=== PATIENT | female | born 1930 | race Two or more races ===

== ENCOUNTER 2016-02-15 14:19 | Emergency (ER) | payer MEDICARE, OTHER ==
--- NOTE | 2016-02-15 14:55 | ER Document Report ---
ED Medical Screen (RME) - General Chief Complaint: Vaginal Bleeding Stated Complaint: VAGINAL BLEEDING Time seen by provider: 14:52 Mode of Arrival: Wheelchair Information source: Patient Notes: 85 yo female c/o vaginal bleeding since , chronic low back pain tx with fx disc injection by dr. rosario on tuesday. Hx kidney stone -chronic. No fever or chills. She is worried that she has urterine cancer. Does not take anticoagulants. TRAVEL OUTSIDE OF THE [place] IN LAST 30 DAYS: No - Related Data Allergies/Adverse Reactions: ciprofloxacin [From Cipro] Allergy (Verified 02/10/16 09:11) Diarrhea, vomiting codeine [Codeine] Allergy (Verified 02/10/16 09:20) diarrhea, vomiting, convulsions diphtheria toxoid,fluid Allergy (Verified 02/10/16 09:22) Rash iodine [Iodine] Allergy (Verified 02/10/16 09:11) diarrhea, vomiting lansoprazole [From Prevacid] Allergy (Verified 02/03/16 14:39) rash latex [Latex] Allergy (Verified 02/03/16 14:39) ITCHY RASH levofloxacin [From Levaquin] Allergy (Verified 02/10/16 09:20) Rash, Diarrhea meloxicam Allergy (Verified 02/10/16 09:22) "symptoms of heart attack" morphine Allergy (Verified 02/10/16 09:22) Chest pain Penicillins Allergy (Verified 02/10/16 09:11) "6 days in coma" Sulfa (Sulfonamide Antibiotics) Allergy (Verified 02/10/16 09:20) Rash Tetanus Vaccines and Toxoid [Tetanus] Allergy (Verified 02/10/16 09:11) convulsions cefdinir [Cefdinir] Adverse Reaction (Intermediate, Verified 02/03/16 14:39) rash MYCINS Allergy (Uncoded 02/03/16 14:39) Past Medical History - Past Medical History Cardiac Medical History: Reports: Hx Congestive Heart Failure, Hx Coronary Artery Disease, Hx DVT, Hx Heart Attack, Hx Hypercholesterolemia, Hx Hypertension Denies: Hx Pulmonary Embolism Pulmonary Medical History: Reports: Hx Asthma, Hx COPD, Hx Pneumonia - x 4 times Denies: Hx Bronchitis, Hx Tuberculosis Neurological Medical History: Reports: Hx Seizures - as baby. Denies: Hx Cerebrovascular Accident Endocrine Medical History: Reports: Hx Diabetes Mellitus Type 1, Hx Diabetes Mellitus Type 2, Hx Hypothyroidism Renal/ Medical History: Reports: Hx Kidney Stones GI Medical History: Reports: Hx Hiatal Hernia. Denies: Hx Hepatitis, Hx Ulcer Musculoskeltal Medical History: Reports Hx Arthritis, Reports Hx Fibromyalgia Psychiatric Medical History: Denies: Hx Depression Infectious Medical History: Denies: Hx Hepatitis Past Surgical History: Reports: Hx Appendectomy, Hx Cholecystectomy, Hx Gynecologic Surgery - Right nephrectomy, Hx Herniorrhaphy, Hx Orthopedic Surgery - L knee, Hx Tonsillectomy, Hx Tubal Ligation, Hx Urinary Tract Surgery - Bladder stone removal. Denies: Hx Cardiac Catheterization, Hx Mastectomy, Hx Open Heart Surgery, Hx Pacemaker - Immunizations Immunizations up to date: Yes Hx Diphtheria, Pertussis, Tetanus Vaccination: Yes - Allergic, "30 years ago" Physical Exam - Vital signs Vitals: Temp Pulse Resp BP Pulse Ox 97.8 F 63 20 151/77 H 100 02/15/16 14:24 02/15/16 14:24 02/15/16 14:24 02/15/16 14:24 02/15/16 14:24 Course - Vital Signs Vital signs: Temp Pulse Resp BP Pulse Ox 97.8 F 63 20 151/77 H 100 02/15/16 14:24 02/15/16 14:24 02/15/16 14:24 02/15/16 14:24 02/15/16 14:24
[2016-02-15] MEDS ORDERED: HYDROCODONE/ACETAMINOPHEN 5-325 MG TABLET PO ONE (15:00)
[2016-02-15 16:09] LABS: ABSOLUTE BASOPHILS # (AUTO) 0.1 10^3/uL (0.0-0.2); ABSOLUTE EOSINOPHILS # (AUTO) 0.2 10^3/uL (0.0-0.6); ABSOLUTE LYMPHOCYTES (AUTO) 1.8 10^3/uL (0.5-4.7); ABSOLUTE MONOCYTES (AUTO) 0.4 10^3/uL (0.1-1.4); ABSOLUTE NEUT (AUTO) 5.5 10^3/uL (1.7-8.2); BASOPHILS % (AUTO) 0.8 % (0-2); EOSINOPHILS % (AUTO) 2.5 % (0-6); HEMATOCRIT 46.1 % (36.0-47.0); HEMOGLOBIN 15.7 g/dL (12.0-15.5); LYMPHOCYTES % (AUTO) 22.9 % (13-45); MEAN CORPUSCULAR HEMOGLOBIN 29.9 pg (27.0-33.4); MEAN CORPUSCULAR VOLUME 88 fl (80-97); MONOCYTES % (AUTO) 4.7 % (3-13); RED BLOOD COUNT 5.26 10^6/uL (3.72-5.28); RED CELL DISTRIBUTION WIDTH 13.7 % (11.5-14.0); SEGMENTED NEUTROPHILS % (AUTO) 69.1 % (42-78); WHITE BLOOD COUNT 7.9 10^3/uL (4.0-10.5)
[2016-02-15 16:17] LABS: PROTHROMBIN TIME 12.7 SEC (11.4-15.4)
[2016-02-15 16:18] LABS: PARTIAL THROMBOPLASTIN TIME 25.4 SEC (23.5-35.8)
[2016-02-15 16:29] LABS: ALANINE AMINOTRANSFERASE 37 U/L (9-52); ALBUMIN 4.2 g/dL (3.5-5.0); ALKALINE PHOSPHATASE 124 U/L (38-126); ANION GAP 11 (5-19); ASPARTATE AMINO TRANSFERASE 20 U/L (14-36); BILIRUBIN,TOTAL 1.1 mg/dL (0.2-1.3); BLOOD UREA NITROGEN 11 mg/dL (7-20); CALCIUM 10.1 mg/dL (8.4-10.2); CARBON DIOXIDE 26 mmol/L (22-30); CHLORIDE 100 mmol/L (98-107); CREATININE RESULT 0.55 mg/dL (0.52-1.25); GLUCOSE 88 mg/dL (75-110); POTASSIUM 4.3 mmol/L (3.6-5.0); SODIUM 137.2 mmol/L (137-145); TOTAL PROTEIN 6.6 g/dL (6.3-8.2)
[2016-02-15 19:51] LABS: APPEARANCE,URINE SLIGHTLY-CLOUDY; BILIRUBIN,URINE NEGATIVE (NEGATIVE); GLUCOSE, URINE NEGATIVE (NEGATIVE); KETONES,URINE NEGATIVE (NEGATIVE); LEUKOCYTE ESTERASE,URINE SMALL (NEGATIVE); NITRITE,URINE NEGATIVE (NEGATIVE); PROTEIN,URINE NEGATIVE (NEGATIVE); URINE SPECIFIC GRAVITY 1.013; UROBILINOGEN,URINE NEGATIVE mg/dL (<2.0)
--- NOTE | 2016-02-15 21:50 | ER Document Report ---
ED General - General Chief Complaint: Vaginal Bleeding Stated Complaint: VAGINAL BLEEDING Mode of Arrival: Wheelchair Notes: Patient is an 85-year-old female that comes emergency department with chief complaint of possible vaginal bleeding. Patient states she is which multiple times and noticed blood on the tissue, she states that this has been going on for about 3 days, patient denies dizziness, shortness of breath, chest pain, abdominal pain, fever or chills. She does not take any blood thinners. She has chronic lower back pain, states that on Tuesday she had an injection by pain management, she states she wonders if this is related. Patient states she has a known left-sided kidney stone and occasionally has blood in her urine related to this, she states this seems different. Patient currently asymptomatic. TRAVEL OUTSIDE OF THE [place] IN LAST 30 DAYS: No - Related Data Allergies/Adverse Reactions: ciprofloxacin [From Cipro] Allergy (Verified 02/10/16 09:11) Diarrhea, vomiting codeine [Codeine] Allergy (Verified 02/10/16 09:20) diarrhea, vomiting, convulsions diphtheria toxoid,fluid Allergy (Verified 02/10/16 09:22) Rash iodine [Iodine] Allergy (Verified 02/10/16 09:11) diarrhea, vomiting lansoprazole [From Prevacid] Allergy (Verified 02/03/16 14:39) rash latex [Latex] Allergy (Verified 02/03/16 14:39) ITCHY RASH levofloxacin [From Levaquin] Allergy (Verified 02/10/16 09:20) Rash, Diarrhea meloxicam Allergy (Verified 02/10/16 09:22) "symptoms of heart attack" morphine Allergy (Verified 02/10/16 09:22) Chest pain Penicillins Allergy (Verified 02/10/16 09:11) "6 days in coma" Sulfa (Sulfonamide Antibiotics) Allergy (Verified 02/10/16 09:20) Rash Tetanus Vaccines and Toxoid [Tetanus] Allergy (Verified 02/10/16 09:11) convulsions cefdinir [Cefdinir] Adverse Reaction (Intermediate, Verified 02/03/16 14:39) rash MYCINS Allergy (Uncoded 02/03/16 14:39) Past Medical History - General Information source: Patient - Social History Smoking Status: Never Smoker Frequency of alcohol use: None Lives with: Family Family History: Reviewed & Not Pertinent, Hypertension - Past Medical History Cardiac Medical History: Reports: Hx Congestive Heart Failure, Hx Coronary Artery Disease, Hx DVT, Hx Heart Attack, Hx Hypercholesterolemia, Hx Hypertension Denies: Hx Pulmonary Embolism Pulmonary Medical History: Reports: Hx Asthma, Hx COPD, Hx Pneumonia - x 4 times Denies: Hx Bronchitis, Hx Tuberculosis Neurological Medical History: Reports: Hx Seizures - as baby. Denies: Hx Cerebrovascular Accident Endocrine Medical History: Reports: Hx Diabetes Mellitus Type 1, Hx Diabetes Mellitus Type 2, Hx Hypothyroidism Renal/ Medical History: Reports: Hx Kidney Stones GI Medical History: Reports: Hx Hiatal Hernia. Denies: Hx Hepatitis, Hx Ulcer Musculoskeltal Medical History: Reports Hx Arthritis, Reports Hx Fibromyalgia Psychiatric Medical History: Denies: Hx Depression Infectious Medical History: Denies: Hx Hepatitis Past Surgical History: Reports: Hx Appendectomy, Hx Cholecystectomy, Hx Gynecologic Surgery - Right nephrectomy, Hx Herniorrhaphy, Hx Orthopedic Surgery - L knee, Hx Tonsillectomy, Hx Tubal Ligation, Hx Urinary Tract Surgery - Bladder stone removal. Denies: Hx Cardiac Catheterization, Hx Mastectomy, Hx Open Heart Surgery, Hx Pacemaker - Immunizations Immunizations up to date: Yes Hx Diphtheria, Pertussis, Tetanus Vaccination: Yes - Allergic, "30 years ago" Hx Pneumococcal Vaccination: 11/15/15 Review of Systems - Review of Systems Constitutional: No symptoms reported EENT: No symptoms reported Cardiovascular: No symptoms reported Respiratory: No symptoms reported Gastrointestinal: See HPI Genitourinary: See HPI Female Genitourinary: See HPI Musculoskeletal: No symptoms reported Skin: No symptoms reported Hematologic/Lymphatic: No symptoms reported Neurological/Psychological: No symptoms reported Physical Exam - Vital signs Vitals: Temp Pulse Resp BP Pulse Ox 97.8 F 63 20 151/77 H 100 02/15/16 14:24 02/15/16 14:24 02/15/16 14:24 02/15/16 14:24 02/15/16 14:24 Interpretation: Normal - General General appearance: Appears well In distress: None - HEENT Head: Normocephalic, Atraumatic Eyes: Normal Pupils: PERRL - Respiratory Respiratory status: No respiratory distress Chest status: Nontender Breath sounds: Normal Chest palpation: Normal - Cardiovascular Rhythm: Regular Heart sounds: Normal auscultation Murmur: No - Abdominal Inspection: Normal Distension: No distension Bowel sounds: Normal Tenderness: Nontender. No: Tender, Guarding Organomegaly: No organomegaly - Back Back: Other - Small Band-Aid pulled back to reveal unremarkable wound/scab in the lumbar area of the back, no tenderness, erythema, ecchymosis, or other abnormality noted. Normal exam of the back otherwise. - Extremities General upper extremity: Normal inspection, Nontender, Normal color, Normal ROM , Normal temperature General lower extremity: Normal inspection, Nontender, Normal color, Normal ROM , Normal temperature, Normal weight bearing. No: Prasad's sign - Neurological Neuro grossly intact: Yes Cognition: Normal Orientation: AAOx4 Murphy Coma Scale Eye Opening: Spontaneous [place] Coma Scale Verbal: Oriented Murphy Coma Scale Motor: Obeys Commands Murphy Coma Scale Total: 15 Speech: Normal Motor strength normal: LUE, RUE, LLE, RLE Sensory: Normal - Psychological Associated symptoms: Normal affect, Normal mood - Skin Skin Temperature: Warm Skin Moisture: Dry Skin Color: Normal Course - Re-evaluation Re-evalutation: Straight catheter does show some hematuria, patient does have some vaginal bleeding on examination of this, mildly heterogenous uterus on ultrasound but no other abnormalities noted. Ultrasound report showing vaginal bleeding, I did attempt to perform a pelvic exam with patient, she was not able to tolerate positioning for this and eventually this was declined. CBC, chemistry, vital signs are unremarkable. Patient given referral to [facility], patient asked medical her daughter about the details of this, I did call her and discuss this (Tali). Discussed return precautions including heavy bleeding, dizziness, fever, or any other concerns, patient and daughter state understanding and agreement. - Vital Signs Vital signs: Temp Pulse Resp BP Pulse Ox 97 F L 66 16 146/88 H 99 02/15/16 22:00 02/15/16 22:00 02/15/16 22:00 02/15/16 22:00 02/15/16 22:00 - Laboratory Result Diagrams: 02/15/16 15:40 02/15/16 15:40 Laboratory results interpreted by me: 02/15/16 02/15/16 15:40 19:20 Hgb 15.7 H Urine Blood MODERATE H Ur Leukocyte Esterase SMALL H Urine Ascorbic Acid 40 H Discharge - Discharge Clinical Impression: Vaginal bleeding Condition: Stable Disposition: HOME, SELF-CARE Additional Instructions: There appears to be both vaginal and urinary tract bleeding. Your workup is normal otherwise. Please follow-up with [facility] referral for additional management and evaluation for vaginal bleeding. Return to emergency department for any concerning symptoms including very heavy bleeding, fever, severe abdominal/pelvic pain, dizziness, etc. Referrals: [facility] [Provider Group] - Follow up in 3-5 days
[2016-02-16 00:20] VITALS: BP 146/88
== END 2016-02-15 22:15 | disposition home or self-care (01) ==
LOC: ER 14:19
DX: N93.8 Other specified abnormal uterine and vaginal bleeding (principal); G89.29 Other chronic pain; M54.5 Low back pain; I50.9 Heart failure, unspecified; I25.10 Atherosclerotic heart disease of native coronary artery without angina pectoris; E78.00 Pure hypercholesterolemia, unspecified; I10 Essential (primary) hypertension; J45.909 Unspecified asthma, uncomplicated; J44.9 Chronic obstructive pulmonary disease, unspecified; E11.9 Type 2 diabetes mellitus without complications; E03.9 Hypothyroidism, unspecified; Z91.040 Latex allergy status; Z88.0 Allergy status to penicillin; Z88.6 Allergy status to analgesic agent; Z88.3 Allergy status to other anti-infective agents; Z88.2 Allergy status to sulfonamides; Z88.7 Allergy status to serum and vaccine; Z86.718 Personal history of other venous thrombosis and embolism; Z90.49 Acquired absence of other specified parts of digestive tract; Z98.51 Tubal ligation status; I25.2 Old myocardial infarction
CPT/HCPCS: 99284; 36415; 87086; 85025; 85610; 85730; 87088; 80053; 81001; 87186; 76856; A9270

== ENCOUNTER → 2016-05-21 | Outpatient (CLI) | payer MEDICARE, OTHER ==
[2016-05-21 12:09] LABS: ALANINE AMINOTRANSFERASE 29 U/L (9-52); ALKALINE PHOSPHATASE 93 U/L (38-126); ASPARTATE AMINO TRANSFERASE 19 U/L (14-36); BILIRUBIN,DIRECT 0.3 mg/dL (0.0-0.4); BILIRUBIN,TOTAL 1.2 mg/dL (0.2-1.3); CHOLESTEROL 222.42 mg/dL (0-200); Direct HDL 66 mg/dL (>40); TOTAL PROTEIN 6.4 g/dL (6.3-8.2); TRIGLYCERIDES 149 mg/dL (<150)
[2016-05-21 12:20] LABS: DIRECT LDL 115 mg/dL (<100)
== END ==
LOC: OD 10:45
PROVIDERS: ATTEND Specialist
DX: R07.2 Precordial pain (principal); I25.118 Atherosclerotic heart disease of native coronary artery with other forms of angina pectoris; R06.02 Shortness of breath; E78.4 Other hyperlipidemia; E03.9 Hypothyroidism, unspecified; E11.9 Type 2 diabetes mellitus without complications; E66.9 Obesity, unspecified; I10 Essential (primary) hypertension; I25.2 Old myocardial infarction; I73.9 Peripheral vascular disease, unspecified; J44.9 Chronic obstructive pulmonary disease, unspecified; M62.81 Muscle weakness (generalized); R09.89 Other specified symptoms and signs involving the circulatory and respiratory systems; R00.1 Bradycardia, unspecified; Z79.899 Other long term (current) drug therapy
CPT/HCPCS: 36415; 80061; 80076; 83036

== ENCOUNTER → 2016-06-04 | Outpatient (CLI) | payer MEDICARE, OTHER | LOC: RAD 13:41 | PROVIDERS: ATTEND Urology | DX: N20.0 Calculus of kidney (principal) | CPT/HCPCS: 76770 ==

== ENCOUNTER → 2016-11-19 | Outpatient (CLI) | payer MEDICARE, OTHER ==
[2016-11-19 12:56] LABS: ALANINE AMINOTRANSFERASE 29 U/L (9-52); ALBUMIN 4.1 g/dL (3.5-5.0); ALKALINE PHOSPHATASE 76 U/L (38-126); ASPARTATE AMINO TRANSFERASE 17 U/L (14-36); BILIRUBIN,DIRECT 0.4 mg/dL (0.0-0.4); BILIRUBIN,TOTAL 1.4 mg/dL (0.2-1.3); Direct HDL 57 mg/dL (>40); TOTAL PROTEIN 6.4 g/dL (6.3-8.2); TRIGLYCERIDES 210 mg/dL (<150)
[2016-11-19 13:07] LABS: DIRECT LDL 120 mg/dL (<100)
== END ==
LOC: OD 11:44
PROVIDERS: ATTEND Specialist
DX: I25.118 Atherosclerotic heart disease of native coronary artery with other forms of angina pectoris (principal); R07.2 Precordial pain; R06.02 Shortness of breath; E78.4 Other hyperlipidemia; E03.9 Hypothyroidism, unspecified; E11.9 Type 2 diabetes mellitus without complications; I10 Essential (primary) hypertension; E66.9 Obesity, unspecified; I25.2 Old myocardial infarction; I73.9 Peripheral vascular disease, unspecified; J44.9 Chronic obstructive pulmonary disease, unspecified; M62.81 Muscle weakness (generalized); R09.89 Other specified symptoms and signs involving the circulatory and respiratory systems; R00.1 Bradycardia, unspecified; Z79.899 Other long term (current) drug therapy
CPT/HCPCS: 36415; 80061; 80076; 83036

== ENCOUNTER → 2017-02-28 | Outpatient (CLI) | payer MEDICARE, OTHER ==
--- NOTE | 2017-02-28 15:52 | RADIOLOGY REPORT (SQ) ---
EXAM DESCRIPTION: BARIUM SWALLOW PHARYNX ONLY COMPLETED DATE/TIME: 02/28/2017 9:22 am REASON FOR STUDY: DYSPHAGIA (R13.10) R13.10 DYSPHAGIA, UNSPECIFIED COMPARISON: Barium swallow 08/23/2013 and upper GI 08/10/2010 TECHNIQUE: Under fluoroscopic guidance, patient ingested thin barium. Fluoroscopic spot images and r outine radiographic images acquired and stored on PACS. 12 MM BARIUM TABLET GIVEN: No. Not given, patient refused LIMITATIONS: Patient is a unable to lay supine or prone on the table. Patient was unable to tolerat e barium tablet or effervescent crystals. FLUOROSCOPY TIME: 1 minutes 34 seconds of fluoro was used. 4 images saved to PACS. FINDINGS: NEUROMUSCULAR COORDINATION OF SWALLOW: Normal. No aspiration. Approximately 2-3 cm Zenker 's diverticulum which is slightly enlarged from previous study. Narrowing of the proximal esophageal stricture from cricopharyngeal hypertrophy. ESOPHAGEAL MOTILITY: Tertiary contractions seen in the distal esophagus. ESOPHAGEAL MUCOSA: Normal mucosa without masses or ulceration. GASTRO-ESOPHAGEAL JUNCTION: No hiatal hernia or reflux seen. Limited study to due to small amount of contrast swallow. Patient refused tablet. NON-GI TRACT STRUCTURES: No significant finding. OTHER: No other significant finding. IMPRESSION: SLIGHT ENLARGEMENT OF THE PATIENT'S KNOWN ZENKER'S DIVERTICULUM, NOW MEASURES APPROXIMAT NATALIE 2 TO 3 CM. 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 MILD ESOPHAGEAL DYSMOTILITY. COMMENT: Quality ID [id number]: Final reports for procedures using fluoroscopy that document radiation exp osure indices, or exposure time and number of fluorographic images (if radiation exposure indices are not available) TECHNICAL DOCUMENTATION: JOB ID: [id number] [employer]- All Rights Reserved
== END ==
LOC: RAD 08:48
PROVIDERS: ATTEND Internal Medicine Geriatric Medicine
DX: R13.10 Dysphagia, unspecified (principal)
CPT/HCPCS: 74210

== ENCOUNTER → 2017-03-22 | Outpatient (CLI) | payer MEDICARE ==
--- NOTE | 2017-03-22 19:38 | XCELERA REPORT ---
[address] [address] Transthoracic Echocardiogram Report Name: STEPH WAYNE Age: 86 yrs Gender: Female : 1930 Patient Status: Outpatient Patient Location: Study Date: 03/22/2017 01:12 PM Height: 63 in Weight: 220 lb BSA: 2.0 m2 Procedure: A complete two-dimensional transthoracic echocardiogram was performed (2D, M-mode, spectral and color flow Doppler). The study was technically difficult with many images being suboptimal in quality. Reason For Study: SOB Ordering Physician: BOSSMAN GARCIA Performed By: Randa Claire Interpretation Summary The left ventricular ejection fraction is normal. There is borderline concentric left ventricular hypertrophy. Doppler measurements suggest pseudonormalized left ventricular relaxation, which is associated with grade II/IV or mild to moderate diastolic dysfunction The left ventricle is grossly normal size. Wall motion cannot be accurately commented on, but no definite regional wall motion abnormalities noted. Right ventricular function cannot be assessed due to poor image quality. The left atrial size is normal. The right atrium is normal. There is no mitral regurgitation noted. There is no mitral valve stenosis. No aortic regurgitation is present. There is no aortic valve stenosis The tricuspid valve is not well visualized secondary to technical limitations The aortic root is not well visualized but is probably normal size. The inferior vena cava was not well visualized There is no pericardial effusion. MMode/2D Measurements & Calculations RVDd: 2.8 cm LVIDd: 5.0 cm FS: 28.1 % Ao root diam: 2.4 cm IVSd: 1.0 cm LVIDs: 3.6 cm EDV(Teich): 117.9 ml LVPWd: 1.0 cm ESV(Teich): 54.2 ml Ao root area: 4.4 cm2 EF(Teich): 54.1 % Doppler Measurements & Calculations MV E max london: MV dec slope: Ao V2 max: LV V1 max P.3 cm/sec 192.0 cm/sec 8.0 mmHg MV A max london: 211.7 cm/sec2 Ao max PG: LV V1 max: 114.0 cm/sec MV dec time: 14.7 mmHg 141.5 cm/sec MV E/A: 0.53 0.29 sec PA V2 max: 105.4 cm/sec PA max P.4 mmHg Left Ventricle The left ventricle is grossly normal size. There is borderline concentric left ventricular hypertrophy. The left ventricular ejection fraction is normal. Doppler measurements suggest pseudonormalized left ventricular relaxation, which is associated with grade II/IV or mild to moderate diastolic dysfunction. Wall motion cannot be accurately commented on, but no definite regional wall motion abnormalities noted. Right Ventricle The right ventricle is not well visualized secondary to technical limitations. Right ventricular function cannot be assessed due to poor image quality. Atria The right atrium is normal. The left atrial size is normal. Interarterial septum not well visualized and not well dopplered. Cannot comment on ASD/PFO presence. Mitral Valve The mitral valve is grossly normal. There is no mitral valve stenosis. There is no mitral regurgitation noted. Aortic Valve The aortic valve is not well visualized secondary to technical limitations. There is no aortic valve stenosis. No aortic regurgitation is present. Tricuspid Valve The tricuspid valve is not well visualized secondary to technical limitations. There is no tricuspid stenosis. No tricuspid regurgitation. Pulmonic Valve The pulmonic valve is not well visualized. Great Vessels The aortic root is not well visualized but is probably normal size. The inferior vena cava was not well visualized. Effusions There is no pericardial effusion. : BOSSMAN GARCIA > Herrera Joseph
== END ==
LOC: SP 13:00
PROVIDERS: ATTEND Specialist
DX: R06.02 Shortness of breath (principal)
CPT/HCPCS: 93306

== ENCOUNTER → 2017-04-19 | Outpatient (CLI) | payer MEDICARE ==
[2017-04-19 13:46] LABS: FREE T3 3.04 pg/mL (2.77-5.27); FREE T4 (FREE THYROXINE) 1.34 ng/dL (0.78-2.19)
[2017-04-19 14:00] LABS: THYROID STIMULATING HORMONE 4.23 uIU/mL (0.47-4.68)
== END ==
LOC: OD 12:14
PROVIDERS: ATTEND Internal Medicine Geriatric Medicine
DX: E03.9 Hypothyroidism, unspecified (principal)
CPT/HCPCS: 36415; 84439; 84443; 84481

== ENCOUNTER → 2017-04-19 | Outpatient (CLI) | payer MEDICARE, OTHER ==
--- NOTE | 2017-04-19 10:43 | RADIOLOGY REPORT (SQ) ---
EXAM DESCRIPTION: COOKIE SWALLOW COMPLETED DATE/TIME: 04/19/2017 8:25 am REASON FOR STUDY: ZENKER'S DIVERTICULUM/DYSPHAGIA R13.10 DYSPHAGIA, UNSPECIFIED K22.5 DIVERTICULUM OF ESOPHAGUS, ACQUIRED FOOD IN PHARYNX CAUSING OTHER INJURY, SEQUELA T17.228 COMPARISON: BARIUM SWALLOW 02/28/2017 TECHNIQUE: Videofluoroscopic swallowing examination was performed in conjunction with speech patholo gy. Videofluoroscopic imaging was obtained and reviewed and these are the findings: RADIATION DOSE: Total fluoroscopy time: 1 minutes 19 seconds 2 fluoroscopy images saved to PACS. LIMITATIONS: None FINDINGS: The patient was brought into the fluoro room and placed upright on a modified barium swall ow chair. The patient was then given multiple consistencies mixed with barium to swallow under live fluoroscopic video guidance. According to the Speech Pathologist there was no laryngeal penetration or tracheal aspiration. Normal oral and pharyngeal transit time observed. No significant post swall ow residual seen. The Zenker's diverticulum is again identified and appears unchanged since prior st udy. Please see speech pathology report for further details and recommendations. IMPRESSION: 1. NO EVIDENCE OF LARYNGEAL PENETRATION OR TRACHEAL ASPIRATION. 2. ZENKER'S DIVERTICULUM UNCHANGED SINCE PRIOR STUDY. 3. PLEASE SEE SPEECH PATHOLOGIST REPORT FOR OTHER FINDINGS AND RECOMMENDATIONS. COMMENT: Quality ID 145: Final reports for procedures using fluoroscopy that document radiation exp osure indices, or exposure time and number of fluorographic images (if radiation exposure indices are not available) TECHNICAL DOCUMENTATION: JOB ID: [id number] [employer]- All Rights Reserved Reading location - IP/workstation name: [facility]
--- NOTE | 2017-04-19 11:11 | ST Modified Barium Swallow ---
Recommendation - Recommendations Recommendations: Normal oral and pharyngeal phase swallowing. Significant Zenker 's diverticulum seen in cervical area. Recommend mechanical soft foods and no nuts, seeds, crumbly textures for patient's comfort level. Recommend medications be given in applesauce or pudding, or in liquid form if able. To follow up with physician for further management of Zenker's diverticulum. Medical Diagnoses - Medical Diagnoses Medical Diagnosis Description & ICD-10 Code(s): K22.5 Zenker's diverticulum, R13.10 dysphagi Other Medical Diagnoses/Co-Morbidities: Per patient report (complete list not given): GERD, COPD, Fibromyalgia, Dysphagia ST Modified Barium Swallow - General Date: 04/19/17 Referring Physician: Dr. Cristel Rene Reason for Referral: worsening difficulty swallowing - History History obtained from: Patient -: Medical - Ms. Cruz attended her assessment independently this day, acted as her own informant. Patient states that she feels she gets choked when eating, also reports difficulty with taking pills. She reports that on 2 separate occasions, pills "exploded" in her throat leading to great discomfort. She also reports that she frequently has to soften foods with liquid to ensure they don' t "get stuck". She does have a history of Zenker's diverticulum, seen on barium swallow study. Medications: Per EMR: Lisinopril, Tramadol, COQ-10, aspirin, nexium, benzonatate , Levocetirizine, hydrochlorothiazide, Vitamin D3, Vitamin B12. Patient reports taking omeprazole for reflux. Allergies: Codeine, Penicillin, Levaquin, Sulfa, tetanus shot, diphteria tox, lansoprazole - Functional Status Prior Functional Status: INDEPENDENT: feeding - modified independent Current Functional Limitations: feeding - modified independent - Subjective Patient/caregiver goal(s): r/o struct. abnormality Cognitive-Linguistic Function: Functional Speech Intelligibility: WNL Current Nutritional Means: PO Current PO diet: Regular - patient is independently altering some foods for comfort in swallowing Current symptoms: c/o Globus sensation, other - hx of Zenker's diverticulum Pain: Patient reports, 0/5 - Objective Assessment: Upright, Left Lateral - Food Trials Used Food trials used: Thin liquids, Pureed The patient: Was Able to Self Feed - Oral-Motor Skills Dentition: Full - Assessment Oral prep: Normal Labial closure: Adequate Leakage: None Mastication: no chewing observed Lingual Movement: Normal Oral stage: Normal for this Procedure - Pharyngeal Stage Initiation of Pharyngeal Stage Reflex: Delayed Reflex Delay Time (Seconds): 5 - patient intentionally slows swallow Decreased laryngeal elevation: No Reduced Velopharyngeal Closure: no Reduced pressure generation: No reduced tongue-based retraction: No Pre-swallow pooling in valleculae: Mild Pre-Swallow pooling in pyriforms: None Reduced Thyro-Hyoid approximation: No Reduced epiglottic excursion: No Reduced pharyngeal peristalsis/contraction: No Post-swallow residulas vallecular: None Post-Swallow residuals in pyriforms: None - Esophageal Stage Cervical Osteophytes noted: Yes - C4-5 Esophageal Stage: Significant Zenker's diverticulum seen at approximately C5-6. Significant amount of residuals seen in diverticulum after the swallow with liquids and solids. Subsequent dry swallow minimally reduced residue in diverticulum. Patient aware of globus sensation in the presence of diverticulum residue. - Fall Risk Assessment Medications/Conditions that increase fall risks include: Antidepressants, sedatives, anti-arrhythmic, diuretic, benzodiazipenes, neuroleptics. BP regulation problems, cardiac problems, balance or gait deficits, neurological problems. Is patient considered at risk for falls: yes Fall Risk Actions Taken: No action needed - Behavioral Observations During evaluation process patient: was cooperative, able to answer questions - Treatment / Educational Needs: Treatment/Education Needs: Treatment consisted of patient education on the role of the Speech Pathologist. Patient's plan of care and golas were communicated as well as scheduling and attendance policies. Recommendations for initial home program were shared. Patient demonstrated understanding and verbalized agreement. - Impression/Summary Laryngeal Penetration: No Tracheal Aspiration: no Patient presents with: Esophageal stage dysph. - due to Zenker's diverticulum Risk of Aspiration: Mild - Recommendations Solid diet recommendations: Mechanical Soft Liquid Diet Modification: Thin Pt/Family education and followup with MD: Yes Dysphagia therapy with [employer]ER: no Reflux Precautions: Taught to Patient Recommended techniques: Fully Upright During Meal, Small Bites and Sips Information, Precautions and Recommendations: Patient (Written), Patient (Verbal ) - Time Total Time: 30 - Plan of Care Patient to follow-up with referring physician: Yes Strategies to optimize patient understanding include:: ongoing assessment of educational needs, implementation of educational strategies, and re-education. - - -: Thank you for the opportunity to work with this patient and his/her family. Should you have any questions about this patient's plan or progress, I can be reached at [phone]. Charge G Code? - - -: Yes [facility] Impairment Category - Rationale Based On Rationale Based On: Func. Asses. Tool Results - Swallowing Current G8996: CI 1-19% Impaired Goal G8997: CI 1-19% Impaired Discharge G8998: CI 1-19% Impaired
== END ==
LOC: RAD 07:48
PROVIDERS: ATTEND Student in an Organized Health Care Education/Training Program
DX: K22.5 Diverticulum of esophagus, acquired (principal); R13.10 Dysphagia, unspecified
CPT/HCPCS: 74230; 92611; G8996; G8997; G8998; 36415; 84439; 84443; 84481

== ENCOUNTER 2017-05-05 03:36 | Emergency (ER) | payer MEDICARE, OTHER ==
--- NOTE | 2017-05-05 03:53 | ER Document Report ---
ED General - General Chief Complaint: Chest Pressure Stated Complaint: CHEST PRESSURE Time Seen by Provider: 05/05/17 03:52 Notes: Patient is an 86-year-old female presents with complaint of pressure in the chest that radiates into her throat. Says started suddenly while she was lying in bed tonight. She says she thinks is related to a diverticulum in her esophagus. She has a long history of diverticular esophagus to cause difficulty swallowing at times because a large amount of pressure into her throat and chest. She is followed by at [facility] and has an appointment with her doctor on Tuesday to discuss possible surgical options. She says that she is possibly in a soft liquid diet but she does mention to me about recently eating some fish and actually recently had to go to the hospital at [facility] on Tuesday of last week because she had a fishbone stuck. 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 She says since this episode tonight she has been bringing up some white phlegm from her esophagus. She said this typically happens whenever she has not exacerbation or inflammation. She is able to handle secretions without difficulty. She denies any true vomiting except for the "white phlegm " No difficulty breathing. No fevers. No other complaints at this time. No bringing up of blood. TRAVEL OUTSIDE OF THE [place] IN LAST 30 DAYS: No - Related Data Allergies/Adverse Reactions: ciprofloxacin [From Cipro] Allergy (Verified 02/10/16 09:11) Diarrhea, vomiting codeine [Codeine] Allergy (Verified 02/10/16 09:20) diarrhea, vomiting, convulsions diphtheria toxoid,fluid Allergy (Verified 02/10/16 09:22) Rash iodine [Iodine] Allergy (Verified 02/10/16 09:11) diarrhea, vomiting lansoprazole [From Prevacid] Allergy (Verified 02/03/16 14:39) rash latex [Latex] Allergy (Verified 02/03/16 14:39) ITCHY RASH levofloxacin [From Levaquin] Allergy (Verified 02/10/16 09:20) Rash, Diarrhea meloxicam Allergy (Verified 02/10/16 09:22) "symptoms of heart attack" morphine Allergy (Verified 02/10/16 09:22) Chest pain Penicillins Allergy (Verified 02/10/16 09:11) "6 days in coma" Sulfa (Sulfonamide Antibiotics) Allergy (Verified 02/10/16 09:20) Rash Tetanus Vaccines and Toxoid [Tetanus] Allergy (Verified 02/10/16 09:11) convulsions cefdinir [Cefdinir] Adverse Reaction (Intermediate, Verified 02/03/16 14:39) rash MYCINS Allergy (Uncoded 02/03/16 14:39) Past Medical History - Social History Smoking Status: Unknown if Ever Smoked Frequency of alcohol use: None Drug Abuse: None Family History: Reviewed & Not Pertinent, Hypertension Patient has suicidal ideation: No Patient has homicidal ideation: No - Past Medical History Cardiac Medical History: Reports: Hx Congestive Heart Failure, Hx Coronary Artery Disease, Hx DVT, Hx Heart Attack, Hx Hypercholesterolemia, Hx Hypertension Denies: Hx Pulmonary Embolism Pulmonary Medical History: Reports: Hx Asthma, Hx COPD, Hx Pneumonia - x 4 times Denies: Hx Bronchitis, Hx Tuberculosis Neurological Medical History: Reports: Hx Seizures - as baby. Denies: Hx Cerebrovascular Accident Endocrine Medical History: Reports: Hx Diabetes Mellitus Type 1, Hx Diabetes Mellitus Type 2, Hx Hypothyroidism Renal/ Medical History: Reports: Hx Kidney Stones. Denies: Hx Peritoneal Dialysis GI Medical History: Reports: Hx Hiatal Hernia. Denies: Hx Hepatitis, Hx Ulcer Musculoskeltal Medical History: Reports Hx Arthritis, Reports Hx Fibromyalgia Psychiatric Medical History: Denies: Hx Depression Infectious Medical History: Denies: Hx Hepatitis Past Surgical History: Reports: Hx Appendectomy, Hx Cholecystectomy, Hx Gynecologic Surgery - Right nephrectomy, Hx Herniorrhaphy, Hx Orthopedic Surgery - L knee, Hx Tonsillectomy, Hx Tubal Ligation, Hx Urinary Tract Surgery - Bladder stone removal. Denies: Hx Cardiac Catheterization, Hx Mastectomy, Hx Open Heart Surgery, Hx Pacemaker - Immunizations Immunizations up to date: Yes Hx Diphtheria, Pertussis, Tetanus Vaccination: Yes - Allergic, "30 years ago" Hx Pneumococcal Vaccination: 11/15/15 Review of Systems - Review of Systems Notes: My Normal Review Basic REVIEW OF SYSTEMS: CONSTITUTIONAL : Denies fever, chills, or sweats. Denies recent illness. EENT: Denies eye, ear, throat, or mouth pain or symptoms. Denies nasal or sinus congestion. CARDIOVASCULAR: Chest pressure. RESPIRATORY: Denies cough, cold, or chest congestion. Denies shortness of breath, difficulty breathing, or wheezing. GASTROINTESTINAL: Swallowing. MUSCULOSKELETAL: Denies neck or back pain or joint pain or swelling. SKIN: Denies rash or skin lesions. NEUROLOGICAL: Denies altered mental status or loss of consciousness. Denies headache. Denies weakness or paralysis or loss of use of either side. Denies problems with gait or speech. Denies sensory or motor loss. ALL OTHER SYSTEMS REVIEWED AND NEGATIVE. Physical Exam - Vital signs Vitals: Resp 16 05/05/17 03:41 - Notes Notes: General Appearance: Well nourished, alert, cooperative, no acute distress, mild obvious discomfort. Vitals: reviewed, See vital signs table. Head: no swelling or tenderness to the head Eyes: PERRL, EOMI, Conjuctiva clear Mouth: No decreasd moisture Throat: No tonsillar inflammation, No airway obstruction, No lymphadenopathy Neck: Supple, no neck tenderness, Lungs: No wheezing, No rales, No rhonci, No accessory muscle use, good air exchange bilaterally. Heart: Normal rate, Regular rythm, No murmur, no rub Abdomen: Normal BS, soft, No rigidity, No abdominal tenderness, No guarding, no rebound, no abdominal masses, no organomegaly Extremities: strength 5/5 in all extremities, good pulses in all extremities, no swelling or tenderness in the extremities, no edema. Skin: warm, dry, appropriate color, no rash Neuro: speech clear, oriented x 3, normal affect, responds appropriately to questions. Course - Re-evaluation Re-evalutation: 05/05/17 05:32 I suspect the patient's chest pressure she had is related to her esophageal issues. She has had similar symptoms in the past. The pressure did start in the upper chest radiating to esophagus and she felt as if she was having worsening difficulty swallowing this occurred. She is now starting to feel improved. She says she does want to go home. She does have a follow-up appointment with Dr. Rene Tuesday [facility]. I did call and speak with Dr. Holm who is covering for Dr. Rene. I want to see if there is anything that we can do further to help her in the meantime until she sees Dr. Rene on Tuesday. He did recommend adding Carafate to her regimen. He also recommends to do just a liquid diet until she follows up on Tuesday. I informed patient of plan and she is agreeable to it. I encouraged her return to ER immediately if she has recurrent worsening chest pressure, any difficulty breathing, fevers, or she feels unwell. Patient agrees with plan and will be discharged home. Dictation of this chart was performed using voice recognition software; therefore, there may be some unintended grammatical errors. - Vital Signs Vital signs: Temp Pulse Resp BP Pulse Ox 97.9 F 20 156/65 H 97 05/05/17 03:52 05/05/17 03:43 05/05/17 03:43 05/05/17 03:43 - Laboratory Result Diagrams: 05/05/17 04:15 05/05/17 04:15 Laboratory results interpreted by me: 05/05/17 04:15 Carbon Dioxide 32 H - EKG Interpretation by Me Additional EKG results interpreted by me: 05/05/17 03:53 EKG is reviewed and interpreted by me. EKG shows sinus rhythm with rate [address] segment elevation or depression. No ischemic T-wave inversions. OK interval, QTc intervals are within normal range. QRS duration is slightly prolonged. Patient does have a left bundle branch block. Old EKG for comparison is from December 03, 2015 and this also shows a left bundle branch block. 05/05/17 03:54 Discharge - Discharge Clinical Impression: Chest pressure Dysphagia Qualifiers: Dysphagia type: unspecified Qualified Code(s): R13.10 - Dysphagia, unspecified Condition: Good Disposition: HOME, SELF-CARE Instructions: Sucralfate ([facility]) Additional Instructions: Please take the carafate as prescribed. please follow up with Dr. Rene on Tuesday as scheduled. Please return to the ER immediately if you have recurrent chest pain, difficulty breathing, fevers, or if you feel that you are worsening. Prescriptions: Sucralfate [Carafate Susp 1 Gm/10 Ml Udcup] 0.5 gm PO ACHS #100 [facility] Referrals: DEBORAH BOWLING MD [Primary Care Provider] - Follow up in 3-5 days
[2017-05-05 04:27] LABS: ABSOLUTE BASOPHILS # (AUTO) 0.1 10^3/uL (0.0-0.2); ABSOLUTE EOSINOPHILS # (AUTO) 0.2 10^3/uL (0.0-0.6); ABSOLUTE LYMPHOCYTES (AUTO) 2.5 10^3/uL (0.5-4.7); ABSOLUTE MONOCYTES (AUTO) 0.4 10^3/uL (0.1-1.4); BASOPHILS % (AUTO) 0.8 % (0-2); EOSINOPHILS % (AUTO) 3.2 % (0-6); HEMATOCRIT 46.9 % (36.0-47.0); HEMOGLOBIN 15.5 g/dL (12.0-15.5); LYMPHOCYTES % (AUTO) 34.5 % (13-45); MEAN CORPUSCULAR HEMOGLOBIN 29.8 pg (27.0-33.4); MEAN CORPUSCULAR VOLUME 90 fl (80-97); PLATELET COUNT 227 10^3/uL (150-450); RED BLOOD COUNT 5.19 10^6/uL (3.72-5.28); SEGMENTED NEUTROPHILS % (AUTO) 55.5 % (42-78); TOTAL CELLS COUNTED % (AUTO) 100 %; WHITE BLOOD COUNT 7.3 10^3/uL (4.0-10.5)
--- NOTE | 2017-05-05 04:30 | RADIOLOGY REPORT (SQ) ---
EXAM DESCRIPTION: CHEST SINGLE VIEW CLINICAL HISTORY: chest pressure COMPARISON: 12/03/2015 FINDINGS: Single frontal view of the chest. Atherosclerotic calcification of the thoracic aorta. Cardiomegaly. No consolidation, pneumothorax, or pleural effusion. Leads overlie the chest. Dextroconvex scoliosis of the thoracic spine is stable. Upper abdominal soft tissues are unremarkable. IMPRESSION: 1. Cardiomegaly. No acute pneumonic process. No significant interval change.
[2017-05-05 04:38] LABS: ALANINE AMINOTRANSFERASE 34 U/L (9-52); ALBUMIN 3.9 g/dL (3.5-5.0); ALKALINE PHOSPHATASE 83 U/L (38-126); ANION GAP 7 (5-19); ASPARTATE AMINO TRANSFERASE 18 U/L (14-36); BILIRUBIN,DIRECT 0.3 mg/dL (0.0-0.4); BILIRUBIN,TOTAL 0.8 mg/dL (0.2-1.3); BLOOD UREA NITROGEN 18 mg/dL (7-20); CALCIUM 10.2 mg/dL (8.4-10.2); CARBON DIOXIDE 32 mmol/L (22-30); CHLORIDE 103 mmol/L (98-107); GLUCOSE 104 mg/dL (75-110); POTASSIUM 4.1 mmol/L (3.6-5.0); SODIUM 141.8 mmol/L (137-145); TOTAL PROTEIN 6.6 g/dL (6.3-8.2)
[2017-05-05 05:56] VITALS: BP 135/71
--- NOTE | 2017-05-05 09:13 | EKG REPORT ---
SEVERITY:- ABNORMAL ECG - SINUS RHYTHM NON SPECIFIC IVCD LEFT AXIS DEVIATION : Confirmed by: Herrera Joseph 05-May-2017 09:12:51
== END 2017-05-05 05:55 | disposition home or self-care (01) ==
LOC: ER 03:36
DX: R07.9 Chest pain, unspecified (principal); R13.10 Dysphagia, unspecified; I50.9 Heart failure, unspecified; I25.10 Atherosclerotic heart disease of native coronary artery without angina pectoris; E78.00 Pure hypercholesterolemia, unspecified; I11.0 Hypertensive heart disease with heart failure; J44.9 Chronic obstructive pulmonary disease, unspecified; E11.9 Type 2 diabetes mellitus without complications; Z88.3 Allergy status to other anti-infective agents; Z91.040 Latex allergy status; Z88.6 Allergy status to analgesic agent; Z88.0 Allergy status to penicillin; Z88.2 Allergy status to sulfonamides; Z88.7 Allergy status to serum and vaccine; Z86.718 Personal history of other venous thrombosis and embolism; Z87.442 Personal history of urinary calculi; Z90.49 Acquired absence of other specified parts of digestive tract; Z90.5 Acquired absence of kidney; Z98.51 Tubal ligation status
CPT/HCPCS: 36415; 71045; 80053; 84484; 85025; 93005; 93010; 99285

== ENCOUNTER → 2017-05-10 | Outpatient (CLI) | payer MEDICARE, OTHER ==
[2017-05-10 15:38] LABS: ANION GAP 6 (5-19); BLOOD UREA NITROGEN 12 mg/dL (7-20); CALCIUM 9.9 mg/dL (8.4-10.2); CARBON DIOXIDE 34 mmol/L (22-30); CHLORIDE 101 mmol/L (98-107); GLUCOSE 88 mg/dL (75-110); SODIUM 140.7 mmol/L (137-145)
== END ==
LOC: OD 13:31
PROVIDERS: ATTEND Internal Medicine
DX: R07.2 Precordial pain (principal); I25.10 Atherosclerotic heart disease of native coronary artery without angina pectoris; R06.02 Shortness of breath; E78.4 Other hyperlipidemia; E03.9 Hypothyroidism, unspecified; E11.9 Type 2 diabetes mellitus without complications; E66.9 Obesity, unspecified; I10 Essential (primary) hypertension; I72.9 Aneurysm of unspecified site; J33.9 Nasal polyp, unspecified; M62.81 Muscle weakness (generalized); R09.89 Other specified symptoms and signs involving the circulatory and respiratory systems; R06.09 Other forms of dyspnea; R60.0 Localized edema; Z79.899 Other long term (current) drug therapy
CPT/HCPCS: 36415; 80048

== ENCOUNTER 2017-05-11 00:52 | Inpatient (IN) | payer MEDICARE, OTHER ==
--- NOTE | 2017-05-11 01:13 | ER Document Report ---
ED General - General Chief Complaint: Urinary Problem Stated Complaint: FEVER Time Seen by Provider: 05/11/17 00:59 Notes: Patient is an 86-year-old female that comes emergency department for chief complaint of fever of 102 at home tonight, she states she has felt poorly for 2 days but tonight had shaking chills. She states she has pain just above her bladder and she also has an ongoing cough with white sputum production. She denies any particular shortness of breath, EMS reports that her pulse oxygenation was 93% on room air, patient has COPD, she does not smoke. Patient also states that she recently had a uterine biopsy for vaginal bleeding by Dr. Thayer and she is scheduled for a Zenker's diverticulum removal in a few days. Past medical history of type 2 diabetes, hypertension, CAD/SD. TRAVEL OUTSIDE OF THE [place] IN LAST 30 DAYS: No - Related Data Allergies/Adverse Reactions: ciprofloxacin [From Cipro] Allergy (Verified 02/10/16 09:11) Diarrhea, vomiting codeine [Codeine] Allergy (Verified 02/10/16 09:20) diarrhea, vomiting, convulsions diphtheria toxoid,fluid Allergy (Verified 02/10/16 09:22) Rash iodine [Iodine] Allergy (Verified 02/10/16 09:11) diarrhea, vomiting lansoprazole [From Prevacid] Allergy (Verified 02/03/16 14:39) rash latex [Latex] Allergy (Verified 02/03/16 14:39) ITCHY RASH levofloxacin [From Levaquin] Allergy (Verified 02/10/16 09:20) Rash, Diarrhea meloxicam Allergy (Verified 02/10/16 09:22) "symptoms of heart attack" morphine Allergy (Verified 02/10/16 09:22) Chest pain Penicillins Allergy (Verified 02/10/16 09:11) "6 days in coma" Sulfa (Sulfonamide Antibiotics) Allergy (Verified 02/10/16 09:20) Rash Tetanus Vaccines and Toxoid [Tetanus] Allergy (Verified 02/10/16 09:11) convulsions cefdinir [Cefdinir] Adverse Reaction (Intermediate, Verified 02/03/16 14:39) rash MYCINS Allergy (Uncoded 02/03/16 14:39) Past Medical History - General Information source: Patient - Social History Smoking Status: Never Smoker Frequency of alcohol use: None Drug Abuse: None Lives with: Family Family History: Reviewed & Not Pertinent, Hypertension - Past Medical History Cardiac Medical History: Reports: Hx Congestive Heart Failure, Hx Coronary Artery Disease, Hx DVT, Hx Heart Attack, Hx Hypercholesterolemia, Hx Hypertension Denies: Hx Pulmonary Embolism Pulmonary Medical History: Reports: Hx Asthma, Hx COPD, Hx Pneumonia - x 4 times Denies: Hx Bronchitis, Hx Tuberculosis Neurological Medical History: Reports: Hx Seizures - as baby. Denies: Hx Cerebrovascular Accident Endocrine Medical History: Reports: Hx Diabetes Mellitus Type 2, Hx Hypothyroidism Renal/ Medical History: Reports: Hx Kidney Stones. Denies: Hx Peritoneal Dialysis GI Medical History: Reports: Hx Hiatal Hernia. Denies: Hx Hepatitis, Hx Ulcer Musculoskeltal Medical History: Reports Hx Arthritis, Reports Hx Fibromyalgia Psychiatric Medical History: Denies: Hx Depression Infectious Medical History: Denies: Hx Hepatitis Past Surgical History: Reports: Hx Appendectomy, Hx Cholecystectomy, Hx Gynecologic Surgery - Right nephrectomy, Hx Herniorrhaphy, Hx Orthopedic Surgery - L knee, Hx Tonsillectomy, Hx Tubal Ligation, Hx Urinary Tract Surgery - Bladder stone removal. Denies: Hx Cardiac Catheterization, Hx Mastectomy, Hx Open Heart Surgery, Hx Pacemaker - Immunizations Immunizations up to date: Yes Hx Diphtheria, Pertussis, Tetanus Vaccination: Yes - Allergic, "30 years ago" Hx Pneumococcal Vaccination: 11/15/15 Review of Systems - Review of Systems Constitutional: See HPI EENT: No symptoms reported Cardiovascular: No symptoms reported Respiratory: See HPI Gastrointestinal: No symptoms reported Genitourinary: See HPI Female Genitourinary: No symptoms reported Musculoskeletal: No symptoms reported Skin: No symptoms reported Hematologic/Lymphatic: No symptoms reported Neurological/Psychological: No symptoms reported Physical Exam - Vital signs Vitals: Resp Pulse Ox 19 97 05/11/17 01:05 05/11/17 01:05 - General General appearance: Appears well In distress: None - HEENT Head: Normocephalic, Atraumatic Eyes: Normal Extraocular movements intact: Yes Eyelashes: Normal Pupils: PERRL Mouth/Lips: Normal Mucous membranes: Normal Pharynx: Normal Neck: Normal - Respiratory Respiratory status: No respiratory distress. No: Respiratory distress Breath sounds: Normal. No: Decreased air movement, Wheezing - Cardiovascular Rhythm: Regular, Tachycardia Heart sounds: Normal auscultation, S1 appreciated, S2 appreciated - Abdominal Inspection: Other - Cholecystectomy scar Tenderness: Tender - Very mild generalized tenderness, slightly more generally in the lower abdomen, nonspecific, no guarding, no rigidity, no rebound tenderness. Patient has a rounded abdomen, she states this is chronic - Genitourinary External exam: Normal Speculum exam: Cervix closed. 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 - Back Back: Normal, Nontender - Extremities General upper extremity: Normal inspection, Nontender, Normal strength, Normal temperature General lower extremity: Normal inspection, Nontender, Normal strength, Normal temperature - Neurological Neuro grossly intact: Yes Cognition: Normal Orientation: AAOx4 Murphy Coma Scale Eye Opening: Spontaneous [place] Coma Scale Verbal: Oriented [place] Coma Scale Motor: Obeys Commands [place] Coma Scale Total: 15 Speech: Normal Motor strength normal: LUE, RUE, LLE, RLE Sensory: Normal - Psychological Associated symptoms: Normal affect, Normal mood - Skin Skin Temperature: Warm Skin Moisture: Dry Skin Color: Normal Course - Re-evaluation Re-evalutation: Patient initially tachycardic, borderline temperature without fever, sepsis workup was initiated. Lactic acid is not elevated however she has leukocytosis at 16,000 with left shift. Patient has some generalized abdominal pain in the lower abdomen, no guarding, she is alert and well-appearing, no specific flank pain, clear lungs, no hypoxia without respiratory distress. Urine shows a few white blood cells, some bacteria, nonspecific. No overt infection. Chest x-ray does not show pneumonia. Patient had recent biopsy but on pelvic exam I do not see abnormalities, discussed with patient CAT scan to rule out abscess or other acute pathology, patient agreed but then refused contrast in radiology and was scanned without contrast as result. Patient was discussed with Dr. Bailey. Patient covered with doxycycline and will be covered with Rocephin as well for potential lung versus pelvic versus urinary sources. CAT scan showing stranding suggestive of pyelonephritis, she is complaining of some flank pain although I do not see specific CVA tenderness with palpation. No obstructing stone. Urine culture pending. Because of patient's age, fever, initial tachycardia, leukocytosis discussed with patient and Dr. Bailey, discussed admission with patient, she is very agreeable with this and states she does not want to go home. Discussed with Dr. Bowling, patient will be admitted to telemetry full admission. - Vital Signs Vital signs: Temp Pulse Resp BP Pulse Ox 98.9 F 29 H 143/81 H 97 05/11/17 01:09 05/11/17 02:02 05/11/17 02:02 05/11/17 02:02 - Laboratory Result Diagrams: 05/11/17 01:35 05/11/17 01:35 Laboratory results interpreted by me: 05/11/17 05/11/17 05/11/17 01:35 01:35 02:00 WBC 16.2 H Seg Neuts % (Manual) 91 H Lymphocytes % (Manual) 4 L Abs Neuts (Manual) 14.7 H Carbon Dioxide 31 H Glucose 142 H Total Bilirubin 1.5 H Urine Ketones 20 H Urine Blood SMALL H Ur Leukocyte Esterase TRACE H Discharge - Discharge Clinical Impression: Cough Fever Qualifiers: Fever type: unspecified Qualified Code(s): R50.9 - Fever, unspecified Abdominal pain Qualifiers: Abdominal location: generalized Qualified Code(s): R10.84 - Generalized abdominal pain Leukocytosis Qualifiers: Leukocytosis type: unspecified Qualified Code(s): D72.829 - Elevated white blood cell count, unspecified Condition: Stable Admitting Provider: Kerri Unit Admitted: Telemetry Referrals: DEBORAH BOWLING MD [Primary Care Provider] - Follow up as needed
[2017-05-11] MEDS ORDERED: FENTANYL CITRATE INJ/PF 100 MCG/2 ML AMPUL IV ONE (01:31)
[2017-05-11] MEDS ORDERED: FENTANYL CITRATE INJ/PF 100 MCG/2 ML AMPUL ONE (01:34)
[2017-05-11 01:51] LABS: HEMATOCRIT 45.6 % (36.0-47.0); HEMOGLOBIN 15.3 g/dL (12.0-15.5); MEAN CORPUSCULAR HEMOGLOBIN 29.9 pg (27.0-33.4); MEAN CORPUSCULAR HGB CONC 33.6 g/dL (32.0-36.0); MEAN CORPUSCULAR VOLUME 89 fl (80-97); PLATELET COUNT 218 10^3/uL (150-450); RED BLOOD COUNT 5.11 10^6/uL (3.72-5.28); RED CELL DISTRIBUTION WIDTH 13.5 % (11.5-14.0); VENOUS BLOOD BASE EXCESS 5.2 mmol/L; VENOUS BLOOD HCO3 31.1 mmol/L (20-32); VENOUS BLOOD PCO2 49.7 mmHg (35-63); VENOUS BLOOD PH 7.41 (7.30-7.42); WHITE BLOOD COUNT 16.2 10^3/uL (4.0-10.5)
[2017-05-11 02:03] LABS: INTERNATIONAL RATION (INR) 0.86; PROTHROMBIN TIME 12.4 SEC (11.4-15.4)
[2017-05-11 02:05] LABS: ALANINE AMINOTRANSFERASE 27 U/L (9-52); ALBUMIN 4.1 g/dL (3.5-5.0); ALKALINE PHOSPHATASE 72 U/L (38-126); ANION GAP 8 (5-19); ASPARTATE AMINO TRANSFERASE 21 U/L (14-36); BILIRUBIN,DIRECT 0.3 mg/dL (0.0-0.4); BILIRUBIN,TOTAL 1.5 mg/dL (0.2-1.3); BLOOD UREA NITROGEN 13 mg/dL (7-20); CALCIUM 9.7 mg/dL (8.4-10.2); CARBON DIOXIDE 31 mmol/L (22-30); CHLORIDE 103 mmol/L (98-107); GLUCOSE 142 mg/dL (75-110); POTASSIUM 3.6 mmol/L (3.6-5.0); SODIUM 142.3 mmol/L (137-145); TOTAL PROTEIN 6.7 g/dL (6.3-8.2)
[2017-05-11 02:07] LABS: ABSOLUTE LYMPHOCYTES# (MANUAL) 0.6 10^3/uL (0.5-4.7); ABSOLUTE MONOCYTES # (MANUAL) 0.8 10^3/uL (0.1-1.4); ABSOLUTE NEUTROPHILS# (MANUAL) 14.7 10^3/uL (1.7-8.2); BASOPHILS % (MANUAL) 0 % (0-2); EOSINOPHILS % (MANUAL) 0 % (0-6); LYMPHOCYTES % (MANUAL) 4 % (13-45); MONOCYTES % (MANUAL) 5 % (3-13); SEGMENTED NEUTROPHILS % (MAN) 91 % (42-78); TOTAL CELLS COUNTED 100
[2017-05-11 02:09] LABS: PLATELET COMMENT ADEQUATE; TOXIC GRANULATION SLIGHT
[2017-05-11 02:18] LABS: APPEARANCE,URINE SLIGHTLY-CLOUDY; BILIRUBIN,URINE NEGATIVE (NEGATIVE); COLOR,URINE YELLOW; GLUCOSE, URINE NEGATIVE (NEGATIVE); KETONES,URINE 20 mg/dL (NEGATIVE); LEUKOCYTE ESTERASE,URINE TRACE (NEGATIVE); NITRITE,URINE NEGATIVE (NEGATIVE); PROTEIN,URINE NEGATIVE (NEGATIVE); URINE SPECIFIC GRAVITY 1.015; UROBILINOGEN,URINE NEGATIVE mg/dL (<2.0)
--- NOTE | 2017-05-11 02:33 | RADIOLOGY REPORT (SQ) ---
EXAM DESCRIPTION: CHEST SINGLE VIEW CLINICAL HISTORY: 86 years Female, cough, fever COMPARISON: 3.22.18 NUMBER OF VIEWS/TECHNIQUE: 1/AP LIMITATIONS: None. FINDINGS: Adequate lung volume, clear parenchyma, mildly enlarged cardiac silhouette, atherosclerosis, and mild osteoarthritis. Moderate dextroconvexity. IMPRESSION: No acute cardiopulmonary findings.
[2017-05-11] MEDS ORDERED: DOXYCYCLINE HYCLATE INJ 100 MG VIAL IV ONE (02:55)
[2017-05-11] MEDS ORDERED: ACETAMINOPHEN 325 MG TABLET PO ONE (03:01)
[2017-05-11] MEDS ORDERED: ACETAMINOPHEN 325 MG TABLET ONE (03:05)
[2017-05-11] MEDS ORDERED: ACETAMINOPHEN SOLN 325 MG/10.15 ML UDCUP ONE (03:12)
--- NOTE | 2017-05-11 04:34 | RADIOLOGY REPORT (SQ) ---
EXAM DESCRIPTION: CT LTD RENAL STONE PROTOCOL ON CLINICAL HISTORY: 86 years Female, fever, lower abd pain, recent endometrial biopsy COMPARISON: None. TECHNIQUE: No contrast. Coronal and sagittal reformat. This exam was performed according to our departmental dose-optimization program, which includes automated exposure control, adjustment of the mA and/or kV according to patient size and/or use of iterative reconstruction technique. FINDINGS: Mild bilateral perinephric fat stranding, left more than right. No significant free fluid. Left renal/calyceal stones measure up to 0.5 cm. Atherosclerosis. Surgical absence of the gallbladder and appendix consistent with history. Suture material associated with proximal sigmoid. Mild L2 anterior vertebral compression deformity with vertebroplasty. Moderate vacuum disc desiccation of the lower thoracic and lower lumbar spine. Moderate osteitis pubis condensans. Unenhanced inferior chest, abdominopelvic structures, and musculoskeleton appear otherwise grossly unremarkable. Impression: Mild bilateral perinephric fat stranding left more than right may indicate chronic medical renal disease and/or pyelonephritis.
[2017-05-11] MEDS ORDERED: CEFTRIAXONE INJ 1000 MG VIAL IV ONE (05:22)
[2017-05-11 06:09] LABS: RBCS (WET MOUNT) RARE RBCS SEEN; T.VAGINALIS (WET MOUNT) NO TRICHOMONAS SEEN; WBCS (WET MOUNT) 1+ WBCS SEEN; YEAST (WET MOUNT) NO YEAST SEEN
--- NOTE | 2017-05-11 08:01 | EKG REPORT ---
SEVERITY:- ABNORMAL ECG - SINUS TACHYCARDIA LAFB IVCD OLD ANTEROSEPTAL ND : Confirmed by: Naveen Paula MD 11-May-2017 08:00:47
[2017-05-11] MEDS ORDERED: TRAMADOL HCL 50 MG TABLET PO PRN (09:03)
[2017-05-11] MEDS ORDERED: (PENDING PHARMACY ID) (Ketoconazole [Nizoral] 1 APPLIC) TP PRN (09:03)
[2017-05-11] MEDS ORDERED: FUROSEMIDE 20 MG TABLET PO PRN (09:03)
[2017-05-11] MEDS ORDERED: CHOLECALCIFEROL (D3) 1,000 UNIT TABLET PO ONE (09:15)
[2017-05-11] MEDS ORDERED: ASPIRIN 81 MG TABLET, CHEWABLE PO ONE (10:00)
[2017-05-11] MEDS ORDERED: LISINOPRIL 5 MG TABLET PO ONE (10:00)
[2017-05-11] MEDS ORDERED: CYANOCOBALAMIN (VITAMIN B-12) 1,000 MCG TABLET PO ONE (10:00)
[2017-05-11] MEDS ORDERED: LEVOTHYROXINE SODIUM 0.1 MG TABLET PO ONE ×2 (10:30→18:00)
[2017-05-11] MEDS ORDERED: HYDROCHLOROTHIAZIDE 25 MG TABLET PO ONE (10:30)
[2017-05-11] MEDS: FAMOTIDINE 20 MG TABLET PO SCH ×2 (13:46→21:21)
[2017-05-11] MEDS: DOXYCYCLINE HYCLATE 100 MG in DEXTROSE 5%-WATER 250 ML IV SCH ×2 (13:46→21:23)
[2017-05-11] MEDS: ACETAMINOPHEN SOLN 325 MG/10.15 ML UDCUP PO PRN (14:22)
[2017-05-11] MEDS: SUCRALFATE SUSP 1 GM/10 ML UDCUP PO SCH ×3 (14:27→21:21)
[2017-05-11] MEDS: CEFTRIAXONE SODIUM 1,000 MG in NORMAL SALINE 100 ML IV SCH (14:31)
[2017-05-11] MEDS: NORMAL SALINE 1000 ML 1,000 ML IV PRN (14:35)
--- NOTE | 2017-05-11 19:12 | PDOC H&P ---
History of Present Illness Admission Date/PCP: 05/11/17 06:12 [facility] Patient complains of: Fever and shaking chills History of Present Illness: STEPH WAYNE is a 86 year old female known to my practice who was brought to the ED by EMS personnel due to listed complaints. She reported not feeling well for about 3 days prior to her presentation. She noted feeling very cold like she was in a deep freezer. She developed elevated temperature on the day of her presentation and advised by her decorating consultant preforming machine operator, Dr Thayer, to come to the Ed. Patient had uterine sound biopsy couple of days ago for abnormal vaginal bleeding. She denied associated nausea, vomiting, constipation, or diarrhea. she reported associated lower quadrants abdominal discomfort. She note some discoloration to urine but denied rickey dysuria. There is chronic back pain that limit differentiation of flank pain. Patient reported productive cough with whitish sputum production. She denied any chest pain, shortness of breathe, headache or dizziness. Her initial evaluation in the ED was significant for possible pyelonephritis with associated leukocytosis. 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 She was advised hospitalization for further evaluation and management of probable sepsis with focus on Pyelonephritis. Past Medical History Cardiac Medical History: Reports: Congestive Heart Failure, Coronary Artery Disease, DVT, Myocardial Infarction, Hyperlipidema, Hypertension Denies: Pulmonary Embolism Pulmonary Medical History: Reports: Asthma, Chronic Obstructive Pulmonary Disease (COPD), Pneumonia - x 4 times Denies: Bronchitis, Tuberculosis Neurological Medical History: Reports: Seizures - as baby Endocrine Medical History: Reports: Diabetes Mellitus Type 1, Diabetes Mellitus Type 2, Hypothyroidism GI Medical History: Reports: Hiatal Hernia Denies: Hepatitis Musculoskeltal Medical History: Reports: Arthritis, Fibromyalgia Psychiatric Medical History: Denies: Depression Hematology: Denies: Anemia Past Surgical History Past Surgical History: Reports: Appendectomy, Cholecystectomy, Herniorrhaphy, Orthopedic Surgery - L knee, Tonsillectomy, Tubal Ligation Denies: Amputation, Cardiac Catheterization, Mastectomy, Pacemaker Social History Lives with: Family Smoking Status: Never Smoker Frequency of Alcohol Use: None Hx Recreational Drug Use: No Drugs: None Hx Prescription Drug Abuse: No - Advance Directive Resuscitation Status: Do Not Resuscitate Family History Family History: Reviewed & Not Pertinent, Hypertension Parental Family History Reviewed: Yes Children Family History Reviewed: Yes Sibling(s) Family History Reviewed.: Yes Medication/Allergy Home Medications: Aspirin [Aspirin 81 mg Chewable Tablet] 81 mg PO QAM 05/11/17 Cholecalciferol (Vitamin D3) [Vitamin D3 2000 unit Tablet] 2,000 unit PO QAM Cyanocobalamin (Vitamin B-12) [Vitamin B-12 1000 Mcg Tablet] 1,000 mcg PO QAM Furosemide [Lasix 20 mg Tablet] 20 mg PO QAMP PRN 05/11/17 Hydrochlorothiazide [Hydrodiuril 25 mg Tablet] 25 mg PO QAM 05/11/17 Ketoconazole [Nizoral] 1 applic TP DAILYP PRN 05/11/17 Levocetirizine Dihydrochloride [Xyzal] 5 mg PO QHS 05/11/17 Levothyroxine Sodium [Synthroid 0.1 mg Tablet] 0.1 mg PO Q6AM 05/11/17 Lisinopril [Prinivil 2.5 mg Tablet] 2.5 mg PO QAM 05/11/17 Omeprazole Suspension 8mg/Ml 5 ml PO QHS 05/11/17 Potassium Chloride [Kaon-Cl 20 Meq/15 Ml Udcup] 10 meq PO QAM 05/11/17 Sucralfate [Carafate Susp 1 Gm/10 Ml Udcup] 5 ml PO ACHS 05/11/17 Tramadol HCl [Ultram 50 mg Tablet] 50 mg PO Q8HP PRN 05/11/17 Ubidecarenone [Co Q-10] 200 mg PO QHS 05/11/17 Allergies/Adverse Reactions: ciprofloxacin [From Cipro] Allergy (Verified 05/11/17 07:30) Diarrhea, vomiting codeine [Codeine] Allergy (Verified 05/11/17 07:30) diarrhea, vomiting, convulsions diphtheria toxoid,fluid Allergy (Verified 05/11/17 07:30) Rash iodine [Iodine] Allergy (Verified 05/11/17 07:30) diarrhea, vomiting lansoprazole [From Prevacid] Allergy (Verified 05/11/17 07:30) rash latex [Latex] Allergy (Verified 05/11/17 07:30) ITCHY RASH levofloxacin [From Levaquin] Allergy (Verified 05/11/17 07:30) Rash, Diarrhea meloxicam Allergy (Verified 05/11/17 07:30) "symptoms of heart attack" morphine Allergy (Verified 05/11/17 07:30) Chest pain Penicillins Allergy (Verified 05/11/17 07:30) "6 days in coma" Sulfa (Sulfonamide Antibiotics) Allergy (Verified 05/11/17 07:30) Rash Tetanus Vaccines and Toxoid [Tetanus] Allergy (Verified 05/11/17 07:30) convulsions cefdinir [Cefdinir] Adverse Reaction (Intermediate, Verified 05/11/17 07:30) rash MYCINS Allergy (Uncoded 05/11/17 07:30) Review of Systems Constitutional: PRESENT: chills, fever(s) Eyes: ABSENT: visual disturbances Ears: ABSENT: hearing changes Nose, Mouth, and Throat: ABSENT: as per HPI, headache(s), mouth pain, sore throat, vertigo, other Cardiovascular: ABSENT: chest pain, dyspnea on exertion, edema, orthropnea, palpitations Respiratory: PRESENT: cough, sputum. ABSENT: as per HPI, dyspnea, hemoptysis, other Gastrointestinal: PRESENT: abdominal pain - lower quadrants. ABSENT: as per HPI , bloating, coffee ground emesis, constipation, diarrhea, dysphagia, heartburn, hematemesis, hematochezia, melena, nausea, vomiting, other Genitourinary: PRESENT: other - urinary frequency for several days. Musculoskeletal: PRESENT: back pain - chronic duration. ABSENT: joint swelling Integumentary: ABSENT: rash, wounds Neurological: ABSENT: abnormal gait, abnormal speech, confusion, dizziness, focal weakness, syncope Psychiatric: ABSENT: anxiety, depression, homidical ideation, suicidal ideation Endocrine: ABSENT: cold intolerance, heat intolerance, polydipsia, polyuria Hematologic/Lymphatic: PRESENT: other - recent vaginal bleeding s/p uterine biopsy.. ABSENT: easy bleeding, easy bruising, lymphadenopathy Allergic/Immunologic: ABSENT: seasonal rhinorrhea Physical Exam Vital Signs: Temp Pulse Resp BP Pulse Ox 98.5 F 61 16 136/65 H 92 05/11/17 16:04 05/11/17 16:04 05/11/17 16:04 05/11/17 16:04 05/11/17 16:04 Intake & Output 05/10/17 05/11/17 05/12/17 06:59 06:59 06:59 Intake Total 300 Balance 300 Weight 88.4 kg General appearance: PRESENT: no acute distress, cooperative, obese Head exam: PRESENT: atraumatic, normocephalic Eye exam: PRESENT: conjunctiva pink, EOMI, PERRLA. ABSENT: scleral icterus Mouth exam: PRESENT: moist Throat exam: ABSENT: post pharyngeal erythema, tonsillar erythema, tonsillar exudate, tonsillogmegaly, other Neck exam: PRESENT: full ROM. ABSENT: carotid bruit, JVD, lymphadenopathy, thyromegaly Respiratory exam: PRESENT: clear to auscultation erlinda, decreased breath sounds - at lung bases Cardiovascular exam: PRESENT: RRR. ABSENT: diastolic murmur, rubs, systolic murmur Pulses: PRESENT: +1 pedal pulses bilateral Vascular exam: PRESENT: normal capillary refill. ABSENT: pallor GI/Abdominal exam: PRESENT: normal bowel sounds, soft. ABSENT: distended, guarding, mass, organolmegaly, rebound, tenderness Rectal exam: PRESENT: deferred Extremities exam: ABSENT: pedal edema Musculoskeletal exam: PRESENT: deformity - related to multiple joints involvement with arthritis Neurological exam: PRESENT: alert, awake, oriented to person, oriented to place , oriented to time, oriented to situation, CN II-XII grossly intact. ABSENT: motor sensory deficit Psychiatric exam: PRESENT: appropriate affect, normal mood. ABSENT: homicidal ideation, suicidal ideation Skin exam: PRESENT: dry, intact, warm. ABSENT: cyanosis, rash Results Impressions: Chest X-Ray 05/11/17 01:11 IMPRESSION: No acute cardiopulmonary findings. Assessment & Plan - Diagnosis (1) Probable sepsis Is this a current diagnosis for this admission?: Yes Plan: See admitting attending physician orders. (2) Diabetes mellitus type 2 in obese Is this a current diagnosis for this admission?: Yes Plan: See admitting attending physician orders. (3) HTN (hypertension) Qualifiers: Hypertension type: essential hypertension Qualified Code(s): I10 - Essential (primary) hypertension (4) CAD (coronary artery disease) Qualifiers: Coronary Disease-Associated Artery/Lesion type: [place] artery [place] vs. transplanted heart: [place] heart Associated angina: without angina Qualified Code(s): I25.10 - Atherosclerotic heart disease of [place] coronary artery without angina pectoris (5) HLD (hyperlipidemia) Qualifiers: Hyperlipidemia type: Pure hypercholesterolemia (7) Hypothyroidism Qualifiers: Hypothyroidism type: acquired Qualified Code(s): E03.9 - Hypothyroidism, unspecified (8) Obesity (BMI 30-39.9) Qualifiers: Obesity type: due to excess calories Obesity classification: adult class 1 (BMI 30 - 34.9) Serious obesity comorbidity presence: with serious comorbidity Body mass index: BMI 34.0-34.9 Qualified Code(s): E66.09 - Other obesity due to excess calories; Z68.34 - Body mass index (BMI) 34.0-34.9, adult; Z68.34 - Body mass index (BMI) 34.0-34.9, adult Is this a current diagnosis for this admission?: Yes Plan: See admitting attending physician orders. (9) Fibromyalgia Is this a current diagnosis for this admission?: Yes Plan: See admitting attending physician orders. (10) Old myocardial infarction Is this a current diagnosis for this admission?: Yes Plan: See admitting attending physician orders. - Time Time Spent: 50 to 70 Minutes Medications reviewed and adjusted accordingly: Yes Anticipated discharge: Home Within: Other - Inpatient Certification Based on my medical assessment, after consideration of the patient's comorbidities, presenting symptoms, or acuity I expect that the services needed warrant INPATIENT care.: Yes I certify that my determination is in accordance with my understanding of Medicare's requirements for reasonable and necessary INPATIENT services [42 CFR 412.3e].: Yes Medical Necessity: Need Close Monitoring Due to Risk of Patient Decompensation, Need For IV Fluids, Need For Continuous Telemetry Monitoring, Need for Nebulizer Therapy and Monitoring of Response, Need for IV Antibiotics, Risk of Complication if Not Cared For in Hospital Post Hospital Care: D/C Television Reporter Documentation - Plan Summary Plan Summary: See admitting attending physician orders. I had extensive discusion with patient regarding resuscitation preference, at this present time she prefer DNR status.
[2017-05-11] MEDS ORDERED: DEXTROSE 40% GEL 15 GM TUBE PO PRN ×2 (19:18)
[2017-05-11] MEDS ORDERED: DEXTROSE 50%-WATER 25 GM/50 ML DISP.SYRIN IV PRN ×2 (19:18)
[2017-05-11] MEDS ORDERED: GLUCAGON,HUMAN RECOMB 1 MG INJ IM PRN (19:18)
[2017-05-11] MEDS ORDERED: INSULIN LISPRO 100 UNIT/ML 3 ML VIAL SUBCUT PRN (19:18)
[2017-05-11] MEDS: CETIRIZINE 5 MG TABLET PO SCH (21:22)
[2017-05-11] MEDS ORDERED: (PENDING PHARMACY ID) (Ubidecarenone [Co Q-10] 200 MG) PO SCH (22:00)
[2017-05-12] MEDS: ACETAMINOPHEN SOLN 325 MG/10.15 ML UDCUP PO PRN ×2 (02:41→23:54)
[2017-05-12] MEDS: LEVOTHYROXINE SODIUM 0.1 MG TABLET PO SCH (05:34)
[2017-05-12 06:14] LABS: ABSOLUTE EOSINOPHILS # (AUTO) 0.4 10^3/uL (0.0-0.6); ABSOLUTE LYMPHOCYTES (AUTO) 1.9 10^3/uL (0.5-4.7); ABSOLUTE MONOCYTES (AUTO) 0.4 10^3/uL (0.1-1.4); ABSOLUTE NEUT (AUTO) 4.8 10^3/uL (1.7-8.2); BASOPHILS % (AUTO) 0.4 % (0-2); EOSINOPHILS % (AUTO) 4.8 % (0-6); HEMATOCRIT 41.2 % (36.0-47.0); HEMOGLOBIN 13.8 g/dL (12.0-15.5); LYMPHOCYTES % (AUTO) 25.3 % (13-45); MEAN CORPUSCULAR HEMOGLOBIN 30.1 pg (27.0-33.4); MEAN CORPUSCULAR HGB CONC 33.6 g/dL (32.0-36.0); MEAN CORPUSCULAR VOLUME 90 fl (80-97); PLATELET COUNT 198 10^3/uL (150-450); RED BLOOD COUNT 4.59 10^6/uL (3.72-5.28); RED CELL DISTRIBUTION WIDTH 13.7 % (11.5-14.0); SEGMENTED NEUTROPHILS % (AUTO) 64.5 % (42-78); TOTAL CELLS COUNTED % (AUTO) 100 %; WHITE BLOOD COUNT 7.4 10^3/uL (4.0-10.5)
[2017-05-12 06:36] LABS: ALANINE AMINOTRANSFERASE 27 U/L (9-52); ALBUMIN 3.4 g/dL (3.5-5.0); ALKALINE PHOSPHATASE 55 U/L (38-126); ANION GAP 6 (5-19); ASPARTATE AMINO TRANSFERASE 15 U/L (14-36); BLOOD UREA NITROGEN 9 mg/dL (7-20); CALCIUM 9.3 mg/dL (8.4-10.2); CARBON DIOXIDE 32 mmol/L (22-30); CHLORIDE 103 mmol/L (98-107); GLUCOSE 101 mg/dL (75-110); POTASSIUM 3.4 mmol/L (3.6-5.0); SODIUM 141.3 mmol/L (137-145); TOTAL PROTEIN 5.6 g/dL (6.3-8.2)
[2017-05-12] MEDS ORDERED: (PENDING PHARMACY ID) (Lisinopril [Prinivil 2.5 Mg Tablet] 2.5 MG) PO SCH (08:00)
[2017-05-12] MEDS ORDERED: (PENDING PHARMACY ID) (Cholecalciferol (Vitamin D3) [Vitamin D3 2000 Unit Tablet] 2,000 UN PO SCH (08:00)
[2017-05-12] MEDS: ASPIRIN 81 MG TABLET, CHEWABLE PO SCH (08:01)
[2017-05-12] MEDS: LISINOPRIL 5 MG TABLET PO SCH (08:02)
[2017-05-12] MEDS: HYDROCHLOROTHIAZIDE 25 MG TABLET PO SCH (08:03)
[2017-05-12] MEDS: CYANOCOBALAMIN (VITAMIN B-12) 1,000 MCG TABLET PO SCH (08:03)
[2017-05-12] MEDS: CHOLECALCIFEROL (D3) 1,000 UNIT TABLET PO SCH (08:04)
[2017-05-12] MEDS: POTASSIUM CHLORIDE 20 MEQ/15 ML UDCUP PO SCH (08:05)
[2017-05-12] MEDS: SUCRALFATE SUSP 1 GM/10 ML UDCUP PO SCH ×4 (08:05→21:23)
[2017-05-12] MEDS ORDERED: POTASSIUM CHLORIDE 20 MEQ/15 ML UDCUP PO ONE (09:00)
[2017-05-12] MEDS ORDERED: CEFTRIAXONE 1 GM/D5W RTU 1 GM/50 ML RTUPB IV SCH (10:00)
[2017-05-12] MEDS: FAMOTIDINE 20 MG TABLET PO SCH ×2 (10:06→21:24)
[2017-05-12] MEDS: CEFTRIAXONE SODIUM 1,000 MG in NORMAL SALINE 100 ML IV SCH (11:32)
[2017-05-12] MEDS: DOXYCYCLINE HYCLATE 100 MG in DEXTROSE 5%-WATER 250 ML IV SCH ×2 (13:16→21:24)
--- NOTE | 2017-05-12 18:45 | PDOC PROGRESS REPORT ---
Subjective Progress Note for:: 05/12/17 Subjective:: No fever or chills. Patient reported ongoing vaginal spotting with mucous discharge. No fever or chills. No abdominal pain, nausea or vomiting. No chest pain or difficulty with breathing. Reason For Visit: PROBABLE SEPSIS,PYELONEPHRITIS Physical Exam Vital Signs: Temp Pulse Resp BP Pulse Ox 98.0 F 56 L 18 120/60 95 05/12/17 15:24 05/12/17 15:24 05/12/17 15:24 05/12/17 15:24 05/12/17 15:24 Intake & Output 05/11/17 05/12/17 05/13/17 06:59 06:59 06:59 Intake Total 1900 468 Balance 1900 468 Weight 88.4 kg General appearance: PRESENT: no acute distress, cooperative, obese Head exam: PRESENT: atraumatic, normocephalic Eye exam: PRESENT: conjunctiva pink, EOMI, PERRLA. ABSENT: scleral icterus Mouth exam: PRESENT: moist Respiratory exam: PRESENT: clear to auscultation erlinda Cardiovascular exam: PRESENT: RRR. ABSENT: diastolic murmur, rubs, systolic murmur Vascular exam: PRESENT: normal capillary refill. ABSENT: pallor GI/Abdominal exam: PRESENT: normal bowel sounds, soft. ABSENT: distended, guarding, mass, organolmegaly, rebound, tenderness Extremities exam: ABSENT: pedal edema Musculoskeletal exam: PRESENT: deformity - related to several joints involvement with arthritis Neurological exam: PRESENT: alert, awake, oriented to person, oriented to place , oriented to time, oriented to situation, CN II-XII grossly intact. ABSENT: motor sensory deficit Psychiatric exam: PRESENT: appropriate affect, normal mood. ABSENT: homicidal ideation, suicidal ideation Skin exam: PRESENT: dry, intact, warm. ABSENT: cyanosis, rash Results Laboratory Results: 05/12/17 05:56 05/12/17 05:56 05/12/17 05/12/17 05/12/17 05:56 05:56 05:56 WBC 7.4 RBC 4.59 Hgb 13.8 Hct 41.2 MCV 90 MCH 30.1 MCHC 33.6 RDW 13.7 Plt Count 198 Seg Neutrophils % 64.5 Lymphocytes % 25.3 Monocytes % 5.0 Eosinophils % 4.8 Basophils % 0.4 Absolute Neutrophils 4.8 Absolute Lymphocytes 1.9 Absolute Monocytes 0.4 Absolute Eosinophils 0.4 Absolute Basophils 0.0 Sodium 141.3 Potassium 3.4 L Chloride 103 Carbon Dioxide 32 H Anion Gap 6 BUN 9 Creatinine 0.55 Est GFR ( Amer) > 60 Est GFR (Non-Af Amer) > 60 Glucose 101 Calcium 9.3 Magnesium 1.9 Total Bilirubin 1.0 AST 15 ALT 27 Alkaline Phosphatase 55 Total Protein 5.6 L Albumin 3.4 L Impressions: Chest X-Ray 05/11/17 01:11 IMPRESSION: No acute cardiopulmonary findings. Assessment & Plan - Diagnosis (1) Probable sepsis Is this a current diagnosis for this admission?: Yes (2) Diabetes mellitus type 2 in obese Is this a current diagnosis for this admission?: Yes (3) HTN (hypertension) Qualifiers: Hypertension type: essential hypertension Qualified Code(s): I10 - Essential (primary) hypertension (4) CAD (coronary artery disease) Qualifiers: Coronary Disease-Associated Artery/Lesion type: [place] artery [place] vs. transplanted heart: [place] heart Associated angina: without angina Qualified Code(s): I25.10 - Atherosclerotic heart disease of [place] coronary artery without angina pectoris (5) HLD (hyperlipidemia) Qualifiers: Hyperlipidemia type: Pure hypercholesterolemia (7) Hypothyroidism Qualifiers: Hypothyroidism type: acquired Qualified Code(s): E03.9 - Hypothyroidism, unspecified (8) Obesity (BMI 30-39.9) Qualifiers: Obesity type: due to excess calories Obesity classification: adult class 1 (BMI 30 - 34.9) Serious obesity comorbidity presence: with serious comorbidity Body mass index: BMI 34.0-34.9 Qualified Code(s): E66.09 - Other obesity due to excess calories; Z68.34 - Body mass index (BMI) 34.0-34.9, adult; Z68.34 - Body mass index (BMI) 34.0-34.9, adult Is this a current diagnosis for this admission?: Yes (9) Fibromyalgia Is this a current diagnosis for this admission?: Yes (10) Old myocardial infarction Is this a current diagnosis for this admission?: Yes (11) Hypokalemia due to loss of potassium Is this a current diagnosis for this admission?: Yes Plan: See attending physician orders. - Time Time Spent with patient: 25-34 minutes Medications reviewed and adjusted accordingly: Yes Anticipated discharge: Home Within: Other - Inpatient Certification Based on my medical assessment, after consideration of the patient's comorbidities, presenting symptoms, or acuity I expect that the services needed warrant INPATIENT care.: Yes I certify that my determination is in accordance with my understanding of Medicare's requirements for reasonable and necessary INPATIENT services [42 CFR 412.3e].: Yes Medical Necessity: Need Close Monitoring Due to Risk of Patient Decompensation, Need For IV Fluids, Need For Continuous Telemetry Monitoring, Need for IV Antibiotics, Risk of Complication if Not Cared For in Hospital Post Hospital Care: D/C Credit Administration Manager Documentation - Plan Summary Plan Summary: See attending physician orders. Follow up on urine and blood cultures finding. Repeat CBC with diff. and BMP in AM.
[2017-05-12] MEDS: CETIRIZINE 5 MG TABLET PO SCH (21:25)
[2017-05-13] MEDS: LEVOTHYROXINE SODIUM 0.1 MG TABLET PO SCH (05:23)
[2017-05-13 05:40] LABS: ABSOLUTE EOSINOPHILS # (AUTO) 0.3 10^3/uL (0.0-0.6); ABSOLUTE MONOCYTES (AUTO) 0.4 10^3/uL (0.1-1.4); ABSOLUTE NEUT (AUTO) 3.4 10^3/uL (1.7-8.2); BASOPHILS % (AUTO) 0.5 % (0-2); EOSINOPHILS % (AUTO) 4.8 % (0-6); HEMATOCRIT 40.6 % (36.0-47.0); HEMOGLOBIN 13.9 g/dL (12.0-15.5); LYMPHOCYTES % (AUTO) 32.8 % (13-45); MEAN CORPUSCULAR HEMOGLOBIN 30.5 pg (27.0-33.4); MEAN CORPUSCULAR HGB CONC 34.1 g/dL (32.0-36.0); MEAN CORPUSCULAR VOLUME 90 fl (80-97); MONOCYTES % (AUTO) 6.1 % (3-13); PLATELET COUNT 191 10^3/uL (150-450); RED BLOOD COUNT 4.54 10^6/uL (3.72-5.28); RED CELL DISTRIBUTION WIDTH 13.8 % (11.5-14.0); SEGMENTED NEUTROPHILS % (AUTO) 55.8 % (42-78); TOTAL CELLS COUNTED % (AUTO) 100 %
[2017-05-13 05:59] LABS: ANION GAP 5 (5-19); BLOOD UREA NITROGEN 6 mg/dL (7-20); CALCIUM 9.6 mg/dL (8.4-10.2); CARBON DIOXIDE 31 mmol/L (22-30); CHLORIDE 103 mmol/L (98-107); GLUCOSE 100 mg/dL (75-110); POTASSIUM 3.7 mmol/L (3.6-5.0); SODIUM 139.3 mmol/L (137-145)
[2017-05-13] MEDS: CYANOCOBALAMIN (VITAMIN B-12) 1,000 MCG TABLET PO SCH (08:24)
[2017-05-13] MEDS: ASPIRIN 81 MG TABLET, CHEWABLE PO SCH (08:25)
[2017-05-13] MEDS: LISINOPRIL 5 MG TABLET PO SCH (08:25)
[2017-05-13] MEDS: POTASSIUM CHLORIDE 20 MEQ/15 ML UDCUP PO SCH (08:25)
[2017-05-13] MEDS: HYDROCHLOROTHIAZIDE 25 MG TABLET PO SCH (08:25)
[2017-05-13] MEDS: CHOLECALCIFEROL (D3) 1,000 UNIT TABLET PO SCH (08:25)
[2017-05-13] MEDS: SUCRALFATE SUSP 1 GM/10 ML UDCUP PO SCH ×4 (08:26→22:01)
[2017-05-13] MEDS: FAMOTIDINE 20 MG TABLET PO SCH ×2 (10:16→22:00)
[2017-05-13] MEDS: CEFTRIAXONE SODIUM 1,000 MG in NORMAL SALINE 100 ML IV SCH (10:17)
[2017-05-13] MEDS: DOXYCYCLINE HYCLATE 100 MG in DEXTROSE 5%-WATER 250 ML IV SCH ×2 (12:24→22:12)
--- NOTE | 2017-05-13 16:40 | PDOC PROGRESS REPORT ---
Subjective Progress Note for:: 05/13/17 Subjective:: No fever or chills. No abdominal pain, nausea or vomiting. No vaginal bleeding or spotting so far today. No chest pain or difficulty with breathing. Requested for advance in diet consistency Reason For Visit: PROBABLE SEPSIS,PYELONEPHRITIS Physical Exam Vital Signs: Temp Pulse Resp BP Pulse Ox 98.4 F 59 L 19 147/67 H 95 05/13/17 16:02 05/13/17 16:02 05/13/17 16:02 05/13/17 16:02 05/13/17 16:02 Intake & Output 05/12/17 05/13/17 05/14/17 06:59 06:59 06:59 Intake Total 1900 2211 0 Balance 1900 2211 0 Weight 88.4 kg Physical Exam: General appearance: PRESENT: no acute distress, cooperative, obese Head exam: PRESENT: atraumatic, normocephalic Eye exam: PRESENT: conjunctiva pink, EOMI, PERRLA. ABSENT: scleral icterus Mouth exam: PRESENT: moist Respiratory exam: PRESENT: clear to auscultation erlinda Cardiovascular exam: PRESENT: RRR. ABSENT: diastolic murmur, rubs, systolic murmur GI/Abdominal exam: PRESENT: normal bowel sounds, soft. ABSENT: distended, guarding, mass, organomegaly, rebound, tenderness Extremities exam: ABSENT: pedal edema Musculoskeletal exam: PRESENT: deformity - related to several joints involvement with arthritis Neurological exam: PRESENT: alert, awake, oriented to person, oriented to place , oriented to time, oriented to situation, CN II-XII grossly intact. ABSENT: motor sensory deficit Psychiatric exam: PRESENT: appropriate affect, normal mood. ABSENT: homicidal ideation, suicidal ideation Skin exam: PRESENT: dry, intact, warm. ABSENT: cyanosis, rash Results Laboratory Results: 05/13/17 05:14 05/13/17 05:14 05/13/17 05/13/17 05:14 05:14 WBC 6.0 RBC 4.54 Hgb 13.9 Hct 40.6 MCV 90 MCH 30.5 MCHC 34.1 RDW 13.8 Plt Count 191 Seg Neutrophils % 55.8 Lymphocytes % 32.8 Monocytes % 6.1 Eosinophils % 4.8 Basophils % 0.5 Absolute Neutrophils 3.4 Absolute Lymphocytes 2.0 Absolute Monocytes 0.4 Absolute Eosinophils 0.3 Absolute Basophils 0.0 Sodium 139.3 Potassium 3.7 Chloride 103 Carbon Dioxide 31 H Anion Gap 5 BUN 6 L Creatinine 0.49 L Est GFR ( Amer) > 60 Est GFR (Non-Af Amer) > 60 Glucose 100 Calcium 9.6 Impressions: Chest X-Ray 05/11/17 01:11 IMPRESSION: No acute cardiopulmonary findings. Assessment & Plan - Diagnosis (1) Probable sepsis Is this a current diagnosis for this admission?: Yes (2) Diabetes mellitus type 2 in obese Is this a current diagnosis for this admission?: Yes (3) HTN (hypertension) Qualifiers: Hypertension type: essential hypertension Qualified Code(s): I10 - Essential (primary) hypertension (4) CAD (coronary artery disease) Qualifiers: Coronary Disease-Associated Artery/Lesion type: [place] artery [place] vs. transplanted heart: [place] heart Associated angina: without angina Qualified Code(s): I25.10 - Atherosclerotic heart disease of [place] coronary artery without angina pectoris (5) HLD (hyperlipidemia) Qualifiers: Hyperlipidemia type: Pure hypercholesterolemia (7) Hypothyroidism Qualifiers: Hypothyroidism type: acquired Qualified Code(s): E03.9 - Hypothyroidism, unspecified (8) Obesity (BMI 30-39.9) Qualifiers: Obesity type: due to excess calories Obesity classification: adult class 1 (BMI 30 - 34.9) Serious obesity comorbidity presence: with serious comorbidity Body mass index: BMI 34.0-34.9 Qualified Code(s): E66.09 - Other obesity due to excess calories; Z68.34 - Body mass index (BMI) 34.0-34.9, adult; Z68.34 - Body mass index (BMI) 34.0-34.9, adult Is this a current diagnosis for this admission?: Yes (9) Fibromyalgia Is this a current diagnosis for this admission?: Yes (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 coli UTI (urinary tract infection) Is this a current diagnosis for this admission?: Yes Plan: Continue IV Rocephin coverage due to her allergy to several oral alternatives. Follow up on her blood culture findings. - Time Time Spent with patient: 25-34 minutes Medications reviewed and adjusted accordingly: Yes Anticipated discharge: Home Within: Other - Inpatient Certification Based on my medical assessment, after consideration of the patient's comorbidities, presenting symptoms, or acuity I expect that the services needed warrant INPATIENT care.: Yes I certify that my determination is in accordance with my understanding of Medicare's requirements for reasonable and necessary INPATIENT services [42 CFR 412.3e].: Yes Medical Necessity: Need Close Monitoring Due to Risk of Patient Decompensation, Need For IV Fluids, Need For Continuous Telemetry Monitoring, Need for IV Antibiotics, Risk of Complication if Not Cared For in Hospital Post Hospital Care: D/C Bender Machine Operator Documentation - Plan Summary Plan Summary: Continue on all current medication management. Advance diet to mechanical soft consistency.
[2017-05-13] MEDS: CETIRIZINE 5 MG TABLET PO SCH (22:00)
[2017-05-14] MEDS: LEVOTHYROXINE SODIUM 0.1 MG TABLET PO SCH (05:52)
[2017-05-14] MEDS: SUCRALFATE SUSP 1 GM/10 ML UDCUP PO SCH ×4 (08:37→21:30)
[2017-05-14] MEDS: CHOLECALCIFEROL (D3) 1,000 UNIT TABLET PO SCH (08:38)
[2017-05-14] MEDS: CYANOCOBALAMIN (VITAMIN B-12) 1,000 MCG TABLET PO SCH (08:38)
[2017-05-14] MEDS: LISINOPRIL 5 MG TABLET PO SCH (08:38)
[2017-05-14] MEDS: HYDROCHLOROTHIAZIDE 25 MG TABLET PO SCH (08:39)
[2017-05-14] MEDS: ASPIRIN 81 MG TABLET, CHEWABLE PO SCH (08:39)
[2017-05-14] MEDS: CEFTRIAXONE SODIUM 1,000 MG in NORMAL SALINE 100 ML IV SCH (10:02)
[2017-05-14] MEDS: NORMAL SALINE 1000 ML 1,000 ML IV PRN (10:03)
[2017-05-14] MEDS: FAMOTIDINE 20 MG TABLET PO SCH ×2 (10:18→21:30)
[2017-05-14] MEDS: DOXYCYCLINE HYCLATE 100 MG in DEXTROSE 5%-WATER 250 ML IV SCH ×2 (11:23→21:31)
[2017-05-14] MEDS: POTASSIUM CHLORIDE 20 MEQ/15 ML UDCUP PO SCH (12:26)
[2017-05-14] MEDS ORDERED: LISINOPRIL 10 MG TABLET PO ONE (15:30)
--- NOTE | 2017-05-14 18:02 | PDOC PROGRESS REPORT ---
Subjective Progress Note for:: 05/14/17 Subjective:: She was seen by the bedside, she has E. coli UTI, presently on IV antibiotic, the blood pressure is severely elevated, will increase the lisinopril Reason For Visit: PROBABLE SEPSIS,PYELONEPHRITIS Physical Exam Vital Signs: Temp Pulse Resp BP Pulse Ox 98.0 F 64 18 138/59 H 95 05/14/17 15:17 05/14/17 15:17 05/14/17 15:17 05/14/17 15:17 05/14/17 15:17 Intake & Output 05/13/17 05/14/17 05/15/17 06:59 06:59 06:59 Intake Total 2211 1542 0 Balance 2211 1542 0 Weight 99 kg General appearance: PRESENT: no acute distress Eye exam: PRESENT: PERRLA Respiratory exam: PRESENT: clear to auscultation erlinda Cardiovascular exam: PRESENT: +S1, +S2 GI/Abdominal exam: PRESENT: soft Neurological exam: PRESENT: alert Results Laboratory Results: 05/13/17 05:14 05/13/17 05:14 Impressions: Chest X-Ray 05/11/17 01:11 IMPRESSION: No acute cardiopulmonary findings. Assessment & Plan - Diagnosis (1) E. coli UTI (urinary tract infection) Is this a current diagnosis for this admission?: Yes Plan: Continue IV antibiotic (2) Hypertensive urgency Is this a current diagnosis for this admission?: Yes Plan: Increase the dose of lisinopril to 10 mg every 12 hours (3) Diabetes mellitus type 2 in obese Is this a current diagnosis for this admission?: Yes
[2017-05-14] MEDS: LISINOPRIL 10 MG TABLET PO SCH (21:30)
[2017-05-14] MEDS: CETIRIZINE 5 MG TABLET PO SCH (21:30)
[2017-05-15] MEDS: LEVOTHYROXINE SODIUM 0.1 MG TABLET PO SCH (06:11)
[2017-05-15] MEDS: CEFTRIAXONE SODIUM 1,000 MG in NORMAL SALINE 100 ML IV SCH (10:11)
[2017-05-15] MEDS: SUCRALFATE SUSP 1 GM/10 ML UDCUP PO SCH ×4 (10:11→21:38)
[2017-05-15] MEDS: CYANOCOBALAMIN (VITAMIN B-12) 1,000 MCG TABLET PO SCH (10:11)
[2017-05-15] MEDS: LISINOPRIL 10 MG TABLET PO SCH ×2 (10:12→21:33)
[2017-05-15] MEDS: ASPIRIN 81 MG TABLET, CHEWABLE PO SCH (10:12)
[2017-05-15] MEDS: CHOLECALCIFEROL (D3) 1,000 UNIT TABLET PO SCH (10:12)
[2017-05-15] MEDS: POTASSIUM CHLORIDE 20 MEQ/15 ML UDCUP PO SCH (10:12)
[2017-05-15] MEDS: HYDROCHLOROTHIAZIDE 25 MG TABLET PO SCH (10:12)
[2017-05-15] MEDS: FAMOTIDINE 20 MG TABLET PO SCH ×2 (10:13→21:33)
[2017-05-15] MEDS: DOXYCYCLINE HYCLATE 100 MG in DEXTROSE 5%-WATER 250 ML IV SCH ×2 (11:26→21:33)
--- NOTE | 2017-05-15 15:23 | PDOC PROGRESS REPORT ---
Subjective Progress Note for:: 05/15/17 Subjective:: She was seen by the bedside, blood pressure is improved Reason For Visit: PROBABLE SEPSIS,PYELONEPHRITIS Physical Exam Vital Signs: Temp Pulse Resp BP Pulse Ox 98.5 F 67 18 149/60 H 95 05/15/17 11:49 05/15/17 14:00 05/15/17 11:49 05/15/17 11:49 05/15/17 11:49 Intake & Output 05/14/17 05/15/17 05/16/17 06:59 06:59 06:59 Intake Total 1542 1135 150 Balance 1542 1135 150 Weight 99 kg 100.2 kg General appearance: PRESENT: no acute distress Head exam: PRESENT: atraumatic, normocephalic Mouth exam: PRESENT: moist, tongue midline Neck exam: PRESENT: full ROM Respiratory exam: PRESENT: clear to auscultation erlinda Cardiovascular exam: PRESENT: RRR, +S1, +S2 Vascular exam: PRESENT: normal capillary refill GI/Abdominal exam: PRESENT: normal bowel sounds, soft Rectal exam: PRESENT: deferred Neurological exam: PRESENT: alert Psychiatric exam: PRESENT: appropriate affect, normal mood Skin exam: PRESENT: dry, intact, warm. ABSENT: cyanosis, rash Results Laboratory Results: 05/13/17 05:14 05/13/17 05:14 Impressions: Chest X-Ray 05/11/17 01:11 IMPRESSION: No acute cardiopulmonary findings. Assessment & Plan - Diagnosis (1) E. coli UTI (urinary tract infection) Is this a current diagnosis for this admission?: Yes (2) Hypertensive urgency Is this a current diagnosis for this admission?: Yes (3) Diabetes mellitus type 2 in obese Is this a current diagnosis for this admission?: Yes - Plan Summary Plan Summary: Continue treatment
[2017-05-15 20:47] LABS: APPEARANCE,URINE CLEAR; BILIRUBIN,URINE NEGATIVE (NEGATIVE); COLOR,URINE COLORLESS; GLUCOSE, URINE NEGATIVE (NEGATIVE); KETONES,URINE NEGATIVE (NEGATIVE); LEUKOCYTE ESTERASE,URINE NEGATIVE (NEGATIVE); NITRITE,URINE NEGATIVE (NEGATIVE); PROTEIN,URINE NEGATIVE (NEGATIVE); URINE SPECIFIC GRAVITY 1.009; UROBILINOGEN,URINE NEGATIVE mg/dL (<2.0)
[2017-05-15] MEDS: CETIRIZINE 5 MG TABLET PO SCH (21:33)
[2017-05-16] MEDS: LEVOTHYROXINE SODIUM 0.1 MG TABLET PO SCH (05:55)
[2017-05-16] MEDS: POTASSIUM CHLORIDE 20 MEQ/15 ML UDCUP PO SCH (09:32)
[2017-05-16] MEDS: SUCRALFATE SUSP 1 GM/10 ML UDCUP PO SCH ×4 (09:33→22:25)
[2017-05-16] MEDS: HYDROCHLOROTHIAZIDE 25 MG TABLET PO SCH (09:34)
[2017-05-16] MEDS: FAMOTIDINE 20 MG TABLET PO SCH ×2 (09:34→22:23)
[2017-05-16] MEDS: CYANOCOBALAMIN (VITAMIN B-12) 1,000 MCG TABLET PO SCH (09:34)
[2017-05-16] MEDS: ASPIRIN 81 MG TABLET, CHEWABLE PO SCH (09:34)
[2017-05-16] MEDS: LISINOPRIL 10 MG TABLET PO SCH ×2 (09:34→22:23)
[2017-05-16] MEDS: CHOLECALCIFEROL (D3) 1,000 UNIT TABLET PO SCH (09:35)
[2017-05-16] MEDS: CEFTRIAXONE SODIUM 1,000 MG in NORMAL SALINE 100 ML IV SCH (13:08)
[2017-05-16] MEDS: DOXYCYCLINE HYCLATE 100 MG in DEXTROSE 5%-WATER 250 ML IV SCH (13:08)
--- NOTE | 2017-05-16 18:54 | PDOC PROGRESS REPORT ---
Subjective Progress Note for:: 05/16/17 Subjective:: No fever or chills. No nausea, vomiting, or abdominal pain. No chest pain or difficulty with breathing. Remain on IV antibiotic therapy. Reason For Visit: PROBABLE SEPSIS,PYELONEPHRITIS Physical Exam Vital Signs: Temp Pulse Resp BP Pulse Ox 98.4 F 65 18 145/50 H 96 05/16/17 14:57 05/16/17 14:57 05/16/17 14:57 05/16/17 14:57 05/16/17 14:57 Intake & Output 05/15/17 05/16/17 05/17/17 06:59 06:59 06:59 Intake Total 1135 1974 1275 Balance 1135 1974 1275 Weight 100.2 kg 99.8 kg 98.1 kg Physical Exam: General appearance: PRESENT: no acute distress, cooperative, obese Head exam: PRESENT: atraumatic, normocephalic Eye exam: PRESENT: conjunctiva pink, EOMI, PERRLA. ABSENT: scleral icterus Mouth exam: PRESENT: moist Respiratory exam: PRESENT: clear to auscultation erlinda Cardiovascular exam: PRESENT: RRR. ABSENT: diastolic murmur, rubs, systolic murmur GI/Abdominal exam: PRESENT: normal bowel sounds, soft. ABSENT: distended, guarding, mass, organomegaly, rebound, tenderness Extremities exam: ABSENT: pedal edema Musculoskeletal exam: PRESENT: deformity - related to several joints involvement with arthritis Neurological exam: PRESENT: alert, awake, oriented to person, oriented to place , oriented to time, oriented to situation, CN II-XII grossly intact. ABSENT: motor sensory deficit Psychiatric exam: PRESENT: appropriate affect, normal mood. ABSENT: homicidal ideation, suicidal ideation Skin exam: PRESENT: dry, intact, warm. ABSENT: cyanosis, rash Results Laboratory Results: 05/13/17 05:14 05/13/17 05:14 05/15/17 20:15 Urine Color COLORLESS Urine Appearance CLEAR Urine pH 7.0 Ur Specific [place] 1.009 Urine Protein NEGATIVE Urine Glucose (UA) NEGATIVE Urine Ketones NEGATIVE Urine Blood NEGATIVE Urine Nitrite NEGATIVE Ur Leukocyte Esterase NEGATIVE Urine WBC (Auto) 1 Urine RBC (Auto) 0 Impressions: Chest X-Ray 05/11/17 01:11 IMPRESSION: No acute cardiopulmonary findings. Assessment & Plan - Diagnosis (1) Probable sepsis Is this a current diagnosis for this admission?: Yes Plan: Thought about upon admission and ruled out with no growth blood culture x 5 days status. (2) Diabetes mellitus type 2 in obese Is this a current diagnosis for this admission?: Yes (3) HTN (hypertension) Qualifiers: Hypertension type: essential hypertension Qualified Code(s): I10 - Essential (primary) hypertension (4) CAD (coronary artery disease) Qualifiers: Coronary Disease-Associated Artery/Lesion type: [place] artery [place] vs. transplanted heart: [place] heart Associated angina: without angina Qualified Code(s): I25.10 - Atherosclerotic heart disease of [place] coronary artery without angina pectoris (5) HLD (hyperlipidemia) Qualifiers: Hyperlipidemia type: Pure hypercholesterolemia (7) Hypothyroidism Qualifiers: Hypothyroidism type: acquired Qualified Code(s): E03.9 - Hypothyroidism, unspecified (8) Obesity (BMI 30-39.9) Qualifiers: Obesity type: due to excess calories Obesity classification: adult class 1 (BMI 30 - 34.9) Serious obesity comorbidity presence: with serious comorbidity Body mass index: BMI 34.0-34.9 Qualified Code(s): E66.09 - Other obesity due to excess calories; Z68.34 - Body mass index (BMI) 34.0-34.9, adult; Z68.34 - Body mass index (BMI) 34.0-34.9, adult Is this a current diagnosis for this admission?: Yes (9) Fibromyalgia Is this a current diagnosis for this admission?: Yes (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 coli UTI (urinary tract infection) Is this a current diagnosis for this admission?: Yes - Time Time Spent with patient: 25-34 minutes Medications reviewed and adjusted accordingly: Yes Anticipated discharge: Home Within: within 24 hours - Inpatient Certification Based on my medical assessment, after consideration of the patient's comorbidities, presenting symptoms, or acuity I expect that the services needed warrant INPATIENT care.: Yes I certify that my determination is in accordance with my understanding of Medicare's requirements for reasonable and necessary INPATIENT services [42 CFR 412.3e].: Yes Medical Necessity: Need Close Monitoring Due to Risk of Patient Decompensation, Need For Continuous Telemetry Monitoring, Need for IV Antibiotics, Risk of Complication if Not Cared For in Hospital Post Hospital Care: D/C Marine Services Technician Documentation - Plan Summary Plan Summary: See attending physician orders.
[2017-05-16] MEDS: CETIRIZINE 5 MG TABLET PO SCH (22:24)
[2017-05-17] MEDS: LEVOTHYROXINE SODIUM 0.1 MG TABLET PO SCH (05:27)
--- NOTE | 2017-05-17 08:16 | PDOC DISCHARGE SUMMARY ---
General - Admit/Disc Date/PCP Admission Date/Primary Care Provider: 05/11/17 06:12 DEBORAH TAWNYA Discharge Date: 05/17/17 - Discharge Diagnosis (1) E. 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 Is this a current diagnosis for this admission?: Yes (11) Hypokalemia due to loss of potassium Is this a current diagnosis for this admission?: Yes - Additional Information Resuscitation Status: Do Not Resuscitate Discharge Diet: Diabetic Discharge Activity: Activity As Tolerated Home Medications: Aspirin [Aspirin 81 mg Chewable Tablet] 81 mg PO QAM 05/11/17 Cholecalciferol (Vitamin D3) [Vitamin D3 2000 unit Tablet] 2,000 unit PO QAM Cyanocobalamin (Vitamin B-12) [Vitamin B-12 1000 mcg Tablet] 1,000 mcg PO QAM Furosemide [Lasix 20 mg Tablet] 20 mg PO QAMP PRN 05/11/17 Hydrochlorothiazide [Hydrodiuril 25 mg Tablet] 25 mg PO QAM 05/11/17 Ketoconazole [Nizoral] 1 applic TP DAILYP PRN 05/11/17 Levocetirizine Dihydrochloride [Xyzal] 5 mg PO QHS 05/11/17 Levothyroxine Sodium [Synthroid 0.1 mg Tablet] 0.1 mg PO Q6AM 05/11/17 Lisinopril [Prinivil 2.5 mg Tablet] 2.5 mg PO QAM 05/11/17 Omeprazole Suspension 8mg/Ml 5 ml PO QHS 05/11/17 Potassium Chloride [Kaon-Cl 20 Meq/15 ml Udcup] 10 meq PO QAM 05/11/17 Sucralfate [Carafate Susp 1 gm/10 ml Udcup] 5 ml PO ACHS 05/11/17 Tramadol HCl [Ultram 50 mg Tablet] 50 mg PO Q8HP PRN 05/11/17 Ubidecarenone [Co Q-10] 200 mg PO QHS 05/11/17 History of Present Illness History of Present Illness: STEPH WAYNE is a 86 year old female known to my practice who was brought to the ED by EMS personnel due to listed complaints. She reported not feeling well for about 3 days prior to her presentation. She noted feeling very cold like she was in a deep freezer. She developed elevated temperature on the day of her presentation and advised by her insurance healthcare consultant hose turner, Dr Thayer, to come to the Ed. Patient had uterine sound biopsy couple of days ago for abnormal vaginal bleeding. She denied associated nausea, vomiting, constipation, or diarrhea. she reported associated lower quadrants abdominal discomfort. She note some discoloration to urine but denied rickey dysuria. There is chronic back pain that limit differentiation of flank pain. Patient reported productive cough with whitish sputum production. She denied any chest pain, shortness of breathe, headache or dizziness. Her initial evaluation in the ED was significant for possible pyelonephritis with associated leukocytosis. Andres morbidities include Diabetes Mellitus type 2, Hypothyroidism, Hypertension, CAD with old MD, CHF, Hyperlipidemia, Asthma COPD, Zenker's diveticulum. She was advised hospitalization for further evaluation and management of probable sepsis with focus on Pyelonephritis. Hospital Course Hospital Course: Patient was admitted with concern for probable sepsis. Her urine culture eventually grew E.coli. She was adequately covered with IV Levofloxacin while awaiting blood culture findings. Her blood culture was no growth x 5 days. Her associated leukocytosis eventually resolved. Her hypokalemia, probably due to urinary loss from furosemide therapy was replaced along with magnesium. Patient remain aferible, no nausea, vomiting, diarrhea or abdominal pain. She is agreeable to discharge home today and she will follow up in the office as instructed upon discharge. Of note, she will follow up with Dr. Thayer, hose turner as instructed regarding her dysfunctional vaginal bleeding evaluation. There was no significant vaginal bleeding during this office visit. Physical Exam Vital Signs: Temp Pulse Resp BP Pulse Ox 98.3 F 63 16 120/54 L 95 05/17/17 07:16 05/17/17 07:16 05/17/17 07:16 05/17/17 07:16 05/17/17 07:16 Intake & Output 05/16/17 05/17/17 05/18/17 06:59 06:59 06:59 Intake Total 1973 1886 Balance 1973 1886 Weight 99.8 kg 100.7 kg Physical Exam: General appearance: PRESENT: no acute distress, cooperative, obese Head exam: PRESENT: atraumatic, normocephalic Eye exam: PRESENT: conjunctiva pink, EOMI, PERRLA. ABSENT: scleral icterus Mouth exam: PRESENT: moist Respiratory exam: PRESENT: clear to auscultation erlinda Cardiovascular exam: PRESENT: RRR. ABSENT: diastolic murmur, rubs, systolic murmur GI/Abdominal exam: PRESENT: normal bowel sounds, soft. ABSENT: distended, guarding, mass, organomegaly, rebound, tenderness Extremities exam: ABSENT: pedal edema Musculoskeletal exam: PRESENT: deformity - related to several joints involvement with arthritis Neurological exam: PRESENT: alert, awake, oriented to person, oriented to place , oriented to time, oriented to situation, CN II-XII grossly intact. ABSENT: motor sensory deficit Psychiatric exam: PRESENT: appropriate affect, normal mood. ABSENT: homicidal ideation, suicidal ideation Skin exam: PRESENT: dry, intact, warm. ABSENT: cyanosis, rash Results Laboratory Results: 05/13/17 05:14 05/13/17 05:14 Impressions: Chest X-Ray 05/11/17 01:11 IMPRESSION: No acute cardiopulmonary findings. Qualifiers - * PATEINT BEING DISCHARGED WITH ANY OF THE FOLLOWING DIAGNOSIS?: No Plan Discharge Plan: D/C home today and follow up in the office as instructed upon discharge.
[2017-05-17 08:23] VITALS: BP 152/64
[2017-05-17] MEDS: CHOLECALCIFEROL (D3) 1,000 UNIT TABLET PO SCH (08:42)
[2017-05-17] MEDS: ASPIRIN 81 MG TABLET, CHEWABLE PO SCH (08:42)
[2017-05-17] MEDS: SUCRALFATE SUSP 1 GM/10 ML UDCUP PO SCH (08:42)
[2017-05-17] MEDS: POTASSIUM CHLORIDE 20 MEQ/15 ML UDCUP PO SCH (08:42)
[2017-05-17] MEDS: FAMOTIDINE 20 MG TABLET PO SCH (08:43)
[2017-05-17] MEDS: CYANOCOBALAMIN (VITAMIN B-12) 1,000 MCG TABLET PO SCH (08:43)
[2017-05-17] MEDS: LISINOPRIL 10 MG TABLET PO SCH (08:43)
[2017-05-17] MEDS: HYDROCHLOROTHIAZIDE 25 MG TABLET PO SCH (08:46)
== END 2017-05-17 10:28 | disposition home or self-care (01) | DRG 690 ==
LOC: ER 00:52 → UNDOADMIN 06:12 → EH 06:12 → 3W 11:28
PROVIDERS: ADMIT Internal Medicine Geriatric Medicine; ATTEND Internal Medicine Geriatric Medicine
DX: N39.0 Urinary tract infection, site not specified (principal); B96.20 Unspecified Escherichia coli [E. coli] as the cause of diseases classified elsewhere; E03.9 Hypothyroidism, unspecified; E87.6 Hypokalemia; M79.7 Fibromyalgia; E66.9 Obesity, unspecified; E11.9 Type 2 diabetes mellitus without complications; I25.10 Atherosclerotic heart disease of native coronary artery without angina pectoris; E78.5 Hyperlipidemia, unspecified; I16.0 Hypertensive urgency; Z66 Do not resuscitate; I11.0 Hypertensive heart disease with heart failure; I50.9 Heart failure, unspecified; N95.0 Postmenopausal bleeding; I25.2 Old myocardial infarction; Z79.82 Long term (current) use of aspirin; Z79.899 Other long term (current) drug therapy; Z68.39 Body mass index [BMI] 39.0-39.9, adult; Z90.49 Acquired absence of other specified parts of digestive tract; Z98.51 Tubal ligation status; Z91.040 Latex allergy status; Z88.0 Allergy status to penicillin; Z88.2 Allergy status to sulfonamides; Z88.6 Allergy status to analgesic agent; Z88.1 Allergy status to other antibiotic agents; Z88.7 Allergy status to serum and vaccine
CPT/HCPCS: 36415; 71045; 76380; 80048; 80053; 81001; 82803; 82962; 83605; 83735; 85025; 85610; 87040; 87086; 87088; 87186; 87210; 93005; 93010; 96365; 96367; 96375; 99285; J0696; J3010; J3490; J7030; J7060

== ENCOUNTER 2017-05-27 00:08 | Emergency (ER) | payer MEDICARE, OTHER ==
[2017-05-27] MEDS ORDERED: FLUCONAZOLE 100 MG TABLET PO ONE (01:47)
--- NOTE | 2017-05-27 01:55 | ER Document Report ---
ED General - General Mode of Arrival: Medic Information source: Patient TRAVEL OUTSIDE OF THE [place] IN LAST 30 DAYS: No <SHIRLEY GARAY - Last Filed: 05/27/17 06:48> <ISABEL PHIPPS - Last Filed: 05/27/17 06:53> - General Chief Complaint: Breathing Difficulty Stated Complaint: DIFFICULTY BREATHING Time Seen by Provider: 05/27/17 01:31 Notes: Patient is a 86-year-old female with a history of COPD presents the emergency department with multiple complaints including chronic shortness of breath and trouble swallowing which is consistent with her diagnosis of Zenker's as well as some vaginal and urinary symptoms. Patient states that she is going to have surgery on June 06 to rectify her chronic shortness of breath and difficulty swallowing. Patients biggest complaints today include vaginal bleeding and itchiness, urgency, burning and frequency and left flank pain. Patient describes her flank pain as "an earthquake". Patient was seen in the emergency department on May 17 and diagnosed with pyelonephritis and feels that her vaginal and urinary symptoms are due to her having pyelonephritis again. Patient also complains of chills although she denies any fevers. (SHIRLEY GARAY) - Related Data Allergies/Adverse Reactions: ciprofloxacin [From Cipro] Allergy (Verified 05/11/17 07:30) Diarrhea, vomiting codeine [Codeine] Allergy (Verified 05/11/17 07:30) diarrhea, vomiting, convulsions diphtheria toxoid,fluid Allergy (Verified 05/11/17 07:30) Rash iodine [Iodine] Allergy (Verified 05/11/17 07:30) diarrhea, vomiting lansoprazole [From Prevacid] Allergy (Verified 05/11/17 07:30) rash latex [Latex] Allergy (Verified 05/11/17 07:30) ITCHY RASH levofloxacin [From Levaquin] Allergy (Verified 05/11/17 07:30) Rash, Diarrhea meloxicam Allergy (Verified 05/11/17 07:30) "symptoms of heart attack" morphine Allergy (Verified 05/11/17 07:30) Chest pain Penicillins Allergy (Verified 05/11/17 07:30) "6 days in coma" Sulfa (Sulfonamide Antibiotics) Allergy (Verified 05/11/17 07:30) Rash Tetanus Vaccines and Toxoid [Tetanus] Allergy (Verified 05/11/17 07:30) convulsions cefdinir [Cefdinir] Adverse Reaction (Intermediate, Verified 05/11/17 07:30) rash MYCINS Allergy (Uncoded 05/11/17 07:30) Past Medical History - General Information source: Patient - Social History Smoking Status: Never Smoker Frequency of alcohol use: None Family History: Reviewed & Not Pertinent, Hypertension Patient has suicidal ideation: No Patient has homicidal ideation: No - Past Medical History Cardiac Medical History: Reports: Hx Congestive Heart Failure, Hx Coronary Artery Disease, Hx DVT, Hx Heart Attack, Hx Hypercholesterolemia, Hx Hypertension Pulmonary Medical History: Reports: Hx Asthma, Hx COPD, Hx Pneumonia - x 4 times Neurological Medical History: Reports: Hx Seizures - as baby Endocrine Medical History: Reports: Hx Diabetes Mellitus Type 1, Hx Diabetes Mellitus Type 2, Hx Hypothyroidism Renal/ Medical History: Reports: Hx Kidney Stones GI Medical History: Reports: Hx Hiatal Hernia Musculoskeltal Medical History: Reports Hx Arthritis, Reports Hx Fibromyalgia Past Surgical History: Reports: Hx Appendectomy, Hx Cholecystectomy, Hx Gynecologic Surgery - Right nephrectomy, Hx Herniorrhaphy, Hx Orthopedic Surgery - L knee, Hx Tonsillectomy, Hx Tubal Ligation, Hx Urinary Tract Surgery - Bladder stone removal - Immunizations Immunizations up to date: Yes Hx Diphtheria, Pertussis, Tetanus Vaccination: Yes - Allergic, "30 years ago" Hx Pneumococcal Vaccination: 11/15/15 <SHIRLEY GARAY - Last Filed: 05/27/17 06:48> Review of Systems - Review of Systems Constitutional: See HPI, Chills EENT: See HPI Cardiovascular: No symptoms reported Respiratory: See HPI, Short of breath Gastrointestinal: No symptoms reported Genitourinary: No symptoms reported, See HPI, Burning, Dysuria, Frequency, Flank pain, Urgency Female Genitourinary: See HPI, Other Musculoskeletal: No symptoms reported Skin: No symptoms reported Hematologic/Lymphatic: No symptoms reported Neurological/Psychological: No symptoms reported -: Yes All other systems reviewed and negative <SHIRLEY GARAY - Last Filed: 05/27/17 06:48> Physical Exam <SHIRLEY GARAY - Last Filed: 05/27/17 06:48> <ISABEL PHIPPS - Last Filed: 05/27/17 06:53> - Vital signs Vitals: Temp Pulse Resp BP Pulse Ox 97.8 F 75 16 128/55 H 96 05/27/17 00:14 05/27/17 00:14 05/27/17 00:14 05/27/17 00:14 05/27/17 00:14 - Notes Notes: GENERAL: Alert, interacts well. No acute distress. HEAD: Normocephalic, atraumatic. EYES: Pupils equal, round, and reactive to light. Extraocular movements intact. ENT: Oral mucosa moist, tongue midline. NECK: Full range of motion. Supple. Trachea midline. LUNGS: Clear to auscultation bilaterally, no wheezes, rales, or rhonchi. No respiratory distress. HEART: Regular rate and rhythm. No murmurs, gallops, or rubs. ABDOMEN: Soft, non-tender. Non-distended. Bowel sounds present in all 4 quadrants. EXTREMITIES: Moves all 4 extremities spontaneously. No edema, radial and dorsalis pedis pulses 2/4 bilaterally. No cyanosis. NEUROLOGICAL: Alert and oriented x3. Normal speech. PSYCH: Normal affect, normal mood. SKIN: Warm, dry, normal turgor. PELVIC: Erythema to the labia. Clumpy white discharge. BACK: No CVA tenderness to percussion. (SHIRLEY GARAY) Course - Laboratory Result Diagrams: 05/27/17 01:50 05/27/17 01:50 <SHIRLEY GARAY - Last Filed: 05/27/17 06:48> - Laboratory Result Diagrams: 05/27/17 01:50 05/27/17 01:50 <ISABEL PHIPPS - Last Filed: 05/27/17 06:53> - Re-evaluation Re-evalutation: 05/27/17 04:45 CBC unremarkable, CMP unremarkable, cardiac enzymes negative, urinalysis unremarkable, no evidence of infection. No liver failure or renal failure. Physical examination is consistent with vulvovaginal candidiasis, treat with Diflucan and discharged to home. No indication for antibiotics or admission. ( ISABEL PHIPPS) - Vital Signs Vital signs: Temp Pulse Resp BP Pulse Ox 98.1 F 75 19 134/66 H 95 05/27/17 05:55 05/27/17 00:14 05/27/17 05:26 05/27/17 05:26 05/27/17 05:26 - Laboratory Laboratory results interpreted by me: 05/27/17 01:50 Carbon Dioxide 34 H Creatine Kinase 23 L - EKG Interpretation by Me Additional EKG results interpreted by me: 05/27/17 04:45 EKG shows sinus bradycardia at a rate of 58, left bundle branch block, no sgarbossa's criteria per my interpretation. (ISABEL PHIPPS) Discharge <SHIRLEY GARAY - Last Filed: 05/27/17 06:48> <ISABEL PHIPPS - Last Filed: 05/27/17 06:53> - Discharge Clinical Impression: Vulvovaginal candidiasis, Zenker diverticula Condition: Stable Disposition: HOME, SELF-CARE Additional Instructions: Today your urinalysis was completely negative. There was no evidence of infection or blood. There is no sign of damage to your kidneys on your blood work and her white blood cell count was normal. We did find evidence of a yeast infection in your vagina. This is likely what is causing a lot of your pain and or burning. We treated you with Diflucan by mouth. This should decrease her pain within the next 48 hours. You may use [id number] wipes such as Vagisil wipes to help decrease her pain as well. Referrals: DEBORAH BOWLING MD [Primary Care Provider] - Follow up as needed VANDANA CORTES MD [ACTIVE STAFF] - Follow up in 3-5 days Scribe Attestation: 05/27/17 06:53 I personally performed the services described in the documentation, reviewed and edited the documentation which was dictated to the scribe in my presence, and it accurately records my words and actions. (ISABEL PHIPPS) Scribe Documentation - Scribe Written by Scriblottie:: Sarah Adam, 05/27/2017 02:09 acting as scribe for :: Lina <SHIRLEY GARAY - Last Filed: 05/27/17 06:48>
[2017-05-27 02:14] LABS: ABSOLUTE BASOPHILS # (AUTO) 0.1 10^3/uL (0.0-0.2); ABSOLUTE EOSINOPHILS # (AUTO) 0.3 10^3/uL (0.0-0.6); ABSOLUTE LYMPHOCYTES (AUTO) 2.5 10^3/uL (0.5-4.7); ABSOLUTE MONOCYTES (AUTO) 0.5 10^3/uL (0.1-1.4); ABSOLUTE NEUT (AUTO) 4.3 10^3/uL (1.7-8.2); BASOPHILS % (AUTO) 0.8 % (0-2); EOSINOPHILS % (AUTO) 3.3 % (0-6); HEMATOCRIT 44.8 % (36.0-47.0); HEMOGLOBIN 14.8 g/dL (12.0-15.5); LYMPHOCYTES % (AUTO) 32.3 % (13-45); MEAN CORPUSCULAR HEMOGLOBIN 29.7 pg (27.0-33.4); MEAN CORPUSCULAR VOLUME 90 fl (80-97); MONOCYTES % (AUTO) 6.3 % (3-13); PLATELET COUNT 238 10^3/uL (150-450); RED BLOOD COUNT 4.98 10^6/uL (3.72-5.28); RED CELL DISTRIBUTION WIDTH 13.8 % (11.5-14.0); SEGMENTED NEUTROPHILS % (AUTO) 57.3 % (42-78); TOTAL CELLS COUNTED % (AUTO) 100 %; WHITE BLOOD COUNT 7.6 10^3/uL (4.0-10.5)
[2017-05-27 02:27] LABS: ALANINE AMINOTRANSFERASE 28 U/L (9-52); ALKALINE PHOSPHATASE 81 U/L (38-126); ANION GAP 9 (5-19); ASPARTATE AMINO TRANSFERASE 20 U/L (14-36); BILIRUBIN,DIRECT 0.3 mg/dL (0.0-0.4); BILIRUBIN,TOTAL 0.7 mg/dL (0.2-1.3); BLOOD UREA NITROGEN 19 mg/dL (7-20); CARBON DIOXIDE 34 mmol/L (22-30); CHLORIDE 101 mmol/L (98-107); CREATINE KINASE 23 U/L (30-135); GLUCOSE 103 mg/dL (75-110); POTASSIUM 3.9 mmol/L (3.6-5.0); SODIUM 143.5 mmol/L (137-145); TOTAL PROTEIN 6.5 g/dL (6.3-8.2)
[2017-05-27 02:54] LABS: CREATINE KINASE MB 0.37 ng/mL (<4.55); TROPONIN I < 0.012 ng/mL
[2017-05-27 04:11] LABS: APPEARANCE,URINE SLIGHTLY-CLOUDY; BILIRUBIN,URINE NEGATIVE (NEGATIVE); COLOR,URINE YELLOW; GLUCOSE, URINE NEGATIVE (NEGATIVE); KETONES,URINE NEGATIVE (NEGATIVE); LEUKOCYTE ESTERASE,URINE NEGATIVE (NEGATIVE); NITRITE,URINE NEGATIVE (NEGATIVE); PROTEIN,URINE NEGATIVE (NEGATIVE); URINE SPECIFIC GRAVITY 1.017; UROBILINOGEN,URINE NEGATIVE mg/dL (<2.0)
--- NOTE | 2017-05-27 05:29 | RADIOLOGY REPORT (SQ) ---
EXAM DESCRIPTION: CHEST 2 VIEWS CLINICAL HISTORY: 86 years Female, SOB, zenkers, trouble swallowing COMPARISON: 3.28.18 NUMBER OF VIEWS/TECHNIQUE: 2, PA and Lateral LIMITATIONS: None. FINDINGS: Normal lung volume. Clear parenchyma. Mild chronic interstitial lung disease pattern. Normal cardiac silhouette. Atherosclerosis. Vertebroplasty with mild anterior vertebral height loss at a lower thoracic level. Stable. IMPRESSION: No acute cardiopulmonary findings.
[2017-05-27 06:05] VITALS: BP 134/66
--- NOTE | 2017-05-27 07:56 | EKG REPORT ---
SEVERITY:- ABNORMAL ECG - SINUS RHYTHM LEFT ANTERIOR FASCICULAR BLOCK POOR R WAVE PROGRESSION,CONSIDER OLD ANTERIOR MT : Confirmed by: Naveen Paula MD 27-May-2017 07:55:16
== END 2017-05-27 05:45 | disposition home or self-care (01) ==
LOC: ER 00:08
DX: B37.3 Candidiasis of vulva and vagina (principal); K22.5 Diverticulum of esophagus, acquired; R06.02 Shortness of breath; R13.10 Dysphagia, unspecified; R39.198 Other difficulties with micturition; N93.9 Abnormal uterine and vaginal bleeding, unspecified; R39.15 Urgency of urination; R35.0 Frequency of micturition; R10.9 Unspecified abdominal pain; R68.83 Chills (without fever); R30.0 Dysuria; J44.9 Chronic obstructive pulmonary disease, unspecified; I25.2 Old myocardial infarction; I10 Essential (primary) hypertension; E11.9 Type 2 diabetes mellitus without complications; I25.10 Atherosclerotic heart disease of native coronary artery without angina pectoris
CPT/HCPCS: 93005; 99285; 36415; 87040; 87086; 82553; 82550; 85025; 87088; 80053; 81001; 84484; 87186; 71046; 93010; A9270

== ENCOUNTER 2017-07-14 19:33 | Emergency (ER) | payer MEDICARE, OTHER ==
[2017-07-14] MEDS ORDERED: FENTANYL CITRATE INJ/PF 100 MCG/2 ML AMPUL IM ONE (20:38)
[2017-07-14] MEDS ORDERED: ONDANSETRON 4 MG TAB.RAPDIS PO ONE (20:38)
[2017-07-14] MEDS ORDERED: RINGERS SOLUTION,LACTATED 1,000 ML IV PRN (20:41)
--- NOTE | 2017-07-14 20:41 | ER Document Report ---
ED Medical Screen (RME) - General Chief Complaint: Neck Injury Stated Complaint: NECK PAIN Time Seen by Provider: 07/14/17 20:36 Notes: 86 years old female presents today with right-sided neck pain over the soft tissue region. Particularly over the tonsil pharyngeal region. 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 Today she presents with pain and swelling, unable to eat for 24 hours. Could not turn her neck due to pain. Denies any fever chills or other constitutional symptoms. She called the [facility] surgical center, they advised her to come to the nearest ED to be evaluated and contact them afterwards. Denies any fever chills or other constitutional symptoms I have greeted and performed a rapid initial assessment of this patient. A comprehensive ED assessment and evaluation of the patient, analysis of test results and completion of the medical decision making process will be conducted by additional ED providers. PHYSICAL EXAMINATION: GENERAL: Well-appearing, well-nourished and in no acute distress. HEAD: Atraumatic, normocephalic. EYES: Pupils equal round extraocular movements intact, conjunctiva are normal. ENT: Nares patent, sharp tenderness over the right tonsillar pharyngeal region noted. Examining the pharynx did not show any exudates erythema. NECK: Normal range of motion LUNGS: No respiratory distress Musculoskeletal: Normal range of motion NEUROLOGICAL: Normal speech, normal gait. PSYCH: Normal mood, normal affect. SKIN: Warm, Dry, normal turgor, no rashes or lesions noted. TRAVEL OUTSIDE OF THE [place] IN LAST 30 DAYS: No - Related Data Allergies/Adverse Reactions: ciprofloxacin [From Cipro] Allergy (Verified 05/11/17 07:30) Diarrhea, vomiting codeine [Codeine] Allergy (Verified 05/11/17 07:30) diarrhea, vomiting, convulsions diphtheria toxoid,fluid Allergy (Verified 05/11/17 07:30) Rash iodine [Iodine] Allergy (Verified 05/11/17 07:30) diarrhea, vomiting lansoprazole [From Prevacid] Allergy (Verified 05/11/17 07:30) rash latex [Latex] Allergy (Verified 05/11/17 07:30) ITCHY RASH levofloxacin [From Levaquin] Allergy (Verified 05/11/17 07:30) Rash, Diarrhea meloxicam Allergy (Verified 05/11/17 07:30) "symptoms of heart attack" morphine Allergy (Verified 05/11/17 07:30) Chest pain Penicillins Allergy (Verified 05/11/17 07:30) "6 days in coma" Sulfa (Sulfonamide Antibiotics) Allergy (Verified 05/11/17 07:30) Rash Tetanus Vaccines and Toxoid [Tetanus] Allergy (Verified 05/11/17 07:30) convulsions cefdinir [Cefdinir] Adverse Reaction (Intermediate, Verified 05/11/17 07:30) rash MYCINS Allergy (Uncoded 05/11/17 07:30) Past Medical History - Past Medical History Cardiac Medical History: Reports: Hx Congestive Heart Failure, Hx Coronary Artery Disease, Hx DVT, Hx Heart Attack, Hx Hypercholesterolemia, Hx Hypertension Denies: Hx Pulmonary Embolism Pulmonary Medical History: Reports: Hx Asthma, Hx COPD, Hx Pneumonia - x 4 times Denies: Hx Bronchitis, Hx Tuberculosis Neurological Medical History: Reports: Hx Seizures - as baby. Denies: Hx Cerebrovascular Accident Endocrine Medical History: Reports: Hx Diabetes Mellitus Type 1, Hx Diabetes Mellitus Type 2, Hx Hypothyroidism Renal/ Medical History: Reports: Hx Kidney Stones. Denies: Hx Peritoneal Dialysis GI Medical History: Reports: Hx Hiatal Hernia. Denies: Hx Hepatitis, Hx Ulcer Musculoskeltal Medical History: Reports Hx Arthritis, Reports Hx Fibromyalgia Psychiatric Medical History: Denies: Hx Depression Infectious Medical History: Denies: Hx Hepatitis Past Surgical History: Reports: Hx Appendectomy, Hx Cholecystectomy, Hx Gynecologic Surgery - Right nephrectomy, Hx Herniorrhaphy, Hx Orthopedic Surgery - L knee, Hx Tonsillectomy, Hx Tubal Ligation, Hx Urinary Tract Surgery - Bladder stone removal. Denies: Hx Cardiac Catheterization, Hx Mastectomy, Hx Open Heart Surgery, Hx Pacemaker - Immunizations Immunizations up to date: Yes Hx Diphtheria, Pertussis, Tetanus Vaccination: Yes - Allergic, "30 years ago" History of Influenza Vaccine for 11/2016 - 04/2017 Season: Yes Influenza Administration Date for 11/2016 - 04/2017 Season: 11/14/16 Physical Exam - Vital signs Vitals: Temp Pulse Resp BP Pulse Ox 98.0 F 70 16 162/71 H 96 07/14/17 19:51 07/14/17 19:51 07/14/17 19:51 07/14/17 19:51 07/14/17 19:51 Course - Vital Signs Vital signs: Temp Pulse Resp BP Pulse Ox 98.0 F 70 16 162/71 H 96 07/14/17 19:51 07/14/17 19:51 07/14/17 19:51 07/14/17 19:51 07/14/17 19:51 Doctor's Discharge - Discharge Referrals: DEBORAH BOWLING MD [Primary Care Provider] - Follow up as needed
--- NOTE | 2017-07-14 22:43 | RADIOLOGY REPORT (SQ) ---
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 TECHNIQUE: Contiguous axial images obtained through the neck and chest without IV contrast. Reformatted images obtained. This exam was performed according to our department optimization program which includes automated exposure control, adjustment of the mA and/or kv according to patient size and/or use of iterative reconstruction technique. FINDINGS: Imaging was obtained to the midportion of the chest. There is vascular calcification in the aorta and the coronary vessels. No significant hilar or mediastinal adenopathy is noted. No significant axillary adenopathy. Groundglass densities bilaterally which are nonspecific. Small Zenker's diverticulum is noted. Parotid glands and submandibular glands appear symmetric. Epiglottis and vocal cords are unremarkable. Tortuous carotid arteries without evidence of calcified plaque in the bulbs. The visualized segments of the paranasal sinuses, the middle ears and mastoid air cells appear clear. There is no evidence of parapharyngeal or retropharyngeal fluid collection. Degenerative changes are present in the spine and shoulders. IMPRESSION: Zenker's diverticulum noted Patchy groundglass densities in the lungs bilaterally which are nonspecific. Findings may be related to senescent lung. Early infection or edema is not excluded Small amount of vascular calcification in aorta and the great vessels and in the coronary arteries The inferior aspects of the chest were not included.
[2017-07-14] MEDS ORDERED: DIAZEPAM 5 MG TABLET PO ONE (23:13)
[2017-07-14] MEDS ORDERED: FENTANYL CITRATE INJ/PF 100 MCG/2 ML AMPUL IV ONE (23:15)
--- NOTE | 2017-07-14 23:22 | ER Document Report ---
ED General - General Chief Complaint: Neck Injury Stated Complaint: NECK PAIN Time Seen by Provider: 07/14/17 20:36 Mode of Arrival: Ambulatory Information source: Patient Notes: 86-year-old female with type 1 diabetes, hypertension, COPD, CHF and recent Zenker's diverticulum repair presents with complaint of neck pain. Patient states neck pain started 1 day prior to arrival. Her surgery for a Zenker's diverticulum was 1 week prior to arrival at [facility] with Dr. Cristel Rene. She states that she has had no complications until yesterday when she began to experience right, left and posterior neck pain. She describes it as throbbing, constant. She is unable to turn her head to the left or right without pain. Patient states that she recently started to sleep in her bed after 8 months of sitting straight up. Patient did contact the on-call physician who recommended her to come to the emergency department. TRAVEL OUTSIDE OF THE [place] IN LAST 30 DAYS: No - HPI Onset: Yesterday Onset/Duration: Gradual, Persistent, Worse Quality of pain: Achy, Throbbing Severity: Moderate Pain Level: 3 Associated symptoms: Sore throat. denies: Chest pain, Fever, Nausea, Vomiting, Shortness of breath Exacerbated by: Movement Relieved by: Remaining still Similar symptoms previously: No Recently seen / treated by doctor: Yes - Related Data Allergies/Adverse Reactions: ciprofloxacin [From Cipro] Allergy (Verified 05/11/17 07:30) Diarrhea, vomiting codeine [Codeine] Allergy (Verified 05/11/17 07:30) diarrhea, vomiting, convulsions diphtheria toxoid,fluid Allergy (Verified 05/11/17 07:30) Rash iodine [Iodine] Allergy (Verified 05/11/17 07:30) diarrhea, vomiting lansoprazole [From Prevacid] Allergy (Verified 05/11/17 07:30) rash latex [Latex] Allergy (Verified 05/11/17 07:30) ITCHY RASH levofloxacin [From Levaquin] Allergy (Verified 05/11/17 07:30) Rash, Diarrhea meloxicam Allergy (Verified 05/11/17 07:30) "symptoms of heart attack" morphine Allergy (Verified 05/11/17 07:30) Chest pain Penicillins Allergy (Verified 05/11/17 07:30) "6 days in coma" Sulfa (Sulfonamide Antibiotics) Allergy (Verified 05/11/17 07:30) Rash Tetanus Vaccines and Toxoid [Tetanus] Allergy (Verified 05/11/17 07:30) convulsions cefdinir [Cefdinir] Adverse Reaction (Intermediate, Verified 05/11/17 07:30) rash MYCINS Allergy (Uncoded 05/11/17 07:30) Past Medical History - General Information source: Patient, [facility] Records, Outside Facility Records - Social History Smoking Status: Never Smoker Frequency of alcohol use: None Drug Abuse: None Lives with: Spouse/Significant other Family History: Reviewed & Not Pertinent, Hypertension Patient has suicidal ideation: No Patient has homicidal ideation: No - Past Medical History Cardiac Medical History: Reports: Hx Congestive Heart Failure, Hx Coronary Artery Disease, Hx DVT, Hx Heart Attack, Hx Hypercholesterolemia, Hx Hypertension Denies: Hx Pulmonary Embolism Pulmonary Medical History: Reports: Hx Asthma, Hx COPD, Hx Pneumonia - x 4 times Denies: Hx Bronchitis, Hx Tuberculosis Neurological Medical History: Reports: Hx Seizures - as baby. Denies: Hx Cerebrovascular Accident Endocrine Medical History: Reports: Hx Diabetes Mellitus Type 1, Hx Diabetes Mellitus Type 2, Hx Hypothyroidism Renal/ Medical History: Reports: Hx Kidney Stones. Denies: Hx Peritoneal Dialysis GI Medical History: Reports: Hx Hiatal Hernia. Denies: Hx Hepatitis, Hx Ulcer Musculoskeltal Medical History: Reports Hx Arthritis, Reports Hx Fibromyalgia Psychiatric Medical History: Denies: Hx Depression Infectious Medical History: Denies: Hx Hepatitis Past Surgical History: Reports: Hx Appendectomy, Hx Cholecystectomy, Hx Gynecologic Surgery - Right nephrectomy, Hx Herniorrhaphy, Hx Orthopedic Surgery - L knee, Hx Tonsillectomy, Hx Tubal Ligation, Hx Urinary Tract Surgery - Bladder stone removal. Denies: Hx Cardiac Catheterization, Hx Mastectomy, Hx Open Heart Surgery, Hx Pacemaker - Immunizations Immunizations up to date: Yes Hx Diphtheria, Pertussis, Tetanus Vaccination: Yes - Allergic, "30 years ago" Hx Pneumococcal Vaccination: 11/15/15 Review of Systems - Review of Systems Notes: REVIEW OF SYSTEMS: CONSTITUTIONAL : Denies fever, chills, or sweats. Denies recent illness. Denies weight loss, recent hospitalizations. EENT: Denies visula changes, eye pain. Denies nasal or sinus congestion or discharge. Denies sore throat, oral lesions, difficulty swallowing. CARDIOVASCULAR: Denies chest pain. Denies palpitations or racing or irregular heart beat. Denies lower extremity edema. RESPIRATORY: Denies cough, cold, or chest congestion. Denies shortness of breath, difficulty breathing, or wheezing. GASTROINTESTINAL: Denies abdominal pain or distention. Denies nausea, vomiting , or diarrhea. Denies blood in vomitus, stools, or per rectum. Denies black, tarry stools. Denies constipation. GENITOURINARY: Denies difficulty urinating, painful urination, burning, frequency, blood in urine, or vaginal discharge. MUSCULOSKELETAL: Denies back pain Denies joint pain or swelling. SKIN: Denies rash, lesions or sores. HEMATOLOGIC : Denies easy bruising or bleeding. LYMPHATIC: Denies swollen, enlarged glands. NEUROLOGICAL: Denies confusion or altered mental status. Denies passing out or loss of consciousness. Denies dizziness or lightheadedness. Denies headache. Denies weakness or paralysis or loss of use of either side. Denies problems with gait or speech. Denies sensory loss, numbness, or tingling. Denies seizures. PSYCHIATRIC: Denies anxiety or stress. Denies depression, suicidal ideation, or homicidal ideation. Physical Exam - Vital signs Vitals: Temp Pulse Resp BP Pulse Ox 98.0 F 70 16 162/71 H 96 07/14/17 19:51 07/14/17 19:51 07/14/17 19:51 07/14/17 19:51 07/14/17 19:51 - Notes Notes: PHYSICAL EXAMINATION: GENERAL: Well-appearing, well-nourished and in no acute distress. HEAD: Atraumatic, normocephalic. EYES: Pupils equal round and reactive to light, extraocular movements intact, conjunctiva are normal. ENT: Nares patent, oropharynx clear without exudates. Moist mucous membranes. Airway patent, no erythema NECK: Limited range of motion secondary to pain, supple without lymphadenopathy. No stridor LUNGS: Breath sounds clear to auscultation bilaterally and equal. No wheezes rales or rhonchi. HEART: Regular rate and rhythm without murmurs ABDOMEN: Soft, nontender, nondistended abdomen. No guarding, no rebound. No masses appreciated. Female : deferred Musculoskeletal: Normal range of motion, no pitting or edema. No cyanosis. NEUROLOGICAL: Cranial nerves grossly intact. Normal speech, normal gait. Normal sensory, motor exams PSYCH: Normal mood, normal affect. SKIN: Warm, Dry, normal turgor, no rashes or lesions noted. Course - Re-evaluation Re-evalutation: Soft Tissue Neck CT 07/14/17 20:37 IMPRESSION: Zenker's diverticulum noted Patchy groundglass densities in the lungs bilaterally which are nonspecific. Findings may be related to senescent lung. Early infection or edema is not excluded Small amount of vascular calcification in aorta and the great vessels and in the coronary arteries The inferior aspects of the chest were not included. 07/14/17 23:22 86-year-old female with type 1 diabetes, hypertension, COPD, CHF and recent Zenker's diverticulum repair presents with complaint of neck pain. Patient states neck pain started 1 day prior to arrival. Her surgery for a Zenker's diverticulum was 1 week prior to arrival at [facility] with Dr. Cristel Rene. She states that she has had no complications until yesterday when she began to experience right, left and posterior neck pain. She describes it as throbbing, constant. She is unable to turn her head to the left or right without pain. Patient states that she recently started to sleep in her bed after 8 months of sitting straight up. Patient did contact the on-call physician who recommended her to come to the emergency department. Patient was seen by myself upon arrival. Vital signs were reviewed. Patient is afebrile, hypertensive and not hypoxic. Patient does not appear toxic or dehydrated. They are in no acute distress. Previous medical records and nursing notes reviewed. Exam findings include limited range of motion of the neck secondary to pain. Patient has a patent airway and is able to swallow easily. CT soft tissue neck was obtained and showed no evidence of retropharyngeal abscess, upper airway compromise or infection. Patient received fentanyl prior to my exam. I will give her an additional dose of fentanyl and try Valium. I do believe this pain is musculoskeletal since the patient recently returned to sleeping in her bed after 8 months. I will contact Dr. Rene. 07/14/17 23:22 07/15/17 01:48 I did speak to Dr. Price covering ENT at [facility] to make him aware of today' s findings. He is okay with discharge home and has no further recommendations. - Vital Signs Vital signs: Temp Pulse Resp BP Pulse Ox 98.0 F 80 18 167/79 H 95 07/14/17 19:51 07/15/17 03:47 07/15/17 03:47 07/15/17 03:47 07/15/17 03:47 - Laboratory Result Diagrams: 07/14/17 23:45 07/14/17 23:45 Laboratory results interpreted by me: 07/14/17 07/14/17 23:45 23:45 WBC 10.7 H RBC 5.41 H Hgb 16.5 H Hct 48.3 H RDW 14.4 H Glucose 119 H Discharge - Discharge Clinical Impression: Neck pain Condition: Good Disposition: HOME, SELF-CARE Instructions: Neck Injury (Cervical Strain) ([facility]) Additional Instructions: Please follow-up with Dr. Rene as already scheduled. Follow up with your physician tomorrow for further care or return to the ED IMMEDIATELY if symptoms worsen or new concerns occur. If you cannot afford to follow up with your primary care physician a list of low cost clinics have been provided at the end of your discharge papers as well. Prescriptions: Cyclobenzaprine HCl [Flexeril 10 mg Tablet] 10 mg PO TIDP PRN #15 tab PRN Reason: Tramadol HCl [Ultram 50 mg Tablet] 50 mg PO Q8H PRN #10 tablet PRN Reason: Referrals: DEBORAH BOWLING MD [Primary Care Provider] - Follow up as needed
[2017-07-14 23:58] LABS: ABSOLUTE BASOPHILS # (AUTO) 0.1 10^3/uL (0.0-0.2); ABSOLUTE EOSINOPHILS # (AUTO) 0.1 10^3/uL (0.0-0.6); ABSOLUTE LYMPHOCYTES (AUTO) 2.1 10^3/uL (0.5-4.7); ABSOLUTE MONOCYTES (AUTO) 0.6 10^3/uL (0.1-1.4); ABSOLUTE NEUT (AUTO) 7.8 10^3/uL (1.7-8.2); BASOPHILS % (AUTO) 0.8 % (0-2); EOSINOPHILS % (AUTO) 1.1 % (0-6); HEMATOCRIT 48.3 % (36.0-47.0); HEMOGLOBIN 16.5 g/dL (12.0-15.5); LYMPHOCYTES % (AUTO) 19.4 % (13-45); MEAN CORPUSCULAR HEMOGLOBIN 30.5 pg (27.0-33.4); MEAN CORPUSCULAR HGB CONC 34.1 g/dL (32.0-36.0); MEAN CORPUSCULAR VOLUME 89 fl (80-97); MONOCYTES % (AUTO) 5.9 % (3-13); PLATELET COUNT 234 10^3/uL (150-450); RED BLOOD COUNT 5.41 10^6/uL (3.72-5.28); RED CELL DISTRIBUTION WIDTH 14.4 % (11.5-14.0); SEGMENTED NEUTROPHILS % (AUTO) 72.8 % (42-78); TOTAL CELLS COUNTED % (AUTO) 100 %; WHITE BLOOD COUNT 10.7 10^3/uL (4.0-10.5)
[2017-07-15 00:11] LABS: ALANINE AMINOTRANSFERASE 31 U/L (9-52); ALBUMIN 4.5 g/dL (3.5-5.0); ALKALINE PHOSPHATASE 85 U/L (38-126); ANION GAP 11 (5-19); ASPARTATE AMINO TRANSFERASE 32 U/L (14-36); BILIRUBIN,DIRECT 0.2 mg/dL (0.0-0.4); BILIRUBIN,TOTAL 1.2 mg/dL (0.2-1.3); BLOOD UREA NITROGEN 11 mg/dL (7-20); CALCIUM 10.2 mg/dL (8.4-10.2); CARBON DIOXIDE 30 mmol/L (22-30); CHLORIDE 99 mmol/L (98-107); GLUCOSE 119 mg/dL (75-110); POTASSIUM 4.1 mmol/L (3.6-5.0); SODIUM 139.5 mmol/L (137-145); TOTAL PROTEIN 7.7 g/dL (6.3-8.2)
[2017-07-15] MEDS ORDERED: FENTANYL CITRATE INJ/PF 100 MCG/2 ML AMPUL IV ONE (02:00)
[2017-07-15 03:51] VITALS: BP 167/79
== END 2017-07-15 03:47 | disposition home or self-care (01) ==
LOC: ER 19:33
DX: M54.2 Cervicalgia (principal); J02.9 Acute pharyngitis, unspecified; E10.9 Type 1 diabetes mellitus without complications; I10 Essential (primary) hypertension; I25.10 Atherosclerotic heart disease of native coronary artery without angina pectoris; I70.0 Atherosclerosis of aorta; J44.9 Chronic obstructive pulmonary disease, unspecified; Z98.890 Other specified postprocedural states; Z88.1 Allergy status to other antibiotic agents; Z88.5 Allergy status to narcotic agent; Z88.8 Allergy status to other drugs, medicaments and biological substances; Z88.0 Allergy status to penicillin; Z88.2 Allergy status to sulfonamides; Z88.7 Allergy status to serum and vaccine
CPT/HCPCS: 96376; 99284; 96372; 96361; 96374; 36415; 85025; 80053; 70490; A9270 ×2; J3010 ×2; J7120; S0119

== ENCOUNTER 2017-07-27 22:20 | Emergency (ER) | payer MEDICARE, OTHER ==
[2017-07-28 01:35] LABS: ABSOLUTE BASOPHILS # (AUTO) 0.1 10^3/uL (0.0-0.2); ABSOLUTE EOSINOPHILS # (AUTO) 0.2 10^3/uL (0.0-0.6); ABSOLUTE LYMPHOCYTES (AUTO) 2.6 10^3/uL (0.5-4.7); ABSOLUTE MONOCYTES (AUTO) 0.5 10^3/uL (0.1-1.4); BASOPHILS % (AUTO) 0.9 % (0-2); EOSINOPHILS % (AUTO) 2.8 % (0-6); HEMOGLOBIN 14.9 g/dL (12.0-15.5); LYMPHOCYTES % (AUTO) 34.8 % (13-45); MEAN CORPUSCULAR HEMOGLOBIN 30.3 pg (27.0-33.4); MEAN CORPUSCULAR HGB CONC 33.8 g/dL (32.0-36.0); MEAN CORPUSCULAR VOLUME 90 fl (80-97); MONOCYTES % (AUTO) 6.5 % (3-13); PLATELET COUNT 211 10^3/uL (150-450); RED BLOOD COUNT 4.91 10^6/uL (3.72-5.28); RED CELL DISTRIBUTION WIDTH 13.8 % (11.5-14.0); TOTAL CELLS COUNTED % (AUTO) 100 %; WHITE BLOOD COUNT 7.4 10^3/uL (4.0-10.5)
[2017-07-28 01:38] LABS: ALANINE AMINOTRANSFERASE 23 U/L (9-52); ALBUMIN 3.9 g/dL (3.5-5.0); ALKALINE PHOSPHATASE 81 U/L (38-126); ANION GAP 8 (5-19); ASPARTATE AMINO TRANSFERASE 51 U/L (14-36); BILIRUBIN,DIRECT 0.3 mg/dL (0.0-0.4); BILIRUBIN,TOTAL 0.8 mg/dL (0.2-1.3); BLOOD UREA NITROGEN 18 mg/dL (7-20); CALCIUM 9.7 mg/dL (8.4-10.2); CARBON DIOXIDE 30 mmol/L (22-30); CHLORIDE 103 mmol/L (98-107); GLUCOSE 101 mg/dL (75-110); POTASSIUM 3.9 mmol/L (3.6-5.0); SODIUM 141.1 mmol/L (137-145); TOTAL PROTEIN 6.7 g/dL (6.3-8.2)
[2017-07-28 01:40] LABS: APPEARANCE,URINE SLIGHTLY-CLOUDY; BILIRUBIN,URINE NEGATIVE (NEGATIVE); COLOR,URINE YELLOW; GLUCOSE, URINE NEGATIVE (NEGATIVE); KETONES,URINE NEGATIVE (NEGATIVE); LEUKOCYTE ESTERASE,URINE SMALL (NEGATIVE); NITRITE,URINE NEGATIVE (NEGATIVE); PROTEIN,URINE 30 mg/dL (NEGATIVE); URINE SPECIFIC GRAVITY 1.018; UROBILINOGEN,URINE NEGATIVE mg/dL (<2.0)
--- NOTE | 2017-07-28 01:57 | ER Document Report ---
ED General - General Chief Complaint: Vaginal Bleeding Stated Complaint: URINARY PROBLEM Time Seen by Provider: 07/28/17 00:30 Mode of Arrival: Ambulatory Information source: Patient Notes: Patient is an 87-year-old female who presents with vaginal bleeding for the last 3 months. Patient reports that she is already been seen by Dr. Abdias Thayer. Patient reports that over the last 2 days her vaginal bleeding bleeding has become heavier with dime size clots and strong pelvic cramping. Patient also reports some pain to her left lumbar spine. Patient denies any urinary symptoms to include dysuria, frequency or urgency. Denies any nausea, vomiting , patient reports that she may have had some chills earlier. Patient has a history of appendectomy, tubal ligation, hernia repair, cholecystectomy and kidney surgery. TRAVEL OUTSIDE OF THE [place] IN LAST 30 DAYS: No - Related Data Allergies/Adverse Reactions: ciprofloxacin [From Cipro] Allergy (Verified 07/27/17 22:22) Diarrhea, vomiting codeine [Codeine] Allergy (Verified 07/27/17 22:22) diarrhea, vomiting, convulsions diphtheria toxoid,fluid Allergy (Verified 07/27/17 22:22) Rash iodine [Iodine] Allergy (Verified 07/27/17 22:22) diarrhea, vomiting lansoprazole [From Prevacid] Allergy (Verified 07/27/17 22:22) rash latex [Latex] Allergy (Verified 07/27/17 22:22) ITCHY RASH levofloxacin [From Levaquin] Allergy (Verified 07/27/17 22:22) Rash, Diarrhea meloxicam Allergy (Verified 07/27/17 22:22) "symptoms of heart attack" morphine Allergy (Verified 07/27/17 22:22) Chest pain Penicillins Allergy (Verified 07/27/17 22:22) "6 days in coma" Sulfa (Sulfonamide Antibiotics) Allergy (Verified 07/27/17 22:22) Rash Tetanus Vaccines and Toxoid [Tetanus] Allergy (Verified 07/27/17 22:22) convulsions cefdinir [Cefdinir] Adverse Reaction (Intermediate, Verified 07/27/17 22:22) rash MYCINS Allergy (Uncoded 07/27/17 22:22) Past Medical History - General Information source: Patient - Social History Smoking Status: Never Smoker Frequency of alcohol use: None Drug Abuse: None Lives with: Spouse/Significant other Family History: Reviewed & Not Pertinent, Hypertension Patient has suicidal ideation: No Patient has homicidal ideation: No - Past Medical History Cardiac Medical History: Reports: Hx Congestive Heart Failure, Hx Coronary Artery Disease, Hx DVT, Hx Heart Attack, Hx Hypercholesterolemia, Hx Hypertension Denies: Hx Pulmonary Embolism Pulmonary Medical History: Reports: Hx Asthma, Hx COPD, Hx Pneumonia - x 4 times Denies: Hx Bronchitis, Hx Tuberculosis Neurological Medical History: Reports: Hx Seizures - as baby. Denies: Hx Cerebrovascular Accident Endocrine Medical History: Reports: Hx Diabetes Mellitus Type 1, Hx Diabetes Mellitus Type 2, Hx Hypothyroidism Renal/ Medical History: Reports: Hx Kidney Stones. Denies: Hx Peritoneal Dialysis GI Medical History: Reports: Hx Hiatal Hernia. Denies: Hx Hepatitis, Hx Ulcer Musculoskeltal Medical History: Reports Hx Arthritis, Reports Hx Fibromyalgia Psychiatric Medical History: Denies: Hx Depression Infectious Medical History: Denies: Hx Hepatitis Past Surgical History: Reports: Hx Appendectomy, Hx Cholecystectomy, Hx Gynecologic Surgery - Right nephrectomy, Hx Herniorrhaphy, Hx Orthopedic Surgery - L knee, Hx Tonsillectomy, Hx Tubal Ligation, Hx Urinary Tract Surgery - Bladder stone removal. Denies: Hx Cardiac Catheterization, Hx Mastectomy, Hx Open Heart Surgery, Hx Pacemaker - Immunizations Immunizations up to date: Yes Hx Diphtheria, Pertussis, Tetanus Vaccination: Yes - Allergic, "30 years ago" Hx Pneumococcal Vaccination: 11/15/15 Review of Systems - Review of Systems Constitutional: No symptoms reported EENT: No symptoms reported Cardiovascular: No symptoms reported Respiratory: No symptoms reported Gastrointestinal: No symptoms reported Genitourinary: See HPI Female Genitourinary: See HPI Musculoskeletal: No symptoms reported Skin: No symptoms reported Hematologic/Lymphatic: No symptoms reported Neurological/Psychological: No symptoms reported Physical Exam - Vital signs Vitals: Temp Pulse Resp BP Pulse Ox 97.6 F 71 20 126/53 H 94 07/27/17 22:29 07/27/17 22:29 07/27/17 22:29 07/27/17 22:29 07/27/17 22:29 Interpretation: Normal - Notes Notes: PHYSICAL EXAMINATION: GENERAL: Well-appearing, well-nourished and in no acute distress. HEAD: Atraumatic, normocephalic. EYES: Pupils equal round and reactive to light, extraocular movements intact, conjunctiva are normal. ENT: Nares patent, oropharynx clear without exudates. Moist mucous membranes. NECK: Normal range of motion, supple without lymphadenopathy LUNGS: Breath sounds clear to auscultation bilaterally and equal. No wheezes rales or rhonchi. HEART: Regular rate and rhythm without murmurs ABDOMEN: Soft, nontender, nondistended abdomen. No guarding, no rebound. No masses appreciated. Female : Mild left CVA tenderness however patient states that this is her fibromyalgia. Scant vaginal bleeding noted in pad. Musculoskeletal: Normal range of motion, no pitting or edema. No cyanosis. Left lumber back pain with palpation. NEUROLOGICAL: Cranial nerves grossly intact. Normal speech, normal gait. Normal sensory, motor exams PSYCH: Normal mood, normal affect. SKIN: Warm, Dry, normal turgor, no rashes or lesions noted. Course - Re-evaluation Re-evalutation: 87-year-old well appearing female patient with 3 month history of vaginal bleeding worsening over the last 2 days. Patient has been seen by Dr. Abdias Thayer. Patient reports that she has not had a transvaginal ultrasound and has not been started on hormone therapy. Will draw routine labs and order a transvaginal ultrasound. Patient's vital signs are stable. CBC and comprehensive metabolic panel are unremarkable. Urinalysis shows large amount of blood, negative nitrites, small leukocytes. Transvaginal ultrasound with no acute abnormalities. Patient refusing vaginal speculum exam as patient states that she is not actively bleeding and she wishes to defer this until she sees her [employer]NA[employer]. Patient will be discharged home as her workup is negative, her vital signs are stable and she will call Dr. Thayer's office this morning to arrange a follow-up appointment. - Vital Signs Vital signs: Temp Pulse Resp BP Pulse Ox 97.6 F 66 18 147/82 H 95 07/27/17 22:29 07/28/17 03:54 07/28/17 03:54 07/28/17 03:54 07/28/17 03:54 - Laboratory Result Diagrams: 07/28/17 01:15 07/28/17 01:15 Laboratory results interpreted by me: 07/28/17 07/28/17 00:40 01:15 AST 51 H Urine Protein 30 H Urine Blood LARGE H Ur Leukocyte Esterase SMALL H Discharge - Discharge Clinical Impression: Vaginal bleeding Condition: Stable Disposition: HOME, SELF-CARE Additional Instructions: Vaginal Bleeding You are having an episode of abnormal bleeding. Causes of abnormal vaginal bleeding tumors such as cancer or benign fibroids, medication effects, or hormone imbalance. If the bleeding is innocent, most commonly a short course of hormones is given to restore the uterus to normal. Treatment for anemia may be required if bleeding is severe. You should rest and avoid intercourse until the bleeding is controlled. Call the doctor or return for re-examination if you feel faint, have increasing pain, or have a major increase in the amount of bleeding. Your blood counts and transvaginal ultrasound today were normal. Please follow- up with Dr. Abdias Thayer in the next 3-5 days for a follow-up. Return to the emergency department sooner if you develop worsening vaginal bleeding and your soaking through one pad per hour, you pass out or any other symptoms that are concerning to you. Referrals: DEBORAH BOWLING MD [Primary Care Provider] - Follow up as needed VANDANA THAYER MD [ACTIVE STAFF] - Follow up as needed
--- NOTE | 2017-07-28 02:10 | RADIOLOGY REPORT (SQ) ---
EXAM DESCRIPTION: US PELVIS COMPLETED DATE/TME: 07/28/2017 00:45 CLINICAL HISTORY: 87 years, Female, Vaginal bleeding COMPARISON: None. TECHNIQUE: Complete transvaginal pelvic ultrasound. FINDINGS: The uterus measures 8.4 x 4.5 x 3.6 cm. Endometrial thickness of 0.5 cm. Cervical length of 3.1 cm. The cervix is closed. Nabothian cysts identified. No myometrial abnormalities identified. The ovaries are not identified bilaterally. No large adnexal masses. No free pelvic fluid. IMPRESSION: 1. No sonographic abnormality identified. The ovaries are not visualized bilaterally. 2011 [facility] [employer] All Rights Reserved
[2017-07-28 03:55] VITALS: BP 147/82
== END 2017-07-28 03:55 | disposition home or self-care (01) ==
LOC: ER 22:20
DX: N93.9 Abnormal uterine and vaginal bleeding, unspecified (principal); R10.2 Pelvic and perineal pain; M54.5 Low back pain; I25.10 Atherosclerotic heart disease of native coronary artery without angina pectoris; I10 Essential (primary) hypertension; J44.9 Chronic obstructive pulmonary disease, unspecified; E11.9 Type 2 diabetes mellitus without complications; Z87.442 Personal history of urinary calculi; Z90.49 Acquired absence of other specified parts of digestive tract; Z88.1 Allergy status to other antibiotic agents; Z88.5 Allergy status to narcotic agent; Z88.7 Allergy status to serum and vaccine; Z91.040 Latex allergy status; Z88.8 Allergy status to other drugs, medicaments and biological substances; Z88.0 Allergy status to penicillin; Z88.2 Allergy status to sulfonamides
CPT/HCPCS: 36415; 76830; 80053; 81001; 85025; 93976; 99284

== ENCOUNTER → 2017-09-19 | Outpatient (CLI) | payer MEDICARE, OTHER ==
[2017-09-19 14:54] LABS: CHOLESTEROL 212.36 mg/dL (0-200); TRIGLYCERIDES 201 mg/dL (<150)
[2017-09-19 15:05] LABS: DIRECT LDL 112 mg/dL (<100)
[2017-09-19 15:11] LABS: VLDL CHOLESTEROL 40.2 mg/dL (10-31)
== END ==
LOC: OD 13:51
PROVIDERS: ATTEND Internal Medicine
DX: E78.4 Other hyperlipidemia (principal); I25.10 Atherosclerotic heart disease of native coronary artery without angina pectoris; R07.2 Precordial pain; E03.9 Hypothyroidism, unspecified; E11.9 Type 2 diabetes mellitus without complications; I10 Essential (primary) hypertension; E66.9 Obesity, unspecified; I73.9 Peripheral vascular disease, unspecified; J44.9 Chronic obstructive pulmonary disease, unspecified; M62.81 Muscle weakness (generalized); R09.89 Other specified symptoms and signs involving the circulatory and respiratory systems; R00.1 Bradycardia, unspecified; R06.09 Other forms of dyspnea; R60.0 Localized edema; Z79.899 Other long term (current) drug therapy; I25.2 Old myocardial infarction
CPT/HCPCS: 36415; 80061

== ENCOUNTER 2017-12-20 13:17 | Inpatient (IN) | payer MEDICARE, OTHER ==
[2017-12-20] MEDS ORDERED: ASPIRIN 81 MG TABLET, CHEWABLE PO ONE (14:05)
--- NOTE | 2017-12-20 14:09 | ER Document Report ---
ED Medical Screen (RME) - General Chief Complaint: Chest Pain Stated Complaint: CHEST PAIN Time Seen by Provider: 12/20/17 13:58 Mode of Arrival: Wheelchair Information source: Patient Notes: Patient is an 87-year-old female who presents with multiple complaints today. Patient's main complaint is chest pain. She states that her chest pain started yesterday afternoon while she was at rest. She states that the pain worsened through the night. Patient states that it feels like a sharp stabbing pain to the left side of her chest, she has associated nausea and shortness of breath. Patient states that she feels a generalized weakness. She also has generalized abdominal pain with diarrhea. Patient does have a history of myocardial infarction. Denies any history of pulmonary embolism. Exam: Lung sounds are clear to auscultation bilaterally. Tenderness to left chest wall with palpation. I have greeted and performed a rapid initial assessment of this patient. A comprehensive ED assessment and evaluation of the patient, analysis of test results and completion of the medical decision making process will be conducted by additional ED providers. Dictation of this chart was performed using voice recognition software; therefore, there may be some unintended grammatical errors. TRAVEL OUTSIDE OF THE [place] IN LAST 30 DAYS: No - Related Data Allergies/Adverse Reactions: ciprofloxacin [From Cipro] Allergy (Verified 12/20/17 13:18) Diarrhea, vomiting codeine [Codeine] Allergy (Verified 12/20/17 13:18) diarrhea, vomiting, convulsions diphtheria toxoid,fluid Allergy (Verified 12/20/17 13:18) Rash iodine [Iodine] Allergy (Verified 12/20/17 13:18) diarrhea, vomiting lansoprazole [From Prevacid] Allergy (Verified 12/20/17 13:18) rash latex [Latex] Allergy (Verified 12/20/17 13:18) ITCHY RASH levofloxacin [From Levaquin] Allergy (Verified 12/20/17 13:18) Rash, Diarrhea meloxicam Allergy (Verified 12/20/17 13:18) "symptoms of heart attack" morphine Allergy (Verified 12/20/17 13:18) Chest pain Penicillins Allergy (Verified 12/20/17 13:18) "6 days in coma" Sulfa (Sulfonamide Antibiotics) Allergy (Verified 12/20/17 13:18) Rash Tetanus Vaccines and Toxoid [Tetanus] Allergy (Verified 12/20/17 13:18) convulsions cefdinir [Cefdinir] Adverse Reaction (Intermediate, Verified 12/20/17 13:18) rash MYCINS Allergy (Uncoded 12/20/17 13:18) Past Medical History - Past Medical History Cardiac Medical History: Reports: Hx Congestive Heart Failure, Hx Coronary Artery Disease, Hx DVT, Hx Heart Attack, Hx Hypercholesterolemia, Hx Hypertension Denies: Hx Pulmonary Embolism Pulmonary Medical History: Reports: Hx Asthma, Hx COPD, Hx Pneumonia - x 4 times Denies: Hx Bronchitis, Hx Tuberculosis Neurological Medical History: Reports: Hx Seizures - as baby. Denies: Hx Cerebrovascular Accident Endocrine Medical History: Reports: Hx Diabetes Mellitus Type 1, Hx Diabetes Mellitus Type 2, Hx Hypothyroidism Renal/ Medical History: Reports: Hx Kidney Stones. Denies: Hx Peritoneal Dialysis GI Medical History: Reports: Hx Hiatal Hernia. Denies: Hx Hepatitis, Hx Ulcer Musculoskeltal Medical History: Reports Hx Arthritis, Reports Hx Fibromyalgia Psychiatric Medical History: Denies: Hx Depression Infectious Medical History: Denies: Hx Hepatitis Past Surgical History: Reports: Hx Appendectomy, Hx Cholecystectomy, Hx Gynecologic Surgery - Right nephrectomy, Hx Herniorrhaphy, Hx Orthopedic Surgery - L knee, Hx Tonsillectomy, Hx Tubal Ligation, Hx Urinary Tract Surgery - Bladder stone removal. Denies: Hx Cardiac Catheterization, Hx Mastectomy, Hx Open Heart Surgery, Hx Pacemaker - Immunizations Immunizations up to date: Yes Hx Diphtheria, Pertussis, Tetanus Vaccination: Yes - Allergic, "30 years ago" History of Influenza Vaccine for 11/2016 - 04/2017 Season: Yes Influenza Administration Date for 11/2016 - 04/2017 Season: 11/14/16 Physical Exam - Vital signs Vitals: Temp Pulse Resp BP Pulse Ox 98.7 F 97 20 151/70 H 92 12/20/17 13:31 12/20/17 13:31 12/20/17 13:31 12/20/17 13:31 12/20/17 13:31 Course - Vital Signs Vital signs: Temp Pulse Resp BP Pulse Ox 98.7 F 97 20 151/70 H 92 12/20/17 13:31 12/20/17 13:31 12/20/17 13:31 12/20/17 13:31 12/20/17 13:31 Doctor's Discharge - Discharge Referrals: DEBORAH BOWLING MD [Primary Care Provider] - Follow up as needed
--- NOTE | 2017-12-20 15:12 | RADIOLOGY REPORT (SQ) ---
EXAM DESCRIPTION: CHEST SINGLE VIEW COMPLETED DATE/TIME: 12/20/2017 2:48 pm REASON FOR STUDY: chest pain with shortness of breath COMPARISON: 05/27/2017 EXAM PARAMETERS: NUMBER OF VIEWS: One view. TECHNIQUE: Single frontal radiographic view of the chest acquired. RADIATION DOSE: NA LIMITATIONS: None. FINDINGS: LUNGS AND PLEURA: Chronic interstitial changes. No evidence of pneumonia. MEDIASTINUM AND HILAR STRUCTURES: Stable. HEART AND VASCULAR STRUCTURES: Stable heart size. Normal vasculature. BONES: No acute findings. HARDWARE: None in the chest. OTHER: No other significant finding. IMPRESSION: NO ACUTE RADIOGRAPHIC FINDING IN THE CHEST. TECHNICAL DOCUMENTATION: JOB ID: [id number] [employer]- All Rights Reserved Reading location - IP/workstation name: [facility]-[email or web address]
[2017-12-20 16:11] LABS: ABSOLUTE BASOPHILS # (AUTO) 0.1 10^3/uL (0.0-0.2); ABSOLUTE EOSINOPHILS # (AUTO) 0.1 10^3/uL (0.0-0.6); ABSOLUTE LYMPHOCYTES (AUTO) 1.1 10^3/uL (0.5-4.7); ABSOLUTE MONOCYTES (AUTO) 0.7 10^3/uL (0.1-1.4); ABSOLUTE NEUT (AUTO) 15.2 10^3/uL (1.7-8.2); BASOPHILS % (AUTO) 0.6 % (0-2); EOSINOPHILS % (AUTO) 0.4 % (0-6); HEMATOCRIT 43.9 % (36.0-47.0); HEMOGLOBIN 14.8 g/dL (12.0-15.5); LYMPHOCYTES % (AUTO) 6.5 % (13-45); MEAN CORPUSCULAR HEMOGLOBIN 29.9 pg (27.0-33.4); MEAN CORPUSCULAR HGB CONC 33.6 g/dL (32.0-36.0); MEAN CORPUSCULAR VOLUME 89 fl (80-97); PLATELET COUNT 215 10^3/uL (150-450); RED BLOOD COUNT 4.95 10^6/uL (3.72-5.28); RED CELL DISTRIBUTION WIDTH 13.5 % (11.5-14.0); SEGMENTED NEUTROPHILS % (AUTO) 88.5 % (42-78); TOTAL CELLS COUNTED % (AUTO) 100 %; WHITE BLOOD COUNT 17.2 10^3/uL (4.0-10.5)
[2017-12-20 16:35] LABS: ALANINE AMINOTRANSFERASE 14 U/L (9-52); ALBUMIN 4.1 g/dL (3.5-5.0); ALKALINE PHOSPHATASE 82 U/L (38-126); ANION GAP 14 (5-19); ASPARTATE AMINO TRANSFERASE 28 U/L (14-36); BILIRUBIN,DIRECT 0.5 mg/dL (0.0-0.4); BILIRUBIN,TOTAL 2.7 mg/dL (0.2-1.3); BLOOD UREA NITROGEN 12 mg/dL (7-20); CALCIUM 9.7 mg/dL (8.4-10.2); CARBON DIOXIDE 29 mmol/L (22-30); CHLORIDE 99 mmol/L (98-107); CREATINE KINASE 25 U/L (30-135); GLUCOSE 121 mg/dL (75-110); POTASSIUM 3.7 mmol/L (3.6-5.0); SODIUM 141.7 mmol/L (137-145); TOTAL PROTEIN 7.2 g/dL (6.3-8.2)
[2017-12-20 16:47] LABS: CREATINE KINASE MB 0.46 ng/mL (<4.55); NT PRO BNP 259 pg/mL (<450); TROPONIN I < 0.012 ng/mL
--- NOTE | 2017-12-20 17:33 | ER Document Report ---
ED General - General Chief Complaint: Chest Pain Stated Complaint: CHEST PAIN Time Seen by Provider: 12/20/17 13:58 Mode of Arrival: Wheelchair TRAVEL OUTSIDE OF THE [place] IN LAST 30 DAYS: No - HPI Patient complains to provider of: Chest pain abdominal pain Notes: Patient coming in for the above-stated symptoms. Patient was seen in triage area was seen by provider whose note is below Patient is an 87-year-old female who presents with multiple complaints today. Patient's main complaint is chest pain. She states that her chest pain started yesterday afternoon while she was at rest. She states that the pain worsened through the night. Patient states that it feels like a sharp stabbing pain to the left side of her chest, she has associated nausea and shortness of breath. Patient states that she feels a generalized weakness. She also has generalized abdominal pain with diarrhea. Patient does have a history of myocardial infarction. Denies any history of pulmonary embolism. Upon my evaluation the patient patient does cooperate with his story. Patient states also recently started on a antibiotic Macrobid for urinary tract infection. Patient was seen by PCP earlier today and told to come to the ER for evaluation. Patient otherwise resting healthy upon my evaluation - Related Data Allergies/Adverse Reactions: ciprofloxacin [From Cipro] Allergy (Verified 12/20/17 13:18) Diarrhea, vomiting codeine [Codeine] Allergy (Verified 12/20/17 13:18) diarrhea, vomiting, convulsions diphtheria toxoid,fluid Allergy (Verified 12/20/17 13:18) Rash iodine [Iodine] Allergy (Verified 12/20/17 13:18) diarrhea, vomiting lansoprazole [From Prevacid] Allergy (Verified 12/20/17 13:18) rash latex [Latex] Allergy (Verified 12/20/17 13:18) ITCHY RASH levofloxacin [From Levaquin] Allergy (Verified 12/20/17 13:18) Rash, Diarrhea meloxicam Allergy (Verified 12/20/17 13:18) "symptoms of heart attack" morphine Allergy (Verified 12/20/17 13:18) Chest pain Penicillins Allergy (Verified 12/20/17 13:18) "6 days in coma" Sulfa (Sulfonamide Antibiotics) Allergy (Verified 12/20/17 13:18) Rash Tetanus Vaccines and Toxoid [Tetanus] Allergy (Verified 12/20/17 13:18) convulsions cefdinir [Cefdinir] Adverse Reaction (Intermediate, Verified 12/20/17 13:18) rash MYCINS Allergy (Uncoded 12/20/17 13:18) Past Medical History - General Information source: Patient - Social History Smoking Status: Never Smoker Chew tobacco use (# tins/day): No Drug Abuse: None Family History: Reviewed & Not Pertinent, Hypertension Patient has suicidal ideation: No Patient has homicidal ideation: No - Past Medical History Cardiac Medical History: Reports: Hx Congestive Heart Failure, Hx Coronary Artery Disease, Hx DVT, Hx Heart Attack, Hx Hypercholesterolemia, Hx Hypertension Denies: Hx Pulmonary Embolism Pulmonary Medical History: Reports: Hx Asthma, Hx COPD, Hx Pneumonia - x 4 times Denies: Hx Bronchitis, Hx Tuberculosis Neurological Medical History: Reports: Hx Seizures - as baby. Denies: Hx Cerebrovascular Accident Endocrine Medical History: Reports: Hx Diabetes Mellitus Type 1, Hx Diabetes Mellitus Type 2, Hx Hypothyroidism Renal/ Medical History: Reports: Hx Kidney Stones. Denies: Hx Peritoneal Dialysis GI Medical History: Reports: Hx Hiatal Hernia. Denies: Hx Hepatitis, Hx Ulcer Musculoskeletal Medical History: Reports Hx Arthritis, Reports Hx Fibromyalgia Psychiatric Medical History: Denies: Hx Depression Infectious Medical History: Denies: Hx Hepatitis Past Surgical History: Reports: Hx Appendectomy, Hx Cholecystectomy, Hx Gynecologic Surgery - Right nephrectomy, Hx Herniorrhaphy, Hx Orthopedic Surgery - L knee, Hx Tonsillectomy, Hx Tubal Ligation, Hx Urinary Tract Surgery - Bladder stone removal. Denies: Hx Cardiac Catheterization, Hx Mastectomy, Hx Open Heart Surgery, Hx Pacemaker - Immunizations Immunizations up to date: Yes Hx Diphtheria, Pertussis, Tetanus Vaccination: Yes - Allergic, "30 years ago" Hx Pneumococcal Vaccination: 11/15/15 Review of Systems - Review of Systems Constitutional: No symptoms reported EENT: No symptoms reported Cardiovascular: No symptoms reported, Chest pain Respiratory: No symptoms reported Gastrointestinal: Abdominal pain Genitourinary: No symptoms reported Female Genitourinary: No symptoms reported Musculoskeletal: No symptoms reported Skin: No symptoms reported Hematologic/Lymphatic: No symptoms reported Neurological/Psychological: No symptoms reported -: Yes All other systems reviewed and negative Physical Exam - Vital signs Vitals: Temp Pulse Resp BP Pulse Ox 98.7 F 97 20 151/70 H 92 12/20/17 13:31 12/20/17 13:31 12/20/17 13:31 12/20/17 13:31 12/20/17 13:31 Interpretation: Normal - General General appearance: Appears well, Alert - HEENT Head: Normocephalic, Atraumatic Eyes: Normal Pupils: PERRL - Respiratory Respiratory status: No respiratory distress Chest status: Nontender Breath sounds: Normal Chest palpation: Normal - Cardiovascular Rhythm: Regular Heart sounds: Normal auscultation Murmur: No - Abdominal Inspection: Obese Distension: No distension Bowel sounds: Normal Tenderness: Nontender Organomegaly: No organomegaly - Back Back: Normal, Nontender - Extremities General upper extremity: Normal inspection, Nontender, Normal color, Normal ROM , Normal temperature General lower extremity: Normal inspection, Nontender, Normal color, Normal ROM , Normal temperature, Normal weight bearing. No: Prasad's sign - Neurological Neuro grossly intact: Yes Cognition: Normal Orientation: AAOx4 [place] Coma Scale Eye Opening: Spontaneous [place] Coma Scale Verbal: Oriented [place] Coma Scale Motor: Obeys Commands [place] Coma Scale Total: 15 Speech: Normal Motor strength normal: LUE, RUE, LLE, RLE Sensory: Normal - Psychological Associated symptoms: Normal affect, Normal mood - Skin Skin Temperature: Warm Skin Moisture: Dry Skin Color: Normal Course - Re-evaluation Re-evalutation: 12/20/17 23:46 Patient with a white count and urinalysis showing signs of infection. Patient' s troponin is otherwise negative. Discussed with the PCP recommended we put the patient on aztreonam and admit the patient to the telemetry unit. - Vital Signs Vital signs: Temp Pulse Resp BP Pulse Ox 98.2 F 89 17 140/69 H 94 12/20/17 21:23 12/20/17 21:23 12/20/17 21:23 12/20/17 21:23 12/20/17 21:23 - Laboratory Result Diagrams: 12/20/17 15:53 12/20/17 15:53 Laboratory results interpreted by me: 12/20/17 12/20/17 15:53 15:53 WBC 17.2 H Seg Neutrophils % 88.5 H Lymphocytes % 6.5 L Absolute Neutrophils 15.2 H Glucose 121 H Total Bilirubin 2.7 H Direct Bilirubin 0.5 H Creatine Kinase 25 L Discharge - Discharge Clinical Impression: Chest pain Qualifiers: Chest pain type: unspecified Qualified Code(s): R07.9 - Chest pain, unspecified UTI (urinary tract infection) Qualifiers: Urinary tract infection type: site unspecified Hematuria presence: with hematuria Qualified Code(s): N39.0 - Urinary tract infection, site not specified Leukocytosis Qualifiers: Leukocytosis type: unspecified Qualified Code(s): D72.829 - Elevated white blood cell count, unspecified Condition: Good Disposition: HOME, SELF-CARE Admitting Provider: Kerri Unit Admitted: Telemetry
[2017-12-20] MEDS ORDERED: AZTREONAM INJ 1 GM VIAL IV ONE (17:40)
--- NOTE | 2017-12-20 18:11 | EKG REPORT ---
SEVERITY:- ABNORMAL ECG - SINUS TACHYCARDIA LVH WITH IVCD, LAD AND SECONDARY REPOL ABNRM OLD ANTERIOR MT : Confirmed by: Naveen Paula MD 20-Dec-2017 18:10:44
--- NOTE | 2017-12-20 20:08 | PDOC H&P ---
History of Present Illness Admission Date/PCP: 12/20/17 17:54 [facility] Patient complains of: Chest pain History of Present Illness: STEPH WAYNE is a 87 year old female known to my practice who was evaluated in the office yesterday for lower abdominal pain for possible UTI. She was prescribed Nitrofurantoin. She reported development of fever, shaking chills and worsening lower abdominal pain with frequent bowel movement but minimal stool amount. She reported development of left sided sharp stabbing chest pain since earlier this morning. She denied any radiation of pain to her left shoulder or arm. She reported exertional shortness of breath. No associated palpitation or diaphoresis. There is nausea but no vomiting. She claimed poor appetite and oral intake. She reported generalized fatigue and weakness. No nasal or sinus congestion, dizziness or headache. Her initial ED evaluation was remarkable for significant leukocytosis with left shift. In view of her presenting symptoms and laboratory findings, she was advised hospitalization for further evaluation and management. 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 Past Medical History Cardiac Medical History: Reports: Congestive Heart Failure, Coronary Artery Disease, DVT, Myocardial Infarction, Hyperlipidema, Hypertension Denies: Pulmonary Embolism Pulmonary Medical History: Reports: Asthma, Chronic Obstructive Pulmonary Disease (COPD), Pneumonia - x 4 times Denies: Bronchitis, Tuberculosis Neurological Medical History: Reports: Seizures - as baby Endocrine Medical History: Reports: Diabetes Mellitus Type 1, Diabetes Mellitus Type 2, Hypothyroidism GI Medical History: Reports: Hiatal Hernia Denies: Hepatitis Musculoskeltal Medical History: Reports: Arthritis, Fibromyalgia Psychiatric Medical History: Denies: Depression Hematology: Denies: Anemia Past Surgical History Past Surgical History: Reports: Appendectomy, Cholecystectomy, Herniorrhaphy, Orthopedic Surgery - L knee, Tonsillectomy, Tubal Ligation Denies: Amputation, Cardiac Catheterization, Mastectomy, Pacemaker Social History Smoking Status: Never Smoker Frequency of Alcohol Use: None Hx Recreational Drug Use: No Drugs: None Hx Prescription Drug Abuse: No - Advance Directive Resuscitation Status: Full Code Family History Family History: Reviewed & Not Pertinent, Hypertension Parental Family History Reviewed: Yes Children Family History Reviewed: Yes Sibling(s) Family History Reviewed.: Yes Medication/Allergy Home Medications: Hydrochlorothiazide [Hydrodiuril 25 mg Tablet] 25 mg PO QAM 12/20/17 Levocetirizine Dihydrochloride [Xyzal] 5 mg PO QHS 12/20/17 Levothyroxine Sodium [Synthroid] 0.1 mg PO Q6AM 12/20/17 Lidocaine/Prilocaine [Lido-Prilo [place]] 1 applic TOP QID 12/20/17 Lisinopril [Prinivil 2.5 mg Tablet] 2.5 mg PO QAM 12/20/17 Omeprazole 40 mg PO Q6AM 12/20/17 Potassium Chloride [K-Tab ER] 10 meq PO QAM 12/20/17 Allergies/Adverse Reactions: ciprofloxacin [From Cipro] Allergy (Verified 12/20/17 13:18) Diarrhea, vomiting codeine [Codeine] Allergy (Verified 12/20/17 13:18) diarrhea, vomiting, convulsions diphtheria toxoid,fluid Allergy (Verified 12/20/17 13:18) Rash iodine [Iodine] Allergy (Verified 12/20/17 13:18) diarrhea, vomiting lansoprazole [From Prevacid] Allergy (Verified 12/20/17 13:18) rash latex [Latex] Allergy (Verified 12/20/17 13:18) ITCHY RASH levofloxacin [From Levaquin] Allergy (Verified 12/20/17 13:18) Rash, Diarrhea meloxicam Allergy (Verified 12/20/17 13:18) "symptoms of heart attack" morphine Allergy (Verified 12/20/17 13:18) Chest pain Penicillins Allergy (Verified 12/20/17 13:18) "6 days in coma" Sulfa (Sulfonamide Antibiotics) Allergy (Verified 12/20/17 13:18) Rash Tetanus Vaccines and Toxoid [Tetanus] Allergy (Verified 12/20/17 13:18) convulsions cefdinir [Cefdinir] Adverse Reaction (Intermediate, Verified 12/20/17 13:18) rash MYCINS Allergy (Uncoded 12/20/17 13:18) Review of Systems Constitutional: PRESENT: chills, fever(s), weakness Eyes: PRESENT: visual disturbances Ears: ABSENT: hearing changes Nose, Mouth, and Throat: ABSENT: as per HPI, headache(s), mouth pain, sore throat, vertigo, other Cardiovascular: PRESENT: chest pain, dyspnea on exertion. ABSENT: as per HPI, edema, orthropnea, palpitations, other Respiratory: PRESENT: dyspnea. ABSENT: as per HPI, cough, hemoptysis, sputum, other Gastrointestinal: PRESENT: abdominal pain, nausea. ABSENT: as per HPI, bloating , coffee ground emesis, constipation, diarrhea, dysphagia, heartburn, hematemesis, hematochezia, melena, vomiting, other Genitourinary: ABSENT: dysuria, hematuria Musculoskeletal: PRESENT: muscle weakness - generalized Integumentary: ABSENT: rash, wounds Neurological: ABSENT: abnormal gait, abnormal speech, confusion, dizziness, focal weakness, syncope Psychiatric: PRESENT: anxiety. ABSENT: as per HPI, depression, hallucinations, homidical ideation, suicidal ideation, other Endocrine: ABSENT: cold intolerance, heat intolerance, polydipsia, polyuria Hematologic/Lymphatic: ABSENT: easy bleeding, easy bruising, lymphadenopathy Allergic/Immunologic: ABSENT: seasonal rhinorrhea Physical Exam Vital Signs: Temp Pulse Resp BP Pulse Ox 98.3 F 87 24 H 150/73 H 91 L 12/20/17 18:46 12/20/17 19:00 12/20/17 18:46 12/20/17 18:46 12/20/17 18:46 Intake & Output 12/19/17 12/20/17 12/21/17 06:59 06:59 06:59 Weight 89.2 kg General appearance: PRESENT: mild distress - due to lower abdominal region pain , obese Head exam: PRESENT: atraumatic, normocephalic Eye exam: PRESENT: conjunctiva pink, EOMI, PERRLA. ABSENT: scleral icterus Ear exam: PRESENT: normal external ear exam Mouth exam: PRESENT: moist Respiratory exam: PRESENT: clear to auscultation erlinda, decreased breath sounds - at lung bases Cardiovascular exam: PRESENT: RRR. ABSENT: diastolic murmur, rubs, systolic murmur Pulses: PRESENT: +2 pedal pulses bilateral Vascular exam: PRESENT: normal capillary refill. ABSENT: pallor GI/Abdominal exam: PRESENT: normal bowel sounds, soft, tenderness - bilateral lower quadrants. ABSENT: distended, guarding, mass, organolmegaly, rebound Rectal exam: PRESENT: deferred Extremities exam: PRESENT: tenderness - left sided chest wall tenderness to palpation Musculoskeletal exam: PRESENT: ambulatory, deformity - related to multiple joints involvement with arthritis, tenderness - expressed tenderness to multiple joints palpation and PROM Neurological exam: PRESENT: alert, awake, oriented to person, oriented to place , oriented to time, oriented to situation, CN II-XII grossly intact. ABSENT: motor sensory deficit Psychiatric exam: PRESENT: appropriate affect, normal mood. ABSENT: homicidal ideation, suicidal ideation Skin exam: PRESENT: dry, intact, warm. ABSENT: cyanosis, rash Results Impressions: Chest X-Ray 12/20/17 14:05 IMPRESSION: NO ACUTE RADIOGRAPHIC FINDING IN THE CHEST. Assessment & Plan - Diagnosis (1) Chest pain with high risk of acute coronary syndrome Is this a current diagnosis for this admission?: Yes Plan: Obtain serial cardiac enzymes to evaluate ongoing cardiac event in view of her left sided chest pain. Maintainon supplemental oxygen via nasal cannula. (2) Leukocytosis Qualifiers: Leukocytosis type: unspecified Qualified Code(s): D72.829 - Elevated white blood cell count, unspecified Is this a current diagnosis for this admission?: Yes Plan: Follow up on blood and urine culture. start on empiric antibiotic therapy in view of her leukocytosis with left shift. (3) Abdominal pain Qualifiers: Abdominal location: lower abdomen, unspecified Qualified Code(s): R10.30 - Lower abdominal pain, unspecified Is this a current diagnosis for this admission?: Yes Plan: Probable related to possible UTI. Follow up on urine culture findings. (4) Probable sepsis Is this a current diagnosis for this admission?: Yes Plan: In view of her leukocytosis with left shift and lower abdominal pain. Maintain on empiric antibiotic coverage pending culture findings. (5) Diabetes mellitus type 2 in obese Is this a current diagnosis for this admission?: Yes Plan: Continue preadmission medication management. (6) HTN (hypertension) Qualifiers: Hypertension type: essential hypertension Qualified Code(s): I10 - Essential (primary) hypertension Is this a current diagnosis for this admission?: Yes Plan: Continue preadmission medication management. (7) CAD (coronary artery disease) Qualifiers: Coronary Disease-Associated Artery/Lesion type: [place] artery [place] vs. transplanted heart: [place] heart Associated angina: without angina Qualified Code(s): I25.10 - Atherosclerotic heart disease of [place] coronary artery without angina pectoris Is this a current diagnosis for this admission?: Yes Plan: Continue preadmission medication management. (8) COPD (chronic obstructive pulmonary disease) Qualifiers: COPD type: unspecified COPD Qualified Code(s): J44.9 - Chronic obstructive pulmonary disease, unspecified Is this a current diagnosis for this admission?: Yes Plan: Continue preadmission medication management. (9) HLD (hyperlipidemia) Qualifiers: Hyperlipidemia type: unspecified Qualified Code(s): E78.5 - Hyperlipidemia , unspecified Is this a current diagnosis for this admission?: Yes Plan: Continue preadmission medication management. (10) Hypothyroidism Qualifiers: Hypothyroidism type: acquired Qualified Code(s): E03.9 - Hypothyroidism, unspecified Is this a current diagnosis for this admission?: Yes Plan: Continue preadmission medication management. (11) Fibromyalgia Is this a current diagnosis for this admission?: Yes Plan: Continue preadmission medication management. (12) Obesity (BMI 30-39.9) Qualifiers: Obesity type: due to excess calories Obesity classification: adult class 1 (BMI 30 - 34.9) Serious obesity comorbidity presence: with serious comorbidity Body mass index: BMI 34.0-34.9 Qualified Code(s): E66.09 - Other obesity due to excess calories; Z68.34 - Body mass index (BMI) 34.0-34.9, adult; Z68.34 - Body mass index (BMI) 34.0-34.9, adult Is this a current diagnosis for this admission?: Yes Plan: Continue preadmission medication management. - Time Time Spent: 50 to 70 Minutes Medications reviewed and adjusted accordingly: Yes Anticipated discharge: Home with Homehealth Within: Other - Inpatient Certification Based on my medical assessment, after consideration of the patient's comorbidities, presenting symptoms, or acuity I expect that the services needed warrant INPATIENT care.: Yes I certify that my determination is in accordance with my understanding of Medicare's requirements for reasonable and necessary INPATIENT services [42 CFR 412.3e].: Yes Medical Necessity: Need Close Monitoring Due to Risk of Patient Decompensation, Need For IV Fluids, Need For Continuous Telemetry Monitoring, Need for IV Antibiotics, Risk of Complication if Not Cared For in Hospital Post Hospital Care: D/C Design Project Manager Documentation - Plan Summary Plan Summary: See admitting attending physician orders.
[2017-12-20] MEDS ORDERED: GLUCAGON,HUMAN RECOMB 1 MG INJ IM PRN (20:10)
[2017-12-20] MEDS ORDERED: DEXTROSE 40% GEL 15 GM TUBE PO PRN ×2 (20:10)
[2017-12-20] MEDS ORDERED: INSULIN LISPRO 100 UNIT/ML 3 ML VIAL SUBCUT PRN (20:10)
[2017-12-20] MEDS ORDERED: DEXTROSE 50%-WATER 25 GM/50 ML DISP.SYRIN IV PRN ×2 (20:10)
[2017-12-20 20:19] LABS: APPEARANCE,URINE SLIGHTLY-CLOUDY; BILIRUBIN,URINE NEGATIVE (NEGATIVE); COLOR,URINE YELLOW; GLUCOSE, URINE NEGATIVE (NEGATIVE); KETONES,URINE NEGATIVE (NEGATIVE); LEUKOCYTE ESTERASE,URINE NEGATIVE (NEGATIVE); NITRITE,URINE NEGATIVE (NEGATIVE); PROTEIN,URINE NEGATIVE (NEGATIVE); URINE SPECIFIC GRAVITY 1.012; UROBILINOGEN,URINE NEGATIVE mg/dL (<2.0)
[2017-12-20] MEDS ORDERED: LIDOCAINE TOP SCH (22:00)
[2017-12-20] MEDS ORDERED: PRILOCAINE TOP SCH (22:00)
[2017-12-20] MEDS: ENOXAPARIN SODIUM INJ 40 MG/0.4 ML DISP.SYRIN SUBCUT SCH (22:29)
[2017-12-20] MEDS: LEVOCETIRIZINE DIHYDROCHLORIDE 5 MG PO SCH (22:30)
[2017-12-20] MEDS: NORMAL SALINE 1000 ML 1,000 ML IV PRN (22:30)
[2017-12-21] MEDS: AZTREONAM 1 GM in DEXTROSE 5%-WATER 50 ML IV SCH ×3 (01:09→18:06)
[2017-12-21] MEDS: ACETAMINOPHEN 325 MG TABLET PO PRN ×2 (04:35→11:11)
[2017-12-21 04:36] LABS: ABSOLUTE BASOPHILS # (AUTO) 0.1 10^3/uL (0.0-0.2); ABSOLUTE EOSINOPHILS # (AUTO) 0.2 10^3/uL (0.0-0.6); ABSOLUTE LYMPHOCYTES (AUTO) 1.7 10^3/uL (0.5-4.7); ABSOLUTE MONOCYTES (AUTO) 0.6 10^3/uL (0.1-1.4); ABSOLUTE NEUT (AUTO) 11.9 10^3/uL (1.7-8.2); BASOPHILS % (AUTO) 0.5 % (0-2); EOSINOPHILS % (AUTO) 1.5 % (0-6); HEMATOCRIT 40.8 % (36.0-47.0); HEMOGLOBIN 14.1 g/dL (12.0-15.5); LYMPHOCYTES % (AUTO) 11.8 % (13-45); MEAN CORPUSCULAR HEMOGLOBIN 30.7 pg (27.0-33.4); MEAN CORPUSCULAR HGB CONC 34.6 g/dL (32.0-36.0); MEAN CORPUSCULAR VOLUME 89 fl (80-97); PLATELET COUNT 160 10^3/uL (150-450); RED BLOOD COUNT 4.59 10^6/uL (3.72-5.28); RED CELL DISTRIBUTION WIDTH 13.6 % (11.5-14.0); SEGMENTED NEUTROPHILS % (AUTO) 82.2 % (42-78); TOTAL CELLS COUNTED % (AUTO) 100 %; WHITE BLOOD COUNT 14.5 10^3/uL (4.0-10.5)
[2017-12-21] MEDS: LEVOTHYROXINE SODIUM 0.1 MG TABLET PO SCH (05:18)
[2017-12-21] MEDS: OMEPRAZOLE 40 MG PO SCH (05:18)
[2017-12-21 05:46] LABS: ALANINE AMINOTRANSFERASE 13 U/L (9-52); ALBUMIN 3.5 g/dL (3.5-5.0); ALKALINE PHOSPHATASE 64 U/L (38-126); ANION GAP 9 (5-19); ASPARTATE AMINO TRANSFERASE 13 U/L (14-36); BILIRUBIN,DIRECT 0.5 mg/dL (0.0-0.4); BILIRUBIN,TOTAL 2.7 mg/dL (0.2-1.3); BLOOD UREA NITROGEN 10 mg/dL (7-20); CALCIUM 9.3 mg/dL (8.4-10.2); CARBON DIOXIDE 29 mmol/L (22-30); CHLORIDE 103 mmol/L (98-107); GLUCOSE 127 mg/dL (75-110); POTASSIUM 3.4 mmol/L (3.6-5.0); SODIUM 141.4 mmol/L (137-145); TOTAL PROTEIN 6.1 g/dL (6.3-8.2)
[2017-12-21] MEDS ORDERED: (PENDING PHARMACY ID) (Lisinopril [Prinivil 2.5 Mg Tablet] 2.5 MG) PO SCH (08:00)
[2017-12-21] MEDS: POTASSIUM CHLORIDE 10 MEQ CAPSULE.ER PO SCH (08:11)
[2017-12-21] MEDS: LISINOPRIL 5 MG TABLET PO SCH (08:11)
[2017-12-21] MEDS: HYDROCHLOROTHIAZIDE 25 MG TABLET PO SCH (08:12)
[2017-12-21] MEDS: NORMAL SALINE 1000 ML 1,000 ML IV PRN ×2 (08:45→18:59)
[2017-12-21] MEDS: ENOXAPARIN SODIUM INJ 40 MG/0.4 ML DISP.SYRIN SUBCUT SCH (11:13)
--- NOTE | 2017-12-21 20:10 | PDOC PROGRESS REPORT ---
Subjective Progress Note for:: 12/21/17 Subjective:: Patient continue to express pain in lower abdominal region. Improving nausea. No vomiting. Improved chest pain. No difficulty with breathing. No fever or chills. No flank pain. Patient vehemently reported that she is not allergic to iodine in food but to contrast iodine dye! Reason For Visit: CHEST PAIN R/O ACS;ABDOMINAL PAIN WITH Physical Exam Vital Signs: Temp Pulse Resp BP Pulse Ox 98.4 F 78 16 135/73 H 94 12/21/17 12:11 12/21/17 12:11 12/21/17 12:11 12/21/17 12:11 12/21/17 12:11 Intake & Output 12/20/17 12/21/17 12/22/17 06:59 06:59 06:59 Intake Total 50 Balance 50 Weight 93.8 kg General appearance: PRESENT: no acute distress, obese Head exam: PRESENT: atraumatic, normocephalic Eye exam: PRESENT: conjunctiva pink, EOMI, PERRLA. ABSENT: scleral icterus Ear exam: PRESENT: normal external ear exam Mouth exam: PRESENT: moist Respiratory exam: PRESENT: clear to auscultation erlinda, decreased breath sounds - at lung bases Cardiovascular exam: PRESENT: RRR. ABSENT: diastolic murmur, rubs, systolic murmur Vascular exam: ABSENT: pallor GI/Abdominal exam: PRESENT: normal bowel sounds, soft, tenderness - lower quadrant to deep palpation.. ABSENT: distended, guarding, mass, organolmegaly, rebound Extremities exam: ABSENT: pedal edema Musculoskeletal exam: PRESENT: deformity - related to multiple joints involvement with arthritis. Neurological exam: PRESENT: alert, awake, oriented to person, oriented to place , oriented to time, oriented to situation, CN II-XII grossly intact. ABSENT: motor sensory deficit Psychiatric exam: PRESENT: appropriate affect, normal mood. ABSENT: homicidal ideation, suicidal ideation Skin exam: PRESENT: dry, intact, warm. ABSENT: cyanosis, rash Results Laboratory Results: 12/21/17 04:00 12/21/17 05:10 12/20/17 12/21/17 12/21/17 19:40 04:00 04:00 WBC 14.5 H RBC 4.59 Hgb 14.1 Hct 40.8 MCV 89 MCH 30.7 MCHC 34.6 RDW 13.6 Plt Count 160 Seg Neutrophils % 82.2 H Lymphocytes % 11.8 L Monocytes % 4.0 Eosinophils % 1.5 Basophils % 0.5 Absolute Neutrophils 11.9 H Absolute Lymphocytes 1.7 Absolute Monocytes 0.6 Absolute Eosinophils 0.2 Absolute Basophils 0.1 Sodium Cancelled Potassium Cancelled Chloride Cancelled Carbon Dioxide Cancelled Anion Gap Cancelled BUN Cancelled Creatinine Cancelled Est GFR ( Amer) Cancelled Est GFR (Non-Af Amer) Cancelled Glucose Cancelled Calcium Cancelled Total Bilirubin Cancelled AST Cancelled ALT Cancelled Alkaline Phosphatase Cancelled Total Protein Cancelled Albumin Cancelled Urine Color YELLOW Urine Appearance SLIGHTLY-CLOUDY Urine pH 7.0 Ur Specific [place] 1.012 Urine Protein NEGATIVE Urine Glucose (UA) NEGATIVE Urine Ketones NEGATIVE Urine Blood NEGATIVE Urine Nitrite NEGATIVE Ur Leukocyte Esterase NEGATIVE Urine WBC (Auto) 1 Urine RBC (Auto) 3 12/21/17 05:10 WBC RBC Hgb Hct MCV MCH MCHC RDW Plt Count Seg Neutrophils % Lymphocytes % Monocytes % Eosinophils % Basophils % Absolute Neutrophils Absolute Lymphocytes Absolute Monocytes Absolute Eosinophils Absolute Basophils Sodium 141.4 Potassium 3.4 L Chloride 103 Carbon Dioxide 29 Anion Gap 9 BUN 10 Creatinine 0.54 Est GFR ( Amer) > 60 Est GFR (Non-Af Amer) > 60 Glucose 127 H Calcium 9.3 Total Bilirubin 2.7 H AST 13 L ALT 13 Alkaline Phosphatase 64 Total Protein 6.1 L Albumin 3.5 Urine Color Urine Appearance Urine pH Ur Specific [place] Urine Protein Urine Glucose (UA) Urine Ketones Urine Blood Urine Nitrite Ur Leukocyte Esterase Urine WBC (Auto) Urine RBC (Auto) Impressions: Chest X-Ray 12/20/17 14:05 IMPRESSION: NO ACUTE RADIOGRAPHIC FINDING IN THE CHEST. Assessment & Plan - Diagnosis (1) Chest pain with high risk of acute coronary syndrome Is this a current diagnosis for this admission?: Yes Plan: Less likely cardiac source and improving. (2) Leukocytosis Qualifiers: Leukocytosis type: unspecified Qualified Code(s): D72.829 - Elevated white blood cell count, unspecified Is this a current diagnosis for this admission?: Yes Plan: Patient CBC indices did revealed some improvement in her leukocytosis. Continue IV Aztreonam coverage and follow up on culture findings. 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 (4) Probable sepsis Is this a current diagnosis for this admission?: Yes Plan: Continue IV Aztreonam coverage and follow up on culture findings. (5) Diabetes mellitus type 2 in obese Is this a current diagnosis for this admission?: Yes Plan: Maintain on current medication management. (6) HTN (hypertension) Qualifiers: Hypertension type: essential hypertension Qualified Code(s): I10 - Essential (primary) hypertension Is this a current diagnosis for this admission?: Yes Plan: Maintain on current medication management. (7) CAD (coronary artery disease) Qualifiers: Coronary Disease-Associated Artery/Lesion type: [place] artery [place] vs. transplanted heart: [place] heart Associated angina: without angina Qualified Code(s): I25.10 - Atherosclerotic heart disease of [place] coronary artery without angina pectoris Is this a current diagnosis for this admission?: Yes Plan: Maintain on current medication management. (8) COPD (chronic obstructive pulmonary disease) Qualifiers: COPD type: unspecified COPD Qualified Code(s): J44.9 - Chronic obstructive pulmonary disease, unspecified Is this a current diagnosis for this admission?: Yes Plan: Maintain on current medication management. (9) HLD (hyperlipidemia) Qualifiers: Hyperlipidemia type: unspecified Qualified Code(s): E78.5 - Hyperlipidemia , unspecified Is this a current diagnosis for this admission?: Yes Plan: Maintain on current medication management. (10) Hypothyroidism Qualifiers: Hypothyroidism type: acquired Qualified Code(s): E03.9 - Hypothyroidism, unspecified Is this a current diagnosis for this admission?: Yes Plan: Maintain on current medication management. (11) Fibromyalgia Is this a current diagnosis for this admission?: Yes Plan: Maintain on current medication management. (12) Obesity (BMI 30-39.9) Qualifiers: Obesity type: due to excess calories Obesity classification: adult class 1 (BMI 30 - 34.9) Serious obesity comorbidity presence: with serious comorbidity Body mass index: BMI 34.0-34.9 Qualified Code(s): E66.09 - Other obesity due to excess calories; Z68.34 - Body mass index (BMI) 34.0-34.9, adult; Z68.34 - Body mass index (BMI) 34.0-34.9, adult Is this a current diagnosis for this admission?: Yes Plan: Maintain on current medication management. Emphasized compliance with dietary and calorie restrictions. - Time Time Spent with patient: 25-34 minutes Medications reviewed and adjusted accordingly: Yes Anticipated discharge: Home - Inpatient Certification Based on my medical assessment, after consideration of the patient's comorbidities, presenting symptoms, or acuity I expect that the services needed warrant INPATIENT care.: Yes I certify that my determination is in accordance with my understanding of Medicare's requirements for reasonable and necessary INPATIENT services [42 CFR 412.3e].: Yes Medical Necessity: Need Close Monitoring Due to Risk of Patient Decompensation, Need For IV Fluids, Need For Continuous Telemetry Monitoring, Need for IV Antibiotics, Risk of Complication if Not Cared For in Hospital Post Hospital Care: D/C Loan Closer Documentation - Plan Summary Plan Summary: See attending physician orders.
[2017-12-21] MEDS: LEVOCETIRIZINE DIHYDROCHLORIDE 5 MG PO SCH (22:30)
[2017-12-22] MEDS: AZTREONAM 1 GM in DEXTROSE 5%-WATER 50 ML IV SCH ×3 (02:21→17:02)
[2017-12-22] MEDS: ACETAMINOPHEN 325 MG TABLET PO PRN ×2 (02:28→19:54)
[2017-12-22] MEDS: NORMAL SALINE 1000 ML 1,000 ML IV PRN ×2 (05:13→17:00)
[2017-12-22] MEDS: LEVOTHYROXINE SODIUM 0.1 MG TABLET PO SCH (06:07)
[2017-12-22] MEDS: OMEPRAZOLE 40 MG PO SCH (06:07)
[2017-12-22] MEDS: LISINOPRIL 5 MG TABLET PO SCH (07:50)
[2017-12-22] MEDS: HYDROCHLOROTHIAZIDE 25 MG TABLET PO SCH (07:50)
[2017-12-22] MEDS: POTASSIUM CHLORIDE 10 MEQ CAPSULE.ER PO SCH (07:51)
[2017-12-22] MEDS: ENOXAPARIN SODIUM INJ 40 MG/0.4 ML DISP.SYRIN SUBCUT SCH (09:53)
--- NOTE | 2017-12-22 10:15 | Physician Advisory Note ---
Physician Advisor ProgressNote .: Pursuant to the plan for Roopa Proctor, I have reviewed the medical record for this patient. Physician Advisor Statement: 87yo w/underlying CAD, chronic ___ CHF, HTN, COPD, asthma, DM type ___, - came in w/F/C/BEEBE/N/weakness, came in w/acute CP, acute ___ quadrant abd pain , leukocytosis, HR 90s, RR up to 35, O2 sat dropped to 91% RA & 94% on 2L O2 (P/ F ratio 261, equivalent to 87-88% sat on RA). TBili 2.7 (usually 0.7-1.2). She was said to be in distress due to abd pain. Please consider documenting, if you agree: 1. "Suspected Bacterial infection of undetermined etiology" (sometimes leukocytosis is due to other things, but you are tx'ing w/IV Aztreonam...) 2. "Acute CP, suspect due to " (to be coded correctly, CP must be specified as what it is likely due to, not just what it is not due to) 3. Whether, by time of d/c, you believe pt WAS or WAS NOT septic on adm, & what infxn was likely the culprit (vs "unclear source") - ED note states pt appeared "healthy" & "appears well" on exam. If you believe pt was septic on adm, please give explanation for what appears to be a contradictory documentation in chart. Thanks! CK
--- NOTE | 2017-12-22 19:18 | PDOC PROGRESS REPORT ---
Subjective Progress Note for:: 12/22/17 Subjective:: Patient still localize pain to lower abdominal region. No nausea or vomiting. No chest pain or difficulty with breathing. No fever or chills. She reported ongoing headache. Reason For Visit: CHEST PAIN R/O ACS;ABDOMINAL PAIN WITH Physical Exam Vital Signs: Temp Pulse Resp BP Pulse Ox 97.8 F 55 L 18 121/52 L 98 12/22/17 16:52 12/22/17 16:52 12/22/17 16:52 12/22/17 16:52 12/22/17 16:52 Intake & Output 12/21/17 12/22/17 12/23/17 06:59 06:59 06:59 Intake Total 50 4385 1250 Output Total 350 Balance 50 4385 900 Weight 93.8 kg 90.9 kg Physical Exam: General appearance: PRESENT: no acute distress, obese Head exam: PRESENT: atraumatic, normocephalic Eye exam: PRESENT: conjunctiva pink, EOMI, PERRLA. ABSENT: scleral icterus Ear exam: PRESENT: normal external ear exam Mouth exam: PRESENT: moist Respiratory exam: PRESENT: clear to auscultation erlinda, decreased breath sounds - at lung bases Cardiovascular exam: PRESENT: RRR. ABSENT: diastolic murmur, rubs, systolic murmur Vascular exam: ABSENT: pallor GI/Abdominal exam: PRESENT: normal bowel sounds, soft, tenderness - lower quadrant to deep palpation. ABSENT: distended, guarding, mass, organomegaly, rebound Extremities exam: ABSENT: pedal edema Musculoskeletal exam: PRESENT: deformity - related to multiple joints involvement with arthritis. Neurological exam: PRESENT: alert, awake, oriented to person, oriented to place , oriented to time, oriented to situation, CN II-XII grossly intact. ABSENT: motor sensory deficit Psychiatric exam: PRESENT: appropriate affect, normal mood. ABSENT: homicidal ideation, suicidal ideation Skin exam: PRESENT: dry, intact, warm. ABSENT: cyanosis, rash Results Laboratory Results: 12/21/17 04:00 12/21/17 05:10 12/20/17 19:40 Clean Catch Midstream Urine Culture - Final Mixed Urogenital Antonio Impressions: Chest X-Ray 12/20/17 14:05 IMPRESSION: NO ACUTE RADIOGRAPHIC FINDING IN THE CHEST. Assessment & Plan - Diagnosis (1) Chest pain with high risk of acute coronary syndrome Is this a current diagnosis for this admission?: Yes Plan: Resolved and less likely cardiac in origin. Most likely related to underlying GERD (2) Leukocytosis Qualifiers: Leukocytosis type: unspecified Qualified Code(s): D72.829 - Elevated white blood cell count, unspecified Is this a current diagnosis for this admission?: Yes Plan: Improving but source of infection remain unclear. Blood culture is no growth to date. Urine culture revealed mixed urogenital antonio. (3) Abdominal pain Qualifiers: Abdominal location: lower abdomen, unspecified Qualified Code(s): R10.30 - Lower abdominal pain, unspecified Is this a current diagnosis for this admission?: Yes Plan: Questionable etiology. 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 Obtain CT abdomen/ Pelvis with oral contrast in view of her reported allergy to iv dye contrast to further evaluate her abdominal pain. (4) Probable sepsis Is this a current diagnosis for this admission?: Yes Plan: Unknown source at this time. Continue IV Aztreonam coverage and follow up on culture findings. (5) Diabetes mellitus type 2 in obese Is this a current diagnosis for this admission?: Yes Plan: Continue on current medication management. (6) HTN (hypertension) Qualifiers: Hypertension type: essential hypertension Qualified Code(s): I10 - Essential (primary) hypertension Is this a current diagnosis for this admission?: Yes Plan: Continue on current medication management. (7) CAD (coronary artery disease) Qualifiers: Coronary Disease-Associated Artery/Lesion type: [place] artery [place] vs. transplanted heart: [place] heart Associated angina: without angina Qualified Code(s): I25.10 - Atherosclerotic heart disease of [place] coronary artery without angina pectoris Is this a current diagnosis for this admission?: Yes Plan: Continue on current medication management. (8) COPD (chronic obstructive pulmonary disease) Qualifiers: COPD type: unspecified COPD Qualified Code(s): J44.9 - Chronic obstructive pulmonary disease, unspecified Is this a current diagnosis for this admission?: Yes Plan: Continue on current medication management. (9) HLD (hyperlipidemia) Qualifiers: Hyperlipidemia type: unspecified Qualified Code(s): E78.5 - Hyperlipidemia , unspecified Is this a current diagnosis for this admission?: Yes Plan: Continue on current medication management. (10) Hypothyroidism Qualifiers: Hypothyroidism type: acquired Qualified Code(s): E03.9 - Hypothyroidism, unspecified Is this a current diagnosis for this admission?: Yes Plan: Continue on current medication management. (11) Fibromyalgia Is this a current diagnosis for this admission?: Yes Plan: Continue on current medication management. (12) Obesity (BMI 30-39.9) Qualifiers: Obesity type: due to excess calories Obesity classification: adult class 1 (BMI 30 - 34.9) Serious obesity comorbidity presence: with serious comorbidity Body mass index: BMI 34.0-34.9 Qualified Code(s): E66.09 - Other obesity due to excess calories; Z68.34 - Body mass index (BMI) 34.0-34.9, adult; Z68.34 - Body mass index (BMI) 34.0-34.9, adult Is this a current diagnosis for this admission?: Yes Plan: Continue on current medication management. - Time Time Spent with patient: 25-34 minutes Medications reviewed and adjusted accordingly: Yes Anticipated discharge: Home Within: Other - Inpatient Certification Based on my medical assessment, after consideration of the patient's comorbidities, presenting symptoms, or acuity I expect that the services needed warrant INPATIENT care.: Yes I certify that my determination is in accordance with my understanding of Medicare's requirements for reasonable and necessary INPATIENT services [42 CFR 412.3e].: Yes Medical Necessity: Need Close Monitoring Due to Risk of Patient Decompensation, Need For IV Fluids, Need For Continuous Telemetry Monitoring, Need for IV Antibiotics, Risk of Complication if Not Cared For in Hospital Post Hospital Care: D/C Director Card Documentation - Plan Summary Plan Summary: Continue all current medication management. Follow up on culture and CT scan findings.
[2017-12-22] MEDS: LEVOCETIRIZINE DIHYDROCHLORIDE 5 MG PO SCH (22:01)
[2017-12-23] MEDS: AZTREONAM 1 GM in DEXTROSE 5%-WATER 50 ML IV SCH ×3 (01:58→17:11)
[2017-12-23] MEDS: NORMAL SALINE 1000 ML 1,000 ML IV PRN ×2 (05:40→16:59)
[2017-12-23] MEDS: OMEPRAZOLE 40 MG PO SCH (05:40)
[2017-12-23] MEDS: LEVOTHYROXINE SODIUM 0.1 MG TABLET PO SCH (05:40)
[2017-12-23 05:48] LABS: ABSOLUTE EOSINOPHILS # (AUTO) 0.3 10^3/uL (0.0-0.6); ABSOLUTE LYMPHOCYTES (AUTO) 1.7 10^3/uL (0.5-4.7); ABSOLUTE MONOCYTES (AUTO) 0.4 10^3/uL (0.1-1.4); ABSOLUTE NEUT (AUTO) 3.2 10^3/uL (1.7-8.2); BASOPHILS % (AUTO) 0.6 % (0-2); HEMATOCRIT 43.2 % (36.0-47.0); HEMOGLOBIN 14.8 g/dL (12.0-15.5); LYMPHOCYTES % (AUTO) 30.4 % (13-45); MEAN CORPUSCULAR HEMOGLOBIN 30.5 pg (27.0-33.4); MEAN CORPUSCULAR HGB CONC 34.3 g/dL (32.0-36.0); MEAN CORPUSCULAR VOLUME 89 fl (80-97); MONOCYTES % (AUTO) 6.3 % (3-13); PLATELET COUNT 227 10^3/uL (150-450); RED BLOOD COUNT 4.86 10^6/uL (3.72-5.28); RED CELL DISTRIBUTION WIDTH 13.5 % (11.5-14.0); SEGMENTED NEUTROPHILS % (AUTO) 56.7 % (42-78); TOTAL CELLS COUNTED % (AUTO) 100 %; WHITE BLOOD COUNT 5.6 10^3/uL (4.0-10.5)
[2017-12-23 06:08] LABS: ALANINE AMINOTRANSFERASE 13 U/L (9-52); ALBUMIN 3.6 g/dL (3.5-5.0); ALKALINE PHOSPHATASE 66 U/L (38-126); ANION GAP 11 (5-19); ASPARTATE AMINO TRANSFERASE 14 U/L (14-36); BILIRUBIN,DIRECT 0.1 mg/dL (0.0-0.4); BILIRUBIN,TOTAL 0.8 mg/dL (0.2-1.3); BLOOD UREA NITROGEN 9 mg/dL (7-20); CALCIUM 9.7 mg/dL (8.4-10.2); CARBON DIOXIDE 29 mmol/L (22-30); CHLORIDE 104 mmol/L (98-107); GLUCOSE 97 mg/dL (75-110); POTASSIUM 4.1 mmol/L (3.6-5.0); SODIUM 144.3 mmol/L (137-145); TOTAL PROTEIN 6.2 g/dL (6.3-8.2)
[2017-12-23] MEDS: POTASSIUM CHLORIDE 10 MEQ CAPSULE.ER PO SCH (08:17)
[2017-12-23] MEDS: HYDROCHLOROTHIAZIDE 25 MG TABLET PO SCH (08:21)
[2017-12-23] MEDS: LISINOPRIL 5 MG TABLET PO SCH (08:22)
[2017-12-23] MEDS: ENOXAPARIN SODIUM INJ 40 MG/0.4 ML DISP.SYRIN SUBCUT SCH (09:50)
--- NOTE | 2017-12-23 16:15 | PDOC PROGRESS REPORT ---
Subjective Progress Note for:: 12/23/17 Subjective:: Patient continue to reported intermittent episodes of chest pain of varying intensity without any other associated symptoms. She continue to reported some degree of lower quadrant abdominal pain, No nausea or vomiting. She denied any significant palpitation or irregular heart beat. No overt shortness of breath. No fever or chills. Reason For Visit: CHEST PAIN R/O ACS;ABDOMINAL PAIN WITH Physical Exam Vital Signs: Temp Pulse Resp BP Pulse Ox 97.4 F 66 16 154/77 H 99 12/23/17 15:31 12/23/17 15:31 12/23/17 15:31 12/23/17 15:31 12/23/17 15:31 Intake & Output 12/22/17 12/23/17 12/24/17 06:59 06:59 06:59 Intake Total 4385 2605 100 Output Total 1350 Balance 4385 1255 100 Weight 90.9 kg 90.9 kg Physical Exam: General appearance: PRESENT: no acute distress, obese Head exam: PRESENT: atraumatic, normocephalic Eye exam: PRESENT: conjunctiva pink, EOMI, PERRLA. ABSENT: scleral icterus Ear exam: PRESENT: normal external ear exam Mouth exam: PRESENT: moist Respiratory exam: PRESENT: clear to auscultation erlinda, decreased breath sounds - at lung bases Cardiovascular exam: PRESENT: RRR. ABSENT: diastolic murmur, rubs, systolic murmur Vascular exam: ABSENT: pallor GI/Abdominal exam: PRESENT: normal bowel sounds, soft, tenderness - lower quadrant to deep palpation. ABSENT: distended, guarding, mass, organomegaly, rebound Extremities exam: ABSENT: pedal edema Musculoskeletal exam: PRESENT: deformity - related to multiple joints involvement with arthritis. Neurological exam: PRESENT: alert, awake, oriented to person, oriented to place , oriented to time, oriented to situation, CN II-XII grossly intact. ABSENT: motor sensory deficit Psychiatric exam: PRESENT: appropriate affect, normal mood. ABSENT: homicidal ideation, suicidal ideation Skin exam: PRESENT: dry, intact, warm. ABSENT: cyanosis, rash Results Laboratory Results: 12/23/17 05:30 12/23/17 05:30 12/23/17 12/23/17 05:30 05:30 WBC 5.6 RBC 4.86 Hgb 14.8 Hct 43.2 MCV 89 MCH 30.5 MCHC 34.3 RDW 13.5 Plt Count 227 Seg Neutrophils % 56.7 Lymphocytes % 30.4 Monocytes % 6.3 Eosinophils % 6.0 Basophils % 0.6 Absolute Neutrophils 3.2 Absolute Lymphocytes 1.7 Absolute Monocytes 0.4 Absolute Eosinophils 0.3 Absolute Basophils 0.0 Sodium 144.3 Potassium 4.1 Chloride 104 Carbon Dioxide 29 Anion Gap 11 BUN 9 Creatinine 0.45 L Est GFR ( Amer) > 60 Est GFR (Non-Af Amer) > 60 Glucose 97 Calcium 9.7 Total Bilirubin 0.8 AST 14 ALT 13 Alkaline Phosphatase 66 Total Protein 6.2 L Albumin 3.6 12/20/17 19:40 Clean Catch Midstream Urine Culture - Final Mixed Urogenital Antonio Impressions: Chest X-Ray 12/20/17 14:05 IMPRESSION: NO ACUTE RADIOGRAPHIC FINDING IN THE CHEST. Assessment & Plan - Diagnosis (1) Chest pain with high risk of acute coronary syndrome Is this a current diagnosis for this admission?: Yes (2) Suspected infectious disease Is this a current diagnosis for this admission?: Yes Plan: Continue IV Aztreonam coverage. Follow up on blood culture findings. Her leukocytosis have improved but she will need continued antibiotic therapy. (3) Leukocytosis Qualifiers: Leukocytosis type: unspecified Qualified Code(s): D72.829 - Elevated white blood cell count, unspecified Is this a current diagnosis for this admission?: Yes Plan: Improving but source of infection remain unclear. Blood culture is no growth to date. Urine culture revealed mixed urogenital antonio. (4) Abdominal pain Qualifiers: Abdominal location: lower abdomen, unspecified Qualified Code(s): R10.30 - Lower abdominal pain, unspecified Is this a current diagnosis for this admission?: Yes (5) Probable sepsis Is this a current diagnosis for this admission?: Yes (6) Diabetes mellitus type 2 in obese Is this a current diagnosis for this admission?: Yes (7) HTN (hypertension) Qualifiers: Hypertension type: essential hypertension Qualified Code(s): I10 - Essential (primary) hypertension Is this a current diagnosis for this admission?: Yes (8) CAD (coronary artery disease) Qualifiers: Coronary Disease-Associated Artery/Lesion type: [place] artery [place] vs. transplanted heart: [place] heart Associated angina: without angina Qualified Code(s): I25.10 - Atherosclerotic heart disease of [place] coronary artery without angina pectoris Is this a current diagnosis for this admission?: Yes (9) COPD (chronic obstructive pulmonary disease) Qualifiers: COPD type: unspecified COPD Qualified Code(s): J44.9 - Chronic obstructive pulmonary disease, unspecified Is this a current diagnosis for this admission?: Yes (10) HLD (hyperlipidemia) Qualifiers: Hyperlipidemia type: unspecified Qualified Code(s): E78.5 - Hyperlipidemia , unspecified Is this a current diagnosis for this admission?: Yes (11) Hypothyroidism Qualifiers: Hypothyroidism type: acquired Qualified Code(s): E03.9 - Hypothyroidism, unspecified Is this a current diagnosis for this admission?: Yes (12) Fibromyalgia Is this a current diagnosis for this admission?: Yes (13) Obesity (BMI 30-39.9) Qualifiers: Obesity type: due to excess calories Obesity classification: adult class 1 (BMI 30 - 34.9) Serious obesity comorbidity presence: with serious comorbidity Body mass index: BMI 34.0-34.9 Qualified Code(s): E66.09 - Other obesity due to excess calories; Z68.34 - Body mass index (BMI) 34.0-34.9, adult; Z68.34 - Body mass index (BMI) 34.0-34.9, adult Is this a current diagnosis for this admission?: Yes - Time Time Spent with patient: 25-34 minutes Medications reviewed and adjusted accordingly: Yes Anticipated discharge: Home with Homehealth Within: Other - Inpatient Certification Based on my medical assessment, after consideration of the patient's comorbidities, presenting symptoms, or acuity I expect that the services needed warrant INPATIENT care.: Yes I certify that my determination is in accordance with my understanding of Medicare's requirements for reasonable and necessary INPATIENT services [42 CFR 412.3e].: Yes Medical Necessity: Need Close Monitoring Due to Risk of Patient Decompensation, Need For IV Fluids, Need For Continuous Telemetry Monitoring, Need for IV Antibiotics, Risk of Complication if Not Cared For in Hospital Post Hospital Care: D/C [employer] S[employer]er Documentation - Plan Summary Plan Summary: Continue on current medication management.
[2017-12-23] MEDS: LEVOCETIRIZINE DIHYDROCHLORIDE 5 MG PO SCH (21:10)
[2017-12-24] MEDS: AZTREONAM 1 GM in DEXTROSE 5%-WATER 50 ML IV SCH ×3 (01:26→18:07)
[2017-12-24] MEDS ORDERED: ALBUTEROL SULFATE 0.083% NEB 2.5 MG/3 ML AMPUL NEB ONE (03:30)
[2017-12-24] MEDS: NORMAL SALINE 1000 ML 1,000 ML IV PRN (06:12)
[2017-12-24] MEDS: OMEPRAZOLE 40 MG PO SCH (06:13)
[2017-12-24] MEDS: LEVOTHYROXINE SODIUM 0.1 MG TABLET PO SCH (06:13)
[2017-12-24] MEDS: POTASSIUM CHLORIDE 10 MEQ CAPSULE.ER PO SCH (09:04)
[2017-12-24] MEDS: LISINOPRIL 5 MG TABLET PO SCH (09:04)
[2017-12-24] MEDS: HYDROCHLOROTHIAZIDE 25 MG TABLET PO SCH (09:04)
[2017-12-24] MEDS: ENOXAPARIN SODIUM INJ 40 MG/0.4 ML DISP.SYRIN SUBCUT SCH (09:51)
[2017-12-24] MEDS: ACETAMINOPHEN 325 MG TABLET PO PRN (09:52)
--- NOTE | 2017-12-24 10:33 | PDOC PROGRESS REPORT ---
Subjective Progress Note for:: 12/24/17 Subjective:: She had episode of wheezing last night that required nebulizer treatment. No chest pain or palpitation. No fever or chills. Her lower abdominal pain is fairly controlled on current management. She claimed nausea but no vomiting so far today. Reason For Visit: CHEST PAIN R/O ACS;ABDOMINAL PAIN WITH Physical Exam Vital Signs: Temp Pulse Resp BP Pulse Ox 98.2 F 70 17 141/54 H 97 12/24/17 08:10 12/24/17 08:10 12/24/17 08:10 12/24/17 08:10 12/24/17 08:10 Intake & Output 12/23/17 12/24/17 12/25/17 06:59 06:59 06:59 Intake Total 2605 3235 Output Total 1350 Balance 1255 3235 Weight 90.9 kg 90.9 kg Physical Exam: General appearance: PRESENT: no acute distress, obese Head exam: PRESENT: atraumatic, normocephalic Eye exam: PRESENT: conjunctiva pink, EOMI, PERRLA. ABSENT: scleral icterus Ear exam: PRESENT: normal external ear exam Mouth exam: PRESENT: moist Respiratory exam: PRESENT: clear to auscultation erlinda, decreased breath sounds - at lung bases Cardiovascular exam: PRESENT: RRR. ABSENT: diastolic murmur, rubs, systolic murmur Vascular exam: ABSENT: pallor GI/Abdominal exam: PRESENT: normal bowel sounds, soft, slight expressed tenderness - lower quadrant to deep palpation. ABSENT: distended, guarding, mass, organomegaly, rebound Extremities exam: ABSENT: pedal edema Musculoskeletal exam: PRESENT: deformity - related to multiple joints involvement with arthritis. Neurological exam: PRESENT: alert, awake, oriented to person, oriented to place , oriented to time, oriented to situation, CN II-XII grossly intact. ABSENT: motor sensory deficit Psychiatric exam: PRESENT: appropriate affect, normal mood. ABSENT: homicidal ideation, suicidal ideation Skin exam: PRESENT: dry, intact, warm. ABSENT: cyanosis, rash Results Laboratory Results: 12/23/17 05:30 12/23/17 05:30 Impressions: Chest X-Ray 12/20/17 14:05 IMPRESSION: NO ACUTE RADIOGRAPHIC FINDING IN THE CHEST. Assessment & Plan - Diagnosis (1) Chest pain with high risk of acute coronary syndrome Is this a current diagnosis for this admission?: Yes (2) Suspected infectious disease Is this a current diagnosis for this admission?: Yes (3) Leukocytosis Qualifiers: Leukocytosis type: unspecified Qualified Code(s): D72.829 - Elevated white blood cell count, unspecified Is this a current diagnosis for this admission?: Yes (4) Abdominal pain Qualifiers: Abdominal location: lower abdomen, unspecified Qualified Code(s): R10.30 - Lower abdominal pain, unspecified Is this a current diagnosis for this admission?: Yes (5) Probable sepsis Is this a current diagnosis for this admission?: Yes (6) Diabetes mellitus type 2 in obese Is this a current diagnosis for this admission?: Yes (7) HTN (hypertension) Qualifiers: Hypertension type: essential hypertension Qualified Code(s): I10 - Essential (primary) hypertension Is this a current diagnosis for this admission?: Yes (8) CAD (coronary artery disease) Qualifiers: Coronary Disease-Associated Artery/Lesion type: [place] artery [place] vs. transplanted heart: [place] heart Associated angina: without angina Qualified Code(s): I25.10 - Atherosclerotic heart disease of [place] coronary artery without angina pectoris Is this a current diagnosis for this admission?: Yes (9) COPD (chronic obstructive pulmonary disease) Qualifiers: COPD type: unspecified COPD Qualified Code(s): J44.9 - Chronic obstructive pulmonary disease, unspecified Is this a current diagnosis for this admission?: Yes (10) HLD (hyperlipidemia) Qualifiers: Hyperlipidemia type: unspecified Qualified Code(s): E78.5 - Hyperlipidemia , unspecified Is this a current diagnosis for this admission?: Yes (11) Hypothyroidism Qualifiers: Hypothyroidism type: acquired Qualified Code(s): E03.9 - Hypothyroidism, unspecified Is this a current diagnosis for this admission?: Yes (12) Fibromyalgia Is this a current diagnosis for this admission?: Yes (13) Obesity (BMI 30-39.9) Qualifiers: Obesity type: due to excess calories Obesity classification: adult class 1 (BMI 30 - 34.9) Serious obesity comorbidity presence: with serious comorbidity Body mass index: BMI 34.0-34.9 Qualified Code(s): E66.09 - Other obesity due to excess calories; Z68.34 - Body mass index (BMI) 34.0-34.9, adult; Z68.34 - Body mass index (BMI) 34.0-34.9, adult Is this a current diagnosis for this admission?: Yes - Time Time Spent with patient: 25-34 minutes Medications reviewed and adjusted accordingly: Yes Anticipated discharge: Home with Homehealth Within: Other - Inpatient Certification Based on my medical assessment, after consideration of the patient's comorbidities, presenting symptoms, or acuity I expect that the services needed warrant INPATIENT care.: Yes I certify that my determination is in accordance with my understanding of Medicare's requirements for reasonable and necessary INPATIENT services [42 CFR 412.3e].: Yes Medical Necessity: Need Close Monitoring Due to Risk of Patient Decompensation, Need For IV Fluids, Need For Continuous Telemetry Monitoring, Need for IV Antibiotics, Risk of Complication if Not Cared For in Hospital Post Hospital Care: D/C Director 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 Follow up on her blood culture findings, currently no growth x 72 hours.
[2017-12-24] MEDS: LEVOCETIRIZINE DIHYDROCHLORIDE 5 MG PO SCH (21:40)
[2017-12-25] MEDS: ACETAMINOPHEN 325 MG TABLET PO PRN ×2 (03:00→08:28)
[2017-12-25] MEDS: AZTREONAM 1 GM in DEXTROSE 5%-WATER 50 ML IV SCH ×3 (03:00→18:05)
[2017-12-25] MEDS: OMEPRAZOLE 40 MG PO SCH (06:27)
[2017-12-25] MEDS: LEVOTHYROXINE SODIUM 0.1 MG TABLET PO SCH (06:27)
[2017-12-25] MEDS: HYDROCHLOROTHIAZIDE 25 MG TABLET PO SCH (08:27)
[2017-12-25] MEDS: LISINOPRIL 5 MG TABLET PO SCH (08:27)
[2017-12-25] MEDS: POTASSIUM CHLORIDE 10 MEQ CAPSULE.ER PO SCH (08:27)
[2017-12-25] MEDS: ENOXAPARIN SODIUM INJ 40 MG/0.4 ML DISP.SYRIN SUBCUT SCH (10:20)
--- NOTE | 2017-12-25 15:12 | PDOC PROGRESS REPORT ---
Subjective Progress Note for:: 12/25/17 Subjective:: No chest pain or difficulty with breathing. No fever or chills. No nausea or vomiting so far today. She is day #5 on IV Aztreonam coverage. Blood culture is no growth to date. Reason For Visit: CHEST PAIN R/O ACS;ABDOMINAL PAIN WITH Physical Exam Vital Signs: Temp Pulse Resp BP Pulse Ox 98.1 F 95 20 143/83 H 97 12/25/17 08:25 12/25/17 08:25 12/25/17 08:25 12/25/17 08:25 12/25/17 08:25 Intake & Output 12/24/17 12/25/17 12/26/17 06:59 06:59 06:59 Intake Total 3235 2150 50 Output Total 650 Balance 3235 1500 50 Weight 90.9 kg Physical Exam: General appearance: PRESENT: no acute distress, obese Head exam: PRESENT: atraumatic, normocephalic Eye exam: PRESENT: conjunctiva pink, EOMI, PERRLA. ABSENT: scleral icterus Ear exam: PRESENT: normal external ear exam Mouth exam: PRESENT: moist Respiratory exam: PRESENT: clear to auscultation erlinda, decreased breath sounds - at lung bases Cardiovascular exam: PRESENT: RRR. ABSENT: diastolic murmur, rubs, systolic murmur Vascular exam: ABSENT: pallor GI/Abdominal exam: PRESENT: normal bowel sounds, soft ABSENT: distended, tenderness, guarding, mass, organomegaly, rebound Extremities exam: ABSENT: pedal edema Musculoskeletal exam: PRESENT: deformity - related to multiple joints involvement with arthritis. Neurological exam: PRESENT: alert, awake, oriented to person, oriented to place , oriented to time, oriented to situation, CN II-XII grossly intact. ABSENT: motor sensory deficit Psychiatric exam: PRESENT: appropriate affect, normal mood. ABSENT: homicidal ideation, suicidal ideation Skin exam: PRESENT: dry, intact, warm. ABSENT: cyanosis, rash Results Laboratory Results: 12/23/17 05:30 12/23/17 05:30 Impressions: Chest X-Ray 12/20/17 14:05 IMPRESSION: NO ACUTE RADIOGRAPHIC FINDING IN THE CHEST. Assessment & Plan - Diagnosis (1) Chest pain with high risk of acute coronary syndrome Is this a current diagnosis for this admission?: Yes (2) Suspected infectious disease Is this a current diagnosis for this admission?: Yes (3) Leukocytosis Qualifiers: Leukocytosis type: unspecified Qualified Code(s): D72.829 - Elevated white blood cell count, unspecified Is this a current diagnosis for this admission?: Yes (4) Abdominal pain Qualifiers: Abdominal location: lower abdomen, unspecified Qualified Code(s): R10.30 - Lower abdominal pain, unspecified Is this a current diagnosis for this admission?: Yes (5) Probable sepsis Is this a current diagnosis for this admission?: Yes (6) Diabetes mellitus type 2 in obese Is this a current diagnosis for this admission?: Yes (7) HTN (hypertension) Qualifiers: Hypertension type: essential hypertension Qualified Code(s): I10 - Essential (primary) hypertension Is this a current diagnosis for this admission?: Yes (8) CAD (coronary artery disease) Qualifiers: Coronary Disease-Associated Artery/Lesion type: [place] artery [place] vs. transplanted heart: [place] heart Associated angina: without angina Qualified Code(s): I25.10 - Atherosclerotic heart disease of [place] coronary artery without angina pectoris Is this a current diagnosis for this admission?: Yes (9) COPD (chronic obstructive pulmonary disease) Qualifiers: COPD type: unspecified COPD Qualified Code(s): J44.9 - Chronic obstructive pulmonary disease, unspecified Is this a current diagnosis for this admission?: Yes (10) HLD (hyperlipidemia) Qualifiers: Hyperlipidemia type: unspecified Qualified Code(s): E78.5 - Hyperlipidemia , unspecified Is this a current diagnosis for this admission?: Yes (11) Hypothyroidism Qualifiers: Hypothyroidism type: acquired Qualified Code(s): E03.9 - Hypothyroidism, unspecified Is this a current diagnosis for this admission?: Yes (12) Fibromyalgia Is this a current diagnosis for this admission?: Yes (13) Obesity (BMI 30-39.9) Qualifiers: Obesity type: due to excess calories Obesity classification: adult class 1 (BMI 30 - 34.9) Serious obesity comorbidity presence: with serious comorbidity Body mass index: BMI 34.0-34.9 Qualified Code(s): E66.09 - Other obesity due to excess calories; Z68.34 - Body mass index (BMI) 34.0-34.9, adult; Z68.34 - Body mass index (BMI) 34.0-34.9, adult Is this a current diagnosis for this admission?: Yes - Time Time Spent with patient: 25-34 minutes Medications reviewed and adjusted accordingly: Yes Anticipated discharge: Home with Homehealth Within: Other - Inpatient Certification Based on my medical assessment, after consideration of the patient's comorbidities, presenting symptoms, or acuity I expect that the services needed warrant INPATIENT care.: Yes I certify that my determination is in accordance with my understanding of Medicare's requirements for reasonable and necessary INPATIENT services [42 CFR 412.3e].: Yes Medical Necessity: Need Close Monitoring Due to Risk of Patient Decompensation, Need For Continuous Telemetry Monitoring, Need for IV Antibiotics, Risk of Complication if Not Cared For in Hospital Post 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 Follow up on blood culture findings. I discussed possible discharge home tomorrow.
[2017-12-25] MEDS: LEVOCETIRIZINE DIHYDROCHLORIDE 5 MG PO SCH (21:39)
[2017-12-26] MEDS: AZTREONAM 1 GM in DEXTROSE 5%-WATER 50 ML IV SCH ×2 (05:23→10:05)
[2017-12-26] MEDS: LEVOTHYROXINE SODIUM 0.1 MG TABLET PO SCH (05:24)
[2017-12-26] MEDS: OMEPRAZOLE 40 MG PO SCH (05:25)
[2017-12-26] MEDS: LISINOPRIL 5 MG TABLET PO SCH (10:04)
[2017-12-26] MEDS: POTASSIUM CHLORIDE 10 MEQ CAPSULE.ER PO SCH (10:04)
[2017-12-26] MEDS: ACETAMINOPHEN 325 MG TABLET PO PRN (10:09)
[2017-12-26] MEDS: HYDROCHLOROTHIAZIDE 25 MG TABLET PO SCH (10:38)
[2017-12-26] MEDS: ENOXAPARIN SODIUM INJ 40 MG/0.4 ML DISP.SYRIN SUBCUT SCH (10:39)
--- NOTE | 2017-12-26 12:45 | PDOC DISCHARGE SUMMARY ---
General - Admit/Disc Date/PCP Admission Date/Primary Care Provider: 12/20/17 17:54 DEBORAH TAWNYA Discharge Date: 12/26/17 - Discharge Diagnosis (1) Chest pain with high risk of acute coronary syndrome Is this a current diagnosis for this admission?: Yes (2) Suspected infectious disease Is this a current diagnosis for this admission?: Yes (3) Leukocytosis Is this a current diagnosis for this admission?: Yes (4) Abdominal pain Is this a current diagnosis for this admission?: Yes (5) Probable sepsis Is this a current diagnosis for this admission?: Yes (6) Diabetes mellitus type 2 in obese Is this a current diagnosis for this admission?: Yes (7) HTN (hypertension) Is this a current diagnosis for this admission?: Yes (8) CAD (coronary artery disease) Is this a current diagnosis for this admission?: Yes (9) COPD (chronic obstructive pulmonary disease) Is this a current diagnosis for this admission?: Yes (10) HLD (hyperlipidemia) Is this a current diagnosis for this admission?: Yes (11) Hypothyroidism Is this a current diagnosis for this admission?: Yes (12) Fibromyalgia Is this a current diagnosis for this admission?: Yes (13) Obesity (BMI 30-39.9) Is this a current diagnosis for this admission?: Yes - Additional Information Resuscitation Status: Full Code Home Medications: Hydrochlorothiazide [Hydrodiuril 25 mg Tablet] 25 mg PO QAM 12/20/17 Levocetirizine Dihydrochloride [Xyzal] 5 mg PO QHS 12/20/17 Levothyroxine Sodium [Synthroid] 0.1 mg PO Q6AM 12/20/17 Lidocaine/Prilocaine [Lido-Prilo [place]] 1 applic TOP QID 12/20/17 Lisinopril [Prinivil 2.5 mg Tablet] 2.5 mg PO QAM 12/20/17 Omeprazole 40 mg PO Q6AM 12/20/17 Potassium Chloride [K-Tab ER] 10 meq PO QAM 12/20/17 History of Present Illness History of Present Illness: STEPH WAYNE is a 87 year old female known to my practice who was evaluated in the office yesterday for lower abdominal pain for possible UTI. She was prescribed Nitrofurantoin. She reported development of fever, shaking chills and worsening lower abdominal pain with frequent bowel movement but minimal stool amount. She reported development of left sided sharp stabbing chest pain since earlier this morning. She denied any radiation of pain to her left shoulder or arm. She reported exertional shortness of breath. No associated palpitation or diaphoresis. There is nausea but no vomiting. She claimed poor appetite and oral intake. She reported generalized fatigue and weakness. No nasal or sinus congestion, dizziness or headache. Her initial ED evaluation was remarkable for significant leukocytosis with left shift. In view of her presenting symptoms and laboratory findings, she was advised hospitalization for further evaluation and management. 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 Hospital Course Hospital Course: Patient did respond to IV Aztreonam empiric therapy with resolution of her leukocytosis and eventually her abdominal pain. Her urine culture grew mixed urogenital antonio and her blood culture was no growth after five days of incubation. She had total six days of IV antibiotic therapy which I think adequately treat her bacterial infection of undetermined source. She has been afebrile for 48 hours without any other significant symptoms. She will be discharge home today and folow up in the office as instructed upon discharge. Physical Exam Vital Signs: Temp Pulse Resp BP Pulse Ox 98.4 F 82 17 153/76 H 93 12/26/17 10:16 12/26/17 10:16 12/26/17 10:16 12/26/17 10:16 12/26/17 10:16 Intake & Output 12/25/17 12/26/17 12/27/17 06:59 06:59 06:59 Intake Total 2150 1224 50 Output Total 650 850 Balance 1500 374 50 Weight 92.2 kg Physical Exam: General appearance: PRESENT: no acute distress, obese Head exam: PRESENT: atraumatic, normocephalic Eye exam: PRESENT: conjunctiva pink, EOMI, PERRLA. ABSENT: scleral icterus Ear exam: PRESENT: normal external ear exam Mouth exam: PRESENT: moist Respiratory exam: PRESENT: clear to auscultation erlinda Cardiovascular exam: PRESENT: RRR. ABSENT: diastolic murmur, rubs, systolic murmur Vascular exam: ABSENT: pallor GI/Abdominal exam: PRESENT: normal bowel sounds, soft ABSENT: distended, tenderness, guarding, mass, organomegaly, rebound Extremities exam: ABSENT: pedal edema Musculoskeletal exam: PRESENT: deformity - related to multiple joints involvement with arthritis. Neurological exam: PRESENT: alert, awake, oriented to person, oriented to place , oriented to time, oriented to situation, CN II-XII grossly intact. ABSENT: motor sensory deficit Psychiatric exam: PRESENT: appropriate affect, normal mood. ABSENT: homicidal ideation, suicidal ideation Skin exam: PRESENT: dry, intact, warm. ABSENT: cyanosis, rash Results Laboratory Results: 12/23/17 05:30 12/23/17 05:30 12/20/17 18:15 Blood Blood Culture - Final NO GROWTH IN 5 DAYS Impressions: Chest X-Ray 12/20/17 14:05 IMPRESSION: NO ACUTE RADIOGRAPHIC FINDING IN THE CHEST. Qualifiers - * PATIENT BEING DISCHARGED WITH ANY OF THE FOLLOWING DIAGNOSIS: No Plan Discharge Plan: Discharge home today. Follow up in the office as instructed upon discharge.
[2017-12-26 14:37] VITALS: BP 121/50
== END 2017-12-26 15:08 | disposition home or self-care (01) | DRG 313 ==
LOC: ER 13:17 → EH 17:54 → 5 18:45
PROVIDERS: ADMIT Internal Medicine Geriatric Medicine; ATTEND Internal Medicine Geriatric Medicine
DX: R07.89 Other chest pain (principal); K21.9 Gastro-esophageal reflux disease without esophagitis; D72.829 Elevated white blood cell count, unspecified; I25.10 Atherosclerotic heart disease of native coronary artery without angina pectoris; I11.0 Hypertensive heart disease with heart failure; A49.9 Bacterial infection, unspecified; I50.9 Heart failure, unspecified; J44.9 Chronic obstructive pulmonary disease, unspecified; E11.9 Type 2 diabetes mellitus without complications; E78.2 Mixed hyperlipidemia; E55.9 Vitamin D deficiency, unspecified; E03.9 Hypothyroidism, unspecified; F41.1 Generalized anxiety disorder; M19.90 Unspecified osteoarthritis, unspecified site; K22.5 Diverticulum of esophagus, acquired; E66.9 Obesity, unspecified; Z23 Encounter for immunization; Z68.36 Body mass index [BMI] 36.0-36.9, adult; Z88.1 Allergy status to other antibiotic agents; Z88.6 Allergy status to analgesic agent; Z88.8 Allergy status to other drugs, medicaments and biological substances; Z88.2 Allergy status to sulfonamides; Z88.7 Allergy status to serum and vaccine; Z91.040 Latex allergy status; Z86.718 Personal history of other venous thrombosis and embolism; Z87.442 Personal history of urinary calculi; M79.7 Fibromyalgia; Z90.49 Acquired absence of other specified parts of digestive tract; Z90.5 Acquired absence of kidney; Z95.0 Presence of cardiac pacemaker
CPT/HCPCS: 36415; 71045; 80053; 81001; 82550; 82553; 82962; 83880; 84484; 85025; 87040; 87086; 90471; 90686; 93005; 93010; 94640; 99285; G0008; J1650; J3490; J7030

== ENCOUNTER 2017-12-30 06:30 | Emergency (ER) | payer MEDICARE, OTHER ==
[2017-12-30] MEDS ORDERED: NORMAL SALINE 1000 ML 1,000 ML IV ONE (07:01)
[2017-12-30] MEDS ORDERED: ONDANSETRON HCL INJ/PF 4 MG/2 ML SDV IV ONE (07:01)
[2017-12-30] MEDS ORDERED: DICYCLOMINE HCL 10 MG CAPSULE PO ONE (07:03)
--- NOTE | 2017-12-30 07:11 | ER Document Report ---
ED GI/ - General Chief Complaint: Diarrhea Stated Complaint: DIARRHEA Time Seen by Provider: 12/30/17 06:54 Mode of Arrival: Stretcher Information source: Patient Notes: Chief complaint: abdominal pain: History of complain:( obtained from----patient) 87 years old female who was discharged from the hospital recently, went home had a flu shot 2 days ago. Presents back again with intractable nausea and vomited a few times as well as large amount of watery stool. And abdominal distention and discomfort. Denies any fever chills or other constitutional symptoms. Denies any dysuria frequency urgency. Denies any chest pain shortness of breath. She has extensive history of diabetes, hypertension, coronary artery disease, COPD and fibromyalgia. Onset: Gradual Duration: 2 days Severity: Moderate Quality: Crampy Context: As above Exacerbating factor and relieving factors: REVIEW OF SYSTEMS: CONSTITUTIONAL : Denies fever, chills, or sweats. Denies recent illness. EENT: Denies eye, ear, throat, or mouth pain or symptoms. Denies nasal or sinus congestion or discharge. Denies throat, tongue, or mouth swelling or difficulty swallowing. CARDIOVASCULAR: Denies chest pain. Denies palpitations or racing or irregular heart beat. Denies ankle edema. RESPIRATORY: Denies cough, cold, or chest congestion. Denies shortness of breath, difficulty breathing, or wheezing. GASTROINTESTINAL: Denies distention. Denies nausea, vomiting, or diarrhea. Denies blood in vomitus, stools, or per rectum. Denies black, tarry stools. Denies constipation. GENITOURINARY: Denies difficulty urinating, painful urination, burning, frequency, blood in urine, or discharge. FEMALE GENITOURINARY: Denies vaginal bleeding, heavy or abnormal periods, irregular periods. Denies vaginal discharge or odor. MUSCULOSKELETAL: Denies back or neck pain or stiffness. Denies joint pain or swelling. SKIN: Denies rash, lesions or sores. HEMATOLOGIC : Denies easy bruising or bleeding. LYMPHATIC: Denies swollen, enlarged glands. NEUROLOGICAL: Denies confusion or altered mental status. Denies passing out or loss of consciousness. Denies dizziness or lightheadedness. Denies headache. Denies weakness or paralysis or loss of use of either side. Denies problems with gait or speech. Denies sensory loss, numbness, or tingling. Denies seizures. PSYCHIATRIC: Denies anxiety or stress. Denies depression, suicidal ideation, or homicidal ideation. ALL OTHER SYSTEMS REVIEWED AND NEGATIVE. PHYSICAL EXAMINATION: GENERAL: Morbid obesity, in no acute distress. HEAD: Atraumatic, normocephalic. EYES: Pupils equal round and reactive to light, extraocular movements intact, conjunctiva are normal. ENT: Nares patent, oropharynx clear without exudates. Moist mucous membranes. NECK: Normal range of motion, supple without lymphadenopathy LUNGS: Breath sounds clear to auscultation bilaterally and equal. No wheezes rales or rhonchi. HEART: Regular rate and rhythm without murmurs ABDOMEN: Soft, distended, tympanic, mild tenderness, nondistended abdomen. No guarding, no rebound. No masses appreciated. Female : deferred Musculoskeletal: Normal range of motion, no pitting or edema. No cyanosis. NEUROLOGICAL: Cranial nerves grossly intact. Normal speech, normal gait. Normal sensory, motor exams PSYCH: Normal mood, normal affect. SKIN: Warm, Dry, normal turgor, no rashes or lesions noted. Dictation was performed using [employer] voice recognition software TRAVEL OUTSIDE OF THE [place] IN LAST 30 DAYS: No - HPI Notes: 12/30/17 07:11 distended, tympanic, mild tenderness - Related Data Allergies/Adverse Reactions: Iodinated Contrast- Oral and IV Dye [Contrast] Allergy (Severe, Verified 20:17) Seizures ciprofloxacin [From Cipro] Allergy (Verified 12/20/17 13:18) Diarrhea, vomiting codeine [Codeine] Allergy (Verified 12/20/17 13:18) diarrhea, vomiting, convulsions diphtheria toxoid,fluid Allergy (Verified 12/20/17 13:18) Rash lansoprazole [From Prevacid] Allergy (Verified 12/20/17 13:18) rash latex [Latex] Allergy (Verified 12/20/17 13:18) ITCHY RASH levofloxacin [From Levaquin] Allergy (Verified 12/20/17 13:18) Rash, Diarrhea meloxicam Allergy (Verified 12/20/17 13:18) "symptoms of heart attack" morphine Allergy (Verified 12/20/17 13:18) Chest pain Penicillins Allergy (Verified 12/20/17 13:18) "6 days in coma" Sulfa (Sulfonamide Antibiotics) Allergy (Verified 12/20/17 13:18) Rash Tetanus Vaccines and Toxoid [Tetanus] Allergy (Verified 12/20/17 13:18) convulsions cefdinir [Cefdinir] Adverse Reaction (Intermediate, Verified 12/20/17 13:18) rash MYCINS Allergy (Uncoded 12/20/17 13:18) Past Medical History - Social History Smoking Status: Never Smoker Frequency of alcohol use: Rare Drug Abuse: None Lives with: Family Family History: Reviewed & Not Pertinent, Hypertension - Past Medical History Cardiac Medical History: Reports: Hx Congestive Heart Failure, Hx Coronary Artery Disease, Hx DVT, Hx Heart Attack, Hx Hypercholesterolemia, Hx Hypertension Denies: Hx Pulmonary Embolism Pulmonary Medical History: Reports: Hx Asthma, Hx COPD, Hx Pneumonia - x 4 times Denies: Hx Bronchitis, Hx Tuberculosis Neurological Medical History: Reports: Hx Seizures - as baby. Denies: Hx Cerebrovascular Accident Endocrine Medical History: Reports: Hx Diabetes Mellitus Type 1, Hx Diabetes Mellitus Type 2, Hx Hypothyroidism Renal/ Medical History: Reports: Hx Kidney Stones. Denies: Hx Peritoneal Dialysis GI Medical History: Reports: Hx Hiatal Hernia. Denies: Hx Hepatitis, Hx Ulcer Musculoskeletal Medical History: Reports Hx Arthritis, Reports Hx Fibromyalgia Psychiatric Medical History: Denies: Hx Depression Infectious Medical History: Denies: Hx Hepatitis Past Surgical History: Reports: Hx Appendectomy, Hx Cholecystectomy, Hx Gynecologic Surgery - Right nephrectomy, Hx Herniorrhaphy, Hx Orthopedic Surgery - L knee, Hx Tonsillectomy, Hx Tubal Ligation, Hx Urinary Tract Surgery - Bladder stone removal. Denies: Hx Cardiac Catheterization, Hx Mastectomy, Hx Open Heart Surgery, Hx Pacemaker - Immunizations Immunizations up to date: Yes Hx Diphtheria, Pertussis, Tetanus Vaccination: Yes - Allergic, "30 years ago" Hx Pneumococcal Vaccination: 11/15/15 Review of Systems - Review of Systems Notes: Dictated Physical Exam - Vital signs Vitals: Temp Pulse Resp BP Pulse Ox 98.4 F 102 H 20 138/70 H 94 12/30/17 06:39 12/30/17 06:39 12/30/17 06:39 12/30/17 06:39 12/30/17 06:39 - Notes Notes: Dictated Course - Re-evaluation Re-evalutation: 12/30/17 07:11 Dictated 12/30/17 10:07 Reevaluated feeling little better. - Vital Signs Vital signs: Temp Pulse Resp BP Pulse Ox 98.4 F 102 H 20 138/70 H 94 12/30/17 06:39 12/30/17 06:39 12/30/17 06:39 12/30/17 06:39 12/30/17 06:39 - Laboratory Result Diagrams: 12/30/17 08:42 12/30/17 08:42 Laboratory results interpreted by me: 12/30/17 12/30/17 08:00 08:42 WBC 12.1 H Seg Neutrophils % 80.7 H Absolute Neutrophils 9.8 H Ur Leukocyte Esterase MODERATE H - Diagnostic Test Radiology reviewed: Reports reviewed - Abdominal x-ray reported by radiologist as nonspecific gas otherwise no air-fluid level/no obstructions Discharge - Discharge Clinical Impression: Viral gastroenteritis Condition: Fair Instructions: Gastroenteritis (adult) ([facility]) Prescriptions: Metoclopramide HCl [Reglan] 10 mg PO Q6A #30 tablet Referrals: DEBORAH BOWLING MD [Primary Care Provider] - Follow up as needed
--- NOTE | 2017-12-30 07:54 | RADIOLOGY REPORT (SQ) ---
CLINICAL DATA: 87-year-old female with left flank pain TECHNICAL DATA: Three x-ray images of the chest and abdomen were performed including a PA radiograph of the chest as well as supine and upright views of the abdomen. Comparison: CT abdomen and pelvis performed on 05/11/2017. FINDINGS: The lungs are well expanded. The cardiac silhouette is within normal limits. There is no focal consolidation, pleural effusion or pneumothorax. The costophrenic sulci are clear. The bowel gas pattern is nonspecific and nonobstructive. There is no evidence of free air or significant air-fluid levels. No pathologic abdominal calcifications are identified. No focal soft tissue abnormalities are seen. There are surgical clips in the left lower quadrant. There are post vertebroplasty changes involving the T12 vertebra. Vascular calcifications are noted along the aorta and iliac arteries. There are mild degenerative changes of the lumbar spine and pelvis. 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 IMPRESSION: 1. No evidence of acute intrathoracic disease.. 2. Nonspecific nonobstructive bowel gas pattern. 3. Degenerative changes of the skeletal and vascular structures. 4. Prior cement augmentation of T12. 5. Surgical clips in the left lower quadrant.
[2017-12-30 08:41] LABS: APPEARANCE,URINE SLIGHTLY-CLOUDY; BILIRUBIN,URINE NEGATIVE (NEGATIVE); COLOR,URINE YELLOW; GLUCOSE, URINE NEGATIVE (NEGATIVE); KETONES,URINE NEGATIVE (NEGATIVE); LEUKOCYTE ESTERASE,URINE MODERATE (NEGATIVE); NITRITE,URINE NEGATIVE (NEGATIVE); PROTEIN,URINE NEGATIVE (NEGATIVE); URINE SPECIFIC GRAVITY 1.021; UROBILINOGEN,URINE NEGATIVE mg/dL (<2.0)
[2017-12-30 08:56] LABS: ABSOLUTE EOSINOPHILS # (AUTO) 0.1 10^3/uL (0.0-0.6); ABSOLUTE LYMPHOCYTES (AUTO) 1.7 10^3/uL (0.5-4.7); ABSOLUTE MONOCYTES (AUTO) 0.5 10^3/uL (0.1-1.4); ABSOLUTE NEUT (AUTO) 9.8 10^3/uL (1.7-8.2); BASOPHILS % (AUTO) 0.4 % (0-2); EOSINOPHILS % (AUTO) 0.9 % (0-6); HEMATOCRIT 46.2 % (36.0-47.0); HEMOGLOBIN 15.2 g/dL (12.0-15.5); MEAN CORPUSCULAR HEMOGLOBIN 29.6 pg (27.0-33.4); MEAN CORPUSCULAR VOLUME 90 fl (80-97); PLATELET COUNT 232 10^3/uL (150-450); RED BLOOD COUNT 5.16 10^6/uL (3.72-5.28); RED CELL DISTRIBUTION WIDTH 13.8 % (11.5-14.0); SEGMENTED NEUTROPHILS % (AUTO) 80.7 % (42-78); TOTAL CELLS COUNTED % (AUTO) 100 %; WHITE BLOOD COUNT 12.1 10^3/uL (4.0-10.5)
[2017-12-30 09:14] LABS: ALANINE AMINOTRANSFERASE 23 U/L (9-52); ALKALINE PHOSPHATASE 77 U/L (38-126); ANION GAP 12 (5-19); ASPARTATE AMINO TRANSFERASE 22 U/L (14-36); BILIRUBIN,DIRECT 0.3 mg/dL (0.0-0.4); BILIRUBIN,TOTAL 0.8 mg/dL (0.2-1.3); BLOOD UREA NITROGEN 19 mg/dL (7-20); CALCIUM 10.1 mg/dL (8.4-10.2); CARBON DIOXIDE 30 mmol/L (22-30); CHLORIDE 100 mmol/L (98-107); GLUCOSE 108 mg/dL (75-110); LIPASE 68.5 U/L (23-300); POTASSIUM 4.8 mmol/L (3.6-5.0); TOTAL PROTEIN 6.8 g/dL (6.3-8.2)
[2017-12-30 12:32] VITALS: BP 135/69
== END 2017-12-30 12:52 | disposition home or self-care (01) ==
LOC: ER 06:30
DX: A08.4 Viral intestinal infection, unspecified (principal); R11.2 Nausea with vomiting, unspecified; E11.9 Type 2 diabetes mellitus without complications; I10 Essential (primary) hypertension; I25.10 Atherosclerotic heart disease of native coronary artery without angina pectoris; J44.9 Chronic obstructive pulmonary disease, unspecified; Z91.041 Radiographic dye allergy status; Z88.1 Allergy status to other antibiotic agents; Z88.5 Allergy status to narcotic agent; Z88.7 Allergy status to serum and vaccine; Z88.8 Allergy status to other drugs, medicaments and biological substances; Z91.040 Latex allergy status; Z88.0 Allergy status to penicillin; Z88.2 Allergy status to sulfonamides
CPT/HCPCS: 99284; 96361; 96374; 36415; 83690; 85025; 80053; 81001; 74022; A9270; J2405; J7030; J3490

== ENCOUNTER 2018-07-15 00:15 | Emergency (ER) | payer MEDICARE, OTHER ==
[2018-07-15] MEDS ORDERED: FENTANYL CITRATE INJ/PF 100 MCG/2 ML AMPUL IV ONE (01:30)
--- NOTE | 2018-07-15 01:32 | ER Document Report ---
ED Medical Screen (RME) - General Chief Complaint: Vaginal Bleeding Stated Complaint: VAGINAL BLEEDING Time Seen by Provider: 07/15/18 01:24 Primary Care Provider: DEBORAH BOWLING MD [Primary Care Provider] - Follow up as needed Notes: Patient is an 87-year-old female presents to the emergency department for vaginal bleeding. States she has had intermittent vaginal bleeding for "long time now." States she did see [facility] [facility] [employer] Dr. Thayer. Was instructed to get a D&C. Patient states she was scared of the D&C so she refuses it. States this evening she was passing large clots and also was an increased pain which is why she presents to the emergency room. Patient denies any lightheadedness, dizziness, chest pain, shortness of breath, weakness. Patient's only complaint at this time is generalized pelvic pain GENERAL: Alert, interacts well. No acute distress. ABDOMEN: Soft, non-tender. Non-distended. Bowel sounds present in all 4 quadrants. Bilateral pelvic pain noted I have greeted and performed a rapid initial assessment of this patient. A comprehensive ED assessment and evaluation of the patient, analysis of test results and completion of the medical decision making process will be conducted by additional ED providers. TRAVEL OUTSIDE OF THE [place] IN LAST 30 DAYS: No - Related Data Allergies/Adverse Reactions: Iodinated Contrast- Oral and IV Dye [Contrast] Allergy (Severe, Verified 07/15/18 00:22) Seizures ciprofloxacin [From Cipro] Allergy (Verified 07/15/18 00:22) Diarrhea, vomiting codeine [Codeine] Allergy (Verified 07/15/18 00:22) diarrhea, vomiting, convulsions diphtheria toxoid,fluid Allergy (Verified 07/15/18 00:22) Rash lansoprazole [From Prevacid] Allergy (Verified 07/15/18 00:22) rash latex [Latex] Allergy (Verified 07/15/18 00:22) ITCHY RASH levofloxacin [From Levaquin] Allergy (Verified 07/15/18 00:22) Rash, Diarrhea meloxicam Allergy (Verified 07/15/18 00:22) "symptoms of heart attack" morphine Allergy (Verified 07/15/18 00:22) Chest pain Penicillins Allergy (Verified 07/15/18 00:22) "6 days in coma" Sulfa (Sulfonamide Antibiotics) Allergy (Verified 07/15/18 00:22) Rash Tetanus Vaccines and Toxoid [Tetanus] Allergy (Verified 07/15/18 00:22) convulsions cefdinir [Cefdinir] Adverse Reaction (Intermediate, Verified 07/15/18 00:22) rash MYCINS Allergy (Uncoded 07/15/18 00:22) Past Medical History - Past Medical History Cardiac Medical History: Reports: Hx Congestive Heart Failure, Hx Coronary Artery Disease, Hx DVT, Hx Heart Attack, Hx Hypercholesterolemia, Hx Hypertension Denies: Hx Pulmonary Embolism Pulmonary Medical History: Reports: Hx Asthma, Hx COPD, Hx Pneumonia - x 4 times Denies: Hx Bronchitis, Hx Tuberculosis Neurological Medical History: Reports: Hx Seizures - as baby. Denies: Hx Cerebrovascular Accident Endocrine Medical History: Reports: Hx Diabetes Mellitus Type 1, Hx Diabetes Mellitus Type 2, Hx Hypothyroidism Renal/ Medical History: Reports: Hx Kidney Stones. Denies: Hx Peritoneal Magda lysis GI Medical History: Reports: Hx Hiatal Hernia. Denies: Hx Hepatitis, Hx Ulcer Musculoskeltal Medical History: Reports Hx Arthritis, Reports Hx Fibromyalgia Psychiatric Medical History: Denies: Hx Depression Infectious Medical History: Denies: Hx Hepatitis Past Surgical History: Reports: Hx Appendectomy, Hx Cholecystectomy, Hx Gynecologic Surgery - Right nephrectomy, Hx Herniorrhaphy, Hx Orthopedic Surgery - L knee, Hx Tonsillectomy, Hx Tubal Ligation, Hx Urinary Tract Surgery - Bladder stone removal. Denies: Hx Cardiac Catheterization, Hx Mastectomy, Hx Open Heart Surgery, Hx Pacemaker - Immunizations Immunizations up to date: Yes Hx Diphtheria, Pertussis, Tetanus Vaccination: Yes - Allergic, "30 years ago" History of Influenza Vaccine for 11/2016 - 04/2017 Season: Yes Influenza Administration Date for 11/2016 - 04/2017 Season: 11/14/16 Physical Exam - Vital signs Vitals: Temp Pulse Resp BP Pulse Ox 98.4 F 68 20 174/68 H 96 07/15/18 00:35 07/15/18 00:35 07/15/18 00:35 07/15/18 00:35 07/15/18 00:35 Course - Vital Signs Vital signs: Temp Pulse Resp BP Pulse Ox 98.4 F 68 20 174/68 H 96 07/15/18 00:35 07/15/18 00:35 07/15/18 00:35 07/15/18 00:35 07/15/18 00:35 Doctor's Discharge - Discharge Referrals: DEBORAH BOWLING MD [Primary Care Provider] - Follow up as needed
--- NOTE | 2018-07-15 02:01 | ER Document Report ---
ED GI/ - General Chief Complaint: Vaginal Bleeding Stated Complaint: VAGINAL BLEEDING Time Seen by Provider: 07/15/18 01:24 Primary Care Provider: DEBORAH BOWLING MD [Primary Care Provider] - Follow up as needed Notes: 87-year-old female patient emergency department chief complaint of heavy vaginal bleeding. Patient states that she has seen Abdias Thayer with [facility] for this in the past. States that over the last several days the bleeding has been getting worse. Has some pain in the lower pelvic region. Feels like a "dog is biting her". Patient states that she had a large amount of blood come out when she use the toilet here in the ER. Denies any other symptoms at this time. States that she is very healthy. TRAVEL OUTSIDE OF THE [place] IN LAST 30 DAYS: No - HPI Patient complains to provider of: Vaginal bleeding Timing/Duration: Gradual, Worse Quality of pain: Cramping Severity at maximum: Moderate Severity in ED: Moderate Pain Level: 3 Location: Suprapubic Vaginal bleeding (Compared to normal period): Heavier, Passing clots - Related Data Allergies/Adverse Reactions: Iodinated Contrast- Oral and IV Dye [Contrast] Allergy (Severe, Verified 07/15/18 00:22) Seizures ciprofloxacin [From Cipro] Allergy (Verified 07/15/18 00:22) Diarrhea, vomiting codeine [Codeine] Allergy (Verified 07/15/18 00:22) diarrhea, vomiting, convulsions diphtheria toxoid,fluid Allergy (Verified 07/15/18 00:22) Rash lansoprazole [From Prevacid] Allergy (Verified 07/15/18 00:22) rash latex [Latex] Allergy (Verified 07/15/18 00:22) ITCHY RASH levofloxacin [From Levaquin] Allergy (Verified 07/15/18 00:22) Rash, Diarrhea meloxicam Allergy (Verified 07/15/18 00:22) "symptoms of heart attack" morphine Allergy (Verified 07/15/18 00:22) Chest pain Penicillins Allergy (Verified 07/15/18 00:22) "6 days in coma" Sulfa (Sulfonamide Antibiotics) Allergy (Verified 07/15/18 00:22) Rash Tetanus Vaccines and Toxoid [Tetanus] Allergy (Verified 07/15/18 00:22) convulsions cefdinir [Cefdinir] Adverse Reaction (Intermediate, Verified 07/15/18 00:22) rash MYCINS Allergy (Uncoded 07/15/18 00:22) Past Medical History - General Information source: Patient - Social History Smoking Status: Never Smoker Frequency of alcohol use: None Drug Abuse: None Lives with: Spouse/Significant other Family History: Reviewed & Not Pertinent, Hypertension - Past Medical History Cardiac Medical History: Reports: Hx Congestive Heart Failure, Hx Coronary Artery Disease, Hx DVT, Hx Heart Attack, Hx Hypercholesterolemia, Hx Hypertension Denies: Hx Pulmonary Embolism Pulmonary Medical History: Reports: Hx Asthma, Hx COPD, Hx Pneumonia - x 4 times Denies: Hx Bronchitis, Hx Tuberculosis Neurological Medical History: Reports: Hx Seizures - as baby. Denies: Hx Cerebrovascular Accident Endocrine Medical History: Reports: Hx Diabetes Mellitus Type 1, Hx Diabetes Mellitus Type 2, Hx Hypothyroidism Renal/ Medical History: Reports: Hx Kidney Stones. Denies: Hx Peritoneal Dialysis GI Medical History: Reports: Hx Hiatal Hernia. Denies: Hx Hepatitis, Hx Ulcer Musculoskeletal Medical History: Reports Hx Arthritis, Reports Hx Fibromyalgia Psychiatric Medical History: Denies: Hx Depression Infectious Medical History: Denies: Hx Hepatitis Past Surgical History: Reports: Hx Appendectomy, Hx Cholecystectomy, Hx Gynecologic Surgery - Right nephrectomy, Hx Herniorrhaphy, Hx Orthopedic Surgery - L knee, Hx Tonsillectomy, Hx Tubal Ligation, Hx Urinary Tract Surgery - Alexandre dder stone removal. Denies: Hx Cardiac Catheterization, Hx Mastectomy, Hx Open Heart Surgery, Hx Pacemaker - Immunizations Immunizations up to date: Yes Hx Diphtheria, Pertussis, Tetanus Vaccination: Yes - Allergic, "30 years ago" Hx Pneumococcal Vaccination: 11/15/15 Review of Systems - Review of Systems Notes: Constitutional: denies: Chills, Diaphoresis, Fever, Malaise, Weakness EENT: denies: Eye discharge, Blurred vision, Tearing, Double vision, Nose congestion, Nose discharge, Throat swelling, Mouth pain Cardiovascular: denies: Palpitations, Heart racing, Orthopnea, Dyspnea, Chest pain Respiratory: denies: Cough, Hurts to breathe, Wheezing, Shortness of breath Gastrointestinal: denies: Abdominal pain, Diarrhea, Nausea, Vomiting, Black stools, bright red blood in stool Genitourinary: denies: Burning, Dysuria, Discharge, Frequency, Flank pain, Hematuria. Complaining of some pelvic pain and large amount of vaginal bleedin g. Musculoskeletal: denies: Joint pain, Joint swelling, Muscle pain, Muscle stiffness, back pain Hematologic/Lymphatic: denies: Anemia, Easy bleeding, Easy bruising, Blood clots Neurological/Psychological: denies: Confusion, Dementia, Depression, Loss of consciousness Skin: No lesions, no masses, no skin breakdown, no abscesses Physical Exam - Vital signs Vitals: Temp Pulse Resp BP Pulse Ox 98.4 F 68 20 174/68 H 96 07/15/18 00:35 07/15/18 00:35 07/15/18 00:35 07/15/18 00:35 07/15/18 00:35 Interpretation: Normal - General General appearance: Appears well, Alert - HEENT Head: Normocephalic, Atraumatic Eyes: Normal Pupils: PERRL - Respiratory Respiratory status: No respiratory distress Chest status: Nontender Breath sounds: Normal Chest palpation: Normal - Cardiovascular Rhythm: Regular Heart sounds: Normal auscultation Murmur: No - Abdominal Inspection: Normal Distension: No distension Bowel sounds: Normal Tenderness: Nontender Organomegaly: No organomegaly - Back Back: Normal, Nontender - Extremities General upper extremity: Normal inspection, Nontender, Normal color, Normal ROM, Normal temperature General lower extremity: Normal inspection, Nontender, Normal color, Normal ROM, Normal temperature, Normal weight bearing. No: Prasad's sign - Neurological Neuro grossly intact: Yes Cognition: Normal Orientation: AAOx4 Jack Coma Scale Eye Opening: Spontaneous Murphy Coma Scale Verbal: Oriented Jack Coma Scale Motor: Obeys Commands Jack Coma Scale Total: 15 Speech: Normal Motor strength normal: LUE, RUE, LLE, RLE Sensory: Normal - Psychological Associated symptoms: Normal affect, Normal mood - Skin Skin Temperature: Warm Skin Moisture: Dry Skin Color: Normal Course - Re-evaluation Re-evalutation: 07/15/18 03:57 Laboratory 07/15/18 07/15/18 03:00 03:00 WBC 8.7 RBC 5.30 H Hgb 15.7 H Hct 46.7 MCV 88 MCH 29.6 MCHC 33.6 RDW 14.0 Plt Count 217 Seg Neutrophils % 61.6 Lymphocytes % 31.4 Monocytes % 4.8 Eosinophils % 1.7 Basophils % 0.5 Absolute Neutrophils 5.4 Absolute Lymphocytes 2.7 Absolute Monocytes 0.4 Absolute Eosinophils 0.1 Absolute Basophils 0.0 Sodium 142.5 Potassium 4.2 Chloride 101 Carbon Dioxide 30 Anion Gap 12 BUN 17 Creatinine 0.62 Est GFR ( Amer) > 60 Est GFR (Non-Af Amer) > 60 Glucose 112 H Calcium 10.0 Total Bilirubin 0.7 Direct Bilirubin 0.3 Neonat Total Bilirubin Not Reportable Neonat Direct Bilirubin Not Reportable Neonat Indirect Bili Not Reportable AST 16 ALT 20 Alkaline Phosphatase 109 Total Protein 7.3 Albumin 4.4 Transvaginal US 07/15/18 01:27 IMPRESSION: Abnormal thickening of the endometrium at 10 mm. Findings could reflect endometrial hyperplasia, polyp formation, or carcinoma. Gynecologic follow-up is recommended copyright 2010 [employer]- All Rights Reserved Patient has normal hemoglobin and hematocrit. Has abnormal thickening of the endometrium at 10 mm which needs outpatient follow-up. I discussed all these findings at length with the patient. She has follow-up with Dr. Abdias Thayer with [facility]. Patient does not require transfusion. Patient has had the symptoms for quite some time. At this time I feel comfortable discharging her in stable condition. - Vital Signs Vital signs: Temp Pulse Resp BP Pulse Ox 98.4 F 68 20 174/68 H 96 07/15/18 00:35 07/15/18 00:35 07/15/18 00:35 07/15/18 00:35 07/15/18 00:35 - Laboratory Result Diagrams: 07/15/18 03:00 07/15/18 03:00 Laboratory results interpreted by me: 07/15/18 07/15/18 03:00 03:00 RBC 5.30 H Hgb 15.7 H Glucose 112 H Discharge - Discharge Clinical Impression: Dysfunctional uterine bleeding Condition: Good Disposition: HOME, SELF-CARE Instructions: Dysfunctional Uterine Bleeding ([facility]) Additional Instructions: Please follow-up with Dr. Thayer. You will continue to have some bleeding. In the event that you are soaking more than 2 pads per hour for 2 hours straight, fever, severe pain or any other symptoms please return for repeat evaluation. Referrals: VANDANA THAYER MD [ACTIVE STAFF] - Follow up as needed
[2018-07-15 03:08] LABS: ABSOLUTE EOSINOPHILS # (AUTO) 0.1 10^3/uL (0.0-0.6); ABSOLUTE LYMPHOCYTES (AUTO) 2.7 10^3/uL (0.5-4.7); ABSOLUTE MONOCYTES (AUTO) 0.4 10^3/uL (0.1-1.4); ABSOLUTE NEUT (AUTO) 5.4 10^3/uL (1.7-8.2); BASOPHILS % (AUTO) 0.5 % (0-2); EOSINOPHILS % (AUTO) 1.7 % (0-6); HEMATOCRIT 46.7 % (36.0-47.0); HEMOGLOBIN 15.7 g/dL (12.0-15.5); LYMPHOCYTES % (AUTO) 31.4 % (13-45); MEAN CORPUSCULAR HEMOGLOBIN 29.6 pg (27.0-33.4); MEAN CORPUSCULAR HGB CONC 33.6 g/dL (32.0-36.0); MEAN CORPUSCULAR VOLUME 88 fl (80-97); MONOCYTES % (AUTO) 4.8 % (3-13); PLATELET COUNT 217 10^3/uL (150-450); SEGMENTED NEUTROPHILS % (AUTO) 61.6 % (42-78); TOTAL CELLS COUNTED % (AUTO) 100 %; WHITE BLOOD COUNT 8.7 10^3/uL (4.0-10.5)
[2018-07-15 03:26] LABS: ALANINE AMINOTRANSFERASE 20 U/L (9-52); ALBUMIN 4.4 g/dL (3.5-5.0); ALKALINE PHOSPHATASE 109 U/L (38-126); ANION GAP 12 (5-19); ASPARTATE AMINO TRANSFERASE 16 U/L (14-36); BILIRUBIN,DIRECT 0.3 mg/dL (0.0-0.4); BILIRUBIN,TOTAL 0.7 mg/dL (0.2-1.3); BLOOD UREA NITROGEN 17 mg/dL (7-20); CARBON DIOXIDE 30 mmol/L (22-30); CHLORIDE 101 mmol/L (98-107); GLUCOSE 112 mg/dL (75-110); POTASSIUM 4.2 mmol/L (3.6-5.0); SODIUM 142.5 mmol/L (137-145); TOTAL PROTEIN 7.3 g/dL (6.3-8.2)
--- NOTE | 2018-07-15 03:38 | RADIOLOGY REPORT (SQ) ---
EXAM DESCRIPTION: US TRANSVAGINAL COMPLETED DATE/TME: 07/15/2018 01:27 CLINICAL HISTORY: 87 years, Female, vaginal bleeding COMPARISON: 07/28/2017 ultrasound TECHNIQUE: Transverse and longitudinal transvaginal sonographic images of the pelvis LIMITATIONS: None. FINDINGS: The uterus measures 10.3 x 4.6 cm. The endometrium is thickened at 10 mm. The myometrium is homogenous. Several nabothian cysts are present. Neither ovary is seen likely due to atrophy. No adnexal cyst or mass. No free fluid IMPRESSION: Abnormal thickening of the endometrium at 10 mm. Findings could reflect endometrial hyperplasia, polyp formation, or carcinoma. Gynecologic follow-up is recommended copyright 2010 [employer]- All Rights Reserved
[2018-07-15 04:29] VITALS: BP 149/65
== END 2018-07-15 04:29 | disposition home or self-care (01) ==
LOC: ER 00:15
DX: N93.8 Other specified abnormal uterine and vaginal bleeding (principal); R10.2 Pelvic and perineal pain; E78.00 Pure hypercholesterolemia, unspecified; I50.9 Heart failure, unspecified; I25.10 Atherosclerotic heart disease of native coronary artery without angina pectoris; I11.0 Hypertensive heart disease with heart failure; J44.9 Chronic obstructive pulmonary disease, unspecified; E11.9 Type 2 diabetes mellitus without complications; E03.9 Hypothyroidism, unspecified; Z91.040 Latex allergy status; Z88.0 Allergy status to penicillin; Z88.3 Allergy status to other anti-infective agents; Z88.2 Allergy status to sulfonamides; Z86.718 Personal history of other venous thrombosis and embolism; Z87.442 Personal history of urinary calculi; Z88.6 Allergy status to analgesic agent; Z90.49 Acquired absence of other specified parts of digestive tract; Z98.51 Tubal ligation status
CPT/HCPCS: 36415; 76830; 80053; 85025; 93976; 99284

== ENCOUNTER 2018-08-15 11:10 | Inpatient (IN) | payer MEDICARE ==
[2018-08-15] MEDS ORDERED: ASPIRIN 81 MG TABLET, CHEWABLE PO ONE (11:14)
--- NOTE | 2018-08-15 12:07 | ER Document Report ---
ED Cardiac - General Chief Complaint: Chest Pain > 30 Stated Complaint: CHEST PAIN Time Seen by Provider: 08/15/18 12:00 Mode of Arrival: Ambulatory Information source: Patient Notes: 88 yr old female with the listed pmh here for substernal cp and sob worsening over the last day. no recent stress. pos cad hx with mi in the past. supposed to have a stress test in [address] armstrong. pcp is rasta. 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 brought in via ems for cp and noted to be hypoxic at 88% on RA on arrival. no prior hx of home O2 use. no ripping or tearing sensation. cp at rest and with exertion. pain substernal and heavy. also had a pos cough recently. some pain on deep breathing. no fevers. ems gave ntiro x 2 in route and brought pain from 8 to a 5. was recently started on macrobid for a uti a few days ago. no fall or trauma. no syncope. no palpitations. no other changes in meds or diet. no ams.no other associated sx. no prior hx of blood clots. fam hx of blood clots. she decided on her own to stop taking her lasix 2 wks ago due to uti sx. states some increased swelling in her legs bilat TRAVEL OUTSIDE OF THE [place] IN LAST 30 DAYS: No - HPI Patient complains to provider of: Chest pain When did pain begin: this morning Is the pain a: New problem Chest pain location: Substernal Quality of pain: Constant, Heaviness Severity now: Mild Severity at worst: Moderate Chest pain precipitating factors: At Rest Cardiac risk factors: Hypertension, + Family history, Dyslipidemia, Hx CHF, Hx CA Positive cardiac history: Yes Associated symptoms: Diaphoresis, Edema, Shortness of breath Exacerbated by: Activity, Deep breaths, Lying flat Relieved by: Rest, Oxygen, NTG Similar symptoms previously: Yes - Related Data Allergies/Adverse Reactions: Iodinated Contrast- Oral and IV Dye [Contrast] Allergy (Severe, Verified 08/15/18 11:17) Seizures ciprofloxacin [From Cipro] Allergy (Verified 08/15/18 11:17) Diarrhea, vomiting codeine [Codeine] Allergy (Verified 08/15/18 11:17) diarrhea, vomiting, convulsions diphtheria toxoid,fluid Allergy (Verified 08/15/18 11:17) Rash lansoprazole [From Prevacid] Allergy (Verified 08/15/18 11:17) rash latex [Latex] Allergy (Verified 08/15/18 11:17) ITCHY RASH levofloxacin [From Levaquin] Allergy (Verified 08/15/18 11:17) Rash, Diarrhea meloxicam Allergy (Verified 08/15/18 11:17) "symptoms of heart attack" morphine Allergy (Verified 08/15/18 11:17) Chest pain Penicillins Allergy (Verified 08/15/18 11:17) "6 days in coma" Sulfa (Sulfonamide Antibiotics) Allergy (Verified 08/15/18 11:17) Rash Tetanus Vaccines and Toxoid [Tetanus] Allergy (Verified 08/15/18 11:17) convulsions cefdinir [Cefdinir] Adverse Reaction (Intermediate, Verified 08/15/18 11:17) rash MYCINS Allergy (Uncoded 08/15/18 11:17) Past Medical History - General Information source: Patient, Relative - Social History Smoking Status: Smoker,Current Status Unk Cigarette use (# per day): No Frequency of alcohol use: None Drug Abuse: None Lives with: Spouse/Significant other Family History: Reviewed & Not Pertinent, Hypertension - Past Medical History Cardiac Medical History: Reports: Hx Congestive Heart Failure, Hx Coronary Artery Disease, Hx DVT, Hx Heart Attack, Hx Hypercholesterolemia, Hx Hypertension Denies: Hx Pulmonary Embolism Pulmonary Medical History: Reports: Hx Asthma, Hx COPD, Hx Pneumonia - x 4 times Denies: Hx Bronchitis, Hx Tuberculosis Neurological Medical History: Reports: Hx Seizures - as baby. Denies: Hx Cerebrovascular Accident Endocrine Medical History: Reports: Hx Diabetes Mellitus Type 1, Hx Diabetes Mellitus Type 2, Hx Hypothyroidism Renal/ Medical History: Reports: Hx Kidney Stones. Denies: Hx Peritoneal Dialysis GI Medical History: Reports: Hx Hiatal Hernia. Denies: Hx Hepatitis, Hx Ulcer Musculoskeletal Medical History: Reports Hx Arthritis, Reports Hx Fibromyalgia Psychiatric Medical History: Denies: Hx Depression Infectious Medical History: Denies: Hx Hepatitis Past Surgical History: Reports: Hx Appendectomy, Hx Cholecystectomy, Hx Gynecologic Surgery - Right nephrectomy, Hx Herniorrhaphy, Hx Orthopedic Surgery - L knee, Hx Tonsillectomy, Hx Tubal Ligation, Hx Urinary Tract Surgery - Bl adder stone removal. Denies: Hx Cardiac Catheterization, Hx Mastectomy, Hx Open Heart Surgery, Hx Pacemaker - Immunizations Immunizations up to date: Yes Hx Diphtheria, Pertussis, Tetanus Vaccination: Yes - Allergic, "30 years ago" Hx Pneumococcal Vaccination: 11/15/15 Review of Systems - Review of Systems Constitutional: No symptoms reported, Weight gain EENT: No symptoms reported Cardiovascular: Chest pain, Dyspnea, Edema. denies: Palpitations, Heart racing, Syncope, Dizziness Respiratory: Cough, Short of breath. denies: Hemoptysis, Wheezing Gastrointestinal: No symptoms reported Genitourinary: Frequency. denies: Burning, Dysuria, Hematuria, Incontinence Female Genitourinary: No symptoms reported Musculoskeletal: Leg swelling Skin: No symptoms reported Hematologic/Lymphatic: No symptoms reported. denies: Blood clots Neurological/Psychological: No symptoms reported -: Yes All other systems reviewed and negative Physical Exam - Vital signs Vitals: Pulse Ox 88 L 08/15/18 11:14 Notes: >>>> PHYSICAL_EXAM: GENERAL_APPEARANCE: well_nourished, alert, cooperative, mild obvious discomfort. Pleasant obese elderly white female, smiling, speaking in full sentences with mild increased work of breathing, at bedside. nontoxic. in no sign of pain or resp distress. VITALS: reviewed, see vital signs table. HEAD: normocephalic, atraumatic, no raccoon eyes, no solares signs EARS: canals_clear_bilat, TMs_clear, no_discharge_from_ears. EYES: EOMI, conjunctiva_clear. PERRL MOUTH: no_lacerations inside_mouth. NECK: no_swelling\\tenderness on the neck. no midline bony tenderness. no step offs or deformities. full rom. full strength, no meningeal signs. no jvd. no carotid bruit HEART: normal_rate, normal_rhythm, LUNGS: slight decreased air movement diffusely, coarse breath sounds slightly at bilat bases. no chest wall ttp. no crepitation. no flail chest. no overlying skin changes. ABDOMEN: normal_BS, soft, no_abd_tenderness, (-)guarding, distension or peritoneal signs. no cva ttp BACK: no midline bony tenderness. no step offs or deformities EXTREMITIES: strength 5/5 in all_extremities, good pulses all_extremities, no_abrasions\\lacerations in the extremities, no_swelling\\tenderness in the extremities other than 1-2+ pitting edema bilat. neg meredith sign. full rom. normal gait. brisk cap refill. 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 SKIN: warm, dry, good_color. no rash NEURO: cranial nerves 2 - 12 intact, motor_intact, sensory_intact. cerebellar function intact GLASCOW_COMA_SCORE: (adult) - eyes_open_spontaneously_4, charles bal_converses_and_oriented_5, motor_obeys_commands_6, [place]_coma_total_15, MENTAL_STATUS: speech_clear, oriented_X_3, responds_appropriately to questions. Course - Re-evaluation Re-evalutation: labs reviewed and as listed. ekg reviewed and as listed. meds given. pt improved. requiring 3L O2 from 4L O2 NC to maintain sats above 90%. lung sounds improved with breathing tx and nitro. cxr as shown and unremarkable. vq neg for pe as pt is allergic to contrast dye per rad and reviewed by myself. discussed case with ed attending, dr mckeon, who adivsed to call hospitalist for admission. spoke with pts pcp, who is admitting his own pts, dr magdaleno, who agreed to accept the pt for admission to his service. care transferred to dr magdaleno in stable condition. please refer to his note for further details of the visit. vss. pt informed of all findings and is understanding and in agreement with tx plan. on reexam, pt improved with tx listed. feels much better. vss. nontoxic appearing. Labs- Entire Visit 08/15/18 08/15/18 08/15/18 11:14 11:35 13:12 WBC 13.1 H RBC 5.17 Hgb 15.1 Hct 45.5 MCV 88 MCH 29.2 MCHC 33.2 RDW 13.8 Plt Count 221 Seg Neutrophils % 90.3 H Lymphocytes % 6.6 L Monocytes % 2.2 L Eosinophils % 0.6 Basophils % 0.3 Absolute Neutrophils 11.9 H Absolute Lymphocytes 0.9 Absolute Monocytes 0.3 Absolute Eosinophils 0.1 Absolute Basophils 0.0 Carbonic Acid HCO3/H2CO3 Ratio ABG pH ABG pCO2 ABG pO2 ABG HCO3 ABG Total CO2 ABG O2 Saturation ABG Base Excess FiO2 Sodium 139.6 Potassium 4.1 Chloride 101 Carbon Dioxide 28 Anion Gap 11 BUN 17 Creatinine 0.60 Est GFR ( Amer) > 60 Est GFR (Non-Af Amer) > 60 Glucose 100 Calcium 10.0 Magnesium Total Bilirubin 1.5 H Direct Bilirubin 0.4 Neonat Total Bilirubin Not Reportable Neonat Direct Bilirubin Not Reportable Neonat Indirect Bili Not Reportable AST 22 ALT 27 Alkaline Phosphatase 86 Creatine Kinase 30 CK-MB (CK-2) Troponin I NT-Pro-B Natriuret Pep Total Protein 7.1 Albumin 4.3 TSH Urine Color YELLOW Urine Appearance CLEAR Urine pH 6.0 Ur Specific Fountain 1.017 Urine Protein NEGATIVE Urine Glucose (UA) NEGATIVE Urine Ketones NEGATIVE Urine Blood NEGATIVE Urine Nitrite NEGATIVE Urine Bilirubin NEGATIVE Urine Urobilinogen NEGATIVE Ur Leukocyte Esterase NEGATIVE Urine WBC (Auto) 0 Urine RBC (Auto) 1 Squamous Epi Cells Auto 2 Urine Mucus (Auto) RARE Urine Ascorbic Acid NEGATIVE 08/15/18 08/15/18 08/15/18 13:12 13:12 13:12 WBC RBC Hgb Hct MCV MCH MCHC RDW Plt Count Seg Neutrophils % Lymphocytes % Monocytes % Eosinophils % Basophils % Absolute Neutrophils Absolute Lymphocytes Absolute Monocytes Absolute Eosinophils Absolute Basophils Carbonic Acid HCO3/H2CO3 Ratio ABG pH ABG pCO2 ABG pO2 ABG HCO3 ABG Total CO2 ABG O2 Saturation ABG Base Excess FiO2 Sodium Potassium Chloride Carbon Dioxide Anion Gap BUN Creatinine Est GFR ( Amer) Est GFR (Non-Af Amer) Glucose Calcium Magnesium 1.7 Total Bilirubin Direct Bilirubin Neonat Total Bilirubin Neonat Direct Bilirubin Neonat Indirect Bili AST ALT Alkaline Phosphatase Creatine Kinase CK-MB (CK-2) 0.50 Troponin I < 0.012 NT-Pro-B Natriuret Pep 73 Total Protein Albumin TSH 4.11 Urine Color Urine Appearance Urine pH Ur Specific Fountain Urine Protein Urine Glucose (UA) Urine Ketones Urine Blood Urine Nitrite Urine Bilirubin Urine Urobilinogen Ur Leukocyte Esterase Urine WBC (Auto) Urine RBC (Auto) Squamous Epi Cells Auto Urine Mucus (Auto) Urine Ascorbic Acid 08/15/18 08/15/18 16:38 16:45 WBC RBC Hgb Hct MCV MCH MCHC RDW Plt Count Seg Neutrophils % Lymphocytes % Monocytes % Eosinophils % Basophils % Absolute Neutrophils Absolute Lymphocytes Absolute Monocytes Absolute Eosinophils Absolute Basophils Carbonic Acid 1.51 H HCO3/H2CO3 Ratio 20:1 ABG pH 7.40 ABG pCO2 50.1 H ABG pO2 91.6 ABG HCO3 30.6 H ABG Total CO2 32.2 H ABG O2 Saturation 96.9 ABG Base Excess 4.6 FiO2 30% Sodium Potassium Chloride Carbon Dioxide Anion Gap BUN Creatinine Est GFR ( Amer) Est GFR (Non-Af Amer) Glucose Calcium Magnesium Total Bilirubin Direct Bilirubin Neonat Total Bilirubin Neonat Direct Bilirubin Neonat Indirect Bili AST ALT Alkaline Phosphatase Creatine Kinase CK-MB (CK-2) Troponin I 0.027 NT-Pro-B Natriuret Pep Total Protein Albumin TSH Urine Color Urine Appearance Urine pH Ur Specific Fountain Urine Protein Urine Glucose (UA) Urine Ketones Urine Blood Urine Nitrite Urine Bilirubin Urine Urobilinogen Ur Leukocyte Esterase Urine WBC (Auto) Urine RBC (Auto) Squamous Epi Cells Auto Urine Mucus (Auto) Urine Ascorbic Acid Chest X-Ray 08/15/18 12:02 IMPRESSION: Mild cardiomegaly. No acute findings. Lung Scan-VQ NM 08/15/18 14:49 IMPRESSION: NORMAL VENTILATION-PERFUSION LUNG SCAN. NEGATIVE FOR PULMONARY EMBOLI. . Category Date Time Status Continuous Cardiac Monitoring (ED) CONTINUOUS Care 08/15/18 11:14 Completed EKG Documentation STAT Care 08/15/18 11:14 Completed EKG Documentation STAT Care 08/15/18 18:07 Completed Oxygen (ED) Nasal Cannula 2 lpm Care 08/15/18 11:14 Active Patient Education-Urinary Cath [RC] DAILY Care 08/15/18 13:50 Completed Pulse Oximeter Continuous (ED) CONTINUOUS Care 08/15/18 11:14 Completed [place] Lock (ED) NOW Care 08/15/18 11:14 Completed Urinary Cath Removal Criteria [RC] DAILY Care 08/15/18 13:50 Completed CHEST SINGLE VIEW [RAD] Stat Exams 08/15/18 12:02 Completed VQ [NM LUNG VENT/PERF SCAN] [NM] Stat Exams 08/15/18 14:49 Completed ABG [ARTERIAL BLOOD GAS] [CHEM] Stat Lab 08/15/18 16:38 Completed ADD ON [ADD ON TESTING BLD IN LAB] [CHEM] Stat Lab 08/15/18 13:12 Completed CBC WITH DIFF [HEME] Stat Lab 08/15/18 13:12 Completed COMPREHENSIVE METABOLIC PANEL [CHEM] Stat Lab 08/15/18 11:14 Completed CREATINE KINASE MB [CHEM] Stat Lab 08/15/18 13:12 Completed CREATINE KINASE [CHEM] Stat Lab 08/15/18 11:14 Completed MAGNESIUM [CHEM] Stat Lab 08/15/18 13:12 Completed NT PRO BNP [CHEM] Stat Lab 08/15/18 13:12 Completed TROPONIN I [CHEM] Stat Lab 08/15/18 13:12 Completed TROPONIN I [CHEM] Stat Lab 08/15/18 16:45 Completed TSH [THYROID STIMULATING HORMONE] [CHEM] Stat Lab 08/15/18 13:12 Completed UA [URINALYSIS] [URIN] Stat Lab 08/15/18 11:35 Completed Acetaminophen [Tylenol 325 mg Tablet] Med 08/15/18 16:34 Discontinued 975 mg PO NOW ONE Aspirin [Aspirin 81 mg Chewable Tablet] Med 08/15/18 11:14 Discontinued 324 mg PO NOW ONE Furosemide [Lasix Inj/Pf 40 mg/4 ml Sdv] Med 08/15/18 13:37 Discontinued 80 mg IV NOW ONE Ipratropium/Albuterol Sulfate [Duoneb 3 ml Ampul] Med 08/15/18 16:34 Discontinued 3 ml NEB NOW ONE Nitroglycerin [Nitrol 2% Ointment 1Gm Packet] Med 08/15/18 12:35 Discontinued 1 gm TP NOW ONE Nitroglycerin [Nitrostat 0.4 mg (1/150 Gr) Tabs 25/ Med 08/15/18 12:35 Discontinued Bottle] 1 tab SL ASDIR STA EKG ER ONLY [ER] Stat Oth 08/15/18 Completed EKG ER ONLY [ER] Stat Oth 08/15/18 11:14 Completed Nebulizer Therapy Routine [RESPCARE] NOW Ther 08/15/18 16:34 Completed - Vital Signs Vital signs: Temp Pulse Resp BP Pulse Ox 97.7 F 83 19 116/67 92 08/20/18 19:49 08/20/18 19:49 08/20/18 19:49 08/20/18 19:49 08/20/18 19:49 - Laboratory Result Diagrams: 08/17/18 04:18 08/17/18 04:18 Laboratory results interpreted by me: 08/15/18 08/15/18 08/15/18 11:14 13:12 16:38 WBC 13.1 H Seg Neutrophils % 90.3 H Lymphocytes % 6.6 L Monocytes % 2.2 L Absolute Neutrophils 11.9 H Carbonic Acid 1.51 H ABG pCO2 50.1 H ABG HCO3 30.6 H ABG Total CO2 32.2 H Total Bilirubin 1.5 H Temp Pulse Resp BP Pulse Ox 98.4 F 22 H 161/85 H 94 08/15/18 16:54 08/15/18 16:02 08/15/18 16:02 08/15/18 16:02 Labs- All tests 24 hr 08/15/18 08/15/18 08/15/18 11:14 11:35 13:12 WBC 13.1 H RBC 5.17 Hgb 15.1 Hct 45.5 MCV 88 MCH 29.2 MCHC 33.2 RDW 13.8 Plt Count 221 Seg Neutrophils % 90.3 H Lymphocytes % 6.6 L Monocytes % 2.2 L Eosinophils % 0.6 Basophils % 0.3 Absolute Neutrophils 11.9 H Absolute Lymphocytes 0.9 Absolute Monocytes 0.3 Absolute Eosinophils 0.1 Absolute Basophils 0.0 Carbonic Acid HCO3/H2CO3 Ratio ABG pH ABG pCO2 ABG pO2 ABG HCO3 ABG Total CO2 ABG O2 Saturation ABG Base Excess FiO2 Sodium 139.6 Potassium 4.1 Chloride 101 Carbon Dioxide 28 Anion Gap 11 BUN 17 Creatinine 0.60 Est GFR ( Amer) > 60 Est GFR (Non-Af Amer) > 60 Glucose 100 Calcium 10.0 Magnesium Total Bilirubin 1.5 H Direct Bilirubin 0.4 Neonat Total Bilirubin Not Reportable Neonat Direct Bilirubin Not Reportable Neonat Indirect Bili Not Reportable AST 22 ALT 27 Alkaline Phosphatase 86 Creatine Kinase 30 CK-MB (CK-2) Troponin I NT-Pro-B Natriuret Pep Total Protein 7.1 Albumin 4.3 TSH Urine Color YELLOW Urine Appearance CLEAR Urine pH 6.0 Ur Specific [place]ountain 1.017 Urine Protein NEGATIVE Urine Glucose (UA) NEGATIVE Urine Ketones NEGATIVE Urine Blood NEGATIVE Urine Nitrite NEGATIVE Urine Bilirubin NEGATIVE Urine Urobilinogen NEGATIVE Ur Leukocyte Esterase NEGATIVE Urine WBC (Auto) 0 Urine RBC (Auto) 1 Squamous Epi Cells Auto 2 Urine Mucus (Auto) RARE Urine Ascorbic Acid NEGATIVE 08/15/18 08/15/18 08/15/18 13:12 13:12 13:12 WBC RBC Hgb Hct MCV MCH MCHC RDW Plt Count Seg Neutrophils % Lymphocytes % Monocytes % Eosinophils % Basophils % Absolute Neutrophils Absolute Lymphocytes Absolute Monocytes Absolute Eosinophils Absolute Basophils Carbonic Acid HCO3/H2CO3 Ratio ABG pH ABG pCO2 ABG pO2 ABG HCO3 ABG Total CO2 ABG O2 Saturation ABG Base Excess FiO2 Sodium Potassium Chloride Carbon Dioxide Anion Gap BUN Creatinine Est GFR ( Amer) Est GFR (Non-Af Amer) Glucose Calcium Magnesium 1.7 Total Bilirubin Direct Bilirubin Neonat Total Bilirubin Neonat Direct Bilirubin Neonat Indirect Bili AST ALT Alkaline Phosphatase Creatine Kinase CK-MB (CK-2) 0.50 Troponin I < 0.012 NT-Pro-B Natriuret Pep 73 Total Protein Albumin TSH 4.11 Urine Color Urine Appearance Urine pH Ur Specific Fountain Urine Protein Urine Glucose (UA) Urine Ketones Urine Blood Urine Nitrite Urine Bilirubin Urine Urobilinogen Ur Leukocyte Esterase Urine WBC (Auto) Urine RBC (Auto) Squamous Epi Cells Auto Urine Mucus (Auto) Urine Ascorbic Acid 08/15/18 08/15/18 16:38 16:45 WBC RBC Hgb Hct MCV MCH MCHC RDW Plt Count Seg Neutrophils % Lymphocytes % Monocytes % Eosinophils % Basophils % Absolute Neutrophils Absolute Lymphocytes Absolute Monocytes Absolute Eosinophils Absolute Basophils Carbonic Acid 1.51 H HCO3/H2CO3 Ratio 20:1 ABG pH 7.40 ABG pCO2 50.1 H ABG pO2 91.6 ABG HCO3 30.6 H ABG Total CO2 32.2 H ABG O2 Saturation 96.9 ABG Base Excess 4.6 FiO2 30% Sodium Potassium Chloride Carbon Dioxide Anion Gap BUN Creatinine Est GFR ( Amer) Est GFR (Non-Af Amer) Glucose Calcium Magnesium Total Bilirubin Direct Bilirubin Neonat Total Bilirubin Neonat Direct Bilirubin Neonat Indirect Bili AST ALT Alkaline Phosphatase Creatine Kinase CK-MB (CK-2) Troponin I 0.027 NT-Pro-B Natriuret Pep Total Protein Albumin TSH Urine Color Urine Appearance Urine pH Ur Specific [place]ountain Urine Protein Urine Glucose (UA) Urine Ketones Urine Blood Urine Nitrite Urine Bilirubin Urine Urobilinogen Ur Leukocyte Esterase Urine WBC (Auto) Urine RBC (Auto) Squamous Epi Cells Auto Urine Mucus (Auto) Urine Ascorbic Acid Chest X-Ray 08/15/18 12:02 IMPRESSION: Mild cardiomegaly. No acute findings. Lung Scan-VQ NM 08/15/18 14:49 IMPRESSION: NORMAL VENTILATION-PERFUSION LUNG SCAN. NEGATIVE FOR PULMONARY EMBOLI. - Diagnostic Test Radiology reviewed: Image reviewed, Reports reviewed Radiology results interpreted by me: 08/20/18 22:10 Chest X-Ray 08/15/18 12:02 IMPRESSION: Mild cardiomegaly. No acute findings. Lung Scan-VQ NM 08/15/18 14:49 IMPRESSION: NORMAL VENTILATION-PERFUSION LUNG SCAN. NEGATIVE FOR PULMONARY EMBOLI. - EKG Interpretation by Me EKG shows normal: Sinus rhythm - 91 bpm, with IVCD, no stemi, unchanged from previous, reviewed by dr mckeon Rate: Normal Rhythm: NSR. No: A.Fib, V.Tach [place]/QRS: Bifasicular block Additional EKG results interpreted by me: repeat ek08/15/18 18:35 showed sinus tach 113 bpm, no stemi, probable LAE, LVH with IVCD, LAD and secondary repol abnormality. no change compared to prior per dr mckeon 08/15/18 18:41 Discharge - Discharge Clinical Impression: Chest pain with high risk of acute coronary syndrome, Hypoxia Condition: Critical Disposition: ADMITTED OBSERVATION Admitting Provider: Pending Sale To [facility] Admitted: [facility]
--- NOTE | 2018-08-15 12:33 | RADIOLOGY REPORT (SQ) ---
EXAM DESCRIPTION: CHEST SINGLE VIEW COMPLETED DATE/TIME: 08/15/2018 12:19 pm REASON FOR STUDY: cp COMPARISON: Prior chest films 12/20/2017, 05/27/2017 EXAM PARAMETERS: NUMBER OF VIEWS: One view. TECHNIQUE: Single frontal radiographic view of the chest acquired. RADIATION DOSE: NA LIMITATIONS: None. FINDINGS: LUNGS AND PLEURA: No opacities, masses or pneumothorax. No pleural effusion. MEDIASTINUM AND HILAR STRUCTURES: No masses. Contour normal. HEART AND VASCULAR STRUCTURES: Mild cardiomegaly BONES: No acute findings. HARDWARE: None in the chest. OTHER: No other significant finding. IMPRESSION: Mild cardiomegaly. No acute findings. TECHNICAL DOCUMENTATION: JOB ID: [id number] [employer]- All Rights Reserved Reading location - IP/workstation name: [email or web address]
[2018-08-15] MEDS ORDERED: NITROGLYCERIN 0.4 MG/TAB 25 TAB/BOTTLE SL STA (12:35)
[2018-08-15] MEDS ORDERED: NITROGLYCERIN 2% OINTMENT 1 GM PACKET TP ONE (12:35)
[2018-08-15 13:08] LABS: APPEARANCE,URINE CLEAR; BILIRUBIN,URINE NEGATIVE (NEGATIVE); COLOR,URINE YELLOW; GLUCOSE, URINE NEGATIVE (NEGATIVE); KETONES,URINE NEGATIVE (NEGATIVE); LEUKOCYTE ESTERASE,URINE NEGATIVE (NEGATIVE); NITRITE,URINE NEGATIVE (NEGATIVE); PROTEIN,URINE NEGATIVE (NEGATIVE); URINE SPECIFIC GRAVITY 1.017; UROBILINOGEN,URINE NEGATIVE mg/dL (<2.0)
[2018-08-15 13:31] LABS: ABSOLUTE EOSINOPHILS # (AUTO) 0.1 10^3/uL (0.0-0.6); ABSOLUTE LYMPHOCYTES (AUTO) 0.9 10^3/uL (0.5-4.7); ABSOLUTE MONOCYTES (AUTO) 0.3 10^3/uL (0.1-1.4); ABSOLUTE NEUT (AUTO) 11.9 10^3/uL (1.7-8.2); BASOPHILS % (AUTO) 0.3 % (0-2); EOSINOPHILS % (AUTO) 0.6 % (0-6); HEMATOCRIT 45.5 % (36.0-47.0); HEMOGLOBIN 15.1 g/dL (12.0-15.5); LYMPHOCYTES % (AUTO) 6.6 % (13-45); MEAN CORPUSCULAR HEMOGLOBIN 29.2 pg (27.0-33.4); MEAN CORPUSCULAR HGB CONC 33.2 g/dL (32.0-36.0); MEAN CORPUSCULAR VOLUME 88 fl (80-97); MONOCYTES % (AUTO) 2.2 % (3-13); PLATELET COUNT 221 10^3/uL (150-450); RED BLOOD COUNT 5.17 10^6/uL (3.72-5.28); RED CELL DISTRIBUTION WIDTH 13.8 % (11.5-14.0); SEGMENTED NEUTROPHILS % (AUTO) 90.3 % (42-78); TOTAL CELLS COUNTED % (AUTO) 100 %; WHITE BLOOD COUNT 13.1 10^3/uL (4.0-10.5)
[2018-08-15] MEDS ORDERED: FUROSEMIDE INJ/PF 40 MG/4 ML SDV IV ONE (13:37)
[2018-08-15 14:01] LABS: NT PRO BNP 73 pg/mL (<450)
[2018-08-15 14:02] LABS: TROPONIN I < 0.012 ng/mL
[2018-08-15 14:17] LABS: ALANINE AMINOTRANSFERASE 27 U/L (9-52); ALBUMIN 4.3 g/dL (3.5-5.0); ALKALINE PHOSPHATASE 86 U/L (38-126); ANION GAP 11 (5-19); ASPARTATE AMINO TRANSFERASE 22 U/L (14-36); BILIRUBIN,DIRECT 0.4 mg/dL (0.0-0.4); BILIRUBIN,TOTAL 1.5 mg/dL (0.2-1.3); BLOOD UREA NITROGEN 17 mg/dL (7-20); CARBON DIOXIDE 28 mmol/L (22-30); CHLORIDE 101 mmol/L (98-107); CREATINE KINASE 30 U/L (30-135); GLUCOSE 100 mg/dL (75-110); POTASSIUM 4.1 mmol/L (3.6-5.0); SODIUM 139.6 mmol/L (137-145); TOTAL PROTEIN 7.1 g/dL (6.3-8.2)
--- NOTE | 2018-08-15 14:58 | EKG REPORT ---
SEVERITY:- ABNORMAL ECG - SINUS RHYTHM LVH WITH IVCD, LAD AND SECONDARY REPOL ABNRM : Confirmed by: Herrera Joseph 15-Aug-2018 14:57:12
--- NOTE | 2018-08-15 16:13 | RADIOLOGY REPORT (SQ) ---
EXAM DESCRIPTION: NM LUNG VENT/PERF SCAN COMPLETED DATE/TIME: 08/15/2018 4:05 pm REASON FOR STUDY: hypoxia, cp, tachycardia, r/o pe COMPARISON: AP chest 08/15/2018, 12/20/2017 CT chest 04/29/2015 RADIONUCLIDE AND DOSE: 5.5 millicuries TC-99m MAA Intravenous 31.2 millicuries TC-99m DTPA Inhaled aerosol TECHNIQUE: Limited AP view of the lungs acquired post ventilation of DTPA aerosol. AP, PA, and MERIDA views of the lungs acquired following injection of MAA. LIMITATIONS: None. FINDINGS: VENTILATION: Symmetric and homogeneous distribution of DTPA aerosol during ventilatory pha se. No significant areas of photopenia. PERFUSION: Perfusion images with normal homogenous activity and no wedge-shaped or segmental defects. No ventilation-perfusion mismatches. OTHER: No other significant finding. IMPRESSION: NORMAL VENTILATION-PERFUSION LUNG SCAN. NEGATIVE FOR PULMONARY EMBOLI. TECHNICAL DOCUMENTATION: JOB ID: [id number] [employer]- All Rights Reserved Reading location - IP/workstation name: [email or web address]
[2018-08-15] MEDS ORDERED: ACETAMINOPHEN 325 MG TABLET PO ONE (16:34)
[2018-08-15] MEDS ORDERED: IPRATROPIUM/ALBUTEROL 0.5-2.5 MG/3 ML AMPUL NEB ONE (16:34)
[2018-08-15 16:59] LABS: ARTERIAL BLOOD BASE EXCESS 4.6 mmol/L; ARTERIAL BLOOD H2CO3 1.51 mmol/L (1.05-1.35); ARTERIAL BLOOD HCO3 30.6 mmol/L (20-24); ARTERIAL BLOOD O2 SATURATION 96.9 % (94-98); ARTERIAL BLOOD PCO2 50.1 mmHg (35-45); ARTERIAL BLOOD PO2 91.6 mmHg (80-100); ARTERIAL BLOOD TOTAL CO2 32.2 mmol/L (21-25)
[2018-08-15 17:00] LABS: ARTERIAL BLOOD FIO2 30%
[2018-08-15] MEDS ORDERED: NITROGLYCERIN 0.4 MG/TAB 25 TAB/BOTTLE SL ONE (18:47)
--- NOTE | 2018-08-16 00:18 | EKG REPORT ---
SEVERITY:- ABNORMAL ECG - SINUS TACHYCARDIA PROBABLE LEFT ATRIAL ABNORMALITY LVH WITH IVCD, LAD AND SECONDARY REPOL ABNRM : Confirmed by: Herrera Joseph 16-Aug-2018 00:17:31
[2018-08-16] MEDS: LEVOTHYROXINE SODIUM 0.1 MG TABLET PO SCH (05:19)
[2018-08-16] MEDS: PANTOPRAZOLE SODIUM 40 MG TABLET.DR PO SCH (05:19)
[2018-08-16] MEDS: HYDROCHLOROTHIAZIDE 25 MG TABLET PO SCH (09:16)
[2018-08-16] MEDS: FUROSEMIDE 40 MG TABLET PO SCH (09:17)
[2018-08-16] MEDS: POTASSIUM CHLORIDE 10 MEQ CAPSULE.ER PO SCH (09:17)
[2018-08-16] MEDS: CETIRIZINE 5 MG TABLET PO SCH (09:18)
[2018-08-16] MEDS: LISINOPRIL 5 MG TABLET PO SCH (09:18)
[2018-08-16] MEDS: ACETAMINOPHEN 325 MG TABLET PO PRN (11:12)
--- NOTE | 2018-08-16 19:44 | PDOC H&P ---
History of Present Illness Admission Date/PCP: 08/15/18 18:30 [facility] Patient complains of: Chest pain History of Present Illness: STEPH WAYNE is a 88 year old female known to my practice who presented to the ED via EMS with complain about new onset chest pain and difficulty with breathing. She reported associated coughing without significant sputum pr oduction. She reported associated chest pain with coughing. and deep breathing. She localized pain to left and mid chest region. She denied nay radiation of pain to her neck, shoulder of left upper extremity. She claimed radiation of pain into her upper back region with coughing. EMS personnel reported hypoxemia with oxygen saturation at 90% and dropped to 86 % with exertion and associated tachypnea. Her oxygenation did improved to 98% on supplemental oxygen at 4L/min via nasal cannula. She self administered Ecotrin 325 mg at home and she was treated with sublingual NTG x 2 doses by EMS personnel en route to the ED for chest pain. Her initial evaluation in the ED was significant for exertional associated tachycardia, diminished breath sound at lung bases, reproducible tenderness to chest wall palpation, bilateral leg swelling and mild anxiety. Her radiographic evaluation with V/Q scan due to concern about pulmonary embolism was reported negative. Her 12 leads EKG and cardiac enzymes were within normal limits. Patient was recently started on Nitrofurantoin due to suspected UTI during her office visit on 08/15/18. She assumed that her symptoms are related to administration of the antibiotic. Her morbidities include CHF, HTN, CAD, old OR, HLD, COPD, DM type 2, Hypothyroidism, osteoarthritis, Fibromyalgia, and hiatus hernia. Past Medical History Cardiac Medical History: Reports: Congestive Heart Failure, Coronary Artery Disease, DVT, Myocardial Infarction, Hyperlipidema, Hypertension Denies: Pulmonary Embolism Pulmonary Medical History: Reports: Asthma, Chronic Obstructive Pulmonary Disease (COPD), Pneumonia - x 4 times Denies: Bronchitis, Tuberculosis Neurological Medical History: Reports: Seizures - as baby Endocrine Medical History: Reports: Diabetes Mellitus Type 2, Hypothyroidism GI Medical History: Reports: Hiatal Hernia Denies: Hepatitis Musculoskeltal Medical History: Reports: Arthritis, Fibromyalgia Psychiatric Medical History: Denies: Depression Hematology: Denies: Anemia Past Surgical History Past Surgical History: Reports: Appendectomy, Cholecystectomy, Herniorrhaphy, Orthopedic Surgery - L knee, Tonsillectomy, Tubal Ligation Denies: Amputation, Cardiac Catheterization, Mastectomy, Pacemaker Social History Smoking Status: Never Smoker Frequency of Alcohol Use: None Hx Recreational Drug Use: No Drugs: None Hx Prescription Drug Abuse: No - Advance Directive Resuscitation Status: Full Code Family History Family History: Reviewed & Not Pertinent, Hypertension Parental Family History Reviewed: Yes Children Family History Reviewed: Yes Sibling(s) Family History Reviewed.: Yes Medication/Allergy Home Medications: Hydrochlorothiazide [Hydrodiuril 25 mg Tablet] 25 mg PO DAILY 12/20/17 Levocetirizine Dihydrochloride [Xyzal] 5 mg PO DAILY 12/20/17 Levothyroxine Sodium [Synthroid] 0.1 mg PO Q6AM 12/20/17 Lisinopril [Prinivil 2.5 mg Tablet] 2.5 mg PO DAILY 12/20/17 Omeprazole 40 mg PO ACBRKFST 12/20/17 Potassium Chloride [K-Tab ER] 10 meq PO DAILY 12/20/17 Furosemide [Lasix 40 mg Tablet] 40 mg PO DAILY 08/15/18 Allergies/Adverse Reactions: Iodinated Contrast- Oral and IV Dye [Contrast] Allergy (Severe, Verified 08/15/18 11:17) Seizures ciprofloxacin [From Cipro] Allergy (Verified 08/15/18 11:17) Diarrhea, vomiting codeine [Codeine] Allergy (Verified 08/15/18 11:17) diarrhea, vomiting, convulsions diphtheria toxoid,fluid Allergy (Verified 08/15/18 11:17) Rash lansoprazole [From Prevacid] Allergy (Verified 08/15/18 11:17) rash latex [Latex] Allergy (Verified 08/15/18 11:17) ITCHY RASH levofloxacin [From Levaquin] Allergy (Verified 08/15/18 11:17) Rash, Diarrhea meloxicam Allergy (Verified 08/15/18 11:17) "symptoms of heart attack" morphine Allergy (Verified 08/15/18 11:17) Chest pain Penicillins Allergy (Verified 08/15/18 11:17) "6 days in coma" Sulfa (Sulfonamide Antibiotics) Allergy (Verified 08/15/18 11:17) Rash Tetanus Vaccines and Toxoid [Tetanus] Allergy (Verified 08/15/18 11:17) convulsions cefdinir [Cefdinir] Adverse Reaction (Intermediate, Verified 08/15/18 11:17) rash MYCINS Allergy (Uncoded 08/15/18 11:17) Review of Systems Constitutional: PRESENT: chills, headache(s), weakness Eyes: ABSENT: visual disturbances Ears: ABSENT: hearing changes Nose, Mouth, and Throat: PRESENT: headache(s) Cardiovascular: PRESENT: chest pain, dyspnea on exertion, edema Respiratory: PRESENT: cough, dyspnea Gastrointestinal: ABSENT: abdominal pain, constipation, diarrhea, hematemesis, hematochezia, nausea, vomiting Genitourinary: PRESENT: other - frequency. ABSENT: as per HPI, difficulty urinating, dysuria, hematuria, nocturia Musculoskeletal: PRESENT: deformity - related to multiple joints involvement with arthritis Integumentary: ABSENT: rash, wounds Neurological: ABSENT: abnormal gait, abnormal speech, confusion, dizziness, focal weakness, syncope Psychiatric: PRESENT: anxiety. ABSENT: depression, homidical ideation, suicidal ideation Endocrine: ABSENT: cold intolerance, heat intolerance, polydipsia, polyuria Hematologic/Lymphatic: ABSENT: easy bleeding, easy bruising, lymphadenopathy Allergic/Immunologic: ABSENT: seasonal rhinorrhea Physical Exam Vital Signs: Temp Pulse Resp BP Pulse Ox 97.8 F 95 20 135/39 H 94 08/16/18 03:47 08/16/18 07:00 08/16/18 03:47 08/16/18 03:47 08/16/18 03:47 Intake & Output 08/15/18 08/16/18 08/17/18 06:59 06:59 06:59 Intake Total 240 Balance 240 Weight 100.8 kg General appearance: PRESENT: no acute distress, obese Head exam: PRESENT: atraumatic, normocephalic Eye exam: PRESENT: conjunctiva pink, EOMI, PERRLA. ABSENT: scleral icterus Ear exam: PRESENT: normal external ear exam Mouth exam: PRESENT: moist Neck exam: PRESENT: full ROM. ABSENT: carotid bruit, JVD, lymphadenopathy, thyromegaly Respiratory exam: PRESENT: clear to auscultation erlinda, decreased breath sounds - at lung bases Cardiovascular exam: PRESENT: RRR. ABSENT: diastolic murmur, rubs, systolic murmur Vascular exam: ABSENT: pallor GI/Abdominal exam: PRESENT: normal bowel sounds, soft. ABSENT: distended, guarding, mass, organolmegaly, rebound, tenderness Rectal exam: PRESENT: deferred Extremities exam: PRESENT: pedal edema - 1+ bilaterally Musculoskeletal exam: PRESENT: tenderness - reproducible tenderness to left and sternal anterior chest wall palpation Neurological exam: PRESENT: alert, awake, oriented to person, oriented to place, oriented to time, oriented to situation, CN II-XII grossly intact. ABSENT: motor sensory deficit Psychiatric exam: PRESENT: appropriate affect, normal mood. ABSENT: homicidal ideation, suicidal ideation Skin exam: PRESENT: dry, warm Results Laboratory Results: 08/15/18 13:12 08/15/18 11:14 08/15/18 08/15/18 08/15/18 11:14 11:35 13:12 WBC 13.1 H RBC 5.17 Hgb 15.1 Hct 45.5 MCV 88 MCH 29.2 MCHC 33.2 RDW 13.8 Plt Count 221 Seg Neutrophils % 90.3 H Lymphocytes % 6.6 L Monocytes % 2.2 L Eosinophils % 0.6 Basophils % 0.3 Absolute Neutrophils 11.9 H Absolute Lymphocytes 0.9 Absolute Monocytes 0.3 Absolute Eosinophils 0.1 Absolute Basophils 0.0 Carbonic Acid HCO3/H2CO3 Ratio ABG pH ABG pCO2 ABG pO2 ABG HCO3 ABG O2 Saturation ABG Base Excess FiO2 Sodium 139.6 Potassium 4.1 Chloride 101 Carbon Dioxide 28 Anion Gap 11 BUN 17 Creatinine 0.60 Est GFR ( Amer) > 60 Est GFR (Non-Af Amer) > 60 Glucose 100 Calcium 10.0 Magnesium Total Bilirubin 1.5 H AST 22 ALT 27 Alkaline Phosphatase 86 Total Protein 7.1 Albumin 4.3 TSH Urine Color YELLOW Urine Appearance CLEAR Urine pH 6.0 Ur Specific Bailey 1.017 Urine Protein NEGATIVE Urine Glucose (UA) NEGATIVE Urine Ketones NEGATIVE Urine Blood NEGATIVE Urine Nitrite NEGATIVE Ur Leukocyte Esterase NEGATIVE Urine WBC (Auto) 0 Urine RBC (Auto) 1 08/15/18 08/15/18 08/15/18 13:12 13:12 16:38 WBC RBC Hgb Hct MCV MCH MCHC RDW Plt Count Seg Neutrophils % Lymphocytes % Monocytes % Eosinophils % Basophils % Absolute Neutrophils Absolute Lymphocytes Absolute Monocytes Absolute Eosinophils Absolute Basophils Carbonic Acid 1.51 H HCO3/H2CO3 Ratio 20:1 ABG pH 7.40 ABG pCO2 50.1 H ABG pO2 91.6 ABG HCO3 30.6 H ABG O2 Saturation 96.9 ABG Base Excess 4.6 FiO2 30% Sodium Potassium Chloride Carbon Dioxide Anion Gap BUN Creatinine Est GFR ( Amer) Est GFR (Non-Af Amer) Glucose Calcium Magnesium 1.7 Total Bilirubin AST ALT Alkaline Phosphatase Total Protein Albumin TSH 4.11 Urine Color Urine Appearance Urine pH Ur Specific Bailey Urine Protein Urine Glucose (UA) Urine Ketones Urine Blood Urine Nitrite Ur Leukocyte Esterase Urine WBC (Auto) Urine RBC (Auto) 08/15/18 08/15/18 08/15/18 11:14 13:12 16:45 Creatine Kinase 30 CK-MB (CK-2) 0.50 Troponin I < 0.012 0.027 NT-Pro-B Natriuret Pep 73 Impressions: Chest X-Ray 08/15/18 12:02 IMPRESSION: Mild cardiomegaly. No acute findings. Lung Scan-VQ NM 08/15/18 14:49 IMPRESSION: NORMAL VENTILATION-PERFUSION LUNG SCAN. NEGATIVE FOR PULMONARY EMBOLI. Assessment & Plan - Diagnosis (1) Chest pain with high risk of acute coronary syndrome Is this a current diagnosis for this admission?: Yes Plan: See admitting attending physician orders for details of care plan. (2) Costochondral chest pain Is this a current diagnosis for this admission?: Yes Plan: See admitting attending physician orders for details of care plan. (3) Failure of outpatient treatment Is this a current diagnosis for this admission?: Yes Plan: Regarding her UTI. Patient is reluctant to take oral Nitrofurantoin due to her new onset chest pain. I will start her on IV Aztreonam coverage in view of her extensive allergy history. (4) Diabetes mellitus type 2 in obese Is this a current diagnosis for this admission?: Yes Plan: See admitting attending physician orders for details of care plan. (5) HTN (hypertension) Qualifiers: Hypertension type: essential hypertension Qualified Code(s): I10 - Essential (primary) hypertension Is this a current diagnosis for this admission?: Yes Plan: See admitting attending physician orders for details of care plan. (6) CAD (coronary artery disease) Qualifiers: Coronary Disease-Associated Artery/Lesion type: [place] artery [place] vs. transplanted heart: [place] heart Associated angina: without angina Qualified Code(s): I25.10 - Atherosclerotic heart disease of [place] coronary artery without angina pectoris Is this a current diagnosis for this admission?: Yes Plan: See admitting attending physician orders for details of care plan. (7) Old myocardial infarction Is this a current diagnosis for this admission?: Yes Plan: See admitting attending physician orders for details of care plan. (8) HLD (hyperlipidemia) Qualifiers: Hyperlipidemia type: unspecified Qualified Code(s): E78.5 - Hyperlipidemia, unspecified Is this a current diagnosis for this admission?: Yes Plan: See admitting attending physician orders for details of care plan. (9) COPD (chronic obstructive pulmonary disease) Qualifiers: COPD type: unspecified COPD Qualified Code(s): J44.9 - Chronic obstructive pulmonary disease, unspecified Is this a current diagnosis for this admission?: Yes Plan: See admitting attending physician orders for details of care plan. (10) Fibromyalgia Is this a current diagnosis for this admission?: Yes Plan: See admitting attending physician orders for details of care plan. (11) BMI 39.0-39.9,adult Is this a current diagnosis for this admission?: Yes Plan: See admitting attending physician orders for details of care plan. - Time Time Spent: 50 to 70 Minutes Medications reviewed and adjusted accordingly: Yes Anticipated discharge: Home with Homehealth Within: Other - Inpatient Certification Based on my medical assessment, after consideration of the patient's comorbidities, presenting symptoms, or acuity I expect that the services needed warrant INPATIENT care.: Yes I certify that my determination is in accordance with my understanding of Medicare's requirements for reasonable and necessary INPATIENT services [42 CFR 412.3e].: Yes Medical Necessity: Significant Comorbidiites Make Outpatient Treatment Too Risky, Need Close Monitoring Due to Risk of Patient Decompensation, Need For Continuous Telemetry Monitoring, Need for IV Antibiotics, Risk of Complication if Not Cared For in Hospital, Risk of Diagnosis Which Will Require Inpatient Eval/Care/Monitoring Post Hospital Care: D/C [employer] Documentation - Plan Summary Plan Summary: See admitting attending physician orders for details of care plan.
[2018-08-16 21:05] LABS: CREATINE KINASE MB 0.79 ng/mL (<4.55); TROPONIN I 0.014 ng/mL
[2018-08-16] MEDS: AZTREONAM 0.75 GM in DEXTROSE 5%-WATER 50 ML IV SCH (21:43)
[2018-08-17] MEDS: ACETAMINOPHEN 325 MG TABLET PO PRN ×3 (00:03→14:24)
[2018-08-17 05:26] LABS: ABSOLUTE EOSINOPHILS # (AUTO) 0.1 10^3/uL (0.0-0.6); ABSOLUTE LYMPHOCYTES (AUTO) 1.6 10^3/uL (0.5-4.7); ABSOLUTE MONOCYTES (AUTO) 0.5 10^3/uL (0.1-1.4); ABSOLUTE NEUT (AUTO) 8.2 10^3/uL (1.7-8.2); BASOPHILS % (AUTO) 0.3 % (0-2); EOSINOPHILS % (AUTO) 1.4 % (0-6); HEMATOCRIT 41.7 % (36.0-47.0); MEAN CORPUSCULAR HEMOGLOBIN 29.8 pg (27.0-33.4); MEAN CORPUSCULAR HGB CONC 33.5 g/dL (32.0-36.0); MEAN CORPUSCULAR VOLUME 89 fl (80-97); PLATELET COUNT 187 10^3/uL (150-450); RED BLOOD COUNT 4.68 10^6/uL (3.72-5.28); RED CELL DISTRIBUTION WIDTH 14.1 % (11.5-14.0); SEGMENTED NEUTROPHILS % (AUTO) 78.3 % (42-78); TOTAL CELLS COUNTED % (AUTO) 100 %; WHITE BLOOD COUNT 10.5 10^3/uL (4.0-10.5)
[2018-08-17] MEDS: PANTOPRAZOLE SODIUM 40 MG TABLET.DR PO SCH (05:32)
[2018-08-17] MEDS: LEVOTHYROXINE SODIUM 0.1 MG TABLET PO SCH (05:32)
[2018-08-17] MEDS: AZTREONAM 0.75 GM in DEXTROSE 5%-WATER 50 ML IV SCH ×3 (05:32→22:46)
[2018-08-17 05:50] LABS: ANION GAP 7 (5-19); BLOOD UREA NITROGEN 14 mg/dL (7-20); CALCIUM 9.4 mg/dL (8.4-10.2); CARBON DIOXIDE 32 mmol/L (22-30); CHLORIDE 99 mmol/L (98-107); CREATINE KINASE 28 U/L (30-135); GLUCOSE 119 mg/dL (75-110); POTASSIUM 3.7 mmol/L (3.6-5.0); SODIUM 138.4 mmol/L (137-145)
[2018-08-17 05:54] LABS: CREATINE KINASE MB 0.55 ng/mL (<4.55)
[2018-08-17 05:56] LABS: TROPONIN I < 0.012 ng/mL
[2018-08-17] MEDS: POTASSIUM CHLORIDE 10 MEQ CAPSULE.ER PO SCH (10:03)
[2018-08-17] MEDS: FUROSEMIDE 40 MG TABLET PO SCH (10:04)
[2018-08-17] MEDS: HYDROCHLOROTHIAZIDE 25 MG TABLET PO SCH (10:04)
[2018-08-17] MEDS: CETIRIZINE 5 MG TABLET PO SCH (10:04)
[2018-08-17] MEDS: LISINOPRIL 5 MG TABLET PO SCH (10:04)
--- NOTE | 2018-08-17 17:05 | PDOC PROGRESS REPORT ---
Subjective Progress Note for:: 08/17/18 Subjective:: She continue to reported chills and headache. Her chest pain is improving. No difficulty with her breathing. No fever, abdominal pain, nausea, or vomiting. Reason For Visit: CHEST PAIN WITH HIGH RISK OF ACUTE CORONARY Physical Exam Vital Signs: Temp Pulse Resp BP Pulse Ox 98.7 F 78 20 122/40 L 95 08/17/18 15:35 08/17/18 15:35 08/17/18 15:35 08/17/18 15:35 08/17/18 15:35 Intake & Output 08/16/18 08/17/18 08/18/18 06:59 06:59 06:59 Intake Total 240 560 237 Output Total 150 450 Balance 240 410 -213 Weight 100.8 kg 98.1 kg General appearance: PRESENT: no acute distress, well-developed, well-nourished Eye exam: PRESENT: conjunctiva pink. ABSENT: scleral icterus Ear exam: PRESENT: normal external ear exam Mouth exam: PRESENT: moist Respiratory exam: PRESENT: clear to auscultation erlinda Cardiovascular exam: PRESENT: RRR. ABSENT: diastolic murmur, rubs, systolic murmur Vascular exam: ABSENT: pallor GI/Abdominal exam: PRESENT: normal bowel sounds, soft. ABSENT: distended, guarding, mass, organolmegaly, rebound, tenderness Extremities exam: ABSENT: pedal edema Neurological exam: PRESENT: alert, awake, oriented to person, oriented to place, oriented to time, oriented to situation, CN II-XII grossly intact. ABSENT: motor sensory deficit Psychiatric exam: PRESENT: appropriate affect, normal mood. ABSENT: homicidal ideation, suicidal ideation Skin exam: PRESENT: dry, warm Results Laboratory Results: 08/17/18 04:18 08/17/18 04:18 08/17/18 08/17/18 04:18 04:18 WBC 10.5 RBC 4.68 Hgb 14.0 Hct 41.7 MCV 89 MCH 29.8 MCHC 33.5 RDW 14.1 H Plt Count 187 Seg Neutrophils % 78.3 H Lymphocytes % 15.0 Monocytes % 5.0 Eosinophils % 1.4 Basophils % 0.3 Absolute Neutrophils 8.2 Absolute Lymphocytes 1.6 Absolute Monocytes 0.5 Absolute Eosinophils 0.1 Absolute Basophils 0.0 Sodium 138.4 Potassium 3.7 Chloride 99 Carbon Dioxide 32 H Anion Gap 7 BUN 14 Creatinine 0.62 Est GFR ( Amer) > 60 Est GFR (Non-Af Amer) > 60 Glucose 119 H Calcium 9.4 08/15/18 08/15/18 08/15/18 11:14 13:12 16:45 Creatine Kinase 30 CK-MB (CK-2) 0.50 Troponin I < 0.012 0.027 NT-Pro-B Natriuret Pep 73 08/16/18 08/16/18 08/17/18 20:26 20:26 04:18 Creatine Kinase 29 L 28 L CK-MB (CK-2) 0.79 Troponin I 0.014 NT-Pro-B Natriuret Pep 08/17/18 04:18 Creatine Kinase CK-MB (CK-2) 0.55 Troponin I < 0.012 NT-Pro-B Natriuret Pep Impressions: Chest X-Ray 08/15/18 12:02 IMPRESSION: Mild cardiomegaly. No acute findings. Lung Scan-VQ NM 08/15/18 14:49 IMPRESSION: NORMAL VENTILATION-PERFUSION LUNG SCAN. NEGATIVE FOR PULMONARY EMBOLI. Assessment & Plan - Diagnosis (1) Chest pain with high risk of acute coronary syndrome Is this a current diagnosis for this admission?: Yes (2) Costochondral chest pain Is this a current diagnosis for this admission?: Yes (3) Failure of outpatient treatment Is this a current diagnosis for this admission?: Yes (4) Diabetes mellitus type 2 in obese Is this a current diagnosis for this admission?: Yes (5) HTN (hypertension) Qualifiers: Hypertension type: essential hypertension Qualified Code(s): I10 - E ssential (primary) hypertension Is this a current diagnosis for this admission?: Yes (6) CAD (coronary artery disease) Qualifiers: Coronary Disease-Associated Artery/Lesion type: [place] artery [place] vs. transplanted heart: [place] heart Associated angina: without angina Qualified Code(s): I25.10 - Atherosclerotic heart disease of [place] coronary artery without angina pectoris Is this a current diagnosis for this admission?: Yes (7) Old myocardial infarction Is this a current diagnosis for this admission?: Yes (8) HLD (hyperlipidemia) Qualifiers: Hyperlipidemia type: unspecified Qualified Code(s): E78.5 - Hyperlipidemia, unspecified Is this a current diagnosis for this admission?: Yes (9) COPD (chronic obstructive pulmonary disease) Qualifiers: COPD type: unspecified COPD Qualified Code(s): J44.9 - Chronic obstructive pulmonary disease, unspecified Is this a current diagnosis for this admission?: Yes (10) Fibromyalgia Is this a current diagnosis for this admission?: Yes (11) BMI 39.0-39.9,adult Is this a current diagnosis for this admission?: Yes - Time Time Spent with patient: 25-34 minutes Medications reviewed and adjusted accordingly: Yes Anticipated discharge: Home Within: Other - Inpatient Certification Based on my medical assessment, after consideration of the patient's comorbidities, presenting symptoms, or acuity I expect that the services needed warrant INPATIENT care.: Yes I certify that my determination is in accordance with my understanding of Medicare's requirements for reasonable and necessary INPATIENT services [42 CFR 412.3e].: Yes Medical Necessity: Significant Comorbidiites Make Outpatient Treatment Too Risky, Need Close Monitoring Due to Risk of Patient Decompensation, Need for IV Antibiotics, Risk of Complication if Not Cared For in Hospital, Risk of Diagnosis Which Will Require Inpatient Eval/Care/Monitoring Post Hospital Care: D/C Delivery [employer] Documentation - Plan Summary Plan Summary: Continue current medication management. Follow up on culture result.
[2018-08-18] MEDS: ACETAMINOPHEN 325 MG TABLET PO PRN ×2 (01:40→10:25)
[2018-08-18] MEDS: PANTOPRAZOLE SODIUM 40 MG TABLET.DR PO SCH (05:09)
[2018-08-18] MEDS: LEVOTHYROXINE SODIUM 0.1 MG TABLET PO SCH (05:09)
[2018-08-18] MEDS: AZTREONAM 0.75 GM in DEXTROSE 5%-WATER 50 ML IV SCH ×3 (05:10→22:55)
[2018-08-18] MEDS: LISINOPRIL 5 MG TABLET PO SCH (10:25)
[2018-08-18] MEDS: HYDROCHLOROTHIAZIDE 25 MG TABLET PO SCH (10:26)
[2018-08-18] MEDS: CETIRIZINE 5 MG TABLET PO SCH (10:26)
[2018-08-18] MEDS: FUROSEMIDE 40 MG TABLET PO SCH (10:26)
[2018-08-18] MEDS: POTASSIUM CHLORIDE 10 MEQ CAPSULE.ER PO SCH (10:26)
--- NOTE | 2018-08-18 15:02 | PDOC PROGRESS REPORT ---
Subjective Progress Note for:: 08/18/18 Subjective:: She continue to report headache but refused Tramadol which has been helpful in the past due to fear of opioid dependency. No chest pain or difficulty with breathing. No fever, abdominal pain, nausea, or vomiting. Reason For Visit: CHEST PAIN WITH HIGH RISK OF ACUTE CORONARY Physical Exam Vital Signs: Temp Pulse Resp BP Pulse Ox 98.8 F 71 16 142/61 H 96 08/18/18 12:04 08/18/18 12:04 08/18/18 12:04 08/18/18 12:04 08/18/18 12:04 Intake & Output 08/17/18 08/18/18 08/19/18 06:59 06:59 06:59 Intake Total 560 477 Output Total 150 1550 Balance 410 -1073 Weight 98.1 kg 96 kg Physical Exam: General appearance: PRESENT: no acute distress, well-developed, well-nourished Eye exam: PRESENT: conjunctiva pink. ABSENT: scleral icterus Ear exam: PRESENT: normal external ear exam Mouth exam: PRESENT: moist Respiratory exam: PRESENT: clear to auscultation erlinda Cardiovascular exam: PRESENT: RRR. ABSENT: diastolic murmur, rubs, systolic murmur Vascular exam: ABSENT: pallor GI/Abdominal exam: PRESENT: normal bowel sounds, soft. ABSENT: distended, guarding, mass, organolmegaly, rebound, tenderness Extremities exam: ABSENT: pedal edema Neurological exam: PRESENT: alert, awake, oriented to person, oriented to place, oriented to time, oriented to situation, CN II-XII grossly intact. ABSENT: motor sensory deficit Psychiatric exam: PRESENT: appropriate affect, normal mood. ABSENT: homicidal ideation, suicidal ideation Skin exam: PRESENT: dry, warm Results Laboratory Results: 08/17/18 04:18 08/17/18 04:18 08/16/18 22:20 Clean Catch Midstream Urine Culture - Final Mixed Urogenital Sue 08/15/18 08/15/18 08/15/18 11:14 13:12 16:45 Creatine Kinase 30 CK-MB (CK-2) 0.50 Troponin I < 0.012 0.027 NT-Pro-B Natriuret Pep 73 08/16/18 08/16/18 08/17/18 20:26 20:26 04:18 Creatine Kinase 29 L 28 L CK-MB (CK-2) 0.79 Troponin I 0.014 NT-Pro-B Natriuret Pep 08/17/18 04:18 Creatine Kinase CK-MB (CK-2) 0.55 Troponin I < 0.012 NT-Pro-B Natriuret Pep Impressions: Chest X-Ray 08/15/18 12:02 IMPRESSION: Mild cardiomegaly. No acute findings. Lung Scan-VQ NM 08/15/18 14:49 IMPRESSION: NORMAL VENTILATION-PERFUSION LUNG SCAN. NEGATIVE FOR PULMONARY EMBOLI. Assessment & Plan - Diagnosis (1) Chest pain with high risk of acute coronary syndrome Is this a current diagnosis for this admission?: Yes (2) Costochondral chest pain Is this a current diagnosis for this admission?: Yes (3) Failure of outpatient treatment Is this a current diagnosis for this admission?: Yes (4) Diabetes mellitus type 2 in obese Is this a current diagnosis for this admission?: Yes (5) HTN (hypertension) Qualifiers: Hypertension type: essential hypertension Qualified Code(s): I10 - Essential (primary) hypertension Is this a current diagnosis for this admission?: Yes (6) CAD (coronary artery disease) Qualifiers: Coronary Disease-Associated Artery/Lesion type: [place] artery [place] vs. transplanted heart: [place] heart Associated angina: without angina Qualified Code(s): I25.10 - Atherosclerotic heart disease of [place] coronary artery without angina pectoris Is this a current diagnosis for this admission?: Yes (7) Old myocardial infarction Is this a current diagnosis for this admission?: Yes (8) HLD (hyperlipidemia) Qualifiers: Hyperlipidemia type: unspecified Qualified Code(s): E78.5 - Hyperlipidemia, unspecified Is this a current diagnosis for this admission?: Yes (9) COPD (chronic obstructive pulmonary disease) Qualifiers: COPD type: unspecified COPD Qualified Code(s): J44.9 - Chronic obstructive pulmonary disease, unspecified Is this a current diagnosis for this admission?: Yes (10) Fibromyalgia Is this a current diagnosis for this admission?: Yes (11) BMI 39.0-39.9,adult Is this a current diagnosis for this admission?: Yes - Time Time Spent with patient: 25-34 minutes Medications reviewed and adjusted accordingly: Yes Anticipated discharge: Home with Homehealth Within: Other - Inpatient Certification Based on my medical assessment, after consideration of the patient's comorbidities, presenting symptoms, or acuity I expect that the services needed warrant INPATIENT care.: Yes I certify that my determination is in accordance with my understanding of Medicare's requirements for reasonable and necessary INPATIENT services [42 CFR 412.3e].: Yes Medical Necessity: Significant Comorbidiites Make Outpatient Treatment Too Risky, Need Close Monitoring Due to Risk of Patient Decompensation, Need For Continuous Telemetry Monitoring, Need for IV Antibiotics, Risk of Complication if Not Cared For in Hospital, Risk of Diagnosis Which Will Require Inpatient Eval/Care/Monitoring Post Hospital Care: D/C Outbound [employer] Consult[employer] Documentation - Plan Summary Plan Summary: Continue IV Aztreonam coverage. Start on Tramadol 50 mg po q8 hours prn for head ache. Maintain on all other current medication management.
[2018-08-18] MEDS: TRAMADOL HCL 50 MG TABLET PO PRN (20:25)
[2018-08-19] MEDS: AZTREONAM 0.75 GM in DEXTROSE 5%-WATER 50 ML IV SCH ×3 (05:54→22:52)
[2018-08-19] MEDS: LEVOTHYROXINE SODIUM 0.1 MG TABLET PO SCH (05:54)
[2018-08-19] MEDS: PANTOPRAZOLE SODIUM 40 MG TABLET.DR PO SCH (05:54)
[2018-08-19] MEDS: FUROSEMIDE 40 MG TABLET PO SCH (09:51)
[2018-08-19] MEDS: HYDROCHLOROTHIAZIDE 25 MG TABLET PO SCH (09:51)
[2018-08-19] MEDS: POTASSIUM CHLORIDE 10 MEQ CAPSULE.ER PO SCH (09:51)
[2018-08-19] MEDS: LISINOPRIL 5 MG TABLET PO SCH (09:51)
[2018-08-19] MEDS: CETIRIZINE 5 MG TABLET PO SCH (09:51)
--- NOTE | 2018-08-19 11:31 | PDOC PROGRESS REPORT ---
Subjective Progress Note for:: 08/19/18 Subjective:: No chest pain or difficulty with breathing. No fever, abdominal pain, nausea, or vomiting. No headache or dizziness. Reason For Visit: CHEST PAIN WITH HIGH RISK OF ACUTE CORONARY Physical Exam Vital Signs: Temp Pulse Resp BP Pulse Ox 97.7 F 64 20 150/79 H 96 08/19/18 07:16 08/19/18 07:16 08/19/18 07:16 08/19/18 07:16 08/19/18 07:16 Intake & Output 08/18/18 08/19/18 08/20/18 06:59 06:59 06:59 Intake Total 477 630 Output Total 1550 900 Balance -1073 -270 Weight 96 kg 96.5 kg Physical Exam: General appearance: PRESENT: no acute distress, well-developed, well-nourished Eye exam: PRESENT: conjunctiva pink. ABSENT: pallor, scleral icterus Ear exam: PRESENT: normal external ear exam Mouth exam: PRESENT: moist Respiratory exam: PRESENT: clear to auscultation erlinda Cardiovascular exam: PRESENT: RRR. ABSENT: diastolic murmur, rubs, systolic murmur GI/Abdominal exam: PRESENT: normal bowel sounds, soft. ABSENT: distended, guarding, mass, organomegaly, rebound, tenderness Extremities exam: ABSENT: pedal edema Neurological exam: PRESENT: alert, awake, oriented to person, oriented to place, oriented to time, oriented to situation, CN II-XII grossly intact. ABSENT: motor sensory deficit Psychiatric exam: PRESENT: appropriate affect, normal mood. ABSENT: homicidal ideation, suicidal ideation Skin exam: PRESENT: dry, warm Results Laboratory Results: 08/17/18 04:18 08/17/18 04:18 08/16/18 22:20 Clean Catch Midstream Urine Culture - Final Mixed Urogenital Sue 08/15/18 08/15/18 08/15/18 11:14 13:12 16:45 Creatine Kinase 30 CK-MB (CK-2) 0.50 Troponin I < 0.012 0.027 NT-Pro-B Natriuret Pep 73 08/16/18 08/16/18 08/17/18 20:26 20:26 04:18 Creatine Kinase 29 L 28 L CK-MB (CK-2) 0.79 Troponin I 0.014 NT-Pro-B Natriuret Pep 08/17/18 04:18 Creatine Kinase CK-MB (CK-2) 0.55 Troponin I < 0.012 NT-Pro-B Natriuret Pep Impressions: Chest X-Ray 08/15/18 12:02 IMPRESSION: Mild cardiomegaly. No acute findings. Lung Scan-VQ NM 08/15/18 14:49 IMPRESSION: NORMAL VENTILATION-PERFUSION LUNG SCAN. NEGATIVE FOR PULMONARY EMBOLI. Assessment & Plan - Diagnosis (1) Chest pain with high risk of acute coronary syndrome Is this a current diagnosis for this admission?: Yes (2) Costochondral chest pain Is this a current diagnosis for this admission?: Yes (3) Failure of outpatient treatment Is this a current diagnosis for this admission?: Yes (4) Diabetes mellitus type 2 in obese Is this a current diagnosis for this admission?: Yes (5) HTN (hypertension) Qualifiers: Hypertension type: essential hypertension Qualified Code(s): I10 - Essential (primary) hypertension Is this a current diagnosis for this admission?: Yes (6) CAD (coronary artery disease) Qualifiers: Coronary Disease-Associated Artery/Lesion type: [place] artery [place] vs. transplanted heart: [place] heart Associated angina: without angina Qualified Code(s): I25.10 - Atherosclerotic heart disease of [place] coronary artery without angina pectoris Is this a current diagnosis for this admission?: Yes (7) Old myocardial infarction Is this a current diagnosis for this admission?: Yes (8) HLD (hyperlipidemia) Qualifiers: Hyperlipidemia type: unspecified Qualified Code(s): E78.5 - Hyperlipidemia, unspecified Is this a current diagnosis for this admission?: Yes (9) COPD (chronic obstructive pulmonary disease) Qualifiers: COPD type: unspecified COPD Qualified Code(s): J44.9 - Chronic obstructive pulmonary disease, unspecified Is this a current diagnosis for this admission?: Yes (10) Fibromyalgia Is this a current diagnosis for this admission?: Yes (11) BMI 39.0-39.9,adult Is this a current diagnosis for this admission?: Yes - Time Time Spent with patient: 25-34 minutes Medications reviewed and adjusted accordingly: Yes Anticipated discharge: Home with Homehealth - Inpatient Certification Based on my medical assessment, after consideration of the patient's comorbidities, presenting symptoms, or acuity I expect that the services needed warrant INPATIENT care.: Yes I certify that my determination is in accordance with my understanding of Medicare's requirements for reasonable and necessary INPATIENT services [42 CFR 412.3e].: Yes Medical Necessity: Significant Comorbidiites Make Outpatient Treatment Too Risky, Need Close Monitoring Due to Risk of Patient Decompensation, Need For IV Fluids, Risk of Complication if Not Cared For in Hospital, Risk of Diagnosis Which Will Require Inpatient Eval/Care/Monitoring 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
[2018-08-19] MEDS: TRAMADOL HCL 50 MG TABLET PO PRN ×2 (11:52→22:51)
[2018-08-20] MEDS: AZTREONAM 0.75 GM in DEXTROSE 5%-WATER 50 ML IV SCH ×3 (05:59→21:58)
[2018-08-20] MEDS: LEVOTHYROXINE SODIUM 0.1 MG TABLET PO SCH (06:00)
[2018-08-20] MEDS: PANTOPRAZOLE SODIUM 40 MG TABLET.DR PO SCH (06:00)
[2018-08-20] MEDS: LISINOPRIL 5 MG TABLET PO SCH (09:21)
[2018-08-20] MEDS: FUROSEMIDE 40 MG TABLET PO SCH (09:21)
[2018-08-20] MEDS: HYDROCHLOROTHIAZIDE 25 MG TABLET PO SCH (09:21)
[2018-08-20] MEDS: CETIRIZINE 5 MG TABLET PO SCH (09:21)
[2018-08-20] MEDS: POTASSIUM CHLORIDE 10 MEQ CAPSULE.ER PO SCH (09:21)
[2018-08-20] MEDS: TRAMADOL HCL 50 MG TABLET PO PRN ×2 (14:15→22:07)
--- NOTE | 2018-08-20 16:53 | PDOC PROGRESS REPORT ---
Subjective Progress Note for:: 08/20/18 Subjective:: Patient reported generalized weakness and requested for rehabilitation upon discharge. No chest pain or difficulty with breathing. No fever, abdominal pain, nausea, or vomiting. No headache or dizziness. Reason For Visit: CHEST PAIN WITH HIGH RISK OF ACUTE CORONARY Physical Exam Vital Signs: Temp Pulse Resp BP Pulse Ox 97.7 F 72 20 130/65 H 92 08/20/18 15:29 08/20/18 15:29 08/20/18 15:29 08/20/18 15:29 08/20/18 15:29 Intake & Output 08/19/18 08/20/18 08/21/18 06:59 06:59 06:59 Intake Total 630 1286 355 Output Total 900 1700 250 Balance -270 -414 105 Weight 96.5 kg 95.4 kg Physical Exam: General appearance: PRESENT: no acute distress, well-developed, well-nourished Eye exam: PRESENT: conjunctiva pink. ABSENT: pallor, scleral icterus Ear exam: PRESENT: normal external ear exam Mouth exam: PRESENT: moist Respiratory exam: PRESENT: clear to auscultation erlinda Cardiovascular exam: PRESENT: RRR. ABSENT: diastolic murmur, rubs, systolic murmur GI/Abdominal exam: PRESENT: normal bowel sounds, soft. ABSENT: distended, guarding, mass, organomegaly, rebound, tenderness Extremities exam: ABSENT: pedal edema Neurological exam: PRESENT: alert, awake, oriented to person, oriented to place, oriented to time, oriented to situation, CN II-XII grossly intact. ABSENT: motor sensory deficit Psychiatric exam: PRESENT: appropriate affect, normal mood. ABSENT: homicidal ideation, suicidal ideation Skin exam: PRESENT: dry, warm Results Laboratory Results: 08/17/18 04:18 08/17/18 04:18 08/15/18 08/15/18 08/15/18 11:14 13:12 16:45 Creatine Kinase 30 CK-MB (CK-2) 0.50 Troponin I < 0.012 0.027 NT-Pro-B Natriuret Pep 73 08/16/18 08/16/18 08/17/18 20:26 20:26 04:18 Creatine Kinase 29 L 28 L CK-MB (CK-2) 0.79 Troponin I 0.014 NT-Pro-B Natriuret Pep 08/17/18 04:18 Creatine Kinase CK-MB (CK-2) 0.55 Troponin I < 0.012 NT-Pro-B Natriuret Pep Impressions: Chest X-Ray 08/15/18 12:02 IMPRESSION: Mild cardiomegaly. No acute findings. Lung Scan-VQ NM 08/15/18 14:49 IMPRESSION: NORMAL VENTILATION-PERFUSION LUNG SCAN. NEGATIVE FOR PULMONARY EMBOLI. Assessment & Plan - Diagnosis (1) Chest pain with high risk of acute coronary syndrome Is this a current diagnosis for this admission?: Yes (2) Costochondral chest pain Is this a current diagnosis for this admission?: Yes (3) Failure of outpatient treatment Is this a current diagnosis for this admission?: Yes (4) Diabetes mellitus type 2 in obese Is this a current diagnosis for this admission?: Yes (5) HTN (hypertension) Qualifiers: Hypertension type: essential hypertension Qualified Code(s): I10 - Essential (primary) hypertension Is this a current diagnosis for this admission?: Yes (6) CAD (coronary artery disease) Qualifiers: Coronary Disease-Associated Artery/Lesion type: [place] artery [place] vs. t ransplanted heart: [place] heart Associated angina: without angina Qualified Code(s): I25.10 - Atherosclerotic heart disease of [place] coronary artery without angina pectoris Is this a current diagnosis for this admission?: Yes (7) Old myocardial infarction Is this a current diagnosis for this admission?: Yes (8) HLD (hyperlipidemia) Qualifiers: Hyperlipidemia type: unspecified Qualified Code(s): E78.5 - Hyperlipidemia, unspecified Is this a current diagnosis for this admission?: Yes (9) COPD (chronic obstructive pulmonary disease) Qualifiers: COPD type: unspecified COPD Qualified Code(s): J44.9 - Chronic obstructive pulmonary disease, unspecified Is this a current diagnosis for this admission?: Yes (10) Fibromyalgia Is this a current diagnosis for this admission?: Yes (11) BMI 39.0-39.9,adult Is this a current diagnosis for this admission?: Yes - Time Time Spent with patient: 25-34 minutes Medications reviewed and adjusted accordingly: Yes Anticipated discharge: Home Within: Other - Inpatient Certification Based on my medical assessment, after consideration of the patient's comorbidities, presenting symptoms, or acuity I expect that the services needed warrant INPATIENT care.: Yes I certify that my determination is in accordance with my understanding of Medicare's requirements for reasonable and necessary INPATIENT services [42 CFR 412.3e].: Yes Medical Necessity: Significant Comorbidiites Make Outpatient Treatment Too Risky, Need Close Monitoring Due to Risk of Patient Decompensation, Need For IV Fluids, Need For Continuous Telemetry Monitoring, Need for IV Antibiotics, Risk of Complication if Not Cared For in Hospital, Risk of Diagnosis Which Will Require Inpatient Eval/Care/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 Obtain CBC with diff and CMP in am.
[2018-08-21] MEDS: ACETAMINOPHEN 325 MG TABLET PO PRN (05:32)
[2018-08-21] MEDS: PANTOPRAZOLE SODIUM 40 MG TABLET.DR PO SCH (05:32)
[2018-08-21] MEDS: LEVOTHYROXINE SODIUM 0.1 MG TABLET PO SCH (05:32)
[2018-08-21] MEDS: AZTREONAM 0.75 GM in DEXTROSE 5%-WATER 50 ML IV SCH (05:33)
[2018-08-21 05:37] LABS: ABSOLUTE EOSINOPHILS # (AUTO) 0.2 10^3/uL (0.0-0.6); ABSOLUTE LYMPHOCYTES (AUTO) 1.8 10^3/uL (0.5-4.7); ABSOLUTE MONOCYTES (AUTO) 0.6 10^3/uL (0.1-1.4); ABSOLUTE NEUT (AUTO) 5.4 10^3/uL (1.7-8.2); BASOPHILS % (AUTO) 0.3 % (0-2); EOSINOPHILS % (AUTO) 2.6 % (0-6); HEMATOCRIT 44.7 % (36.0-47.0); LYMPHOCYTES % (AUTO) 22.4 % (13-45); MEAN CORPUSCULAR HEMOGLOBIN 29.5 pg (27.0-33.4); MEAN CORPUSCULAR HGB CONC 33.7 g/dL (32.0-36.0); MEAN CORPUSCULAR VOLUME 88 fl (80-97); MONOCYTES % (AUTO) 7.8 % (3-13); PLATELET COUNT 223 10^3/uL (150-450); RED CELL DISTRIBUTION WIDTH 13.6 % (11.5-14.0); SEGMENTED NEUTROPHILS % (AUTO) 66.9 % (42-78); TOTAL CELLS COUNTED % (AUTO) 100 %; WHITE BLOOD COUNT 8.1 10^3/uL (4.0-10.5)
[2018-08-21 05:57] LABS: ALANINE AMINOTRANSFERASE 18 U/L (9-52); ALBUMIN 3.5 g/dL (3.5-5.0); ALKALINE PHOSPHATASE 72 U/L (38-126); ANION GAP 6 (5-19); ASPARTATE AMINO TRANSFERASE 16 U/L (14-36); BILIRUBIN,DIRECT 0.2 mg/dL (0.0-0.4); BILIRUBIN,TOTAL 0.9 mg/dL (0.2-1.3); BLOOD UREA NITROGEN 18 mg/dL (7-20); CALCIUM 9.4 mg/dL (8.4-10.2); CARBON DIOXIDE 38 mmol/L (22-30); CHLORIDE 91 mmol/L (98-107); GLUCOSE 115 mg/dL (75-110); POTASSIUM 3.7 mmol/L (3.6-5.0); SODIUM 135.3 mmol/L (137-145); TOTAL PROTEIN 6.1 g/dL (6.3-8.2)
[2018-08-21] MEDS: FUROSEMIDE 40 MG TABLET PO SCH (09:13)
[2018-08-21] MEDS: POTASSIUM CHLORIDE 10 MEQ CAPSULE.ER PO SCH (09:13)
[2018-08-21] MEDS: LISINOPRIL 5 MG TABLET PO SCH (09:13)
[2018-08-21] MEDS: HYDROCHLOROTHIAZIDE 25 MG TABLET PO SCH (09:13)
[2018-08-21] MEDS: CETIRIZINE 5 MG TABLET PO SCH (09:13)
[2018-08-21 12:21] VITALS: BP 136/69
--- NOTE | 2018-08-21 12:23 | PDOC DISCHARGE SUMMARY ---
General - Admit/Disc Date/PCP Admission Date/Primary Care Provider: 08/15/18 18:30 DEBORAH TAWNYA Discharge Date: 08/21/18 - Discharge Diagnosis (1) Chest pain with high risk of acute coronary syndrome Is this a current diagnosis for this admission?: Yes (2) Costochondral chest pain Is this a current diagnosis for this admission?: Yes (3) Failure of outpatient treatment Is this a current diagnosis for this admission?: Yes (4) Diabetes mellitus type 2 in obese Is this a current diagnosis for this admission?: Yes (5) HTN (hypertension) Is this a current diagnosis for this admission?: Yes (6) CAD (coronary artery disease) Is this a current diagnosis for this admission?: Yes (7) Old myocardial infarction Is this a current diagnosis for this admission?: Yes (8) HLD (hyperlipidemia) Is this a current diagnosis for this admission?: Yes (9) COPD (chronic obstructive pulmonary disease) Is this a current diagnosis for this admission?: Yes (10) Fibromyalgia Is this a current diagnosis for this admission?: Yes (11) BMI 39.0-39.9,adult Is this a current diagnosis for this admission?: Yes - Additional Information Resuscitation Status: Full Code Prescriptions: Tramadol HCl [Ultram 50 mg Tablet] 50 mg PO Q8HP PRN #60 tablet PRN Reason: Home Medications: Hydrochlorothiazide [Hydrodiuril 25 mg Tablet] 25 mg PO DAILY 12/20/17 Levocetirizine Dihydrochloride [Xyzal] 5 mg PO DAILY 12/20/17 Levothyroxine Sodium [Synthroid] 0.1 mg PO Q6AM 12/20/17 Lisinopril [Prinivil 2.5 mg Tablet] 2.5 mg PO DAILY 12/20/17 Omeprazole 40 mg PO ACBRKFST 12/20/17 Potassium Chloride [K-Tab ER] 10 meq PO DAILY 12/20/17 Furosemide [Lasix 40 mg Tablet] 40 mg PO DAILY 08/15/18 Tramadol HCl [Ultram 50 mg Tablet] 50 mg PO Q8HP PRN #60 tablet 08/21/18 History of Present Illness History of Present Illness: STEPH WAYNE is a 88 year old female known to my practice who presented to the ED via EMS with complain about new onset chest pain and difficulty with munira thing. She reported associated coughing without significant sputum production. She reported associated chest pain with coughing. and deep breathing. She localized pain to left and mid chest region. She denied nay radiation of pain to her neck, shoulder of left upper extremity. She claimed radiation of pain into her upper back region with coughing. EMS personnel reported hypoxemia with oxygen saturation at 90% and dropped to 86 % with exertion and associated tachypnea. Her oxygenation did improved to 98% on supplemental oxygen at 4L/min via nasal cannula. She self administered Ecotrin 325 mg at home and she was treated with sublingual NTG x 2 doses by EMS personnel en route to the ED for chest pain. Her initial evaluation in the ED was significant for exertional associated tachycardia, diminished breath sound at lung bases, reproducible tenderness to chest wall palpation, bilateral leg swelling and mild anxiety. Her radiographic evaluation with V/Q scan due to concern about pulmonary embolism was reported negative. Her 12 leads EKG and cardiac enzymes were within normal limits. Patient was recently started on Nitrofurantoin due to suspected UTI during her office visit on 08/15/18. She assumed that her symptoms are related to administration of the antibiotic. Her morbidities include Hypertension, CHF, CAD, old [place], Hyperlipidemia, COPD, DM type 2, Hypothyroidism, osteoarthritis, Fibromyalgia, and hiatus hernia. Hospital Course Hospital Course: She was managed with IV Aztreonam due to extensive antibiotic allergy and concern for UTI from her outpatient evaluation. Her urine culture grew mixed urogenital antonio. Her associated leukocytosis did resolved with antibiotic coverage. She will be discharged home today with outpatient physical therapy program for generalized debility. She will follow up in the office as instructed upon discharge. Physical Exam Vital Signs: Temp Pulse Resp BP Pulse Ox 98.1 F 82 16 117/51 L 92 08/21/18 04:09 08/21/18 07:00 08/21/18 04:09 08/21/18 04:09 08/21/18 04:09 Intake & Output 08/20/18 08/21/18 08/22/18 06:59 06:59 06:59 Intake Total 1286 1068 Output Total 1700 1500 Balance -414 -432 Weight 95.4 kg 96.9 kg Physical Exam: General appearance: PRESENT: no acute distress, well-developed, well-nourished Eye exam: PRESENT: conjunctiva pink. ABSENT: pallor, scleral icterus Ear exam: PRESENT: normal external ear exam Mouth exam: PRESENT: moist Respiratory exam: PRESENT: clear to auscultation erlinda Cardiovascular exam: PRESENT: RRR. ABSENT: diastolic murmur, rubs, systolic murmur GI/Abdominal exam: PRESENT: normal bowel sounds, soft. ABSENT: distended, guar ding, mass, organomegaly, rebound, tenderness Extremities exam: ABSENT: pedal edema Neurological exam: PRESENT: alert, awake, oriented to person, oriented to place, oriented to time, oriented to situation, CN II-XII grossly intact. ABSENT: motor sensory deficit Psychiatric exam: PRESENT: appropriate affect, normal mood. ABSENT: homicidal ideation, suicidal ideation Skin exam: PRESENT: dry, warm Results Laboratory Results: 08/21/18 05:26 08/21/18 05:26 08/21/18 08/21/18 05:26 05:26 WBC 8.1 RBC 5.10 Hgb 15.0 Hct 44.7 MCV 88 MCH 29.5 MCHC 33.7 RDW 13.6 Plt Count 223 Seg Neutrophils % 66.9 Lymphocytes % 22.4 Monocytes % 7.8 Eosinophils % 2.6 Basophils % 0.3 Absolute Neutrophils 5.4 Absolute Lymphocytes 1.8 Absolute Monocytes 0.6 Absolute Eosinophils 0.2 Absolute Basophils 0.0 Sodium 135.3 L Potassium 3.7 Chloride 91 L Carbon Dioxide 38 H Anion Gap 6 BUN 18 Creatinine 0.58 Est GFR ( Amer) > 60 Est GFR (Non-Af Amer) > 60 Glucose 115 H Calcium 9.4 Total Bilirubin 0.9 AST 16 ALT 18 Alkaline Phosphatase 72 Total Protein 6.1 L Albumin 3.5 08/15/18 08/15/18 08/15/18 11:14 13:12 16:45 Creatine Kinase 30 CK-MB (CK-2) 0.50 Troponin I < 0.012 0.027 NT-Pro-B Natriuret Pep 73 08/16/18 08/16/18 08/17/18 20:26 20:26 04:18 Creatine Kinase 29 L 28 L CK-MB (CK-2) 0.79 Troponin I 0.014 NT-Pro-B Natriuret Pep 08/17/18 04:18 Creatine Kinase CK-MB (CK-2) 0.55 Troponin I < 0.012 NT-Pro-B Natriuret Pep Impressions: Chest X-Ray 08/15/18 12:02 IMPRESSION: Mild cardiomegaly. No acute findings. Lung Scan-VQ NM 08/15/18 14:49 IMPRESSION: NORMAL VENTILATION-PERFUSION LUNG SCAN. NEGATIVE FOR PULMONARY EMBOLI. Qualifiers - * PATIENT BEING DISCHARGED WITH ANY OF THE FOLLOWING DIAGNOSIS: No Acute Heart Failure - Is this a Heart Failure Patient?: No Plan Discharge Plan: D/C home with outpatient physical therapy. Follow up in the office as instructed upon discharge.
== END 2018-08-21 13:31 | disposition home or self-care (01) | DRG 313 ==
LOC: ER 11:10 → EH 18:30 → OBSVTOIN 18:30 → 3N 22:32
PROVIDERS: ADMIT Internal Medicine Geriatric Medicine; ATTEND Internal Medicine Geriatric Medicine
DX: R07.9 Chest pain, unspecified (principal); M94.0 Chondrocostal junction syndrome [Tietze]; E78.5 Hyperlipidemia, unspecified; I25.2 Old myocardial infarction; I25.10 Atherosclerotic heart disease of native coronary artery without angina pectoris; I50.9 Heart failure, unspecified; Z88.5 Allergy status to narcotic agent; Z88.0 Allergy status to penicillin; Z88.2 Allergy status to sulfonamides; Z88.7 Allergy status to serum and vaccine; Z88.1 Allergy status to other antibiotic agents; Z91.041 Radiographic dye allergy status; Z91.040 Latex allergy status; J44.9 Chronic obstructive pulmonary disease, unspecified; E11.9 Type 2 diabetes mellitus without complications; Z87.442 Personal history of urinary calculi; K44.9 Diaphragmatic hernia without obstruction or gangrene; M19.90 Unspecified osteoarthritis, unspecified site; E66.9 Obesity, unspecified; R09.02 Hypoxemia; F41.9 Anxiety disorder, unspecified; E03.9 Hypothyroidism, unspecified; M79.7 Fibromyalgia; I11.0 Hypertensive heart disease with heart failure; Z68.39 Body mass index [BMI] 39.0-39.9, adult; Z53.29 Procedure and treatment not carried out because of patient's decision for other reasons
CPT/HCPCS: 36415; 36600; 71045; 78582; 80048; 80053; 81001; 82550; 82553; 82803; 83735; 83880; 84443; 84484; 85025; 87086; 93005; 93010; 94640; 99285; A9540; A9567; J3490; J7060; J7620; Q9969

== ENCOUNTER 2018-09-16 11:47 | Emergency (ER) | payer MEDICARE ==
--- NOTE | 2018-09-16 12:12 | ER Document Report ---
ED Medical Screen (RME) - General Chief Complaint: Rib Pain Stated Complaint: LEFT SIDE PAIN Time Seen by Provider: 09/16/18 12:05 Primary Care Provider: DEBORAH BOWLING MD [Primary Care Provider] - Follow up as needed Mode of Arrival: Wheelchair Information source: Patient Notes: This 88-year-old female presents emergency department with complaints of left- sided rib pain. Reports she was sitting in her recliner at 04 100 this morning when she bent over and hurt her ribs. She complains of very tender to palpate. Denies chest pain. Reports it does make her feel short of breath. Patient is speaking in clear sentences no distress respiratory rate even unlabored. Patient has a very long history to include CAD, diabetes, fibromyalgia. Left ribs tender to palpate no ecchymosis noted I have greeted and performed a rapid initial assessment of this patient. A comprehensive ED assessment and evaluation of the patient, analysis of test results and completion of the medical decision making process will be conducted by additional ED providers. Dictation of this chart was performed using voice recognition software; therefore, there may be some unintended grammatical errors. TRAVEL OUTSIDE OF THE [place] IN LAST 30 DAYS: No - Related Data Allergies/Adverse Reactions: Iodinated Contrast- Oral and IV Dye [Contrast] Allergy (Severe, Verified 09/16/18 11:48) Seizures ciprofloxacin [From Cipro] Allergy (Verified 09/16/18 11:48) Diarrhea, vomiting codeine [Codeine] Allergy (Verified 09/16/18 11:48) diarrhea, vomiting, convulsions diphtheria toxoid,fluid Allergy (Verified 09/16/18 11:48) Rash lansoprazole [From Prevacid] Allergy (Verified 09/16/18 11:48) rash latex [Latex] Allergy (Verified 09/16/18 11:48) ITCHY RASH levofloxacin [From Levaquin] Allergy (Verified 09/16/18 11:48) Rash, Diarrhea meloxicam Allergy (Verified 09/16/18 11:48) "symptoms of heart attack" morphine Allergy (Verified 09/16/18 11:48) Chest pain Penicillins Allergy (Verified 09/16/18 11:48) "6 days in coma" Sulfa (Sulfonamide Antibiotics) Allergy (Verified 09/16/18 11:48) Rash Tetanus Vaccines and Toxoid [Tetanus] Allergy (Verified 09/16/18 11:48) convulsions cefdinir [Cefdinir] Adverse Reaction (Intermediate, Verified 09/16/18 11:48) rash MYCINS Allergy (Uncoded 09/16/18 11:48) Past Medical History - Social History Chew tobacco use (# tins/day): No Frequency of alcohol use: None Drug Abuse: None - Past Medical History Cardiac Medical History: Reports: Hx Congestive Heart Failure, Hx Coronary Artery Disease, Hx DVT, Hx Heart Attack, Hx Hypercholesterolemia, Hx Hypertension Denies: Hx Pulmonary Embolism Pulmonary Medical History: Reports: Hx Asthma, Hx COPD, Hx Pneumonia - x 4 times Denies: Hx Bronchitis, Hx Tuberculosis Neurological Medical History: Reports: Hx Seizures - as baby. Denies: Hx Cerebrovascular Accident Endocrine Medical History: Reports: Hx Diabetes Mellitus Type 1, Hx Diabetes Mellitus Type 2, Hx Hypothyroidism Renal/ Medical History: Reports: Hx Kidney Stones. Denies: Hx Peritoneal Dialysis GI Medical History: Reports: Hx Hiatal Hernia. Denies: Hx Hepatitis, Hx Ulcer Musculoskeltal Medical History: Reports Hx Arthritis, Reports Hx Fibromyalgia Psychiatric Medical History: Denies: Hx Depression Infectious Medical History: Denies: Hx Hepatitis Past Surgical History: Reports: Hx Appendectomy, Hx Cholecystectomy, Hx Gynecologic Surgery - Right nephrectomy, Hx Herniorrhaphy, Hx Orthopedic Surgery - L knee, Hx Tonsillectomy, Hx Tubal Ligation, Hx Urinary Tract Surgery - Bladder stone removal. Denies: Hx Cardiac Catheterization, Hx Mastectomy, Hx Open Heart Surgery, Hx Pacemaker - Immunizations Immunizations up to date: Yes Hx Diphtheria, Pertussis, Tetanus Vaccination: Yes - Allergic, "30 years ago" History of Influenza Vaccine for 11/2016 - 04/2017 Season: Yes Influenza Administration Date for 11/2016 - 04/2017 Season: 11/14/16 Physical Exam - Vital signs Vitals: Temp Pulse Resp BP Pulse Ox 97.9 F 71 16 125/67 95 09/16/18 11:50 09/16/18 11:50 09/16/18 11:50 09/16/18 11:50 09/16/18 11:50 Course - Vital Signs Vital signs: Temp Pulse Resp BP Pulse Ox 97.9 F 71 16 125/67 95 09/16/18 11:50 09/16/18 11:50 09/16/18 11:50 09/16/18 11:50 09/16/18 11:50 Doctor's Discharge - Discharge Referrals: DEBORAH BOWLING MD [Primary Care Provider] - Follow up as needed
--- NOTE | 2018-09-16 14:19 | RADIOLOGY REPORT (SQ) ---
EXAM DESCRIPTION: RIBS LEFT W/PA CHEST COMPLETED DATE/TIME: 09/16/2018 1:31 pm REASON FOR STUDY: RIB PAIN COMPARISON: None. NUMBER OF VIEWS: Two views. TECHNIQUE: Images acquired of the left ribs in the area of focal concern. LIMITATIONS: None. FINDINGS: RIBS: No acute displaced fracture. No worrisome bone lesions. LUNGS: Limited exam. No obvious pneumothorax. No pleural effusion. OTHER: No other significant finding. IMPRESSION: NO ACUTE DISPLACED RIB FRACTURE. COMMENT: SITE OF TRAUMA/COMPLAINT MARKED/STAMP COMPLETED: YES. TECHNICAL DOCUMENTATION: JOB ID: [id number] [employer]- All Rights Reserved Reading location - IP/workstation name: [email or web address]
[2018-09-16 15:02] VITALS: BP 123/73
--- NOTE | 2018-09-16 15:39 | ER Document Report ---
ED General - General Chief Complaint: Rib Pain Stated Complaint: LEFT SIDE PAIN Time Seen by Provider: 09/16/18 12:05 Primary Care Provider: DEBORAH BOWLING MD [Primary Care Provider] - Follow up as needed Mode of Arrival: Wheelchair Notes: 88-year-old female who presents emergency department stating that at 4 AM this morning she was leaning over the armrest of her chair when she felt her left ribs roll over the chair and go "pop". Patient complains of persistent pain on her left hand side that worsens when she touches it and improves when she uses lidocaine cream. Patient states it worsens slightly with a deep breath but not much. Patient denies any shortness of breath, abdominal pain, nausea vomiting or diarrhea. TRAVEL OUTSIDE OF THE [place] IN LAST 30 DAYS: No - Related Data Allergies/Adverse Reactions: Iodinated Contrast- Oral and IV Dye [Contrast] Allergy (Severe, Verified 09/16/18 11:48) Seizures ciprofloxacin [From Cipro] Allergy (Verified 09/16/18 11:48) Diarrhea, vomiting codeine [Codeine] Allergy (Verified 09/16/18 11:48) diarrhea, vomiting, convulsions diphtheria toxoid,fluid Allergy (Verified 09/16/18 11:48) Rash lansoprazole [From Prevacid] Allergy (Verified 09/16/18 11:48) rash latex [Latex] Allergy (Verified 09/16/18 11:48) ITCHY RASH levofloxacin [From Levaquin] Allergy (Verified 09/16/18 11:48) Rash, Diarrhea meloxicam Allergy (Verified 09/16/18 11:48) "symptoms of heart attack" morphine Allergy (Verified 09/16/18 11:48) Chest pain Penicillins Allergy (Verified 09/16/18 11:48) "6 days in coma" Sulfa (Sulfonamide Antibiotics) Allergy (Verified 09/16/18 11:48) Rash Tetanus Vaccines and Toxoid [Tetanus] Allergy (Verified 09/16/18 11:48) convulsions cefdinir [Cefdinir] Adverse Reaction (Intermediate, Verified 09/16/18 11:48) rash MYCINS Allergy (Uncoded 09/16/18 11:48) Past Medical History - General Information source: Patient - Social History Smoking Status: Never Smoker Chew tobacco use (# tins/day): No Frequency of alcohol use: None Drug Abuse: None Family History: Reviewed & Not Pertinent, Hypertension Patient has suicidal ideation: No Patient has homicidal ideation: No - Past Medical History Cardiac Medical History: Reports: Hx Congestive Heart Failure, Hx Coronary Artery Disease, Hx DVT, Hx Heart Attack, Hx Hypercholesterolemia, Hx Hypertension Denies: Hx Pulmonary Embolism Pulmonary Medical History: Reports: Hx Asthma, Hx COPD, Hx Pneumonia - x 4 times Denies: Hx Bronchitis, Hx Tuberculosis Neurological Medical History: Reports: Hx Seizures - as baby. Denies: Hx Cerebrovascular Accident Endocrine Medical History: Reports: Hx Diabetes Mellitus Type 1, Hx Diabetes Mellitus Type 2, Hx Hypothyroidism Renal/ Medical History: Reports: Hx Kidney Stones. Denies: Hx Peritoneal Dialysis GI Medical History: Reports: Hx Hiatal Hernia. Denies: Hx Hepatitis, Hx Ulcer Musculoskeletal Medical History: Reports Hx Arthritis, Reports Hx Fibromyalgia Psychiatric Medical History: Denies: Hx Depression Infectious Medical History: Denies: Hx Hepatitis Past Surgical History: Reports: Hx Appendectomy, Hx Cholecystectomy, Hx Gynecologic Surgery - Right nephrectomy, Hx Herniorrhaphy, Hx Orthopedic Surgery - L knee, Hx Tonsillectomy, Hx Tubal Ligation, Hx Urinary Tract Surgery - Bladder stone removal. Denies: Hx Cardiac Catheterization, Hx Mastectomy, Hx Open Heart Surgery, Hx Pacemaker - Immunizations Immunizations up to date: Yes Hx Diphtheria, Pertussis, Tetanus Vaccination: Yes - Allergic, "30 years ago" Hx Pneumococcal Vaccination: 11/15/15 Review of Systems - Review of Systems Constitutional: No symptoms reported EENT: No symptoms reported Cardiovascular: See HPI Respiratory: See HPI -: Yes All other systems reviewed and negative Physical Exam - Vital signs Vitals: Temp Pulse Resp BP Pulse Ox 97.9 F 71 16 125/67 95 09/16/18 11:50 09/16/18 11:50 09/16/18 11:50 09/16/18 11:50 09/16/18 11:50 Interpretation: Normal - Notes Notes: GENERAL: Alert, interacts well. No acute distress. HEAD: Normocephalic, atraumatic EYES: Pupils equal, round and reactive to light, extraocular movements intact. ENT: Oral mucosa moist, tongue midline. NECK: Full range of motion, supple, trachea midline. LUNGS: Clear to auscultation bilaterally, no wheezes, rales or rhonchi, no respiratory distress. Tenderness to palpation under the fold of the left breast, not pinpoint in nature, no ecchymoses, no tenderness to palpation in the left upper quadrant, no bruising. Mild tenderness across the entirety of ribs 8 and 9. HEART: Regular rate and rhythm, no murmurs, gallops, rubs. ABDOMEN: Soft, nontender, nondistended, bowel sounds present in all 4 quadrants. EXTREMITIES: Moves all 4 extremities spontaneously, no edema, radial and dorsalis pedis pulses 2/4 bilaterally. No cyanosis. NEUROLOGICAL: Alert and oriented x3, normal speech. PSYCH: Normal mood, normal affect. SKIN: Warm, Dry, normal turgor. Course - Re-evaluation Re-evalutation: 09/16/18 15:36 Chest and rib x-rays are negative. No sign of fracture. Likely bruising. Discussed with patient the importance of taking at least 10 full deep capacity breaths a day. Patient already has lidocaine cream at home. We will continue to use this. Discharged to home. - Vital Signs Vital signs: Temp Pulse Resp BP Pulse Ox 97.9 F 68 16 123/73 97 09/16/18 15:01 09/16/18 15:01 09/16/18 15:01 09/16/18 15:01 09/16/18 15:01 - EKG Interpretation by Me Additional EKG results interpreted by me: 09/16/18 15:38 EKG shows sinus rhythm at a rate of 68, left bundle branch block, no ST segment elevations or depressions, no T wave inversions per my interpretation. Discharge - Discharge Clinical Impression: Contusion of rib on left side Qualifiers: Encounter type: initial encounter Qualified Code(s): S20.212A - Contusion of left front wall of thorax, initial encounter Condition: Stable Disposition: HOME, SELF-CARE Additional Instructions: Please take at least 10 deep breaths every day. Try to take 2-3 deep breaths every hour when you are awake. Use the lidocaine cream. Return to the emergency department for increased cough, shortness of breath, fever or any new or concerning symptoms. Referrals: DEBORAH BOWLING MD [Primary Care Provider] - Follow up as needed
--- NOTE | 2018-09-17 01:55 | EKG REPORT ---
SEVERITY:- ABNORMAL ECG - SINUS RHYTHM LEFT BUNDLE BRANCH BLOCK : Confirmed by: Jonna Vee MD 17-Sep-2018 01:54:24
== END 2018-09-16 15:46 | disposition home or self-care (01) ==
LOC: ER 11:47
DX: S20.212A Contusion of left front wall of thorax, initial encounter (principal); R07.81 Pleurodynia; M79.642 Pain in left hand; X58.XXXA Exposure to other specified factors, initial encounter; I50.9 Heart failure, unspecified; I25.10 Atherosclerotic heart disease of native coronary artery without angina pectoris; I11.0 Hypertensive heart disease with heart failure; J44.9 Chronic obstructive pulmonary disease, unspecified; E11.9 Type 2 diabetes mellitus without complications
CPT/HCPCS: 93005; 93010; 99283

== ENCOUNTER 2018-11-11 09:31 | Emergency (ER) | payer MEDICARE, OTHER ==
[2018-11-11 10:19] LABS: BILIRUBIN,URINE NEGATIVE (NEGATIVE); GLUCOSE, URINE NEGATIVE (NEGATIVE); KETONES,URINE NEGATIVE (NEGATIVE); LEUKOCYTE ESTERASE,URINE SMALL (NEGATIVE); NITRITE,URINE NEGATIVE (NEGATIVE); PROTEIN,URINE >=500 mg/dL (NEGATIVE); URINE SPECIFIC GRAVITY 1.019; UROBILINOGEN,URINE NEGATIVE mg/dL (<2.0)
[2018-11-11 10:21] LABS: APPEARANCE,URINE CLOUDY
[2018-11-11 10:22] LABS: COLOR,URINE RED
[2018-11-11] MEDS ORDERED: PHENAZOPYRIDINE HCL 100 MG TABLET PO ONE (10:45)
--- NOTE | 2018-11-11 10:47 | ER Document Report ---
ED Medical Screen (RME) - General Chief Complaint: Urinary Problem Stated Complaint: URINARY ISSUE Time Seen by Provider: 11/11/18 10:16 Primary Care Provider: DEBORAH BOWLING MD [Primary Care Provider] - Follow up as needed Information source: Patient Notes: Patient presents complaining of UTI symptoms that started yesterday. Patient states she does have back pain but attributes this to her chronic back pain. Patient also complains of abdominal distention that started today. Additionally patient reports that she has had vaginal bleeding daily for the past year although has an upcoming appointment with [facility] to evaluate this problem. Patient reports numerous allergies and states that she can only receive IV antibiotics, although is uncertain the name of the antibiotic. hx: COPD, fibromyalgia, hypertension, dyslipidemia, diabetes, appendectomy, tubal leg ligation, cholecystectomy, hernia repair I have greeted and performed a rapid initial assessment of this patient. A com prehensive ED assessment and evaluation of the patient, analysis of test results and completion of the medical decision making process will be conducted by additional ED providers. TRAVEL OUTSIDE OF THE [place] IN LAST 30 DAYS: No - Related Data Allergies/Adverse Reactions: Iodinated Contrast Media [Contrast] Allergy (Severe, Verified 09/16/18 11:48) Seizures ciprofloxacin [From Cipro] Allergy (Verified 09/16/18 11:48) Diarrhea, vomiting codeine [Codeine] Allergy (Verified 09/16/18 11:48) diarrhea, vomiting, convulsions diphtheria toxoid,fluid Allergy (Verified 09/16/18 11:48) Rash lansoprazole [From Prevacid] Allergy (Verified 09/16/18 11:48) rash latex [Latex] Allergy (Verified 09/16/18 11:48) ITCHY RASH levofloxacin [From Levaquin] Allergy (Verified 09/16/18 11:48) Rash, Diarrhea meloxicam Allergy (Verified 09/16/18 11:48) "symptoms of heart attack" morphine Allergy (Verified 09/16/18 11:48) Chest pain Penicillins Allergy (Verified 09/16/18 11:48) "6 days in coma" Sulfa (Sulfonamide Antibiotics) Allergy (Verified 09/16/18 11:48) Rash Tetanus Vaccines and Toxoid [Tetanus] Allergy (Verified 09/16/18 11:48) convulsions cefdinir [Cefdinir] Adverse Reaction (Intermediate, Verified 09/16/18 11:48) rash MYCINS Allergy (Uncoded 09/16/18 11:48) Past Medical History - Social History Frequency of alcohol use: None Drug Abuse: None - Past Medical History Cardiac Medical History: Reports: Hx Congestive Heart Failure, Hx Coronary Artery Disease, Hx DVT, Hx Heart Attack, Hx Hypercholesterolemia, Hx Hypertension Denies: Hx Pulmonary Embolism Pulmonary Medical History: Reports: Hx Asthma, Hx COPD, Hx Pneumonia - x 4 times Denies: Hx Bronchitis, Hx Tuberculosis Neurological Medical History: Reports: Hx Seizures - as baby. Denies: Hx Cerebrovascular Accident Endocrine Medical History: Reports: Hx Diabetes Mellitus Type 1, Hx Diabetes Mellitus Type 2, Hx Hypothyroidism Renal/ Medical History: Reports: Hx Kidney Stones. Denies: Hx Peritoneal Dialysis GI Medical History: Reports: Hx Hiatal Hernia. Denies: Hx Hepatitis, Hx Ulcer Musculoskeltal Medical History: Reports Hx Arthritis, Reports Hx Fibromyalgia Psychiatric Medical History: Denies: Hx Depression Infectious Medical History: Denies: Hx Hepatitis Past Surgical History: Reports: Hx Appendectomy, Hx Cholecystectomy, Hx Gynecologic Surgery - Right nephrectomy, Hx Herniorrhaphy, Hx Orthopedic Surgery - L knee, Hx Tonsillectomy, Hx Tubal Ligation, Hx Urinary Tract Surgery - Bladder stone removal. Denies: Hx Cardiac Catheterization, Hx Mastectomy, Hx Open Heart Surgery, Hx Pacemaker - Immunizations Immunizations up to date: Yes Hx Diphtheria, Pertussis, Tetanus Vaccination: Yes - Allergic, "30 years ago" History of Influenza Vaccine for 11/2016 - 04/2017 Season: Yes Influenza Administration Date for 11/2016 - 04/2017 Season: 11/14/16 Physical Exam - Vital signs Vitals: Temp Pulse Resp BP Pulse Ox 97.6 F 87 20 132/68 H 96 11/11/18 09:35 11/11/18 09:35 11/11/18 09:35 11/11/18 09:35 11/11/18 09:35 - General General appearance: Appears well Notes: Abdomen distention, no CVA tenderness, suprapubic tenderness Course - Vital Signs Vital signs: Temp Pulse Resp BP Pulse Ox 97.6 F 87 20 132/68 H 96 11/11/18 09:35 11/11/18 09:35 11/11/18 09:35 11/11/18 09:35 11/11/18 09:35 - Laboratory Laboratory results interpreted by me: 11/11/18 09:40 Urine Protein >=500 H Urine Blood SMALL H Ur Leukocyte Esterase SMALL H Doctor's Discharge - Discharge Referrals: DEBORAH BOWLING MD [Primary Care Provider] - Follow up as needed
--- NOTE | 2018-11-11 12:18 | ER Document Report ---
ED GI/ - General Chief Complaint: Urinary Problem Stated Complaint: URINARY ISSUE Time Seen by Provider: 11/11/18 10:16 Primary Care Provider: DEBORAH BOWLING MD [Primary Care Provider] - Follow up as needed Mode of Arrival: Ambulatory Information source: Patient TRAVEL OUTSIDE OF THE [place] IN LAST 30 DAYS: No - HPI Patient complains to provider of: Other - dysuria, abdominal distention Onset: Yesterday - pt. states she feels loke she may have a UTI with dysuria and frequency. Also with c/o abdominal distention for the past few days. States she has been having intermittent vaginal bleeding which is being follow by her [facility]. She has numerous allergies to abx and states she can only receive them IV. - Related Data Allergies/Adverse Reactions: Iodinated Contrast Media [Contrast] Allergy (Severe, Verified 09/16/18 11:48) Seizures ciprofloxacin [From Cipro] Allergy (Verified 09/16/18 11:48) Diarrhea, vomiting codeine [Codeine] Allergy (Verified 09/16/18 11:48) diarrhea, vomiting, convulsions diphtheria toxoid,fluid Allergy (Verified 09/16/18 11:48) Rash lansoprazole [From Prevacid] Allergy (Verified 09/16/18 11:48) rash latex [Latex] Allergy (Verified 09/16/18 11:48) ITCHY RASH levofloxacin [From Levaquin] Allergy (Verified 09/16/18 11:48) Rash, Diarrhea meloxicam Allergy (Verified 09/16/18 11:48) "symptoms of heart attack" morphine Allergy (Verified 09/16/18 11:48) Chest pain Penicillins Allergy (Verified 09/16/18 11:48) "6 days in coma" Sulfa (Sulfonamide Antibiotics) Allergy (Verified 09/16/18 11:48) Rash Tetanus Vaccines and Toxoid [Tetanus] Allergy (Verified 09/16/18 11:48) convulsions cefdinir [Cefdinir] Adverse Reaction (Intermediate, Verified 09/16/18 11:48) rash MYCINS Allergy (Uncoded 09/16/18 11:48) Past Medical History - Social History Smoking Status: Never Smoker Frequency of alcohol use: None Drug Abuse: None Family History: Reviewed & Not Pertinent, Hypertension Patient has suicidal ideation: No Patient has homicidal ideation: No - Past Medical History Cardiac Medical History: Reports: Hx Congestive Heart Failure, Hx Coronary Artery Disease, Hx DVT, Hx Heart Attack, Hx Hypercholesterolemia, Hx Hypertension Denies: Hx Pulmonary Embolism Pulmonary Medical History: Reports: Hx Asthma, Hx COPD, Hx Pneumonia - x 4 times Denies: Hx Bronchitis, Hx Tuberculosis Neurological Medical History: Reports: Hx Seizures - as baby. Denies: Hx Cerebrovascular Accident Endocrine Medical History: Reports: Hx Diabetes Mellitus Type 1, Hx Diabetes Mellitus Type 2, Hx Hypothyroidism Renal/ Medical History: Reports: Hx Kidney Stones. Denies: Hx Peritoneal Dialysis GI Medical History: Reports: Hx Hiatal Hernia. Denies: Hx Hepatitis, Hx Ulcer Musculoskeletal Medical History: Reports Hx Arthritis, Reports Hx Fibromyalgia Psychiatric Medical History: Denies: Hx Depression Infectious Medical History: Denies: Hx Hepatitis Past Surgical History: Reports: Hx Appendectomy, Hx Cholecystectomy, Hx Gynecologic Surgery - Right nephrectomy, Hx Herniorrhaphy, Hx Orthopedic Surgery - L knee, Hx Tonsillectomy, Hx Tubal Ligation, Hx Urinary Tract Surgery - Bladder stone removal. Denies: Hx Cardiac Catheterization, Hx Mastectomy, Hx Open Heart Surgery, Hx Pacemaker - Immunizations Immunizations up to date: Yes Hx Diphtheria, Pertussis, Tetanus Vaccination: Yes - Allergic, "30 years ago" Hx Pneumococcal Vaccination: 11/15/15 Review of Systems - Review of Systems Constitutional: No symptoms reported EENT: No symptoms reported Cardiovascular: No symptoms reported Respiratory: No symptoms reported Gastrointestinal: See HPI, Abdomen distended Genitourinary: See HPI, Burning, Dysuria, Frequency Musculoskeletal: See HPI, Back pain Neurological/Psychological: No symptoms reported -: Yes All other systems reviewed and negative Physical Exam - Vital signs Vitals: Temp Pulse Resp BP Pulse Ox 97.6 F 87 20 132/68 H 96 11/11/18 09:35 11/11/18 09:35 11/11/18 09:35 11/11/18 09:35 11/11/18 09:35 - General General appearance: Appears well In distress: None - HEENT Pharynx: Normal Neck: Normal - Respiratory Respiratory status: No respiratory distress Breath sounds: Normal - Cardiovascular Rhythm: Regular Heart sounds: Normal auscultation Murmur: No - Abdominal Inspection: Normal Distension: Distended - minimal Bowel sounds: Normal Tenderness: Nontender Organomegaly: No organomegaly - Back Back: Normal, Nontender - Extremities General upper extremity: Normal inspection General lower extremity: Normal inspection - Neurological Neuro grossly intact: Yes Cognition: Normal Orientation: AAOx4 Speech: Normal Course - Re-evaluation Re-evalutation: 11/11/18 13:54 pt. felt better at time of d/c -- expressed desire to go home - Vital Signs Vital signs: Temp Pulse Resp BP Pulse Ox 97.6 F 87 20 132/68 H 96 11/11/18 09:35 11/11/18 09:35 11/11/18 09:35 11/11/18 09:35 11/11/18 09:35 - Laboratory Result Diagrams: 11/11/18 12:30 11/11/18 12:30 Laboratory results interpreted by me: 11/11/18 11/11/18 11/11/18 09:40 12:30 12:30 WBC 13.5 H Abs Neuts (Manual) 9.2 H Sodium 134.9 L Potassium 3.5 L Glucose 118 H Urine Protein >=500 H Urine Blood SMALL H Ur Leukocyte Esterase SMALL H - Diagnostic Test Radiology reviewed: Reports reviewed - ct- neg Discharge - Discharge Clinical Impression: UTI (urinary tract infection) Qualifiers: Urinary tract infection type: site unspecified Hematuria presence: with hematuria Qualified Code(s): N39.0 - Urinary tract infection, site not specified; R31.9 - Hematuria, unspecified Condition: Stable Disposition: HOME, SELF-CARE Instructions: Nitrofurantoin ([facility]), Urinary Tract Infection ([facility]) Additional Instructions: rest, increase fluid for 24 hrs., take meds as prescribed, return if worse Prescriptions: Nitrofurantoin Macrocrystal [Macrodantin] 100 mg PO Q6 #20 capsule Referrals: DEBORAH BOWLING MD [Primary Care Provider] - Follow up as needed
[2018-11-11 12:52] LABS: HEMATOCRIT 43.1 % (36.0-47.0); HEMOGLOBIN 14.4 g/dL (12.0-15.5); MEAN CORPUSCULAR HEMOGLOBIN 29.8 pg (27.0-33.4); MEAN CORPUSCULAR HGB CONC 33.4 g/dL (32.0-36.0); MEAN CORPUSCULAR VOLUME 89 fl (80-97); PLATELET COUNT 197 10^3/uL (150-450); RED BLOOD COUNT 4.83 10^6/uL (3.72-5.28); WHITE BLOOD COUNT 13.5 10^3/uL (4.0-10.5)
[2018-11-11 13:09] LABS: BLOOD UREA NITROGEN 13 mg/dL (7-20); GLUCOSE 118 mg/dL (75-110)
[2018-11-11 13:10] LABS: ALBUMIN 3.8 g/dL (3.5-5.0); ALKALINE PHOSPHATASE 72 U/L (38-126); ANION GAP 10 (5-19); ASPARTATE AMINO TRANSFERASE 21 U/L (14-36); BILIRUBIN,TOTAL 1.3 mg/dL (0.2-1.3); CARBON DIOXIDE 27 mmol/L (22-30); CHLORIDE 98 mmol/L (98-107); POTASSIUM 3.5 mmol/L (3.6-5.0); TOTAL PROTEIN 6.6 g/dL (6.3-8.2)
--- NOTE | 2018-11-11 13:14 | RADIOLOGY REPORT (SQ) ---
EXAM DESCRIPTION: CT ABD/PELVIS NO ORAL OR IV COMPLETED DATE/TIME: 11/11/2018 12:52 pm REASON FOR STUDY: back pain, abd distention, UTI, vag bleeding COMPARISON: None. TECHNIQUE: CT scan of the abdomen and pelvis performed without intravenous or oral contrast. Images reviewed with lung, soft tissue, and bone windows. Reconstructed coronal and sagittal MPR images revi ewed. All images stored on PACS. All CT scanners at this facility use dose modulation, iterative reconstruction, and/or weight based d osing when appropriate to reduce radiation dose to as low as reasonably achievable (ALARA). [facility]: Dose Right [facility]: CareDose [facility]: Dose Right [facility]: Teradose 4D [facility]: [employer] RADIATION DOSE: CT Rad equipment meets quality standard of care and radiation dose reduction techniq ues were employed. CTDIvol: 18.6 mGy. DLP: 819 mGy-cm.mGy. LIMITATIONS: None. FINDINGS: LOWER CHEST: No significant findings. No nodules or infiltrates. NON-CONTRASTED LIVER, SPLEEN, ADRENALS: Evaluation limited by lack of IV contrast. No identified sign ificant masses. PANCREAS: No masses. No peripancreatic inflammatory changes. GALLBLADDER: No calcified stones. No inflammatory changes to suggest cholecystitis. RIGHT KIDNEY AND URETER: No cysts identified. No solid masses. No calcified stones. No hydronephrosis or hydroureter. LEFT KIDNEY AND URETER: No cysts identified. No solid masses. No calcified stones. No hydronephrosis or hydroureter. AORTA AND RETROPERITONEUM: No aneurysm. No retroperitoneal masses or adenopathy. BOWEL AND PERITONEAL CAVITY: No obvious masses or inflammatory changes. No free fluid. APPENDIX: Normal. PELVIS, BLADDER, AND ABDOMINAL WALL:No abnormal masses identified. No free fluid. Unremarkable bladde r. BONES: No acute findings. Prior L1 vertebroplasty. OTHER: No other significant finding. IMPRESSION: NO ACUTE FINDINGS.No obvious masses or inflammatory changes. TECHNICAL DOCUMENTATION: JOB ID: [id number] Quality ID # [id number]: Final reports with documentation of one or more dose reduction techniques (e.g., Au tomated exposure control, adjustment of the mA and/or kV according to patient size, use of iterative reconstruction technique) 2010 [employer]- All Rights Reserved Reading location - IP/workstation name: [email or web address]
[2018-11-11 13:29] LABS: ABSOLUTE LYMPHOCYTES# (MANUAL) 3.2 10^3/uL (0.5-4.7); ABSOLUTE MONOCYTES # (MANUAL) 0.5 10^3/uL (0.1-1.4); BASOPHILS % (MANUAL) 1 % (0-2); EOSINOPHILS % (MANUAL) 3 % (0-6); LYMPHOCYTES % (MANUAL) 24 % (13-45); MONOCYTES % (MANUAL) 4 % (3-13); RBC MORPHOLOGY COMMENT NORMO-CYTIC/CHROMIC; SEGMENTED NEUTROPHILS % (MAN) 68 % (42-78); TOTAL CELLS COUNTED 100
[2018-11-11 13:30] LABS: PLATELET CLUMPS PRESENT; PLATELET COMMENT ADEQUATE; PLATELET GIANT PRESENT
[2018-11-11 14:15] VITALS: BP 135/46
== END 2018-11-11 14:14 | disposition home or self-care (01) ==
LOC: ER 09:31
DX: N39.0 Urinary tract infection, site not specified (principal); R31.9 Hematuria, unspecified; R30.0 Dysuria; R35.0 Frequency of micturition; R14.0 Abdominal distension (gaseous); M54.9 Dorsalgia, unspecified; N93.9 Abnormal uterine and vaginal bleeding, unspecified; I25.10 Atherosclerotic heart disease of native coronary artery without angina pectoris; I10 Essential (primary) hypertension; J44.9 Chronic obstructive pulmonary disease, unspecified; E11.9 Type 2 diabetes mellitus without complications; Z90.49 Acquired absence of other specified parts of digestive tract; Z90.5 Acquired absence of kidney; Z88.1 Allergy status to other antibiotic agents; Z91.041 Radiographic dye allergy status; Z88.5 Allergy status to narcotic agent; Z88.7 Allergy status to serum and vaccine; Z88.8 Allergy status to other drugs, medicaments and biological substances; Z91.040 Latex allergy status; Z88.0 Allergy status to penicillin; Z88.2 Allergy status to sulfonamides
CPT/HCPCS: 99284; 36415; 87086; 85025; 87088; 80053; 81001; 87186; 74176; A9270; J3490

== ENCOUNTER 2018-11-11 21:22 | Inpatient (IN) | payer MEDICARE, OTHER ==
[2018-11-12] MEDS ORDERED: AZTREONAM INJ 1 GM VIAL IV ONE (00:48)
--- NOTE | 2018-11-12 01:03 | ER Document Report ---
ED General - General Chief Complaint: Cough Stated Complaint: COUGH Time Seen by Provider: 11/12/18 00:30 Primary Care Provider: DEBORAH BOWLING MD [Primary Care Provider] - Follow up as needed TRAVEL OUTSIDE OF THE [place] IN LAST 30 DAYS: No - HPI Notes: This is an 88-year-old female who presents today with a complaint of a nonproductive cough that started earlier today. Patient was seen here yesterday morning with urinary symptoms and abdominal discomfort. She had a work-up that was significant for a urinary tract infection. She was sent home on Macrobid and Pyridium. Patient states that when she took the Macrobid, she started having a dry nonproductive cough, vomiting and diarrhea. Patient states that she has been throwing up all day. Patient notes that she has multiple drug allergies and typically gets IV antibiotics when she has a very tract infection. She denies any abdominal pain at this time. She denies any fever or chills. - Related Data Allergies/Adverse Reactions: Iodinated Contrast Media [Contrast] Allergy (Severe, Verified 09/16/18 11:48) Seizures ciprofloxacin [From Cipro] Allergy (Verified 09/16/18 11:48) Diarrhea, vomiting codeine [Codeine] Allergy (Verified 09/16/18 11:48) diarrhea, vomiting, convulsions diphtheria toxoid,fluid Allergy (Verified 09/16/18 11:48) Rash lansoprazole [From Prevacid] Allergy (Verified 09/16/18 11:48) rash latex [Latex] Allergy (Verified 09/16/18 11:48) ITCHY RASH levofloxacin [From Levaquin] Allergy (Verified 09/16/18 11:48) Rash, Diarrhea meloxicam Allergy (Verified 09/16/18 11:48) "symptoms of heart attack" morphine Allergy (Verified 09/16/18 11:48) Chest pain Penicillins Allergy (Verified 09/16/18 11:48) "6 days in coma" Sulfa (Sulfonamide Antibiotics) Allergy (Verified 09/16/18 11:48) Rash Tetanus Vaccines and Toxoid [Tetanus] Allergy (Verified 09/16/18 11:48) convulsions cefdinir [Cefdinir] Adverse Reaction (Intermediate, Verified 09/16/18 11:48) rash MYCINS Allergy (Uncoded 09/16/18 11:48) Past Medical History - Social History Smoking Status: Never Smoker Chew tobacco use (# tins/day): No Frequency of alcohol use: None Drug Abuse: None Family History: Reviewed & Not Pertinent, Hypertension Patient has suicidal ideation: No Patient has homicidal ideation: No - Past Medical History Cardiac Medical History: Reports: Hx Congestive Heart Failure, Hx Coronary Artery Disease, Hx DVT, Hx Heart Attack, Hx Hypercholesterolemia, Hx Hypertension Denies: Hx Pulmonary Embolism Pulmonary Medical History: Reports: Hx Asthma, Hx COPD, Hx Pneumonia - x 4 times Denies: Hx Bronchitis, Hx Tuberculosis Neurological Medical History: Reports: Hx Seizures - as baby. Denies: Hx Cerebrovascular Accident Endocrine Medical History: Reports: Hx Diabetes Mellitus Type 1, Hx Diabetes Mellitus Type 2, Hx Hypothyroidism Renal/ Medical History: Reports: Hx Kidney Stones. Denies: Hx Peritoneal Dialysis GI Medical History: Reports: Hx Hiatal Hernia. Denies: Hx Hepatitis, Hx Ulcer Musculoskeletal Medical History: Reports Hx Arthritis, Reports Hx Fibromyalgia Psychiatric Medical History: Denies: Hx Depression Infectious Medical History: Denies: Hx Hepatitis Past Surgical History: Reports: Hx Appendectomy, Hx Cholecystectomy, Hx Gynecologic Surgery - Right nephrectomy, Hx Herniorrhaphy, Hx Orthopedic Surgery - L knee, Hx Tonsillectomy, Hx Tubal Ligation, Hx Urinary Tract Surgery - Bladder stone removal. Denies: Hx Cardiac Catheterization, Hx Mastectomy, Hx Open Heart Surgery, Hx Pacemaker - Immunizations Immunizations up to date: Yes Hx Diphtheria, Pertussis, Tetanus Vaccination: Yes - Allergic, "30 years ago" Hx Pneumococcal Vaccination: 11/15/15 Review of Systems - Review of Systems Constitutional: denies: Fever Respiratory: Cough Gastrointestinal: Diarrhea, Nausea, Vomiting Genitourinary: Burning, Dysuria, Frequency -: Yes All other systems reviewed and negative Physical Exam - Vital signs Vitals: Temp Pulse Resp BP Pulse Ox 98.2 F 116 H 18 136/68 H 94 11/11/18 22:45 11/11/18 22:45 11/11/18 22:45 11/11/18 22:45 11/11/18 22:45 - General General appearance: Appears well, Alert - HEENT Head: Normocephalic, Atraumatic Eyes: Normal Pupils: PERRL - Respiratory Respiratory status: No respiratory distress Chest status: Nontender Breath sounds: Normal Chest palpation: Normal - Cardiovascular Rhythm: Regular Heart sounds: Normal auscultation Murmur: No - Abdominal Inspection: Normal Distension: No distension Bowel sounds: Normal Tenderness: Nontender Organomegaly: No organomegaly - Extremities General upper extremity: Normal inspection, Nontender, Normal color, Normal ROM, Normal temperature General lower extremity: Normal inspection, Nontender, Normal color, Normal ROM, Normal temperature, Normal weight bearing. No: Prasad's sign - Neurological Neuro grossly intact: Yes Cognition: Normal Orientation: AAOx4 Murphy Coma Scale Eye Opening: Spontaneous Murphy Coma Scale Verbal: Oriented Murphy Coma Scale Motor: Obeys Commands Murphy Coma Scale Total: 15 Speech: Normal Motor strength normal: LUE, RUE, LLE, RLE Sensory: Normal - Psychological Associated symptoms: Normal affect, Normal mood Course - Re-evaluation Re-evalutation: 11/12/18 01:15 Differential diagnosis includes urinary tract infection with failure of outpatient antibiotics versus pneumonia versus dehydration versus electrolyte abnormality. Will repeat basic labs including a chest x-ray today. I will not repeat a urinalysis since it was just on this morning. 11/12/18 02:49 Patient's care discussed with Dr. Zepeda Will admit. Patient is doing well. 11/12/18 02:52 Labs reviewed. Lactate is slightly elevated at 2.4. Aztreonam started earlier. Patient does not look toxic. I will give her a liter bolus and I will give her too much for fear of putting her into failure given her age. - Vital Signs Vital signs: Temp Pulse Resp BP Pulse Ox 98.1 F 116 H 32 H 136/68 H 91 L 11/12/18 02:47 11/11/18 22:45 11/12/18 02:00 11/11/18 22:45 11/12/18 02:00 - Laboratory Result Diagrams: 11/12/18 02:05 11/12/18 02:05 Laboratory results interpreted by me: 11/12/18 11/12/18 11/12/18 02:05 02:05 02:05 WBC 19.0 H Seg Neuts % (Manual) 89 H Band Neutrophils % 7 H Lymphocytes % (Manual) 2 L Monocytes % (Manual) 2 L Abs Neuts (Manual) 18.2 H Abs Lymphs (Manual) 0.4 L Potassium 3.2 L Glucose 174 H Lactic Acid 2.4 H Discharge - Discharge Clinical Impression: Acute UTI, Cough Condition: Stable Disposition: ADMITTED INPATIENT Admitting Provider: [facility] Unit Admitted: Medical Floor Referrals: DEBORAH BOWLING MD [Primary Care Provider] - Follow up as needed
--- NOTE | 2018-11-12 01:44 | RADIOLOGY REPORT (SQ) ---
XR CHEST 2 VIEWS EXAM DATE: 11/12/2018 12:43 AM CDT HISTORY: Cough. COMPARISON: 08/15/2018 FINDINGS: The heart size is mildly enlarged. No consolidation, pleural effusion, or pneumothorax is seen. The bony thorax is intact. IMPRESSION: No evidence of acute cardiopulmonary disease.
[2018-11-12] MEDS ORDERED: LIDOCAINE 2% JELLY 5 ML TUBE TOP ONE (01:52)
[2018-11-12 02:21] LABS: HEMATOCRIT 44.4 % (36.0-47.0); HEMOGLOBIN 14.8 g/dL (12.0-15.5); MEAN CORPUSCULAR HEMOGLOBIN 29.6 pg (27.0-33.4); MEAN CORPUSCULAR HGB CONC 33.3 g/dL (32.0-36.0); MEAN CORPUSCULAR VOLUME 89 fl (80-97); PLATELET COUNT 245 10^3/uL (150-450); RED BLOOD COUNT 4.99 10^6/uL (3.72-5.28)
[2018-11-12 02:36] LABS: ANION GAP 10 (5-19); BLOOD UREA NITROGEN 17 mg/dL (7-20); CALCIUM 10.1 mg/dL (8.4-10.2); CARBON DIOXIDE 27 mmol/L (22-30); CHLORIDE 100 mmol/L (98-107); GLUCOSE 174 mg/dL (75-110); POTASSIUM 3.2 mmol/L (3.6-5.0)
[2018-11-12 02:39] LABS: ABSOLUTE LYMPHOCYTES# (MANUAL) 0.4 10^3/uL (0.5-4.7); ABSOLUTE MONOCYTES # (MANUAL) 0.4 10^3/uL (0.1-1.4); BAND NEUTROPHILS % (MANUAL) 7 % (3-5); BASOPHILS % (MANUAL) 0 % (0-2); EOSINOPHILS % (MANUAL) 0 % (0-6); LYMPHOCYTES % (MANUAL) 2 % (13-45); MONOCYTES % (MANUAL) 2 % (3-13); PLATELET COMMENT ADEQUATE; RBC MORPHOLOGY COMMENT NORMO-CYTIC/CHROMIC; SEGMENTED NEUTROPHILS % (MAN) 89 % (42-78); TOTAL CELLS COUNTED 100
[2018-11-12] MEDS ORDERED: NORMAL SALINE 1000 ML 1,000 ML IV ONE (02:50)
[2018-11-12] MEDS ORDERED: ONDANSETRON HCL INJ/PF 4 MG/2 ML SDV IV PRN (05:05)
[2018-11-12] MEDS ORDERED: AZTREONAM INJ 1 GM VIAL IV PRN (05:59)
[2018-11-12] MEDS ORDERED: ENOXAPARIN SODIUM INJ 30 MG/0.3 ML DISP.SYRIN SUBCUT ONE (06:00)
[2018-11-12 06:10] LABS: INTERNATIONAL RATION (INR) 0.94; PROTHROMBIN TIME 12.6 SEC (11.4-15.4)
[2018-11-12] MEDS ORDERED: AZTREONAM INJ 1 GM VIAL ONE (06:18)
[2018-11-12 06:28] LABS: FREE T4 (FREE THYROXINE) 1.24 ng/dL (0.78-2.19)
[2018-11-12 06:34] LABS: HEMOGLOBIN 14.5 g/dL (12.0-15.5); MEAN CORPUSCULAR HEMOGLOBIN 29.8 pg (27.0-33.4); MEAN CORPUSCULAR HGB CONC 33.8 g/dL (32.0-36.0); MEAN CORPUSCULAR VOLUME 88 fl (80-97); PLATELET COUNT 223 10^3/uL (150-450); RED BLOOD COUNT 4.87 10^6/uL (3.72-5.28); RED CELL DISTRIBUTION WIDTH 14.2 % (11.5-14.0); WHITE BLOOD COUNT 23.1 10^3/uL (4.0-10.5)
[2018-11-12] MEDS: AZTREONAM 1.5 GM in DEXTROSE 5%-WATER 100 ML IV SCH ×3 (06:35→21:41)
[2018-11-12 06:41] LABS: THYROID STIMULATING HORMONE 2.69 uIU/mL (0.47-4.68)
[2018-11-12 06:43] LABS: AMYLASE 45 U/L (30-110); ANION GAP 8 (5-19); BLOOD UREA NITROGEN 16 mg/dL (7-20); CALCIUM 9.7 mg/dL (8.4-10.2); CARBON DIOXIDE 30 mmol/L (22-30); CHLORIDE 100 mmol/L (98-107); GLUCOSE 150 mg/dL (75-110); PHOSPHORUS 3.2 mg/dL (2.5-4.5)
[2018-11-12 06:52] LABS: APPEARANCE,URINE CLEAR; BILIRUBIN,URINE NEGATIVE (NEGATIVE); COLOR,URINE AMBER; GLUCOSE, URINE NEGATIVE (NEGATIVE); KETONES,URINE NEGATIVE (NEGATIVE); LEUKOCYTE ESTERASE,URINE MODERATE (NEGATIVE); NITRITE,URINE POSITIVE (NEGATIVE); PROTEIN,URINE 30 mg/dL (NEGATIVE)
[2018-11-12 07:14] LABS: URINE AMPHETAMINES SCREEN NEGATIVE; URINE BARBITURATES SCREEN NEGATIVE; URINE BENZODIAZEPINES SCREEN NEGATIVE; URINE COCAINE SCREEN NEGATIVE; URINE MARIJUANA (THC) SCREEN NEGATIVE; URINE METHADONE SCREEN NEGATIVE; URINE PHENCYCLIDINE SCREEN NEGATIVE
[2018-11-12 07:21] LABS: ABSOLUTE LYMPHOCYTES# (MANUAL) 1.6 10^3/uL (0.5-4.7); ABSOLUTE MONOCYTES # (MANUAL) 0.5 10^3/uL (0.1-1.4); ANISOCYTOSIS SLIGHT; BAND NEUTROPHILS % (MANUAL) 8 % (3-5); BASOPHILS % (MANUAL) 0 % (0-2); EOSINOPHILS % (MANUAL) 0 % (0-6); LYMPHOCYTES % (MANUAL) 6 % (13-45); METAMYELOCYTES % (MANUAL) 1 % (0); MONOCYTES % (MANUAL) 2 % (3-13); SEGMENTED NEUTROPHILS % (MAN) 82 % (42-78); TOTAL CELLS COUNTED 100
[2018-11-12 07:22] LABS: PLATELET COMMENT ADEQUATE
[2018-11-12] MEDS: POTASSIUM CHLORIDE 10 MEQ CAPSULE.ER PO SCH (09:36)
[2018-11-12] MEDS: ACETAMINOPHEN 325 MG TABLET PO PRN ×2 (09:48→17:35)
[2018-11-12] MEDS: RINGERS SOLUTION,LACTATED 1,000 ML IV PRN (11:14)
--- NOTE | 2018-11-12 13:09 | PDOC H&P ---
History of Present Illness Admission Date/PCP: 11/12/18 02:52 DEBORAH BOWLING History of Present Illness: STEPH WAYNE is a 88 year old female,She came to the emergency room for evaluation of cough, chest pressure, she was in the emergency room a day earlier, specifically, yesterday when she presented to the emergency room for evaluation of urinary symptoms, dysuria, frequency, abdominal discomfort, she was diagnosed with urinary tract infection she was prescribed Macrobid and Pyridium and discharge home appropriately. She came back to the emergency room late last night because she said when she took the Macrobid and Pyridium the medication provoked coughing and chest pressure, she has a long history of antibiotic allergy, she stated that previously whenever she has UTI she t ypically receive IV antibiotic.. The chest x-ray that was done in the emergency room did not demonstrate any consolidation or infiltrate to suggest pneumonia, she was not overly wheezing to suggest bronchospasm, as symptoms she manifested did not suggest any allergy related respiratory symptoms. The emergency room she was found to have leukocytosis WBC was 20,000, there was also associated lactic acidosis this suggest early sepsis probably from UTI. The ED providers felt that patient needed to be admitted to be managed in the hospital setting for sepsis due to UTI.I saw her on the floor this morning, she is alert, she complain of generalized body aches she says she feels cold, the oral temperature was 100 degrees Past Medical History Cardiac Medical History: Reports: Congestive Heart Failure, Coronary Artery Disease, DVT, Myocardial Infarction, Hyperlipidema, Hypertension Pulmonary Medical History: Reports: Asthma, Chronic Obstructive Pulmonary Disease (COPD), Pneumonia - x 4 times Neurological Medical History: Reports: Seizures - as baby Endocrine Medical History: Reports: Diabetes Mellitus Type 2, Hypothyroidism GI Medical History: Reports: Hiatal Hernia Musculoskeltal Medical History: Reports: Arthritis, Fibromyalgia Past Surgical History Past Surgical History: Reports: Appendectomy, Cholecystectomy, Herniorrhaphy, Orthopedic Surgery - L knee, Tonsillectomy, Tubal Ligation Social History Smoking Status: Never Smoker Frequency of Alcohol Use: None Hx Recreational Drug Use: No Drugs: None Hx Prescription Drug Abuse: No Family History Family History: Reviewed & Not Pertinent, Hypertension Parental Family History Reviewed: Yes Children Family History Reviewed: Yes Sibling(s) Family History Reviewed.: Yes Medication/Allergy Home Medications: Hydrochlorothiazide [Hydrodiuril 25 mg Tablet] 25 mg PO DAILY 12/20/17 Levocetirizine Dihydrochloride [Xyzal] 5 mg PO DAILY 12/20/17 Levothyroxine Sodium [Synthroid] 0.1 mg PO Q6AM 12/20/17 Omeprazole 40 mg PO ACBRKFST 12/20/17 Potassium Chloride [K-Tab ER] 10 meq PO DAILY 12/20/17 Furosemide [Lasix 40 mg Tablet] 40 mg PO DAILY 08/15/18 Tramadol HCl [Ultram 50 mg Tablet] 50 mg PO Q8HP PRN #60 tablet 08/21/18 Allopurinol [Zyloprim 100 mg Tablet] 100 mg PO DAILY 11/12/18 Allergies/Adverse Reactions: Iodinated Contrast Media [Contrast] Allergy (Severe, Verified 09/16/18 11:48) Seizures ciprofloxacin [From Cipro] Allergy (Verified 09/16/18 11:48) Diarrhea, vomiting codeine [Codeine] Allergy (Verified 09/16/18 11:48) diarrhea, vomiting, convulsions diphtheria toxoid,fluid Allergy (Verified 09/16/18 11:48) Rash lansoprazole [From Prevacid] Allergy (Verified 09/16/18 11:48) rash latex [Latex] Allergy (Verified 09/16/18 11:48) ITCHY RASH levofloxacin [From Levaquin] Allergy (Verified 09/16/18 11:48) Rash, Diarrhea meloxicam Allergy (Verified 09/16/18 11:48) "symptoms of heart attack" morphine Allergy (Verified 09/16/18 11:48) Chest pain Penicillins Allergy (Verified 09/16/18 11:48) "6 days in coma" Sulfa (Sulfonamide Antibiotics) Allergy (Verified 09/16/18 11:48) Rash Tetanus Vaccines and Toxoid [Tetanus] Allergy (Verified 09/16/18 11:48) convulsions cefdinir [Cefdinir] Adverse Reaction (Intermediate, Verified 09/16/18 11:48) rash MYCINS Allergy (Uncoded 09/16/18 11:48) Review of Systems Constitutional: PRESENT: chills, fever(s) Eyes: ABSENT: visual disturbances Ears: ABSENT: hearing changes Cardiovascular: ABSENT: chest pain, dyspnea on exertion, edema, orthropnea, palpitations Respiratory: ABSENT: cough, hemoptysis Gastrointestinal: PRESENT: abdominal pain. ABSENT: constipation, diarrhea, hematemesis, hematochezia, nausea, vomiting Genitourinary: PRESENT: difficulty urinating, dysuria, nocturia Musculoskeletal: ABSENT: joint swelling Integumentary: ABSENT: rash, wounds Neurological: ABSENT: abnormal gait, abnormal speech, confusion, dizziness, focal weakness, syncope Psychiatric: ABSENT: anxiety, depression, homidical ideation, suicidal ideation Endocrine: ABSENT: cold intolerance, heat intolerance, menstrual abnormalities, polydipsia, polyuria Hematologic/Lymphatic: ABSENT: easy bleeding, easy bruising, lymphadenopathy Physical Exam Vital Signs: Temp Pulse Resp BP Pulse Ox 99.0 F 82 16 111/42 L 91 L 11/12/18 07:14 11/12/18 11:28 11/12/18 11:28 11/12/18 11:28 11/12/18 11:28 Intake & Output 11/11/18 11/12/18 11/13/18 06:59 06:59 06:59 Intake Total 1000 Output Total 0 Balance 0 1000 Weight 94 kg General appearance: PRESENT: no acute distress, well-developed, well-nourished Head exam: PRESENT: atraumatic, normocephalic Eye exam: PRESENT: conjunctiva pink, EOMI, PERRLA Ear exam: PRESENT: normal external ear exam Mouth exam: PRESENT: moist, tongue midline Neck exam: PRESENT: full ROM Respiratory exam: PRESENT: clear to auscultation erlinda Cardiovascular exam: PRESENT: RRR, +S1, +S2 Pulses: PRESENT: normal dorsalis pedis pul, +2 pedal pulses bilateral Vascular exam: PRESENT: normal capillary refill GI/Abdominal exam: PRESENT: normal bowel sounds, soft, tenderness Rectal exam: PRESENT: deferred Neurological exam: PRESENT: alert, awake, oriented to person, oriented to place, oriented to time, oriented to situation, CN II-XII grossly intact Psychiatric exam: PRESENT: appropriate affect, normal mood Skin exam: PRESENT: dry, intact, warm Results Laboratory Results: 11/12/18 06:18 11/12/18 06:18 11/12/18 11/12/18 11/12/18 02:05 02:05 02:05 WBC 19.0 H RBC 4.99 Hgb 14.8 Hct 44.4 MCV 89 MCH 29.6 MCHC 33.3 RDW 14.0 Plt Count 245 Seg Neutrophils % Not Reportable Sodium 137.1 Potassium 3.2 L Chloride 100 Carbon Dioxide 27 Anion Gap 10 BUN 17 Creatinine 0.68 Est GFR ( Amer) > 60 Glucose 174 H Lactic Acid 2.4 H Calcium 10.1 Phosphorus Ammonia Amylase Lipase TSH Free T4 Urine Color Urine Appearance Urine pH Ur Specific [place] Urine Protein Urine Glucose (UA) Urine Ketones Urine Blood Urine Nitrite Ur Leukocyte Esterase Urine WBC (Auto) Urine RBC (Auto) 11/12/18 11/12/18 11/12/18 02:05 06:18 06:18 WBC 23.1 H RBC 4.87 Hgb 14.5 Hct 43.0 MCV 88 MCH 29.8 MCHC 33.8 RDW 14.2 H Plt Count 223 Seg Neutrophils % Not Reportable Sodium 138.3 Potassium 3.0 L* Chloride 100 Carbon Dioxide 30 Anion Gap 8 BUN 16 Creatinine 0.68 Est GFR ( Amer) > 60 Glucose 150 H Lactic Acid Calcium 9.7 Phosphorus 3.2 Ammonia Amylase 45 Lipase 34.6 TSH 2.69 Free T4 1.24 Urine Color Urine Appearance Urine pH Ur Specific [place] Urine Protein Urine Glucose (UA) Urine Ketones Urine Blood Urine Nitrite Ur Leukocyte Esterase Urine WBC (Auto) Urine RBC (Auto) 11/12/18 11/12/18 11/12/18 06:18 06:18 06:20 WBC RBC Hgb Hct MCV MCH MCHC RDW Plt Count Seg Neutrophils % Sodium Potassium Chloride Carbon Dioxide Anion Gap BUN Creatinine Est GFR ( Amer) Glucose Lactic Acid 2.3 H Calcium Phosphorus Ammonia < 8.7 L Amylase Lipase TSH Free T4 Urine Color RUDDY Urine Appearance CLEAR Urine pH 5.0 Ur Specific [place] 1.020 Urine Protein 30 H Urine Glucose (UA) NEGATIVE Urine Ketones NEGATIVE Urine Blood LARGE H Urine Nitrite POSITIVE H Ur Leukocyte Esterase MODERATE H Urine WBC (Auto) 11 Urine RBC (Auto) 19 Impressions: Chest X-Ray 11/12/18 00:43 IMPRESSION: No evidence of acute cardiopulmonary disease. 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, she has a long list of antibiotic allergy, she would be empirically be treated with intravenous aztreonam, the chest symptoms she is manifesting including chest pressure, cough could be part of the sepsis syndrome, will be obtaining cardiac enzymes (2) Urinary tract infection Qualifiers: Urinary tract infection type: site unspecified Hematuria presence: without hematuria Qualified Code(s): N39.0 - Urinary tract infection, site not specified Is this a current diagnosis for this admission?: Yes (3) CAD (coronary artery disease) Qualifiers: Coronary Disease-Associated Artery/Lesion type: tel[place] artery [place] vs. transplanted heart: tel[place] heart Associated angina: without angina Qualified Code(s): I25.10 - Atherosclerotic heart disease of tel[place] coronary artery without angina pectoris Is this a current diagnosis for this admission?: Yes (4) COPD (chronic obstructive pulmonary disease) Qualifiers: COPD type: unspecified COPD Qualified Code(s): J44.9 - Chronic obstructive pulmonary disease, unspecified Is this a current diagnosis for this admission?: Yes Plan: She has a history of COPD (5) Diabetes mellitus Qualifiers: Diabetes mellitus type: type 2 Diabetes mellitus complication status: with neurologic complications Diabetes mellitus complication detail: with polyneuropathy Qualified Code(s): E11.42 - Type 2 diabetes mellitus with diabetic polyneuropathy Is this a current diagnosis for this admission?: Yes Plan: She has a history of type 2 diabetes mellitus (6) Fibromyalgia Is this a current diagnosis for this admission?: Yes (7) HLD (hyperlipidemia) Qualifiers: Hyperlipidemia type: unspecified Qualified Code(s): E78.5 - Hyperlipidemia, unspecified (8) HTN (hypertension) Qualifiers: Hypertension type: essential hypertension Qualified Code(s): I10 - Essential (primary) hypertension Is this a current diagnosis for this admission?: Yes
[2018-11-12] MEDS: ALLOPURINOL 100 MG TABLET PO SCH (13:46)
[2018-11-12] MEDS: LEVOTHYROXINE SODIUM 0.1 MG TABLET PO SCH (13:46)
[2018-11-12 14:47] LABS: CREATINE KINASE MB 0.8 ng/mL (<4.55); TROPONIN I 0.015 ng/mL
[2018-11-12 22:08] LABS: CREATINE KINASE MB 1.14 ng/mL (<4.55)
[2018-11-12 22:17] LABS: TROPONIN I < 0.012 ng/mL
[2018-11-13] MEDS: RINGERS SOLUTION,LACTATED 1,000 ML IV PRN ×2 (01:07→15:30)
[2018-11-13] MEDS: ACETAMINOPHEN 325 MG TABLET PO PRN (01:07)
[2018-11-13] MEDS: AZTREONAM 1.5 GM in DEXTROSE 5%-WATER 100 ML IV SCH ×3 (05:41→21:18)
[2018-11-13] MEDS: LEVOTHYROXINE SODIUM 0.1 MG TABLET PO SCH (05:41)
[2018-11-13] MEDS: TRAMADOL HCL 50 MG TABLET PO PRN (05:46)
[2018-11-13 06:24] LABS: ALBUMIN 3.1 g/dL (3.5-5.0); ALKALINE PHOSPHATASE 66 U/L (38-126); ASPARTATE AMINO TRANSFERASE 16 U/L (14-36); BILIRUBIN,DIRECT 0.2 mg/dL (0.0-0.4); BILIRUBIN,TOTAL 1.3 mg/dL (0.2-1.3); CHOLESTEROL 142.88 mg/dL (0-200); CREATINE KINASE 22 U/L (30-135); TOTAL PROTEIN 5.5 g/dL (6.3-8.2); TRIGLYCERIDES 80 mg/dL (<150)
[2018-11-13 06:35] LABS: DIRECT LDL 67 mg/dL (<100)
[2018-11-13 06:36] LABS: CREATINE KINASE MB 0.88 ng/mL (<4.55)
[2018-11-13 06:40] LABS: TROPONIN I < 0.012 ng/mL
[2018-11-13] MEDS: ALLOPURINOL 100 MG TABLET PO SCH (09:26)
[2018-11-13] MEDS: POTASSIUM CHLORIDE 10 MEQ CAPSULE.ER PO SCH ×3 (09:26→21:20)
[2018-11-13] MEDS: ENOXAPARIN SODIUM INJ 30 MG/0.3 ML DISP.SYRIN SUBCUT SCH (09:27)
[2018-11-13 10:46] LABS: ERYTHROCYTE SEDIMENTATION RATE 48 mm/hr (0-30)
[2018-11-13 11:03] LABS: ABSOLUTE EOSINOPHILS # (AUTO) 0.3 10^3/uL (0.0-0.6); ABSOLUTE LYMPHOCYTES (AUTO) 1.2 10^3/uL (0.5-4.7); ABSOLUTE MONOCYTES (AUTO) 0.3 10^3/uL (0.1-1.4); ABSOLUTE NEUT (AUTO) 11.5 10^3/uL (1.7-8.2); BASOPHILS % (AUTO) 0.2 % (0-2); HEMATOCRIT 40.1 % (36.0-47.0); HEMOGLOBIN 13.2 g/dL (12.0-15.5); LYMPHOCYTES % (AUTO) 9.2 % (13-45); MEAN CORPUSCULAR HEMOGLOBIN 29.6 pg (27.0-33.4); MEAN CORPUSCULAR VOLUME 90 fl (80-97); MONOCYTES % (AUTO) 2.5 % (3-13); PLATELET COUNT 220 10^3/uL (150-450); RED BLOOD COUNT 4.47 10^6/uL (3.72-5.28); RED CELL DISTRIBUTION WIDTH 14.3 % (11.5-14.0); SEGMENTED NEUTROPHILS % (AUTO) 86.1 % (42-78); TOTAL CELLS COUNTED % (AUTO) 100 %; WHITE BLOOD COUNT 13.4 10^3/uL (4.0-10.5)
[2018-11-13] MEDS ORDERED: ONDANSETRON HCL INJ/PF 4 MG/2 ML SDV IV PRN (15:30)
--- NOTE | 2018-11-13 18:30 | PDOC PROGRESS REPORT ---
Subjective Progress Note for:: 11/13/18 Subjective:: Out on bed in recliner bed with complain about inability to fall asleep and coccygeal pain No fever but reported chills and feeling extremely cold. No chest pain or difficulty with breathing. No nausea or vomiting but appetite and p.o intake remain poor. Reason For Visit: UTI,SEPSIS Physical Exam Vital Signs: Temp Pulse Resp BP Pulse Ox 97.6 F 77 16 132/56 H 96 11/13/18 15:18 11/13/18 15:18 11/13/18 15:18 11/13/18 15:18 11/13/18 15:18 Intake & Output 11/12/18 11/13/18 11/14/18 06:59 06:59 06:59 Intake Total 2512 1320 Output Total 0 1100 400 Balance 0 1412 920 Weight 94 kg 96.6 kg General appearance: PRESENT: no acute distress, obese Head exam: PRESENT: atraumatic, normocephalic Eye exam: PRESENT: conjunctiva pink. ABSENT: scleral icterus Ear exam: PRESENT: normal external ear exam Mouth exam: PRESENT: moist Respiratory exam: PRESENT: clear to auscultation erlinda Cardiovascular exam: PRESENT: RRR. ABSENT: diastolic murmur, rubs, systolic murmur Vascular exam: ABSENT: pallor GI/Abdominal exam: PRESENT: normal bowel sounds, soft. ABSENT: distended, guarding, mass, organolmegaly, rebound, tenderness Musculoskeletal exam: ABSENT: tenderness Neurological exam: PRESENT: alert, awake, oriented to person, oriented to place, oriented to time, oriented to situation, CN II-XII grossly intact. ABSENT: motor sensory deficit Skin exam: PRESENT: dry, warm Results Laboratory Results: 11/13/18 09:17 11/12/18 06:18 11/13/18 11/13/18 11/13/18 05:42 05:42 09:17 WBC Cancelled 13.4 H RBC Cancelled 4.47 Hgb Cancelled 13.2 Hct Cancelled 40.1 MCV Cancelled 90 MCH Cancelled 29.6 MCHC Cancelled 33.0 RDW Cancelled 14.3 H Plt Count Cancelled 220 Seg Neutrophils % Cancelled 86.1 H Total Bilirubin 1.3 AST 16 Alkaline Phosphatase 66 Total Protein 5.5 L Albumin 3.1 L Triglycerides 80 Cholesterol 142.88 LDL Cholesterol Direct 67 VLDL Cholesterol 16.0 HDL Cholesterol 50 11/12/18 06:20 Catheterized Urine Urine Culture - Final Mixed Urogenital Sue 11/12/18 11/12/18 11/12/18 13:54 13:54 21:14 Creatine Kinase 28 L 29 L CK-MB (CK-2) 0.80 Troponin I 0.015 11/12/18 11/13/18 11/13/18 21:14 05:42 05:42 Creatine Kinase 22 L CK-MB (CK-2) 1.14 0.88 Troponin I < 0.012 < 0.012 Impressions: Chest X-Ray 11/12/18 00:43 IMPRESSION: No evidence of acute cardiopulmonary disease. Assessment & Plan - Diagnosis (1) Acute UTI Is this a current diagnosis for this admission?: Yes Plan: Continue IV Aztreonam coverage. Repeat urinalysis and culture with straight catheter specimen. (2) HTN (hypertension) Qualifiers: Hypertension type: essential hypertension Qualified Code(s): I10 - Essential (primary) hypertension Is this a current diagnosis for this admission?: Yes Plan: D/C Ringer Lactate infusion. Start on N/S at 75 ml/min. (3) HLD (hyperlipidemia) Qualifiers: Hyperlipidemia type: unspecified Qualified Code(s): E78.5 - Hyperlipidemia, unspecified Is this a current diagnosis for this admission?: Yes Plan: Continue current management. (4) Hypothyroidism Qualifiers: Hypothyroidism type: acquired Qualified Code(s): E03.9 - Hypothyroidism, unspecified Is this a current diagnosis for this admission?: Yes Plan: Continue current medication management. (5) Obesity (BMI 30-39.9) Qualifiers: Obesity type: due to excess calories Obesity classification: adult class 1 (BMI 30 - 34.9) Serious obesity comorbidity presence: with serious comorbidity Body mass index: BMI 34.0-34.9 Qualified Code(s): E66.09 - Other obesity due to excess calories; Z68.34 - Body mass index (BMI) 34.0-34.9, adult; Z68.34 - B clement mass index (BMI) 34.0-34.9, adult Is this a current diagnosis for this admission?: Yes Plan: Continue current medication management. - Time Time Spent with patient: 25-34 minutes Medications reviewed and adjusted accordingly: Yes Anticipated discharge: Home with Homehealth Within: Other - Inpatient Certification Based on my medical assessment, after consideration of the patient's comorbidities, presenting symptoms, or acuity I expect that the services needed warrant INPATIENT care.: Yes I certify that my determination is in accordance with my understanding of [employer] 's requirements for reasonable and necessary INPATIENT services [42 CFR 412.3e].: Yes Medical Necessity: Significant Comorbidiites Make Outpatient Treatment Too Risky, Need Close Monitoring Due to Risk of Patient Decompensation, Need For IV Fluids, Need For Continuous Telemetry Monitoring, Need for IV Antibiotics, Risk of Complication if Not Cared For in Hospital, Risk of Diagnosis Which Will Require Inpatient Eval/Care/Monitoring Post Hospital Care: D/C Statistical Clerk Documentation - Plan Summary Plan Summary: Continue current medication management.
[2018-11-13] MEDS ORDERED: LIDOCAINE 2% JELLY 5 ML TUBE TOP PRN (18:31)
[2018-11-13 19:36] LABS: BLOOD UREA NITROGEN 16 mg/dL (7-20); CALCIUM 9.3 mg/dL (8.4-10.2); GLUCOSE 104 mg/dL (75-110); POTASSIUM 3.5 mmol/L (3.6-5.0)
[2018-11-13 19:42] LABS: CARBON DIOXIDE 32 mmol/L (22-30); CHLORIDE 101 mmol/L (98-107)
[2018-11-13 19:43] LABS: ANION GAP 5 (5-19)
[2018-11-13] MEDS: IPRATROPIUM/ALBUTEROL 0.5-2.5 MG/3 ML AMPUL NEB PRN (21:05)
[2018-11-14 04:47] LABS: ABSOLUTE EOSINOPHILS # (AUTO) 0.3 10^3/uL (0.0-0.6); ABSOLUTE LYMPHOCYTES (AUTO) 2.1 10^3/uL (0.5-4.7); ABSOLUTE MONOCYTES (AUTO) 0.5 10^3/uL (0.1-1.4); ABSOLUTE NEUT (AUTO) 6.1 10^3/uL (1.7-8.2); BASOPHILS % (AUTO) 0.4 % (0-2); EOSINOPHILS % (AUTO) 3.7 % (0-6); HEMATOCRIT 39.2 % (36.0-47.0); HEMOGLOBIN 13.2 g/dL (12.0-15.5); LYMPHOCYTES % (AUTO) 22.9 % (13-45); MEAN CORPUSCULAR HEMOGLOBIN 30.1 pg (27.0-33.4); MEAN CORPUSCULAR HGB CONC 33.7 g/dL (32.0-36.0); MEAN CORPUSCULAR VOLUME 90 fl (80-97); MONOCYTES % (AUTO) 5.2 % (3-13); PLATELET COUNT 209 10^3/uL (150-450); RED BLOOD COUNT 4.38 10^6/uL (3.72-5.28); RED CELL DISTRIBUTION WIDTH 14.2 % (11.5-14.0); SEGMENTED NEUTROPHILS % (AUTO) 67.8 % (42-78); TOTAL CELLS COUNTED % (AUTO) 100 %
[2018-11-14 05:03] LABS: ALBUMIN 3.2 g/dL (3.5-5.0); ALKALINE PHOSPHATASE 63 U/L (38-126); ASPARTATE AMINO TRANSFERASE 13 U/L (14-36); BILIRUBIN,DIRECT 0.1 mg/dL (0.0-0.4); BILIRUBIN,TOTAL 0.7 mg/dL (0.2-1.3); TOTAL PROTEIN 6.1 g/dL (6.3-8.2)
[2018-11-14] MEDS: LEVOTHYROXINE SODIUM 0.1 MG TABLET PO SCH (05:35)
[2018-11-14] MEDS: AZTREONAM 1.5 GM in DEXTROSE 5%-WATER 100 ML IV SCH ×3 (05:35→22:07)
[2018-11-14] MEDS ORDERED: INFLUENZA QUAD (6MOS+) 2019-20 VAC 0.5 ML SYR IM ONE (06:46)
[2018-11-14] MEDS: IPRATROPIUM/ALBUTEROL 0.5-2.5 MG/3 ML AMPUL NEB PRN (07:46)
[2018-11-14] MEDS ORDERED: POTASSIUM CHLORIDE 20 MEQ PACKET PO ONE (09:30)
[2018-11-14] MEDS: POTASSIUM CHLORIDE 10 MEQ CAPSULE.ER PO SCH (09:40)
[2018-11-14] MEDS: ALLOPURINOL 100 MG TABLET PO SCH (09:46)
[2018-11-14] MEDS: ENOXAPARIN SODIUM INJ 30 MG/0.3 ML DISP.SYRIN SUBCUT SCH (09:46)
[2018-11-14] MEDS ORDERED: POTASSIUM CHLORIDE 10 MEQ CAPSULE.ER PO ONE (11:00)
[2018-11-14] MEDS: NORMAL SALINE 1000 ML 1,000 ML IV PRN (22:08)
[2018-11-15 04:49] LABS: ABSOLUTE BASOPHILS # (AUTO) 0.1 10^3/uL (0.0-0.2); ABSOLUTE EOSINOPHILS # (AUTO) 0.2 10^3/uL (0.0-0.6); ABSOLUTE LYMPHOCYTES (AUTO) 2.1 10^3/uL (0.5-4.7); ABSOLUTE MONOCYTES (AUTO) 0.4 10^3/uL (0.1-1.4); BASOPHILS % (AUTO) 0.8 % (0-2); EOSINOPHILS % (AUTO) 3.3 % (0-6); HEMATOCRIT 42.3 % (36.0-47.0); HEMOGLOBIN 14.1 g/dL (12.0-15.5); LYMPHOCYTES % (AUTO) 30.7 % (13-45); MEAN CORPUSCULAR HEMOGLOBIN 29.9 pg (27.0-33.4); MEAN CORPUSCULAR HGB CONC 33.3 g/dL (32.0-36.0); MEAN CORPUSCULAR VOLUME 90 fl (80-97); MONOCYTES % (AUTO) 5.2 % (3-13); PLATELET COUNT 218 10^3/uL (150-450); RED BLOOD COUNT 4.71 10^6/uL (3.72-5.28); RED CELL DISTRIBUTION WIDTH 14.3 % (11.5-14.0); TOTAL CELLS COUNTED % (AUTO) 100 %; WHITE BLOOD COUNT 6.7 10^3/uL (4.0-10.5)
[2018-11-15 04:54] LABS: ALBUMIN 3.5 g/dL (3.5-5.0); ALKALINE PHOSPHATASE 71 U/L (38-126); ASPARTATE AMINO TRANSFERASE 15 U/L (14-36); BILIRUBIN,DIRECT 0.1 mg/dL (0.0-0.4); BILIRUBIN,TOTAL 0.8 mg/dL (0.2-1.3)
[2018-11-15] MEDS: AZTREONAM 1.5 GM in DEXTROSE 5%-WATER 100 ML IV SCH ×3 (05:57→22:51)
[2018-11-15] MEDS: LEVOTHYROXINE SODIUM 0.1 MG TABLET PO SCH (05:57)
[2018-11-15] MEDS: ALLOPURINOL 100 MG TABLET PO SCH (09:34)
[2018-11-15] MEDS: POTASSIUM CHLORIDE 10 MEQ CAPSULE.ER PO SCH (09:34)
[2018-11-15] MEDS: ENOXAPARIN SODIUM INJ 30 MG/0.3 ML DISP.SYRIN SUBCUT SCH (09:34)
[2018-11-15] MEDS: IPRATROPIUM/ALBUTEROL 0.5-2.5 MG/3 ML AMPUL NEB PRN (10:34)
[2018-11-15] MEDS: TRAMADOL HCL 50 MG TABLET PO PRN (10:50)
--- NOTE | 2018-11-15 11:43 | PDOC PROGRESS REPORT ---
Subjective Progress Note for:: 11/14/18 Subjective:: Patient reported feeling better slightly today. Appetite remain poor but intake is improving. No fever. Her chills are less frequent. She remain on IV Aztreonam coverage. No chest pain or difficulty with breathing. No abdominal pain, nausea or vomiting. Reason For Visit: UTI,SEPSIS Physical Exam Vital Signs: Temp Pulse Resp BP Pulse Ox 97.8 F 75 16 141/66 H 90 L 11/14/18 07:40 11/14/18 07:46 11/14/18 07:46 11/14/18 07:40 11/14/18 07:46 Intake & Output 11/13/18 11/14/18 11/15/18 06:59 06:59 06:59 Intake Total 2512 2440 Output Total 1100 1250 Balance 1412 1190 Weight 96.6 kg 100.9 kg Physical Exam: General appearance: PRESENT: no acute distress, obese Head exam: PRESENT: atraumatic, normocephalic Eye exam: PRESENT: conjunctiva pink. ABSENT: pallor, scleral icterus Ear exam: PRESENT: normal external ear exam Mouth exam: PRESENT: moist Respiratory exam: PRESENT: clear to auscultation erlinda Cardiovascular exam: PRESENT: RRR. ABSENT: diastolic murmur, rubs, systolic murmur GI/Abdominal exam: PRESENT: normal bowel sounds, soft. ABSENT: distended, guarding, mass, organomegaly, rebound, tenderness Musculoskeletal exam: ABSENT: tenderness Neurological exam: PRESENT: alert, awake, oriented to person, oriented to place, oriented to time, oriented to situation, CN II-XII grossly intact. ABSENT: motor sensory deficit Skin exam: PRESENT: dry, warm Results Laboratory Results: 11/14/18 04:15 11/13/18 19:11 11/13/18 11/13/18 11/14/18 09:17 19:11 04:15 WBC 13.4 H 9.0 RBC 4.47 4.38 Hgb 13.2 13.2 Hct 40.1 39.2 MCV 90 90 MCH 29.6 30.1 MCHC 33.0 33.7 RDW 14.3 H 14.2 H Plt Count 220 209 Seg Neutrophils % 86.1 H 67.8 Sodium 138.4 Potassium 3.5 L Chloride 101 Carbon Dioxide 32 H Anion Gap 5 BUN 16 Creatinine 0.67 Est GFR ( Amer) > 60 Glucose 104 Calcium 9.3 Magnesium 1.8 Total Bilirubin AST Alkaline Phosphatase Total Protein Albumin 11/14/18 04:15 WBC RBC Hgb Hct MCV MCH MCHC RDW Plt Count Seg Neutrophils % Sodium Potassium Chloride Carbon Dioxide Anion Gap BUN Creatinine Est GFR ( Amer) Glucose Calcium Magnesium Total Bilirubin 0.7 AST 13 L Alkaline Phosphatase 63 Total Protein 6.1 L Albumin 3.2 L 11/12/18 06:20 Catheterized Urine Urine Culture - Final Mixed Urogenital Sue 11/12/18 11/12/18 11/12/18 13:54 13:54 21:14 Creatine Kinase 28 L 29 L CK-MB (CK-2) 0.80 Troponin I 0.015 11/12/18 11/13/18 11/13/18 21:14 05:42 05:42 Creatine Kinase 22 L CK-MB (CK-2) 1.14 0.88 Troponin I < 0.012 < 0.012 Impressions: Chest X-Ray 11/12/18 00:43 IMPRESSION: No evidence of acute cardiopulmonary disease. Assessment & Plan - Diagnosis (1) Acute UTI Is this a current diagnosis for this admission?: Yes (2) HTN (hypertension) Qualifiers: Hypertension type: essential hypertension Qualified Code(s): I10 - Essential (primary) hypertension Is this a current diagnosis for this admission?: Yes (3) HLD (hyperlipidemia) Qualifiers: Hyperlipidemia type: unspecified Qualified Code(s): E78.5 - Hyperlipidemia, unspecified Is this a current diagnosis for this admission?: Yes (4) Hypothyroidism Qualifiers: Hypothyroidism type: acquired Qualified Code(s): E03.9 - Hypothyroidism, unspecified Is this a current diagnosis for this admission?: Yes (5) Obesity (BMI 30-39.9) Qualifiers: Obesity type: due to excess calories Obesity classification: adult class 1 (BMI 30 - 34.9) Serious obesity comorbidity presence: with serious comorbidity Body mass index: BMI 34.0-34.9 Qualified Code(s): E66.09 - Other obesity due to excess calories; Z68.34 - Body mass index (BMI) 34.0-34.9, adult Is this a current diagnosis for this admission?: Yes - Time Time Spent with patient: 25-34 minutes Medications reviewed and adjusted accordingly: Yes Anticipated discharge: Home with Homehealth Within: Other - Inpatient Certification Based on my medical assessment, after consideration of the patient's comorbidities, presenting symptoms, or acuity I expect that the services needed warrant INPATIENT care.: Yes I certify that my determination is in accordance with my understanding of Medicare's requirements for reasonable and necessary INPATIENT services [42 CFR 412.3e].: Yes Medical Necessity: Significant Comorbidiites Make Outpatient Treatment Too Risky, Need Close Monitoring Due to Risk of Patient Decompensation, Need For IV Fluids, Need For Continuous Telemetry Monitoring, Need for IV Antibiotics, Risk of Complication if Not Cared For in Hospital, Risk of Diagnosis Which Will Require Inpatient Eval/Care/Monitoring Post Hospital Care: D/C Router Operator Radial Documentation - Plan Summary Plan Summary: Continue current medication management. Follow up on blood and urine culture findings.
[2018-11-15 12:44] LABS: BLOOD UREA NITROGEN 14 mg/dL (7-20); CALCIUM 9.8 mg/dL (8.4-10.2); CARBON DIOXIDE 38 mmol/L (22-30); CHLORIDE 103 mmol/L (98-107); GLUCOSE 113 mg/dL (75-110); POTASSIUM 4.1 mmol/L (3.6-5.0)
[2018-11-15 12:53] LABS: ANION GAP 2 (5-19)
--- NOTE | 2018-11-15 19:56 | PDOC PROGRESS REPORT ---
Subjective Progress Note for:: 11/15/18 Subjective:: Patient denied any fever or chills. No chest pain or difficulty with breathing. No abdominal pain, nausea or vomiting. She remain on IV Aztreonam coverage. There was issue with establishing vascular access for her IV antibiotic. She is agreeable to central line placement if needed in the future. Reason For Visit: UTI,SEPSIS Physical Exam Vital Signs: Temp Pulse Resp BP Pulse Ox 97.7 F 62 16 162/82 H 97 11/15/18 08:01 11/15/18 10:34 11/15/18 10:34 11/15/18 08:01 11/15/18 10:34 Intake & Output 11/14/18 11/15/18 11/16/18 06:59 06:59 06:59 Intake Total 2440 1020 Output Total 1250 700 Balance 1190 320 Weight 100.9 kg 96.6 kg Physical Exam: General appearance: PRESENT: no acute distress, obese Head exam: PRESENT: atraumatic, normocephalic Eye exam: PRESENT: conjunctiva pink. ABSENT: pallor, scleral icterus Ear exam: PRESENT: normal external ear exam Mouth exam: PRESENT: moist Respiratory exam: PRESENT: clear to auscultation erlinda Cardiovascular exam: PRESENT: RRR. ABSENT: diastolic murmur, rubs, systolic murmur GI/Abdominal exam: PRESENT: normal bowel sounds, soft. ABSENT: distended, guarding, mass, organomegaly, rebound, tenderness Musculoskeletal exam: ABSENT: tenderness Neurological exam: PRESENT: alert, awake, oriented to person, oriented to place, oriented to time, oriented to situation, CN II-XII grossly intact. ABSENT: motor sensory deficit Skin exam: PRESENT: dry, warm Results Laboratory Results: 11/15/18 04:09 11/13/18 19:11 11/15/18 11/15/18 04:09 04:09 WBC 6.7 RBC 4.71 Hgb 14.1 Hct 42.3 MCV 90 MCH 29.9 MCHC 33.3 RDW 14.3 H Plt Count 218 Seg Neutrophils % 60.0 Total Bilirubin 0.8 AST 15 Alkaline Phosphatase 71 Total Protein 6.0 L Albumin 3.5 11/13/18 19:00 Catheterized Urine Urine Culture - Final NO GROWTH 2 DAYS 11/12/18 11/12/18 11/12/18 13:54 13:54 21:14 Creatine Kinase 28 L 29 L CK-MB (CK-2) 0.80 Troponin I 0.015 11/12/18 11/13/18 11/13/18 21:14 05:42 05:42 Creatine Kinase 22 L CK-MB (CK-2) 1.14 0.88 Troponin I < 0.012 < 0.012 Impressions: Chest X-Ray 11/12/18 00:43 IMPRESSION: No evidence of acute cardiopulmonary disease. Assessment & Plan - Diagnosis (1) Acute UTI Is this a current diagnosis for this admission?: Yes (2) HTN (hypertension) Qualifiers: Hypertension type: essential hypertension Qualified Code(s): I10 - Essential (primary) hypertension Is this a current diagnosis for this admission?: Yes (3) HLD (hyperlipidemia) Qualifiers: Hyperlipidemia type: unspecified Qualified Code(s): E78.5 - Hyperlipidemia, unspecified Is this a current diagnosis for this admission?: Yes (4) Hypothyroidism Qualifiers: Hypothyroidism type: acquired Qualified Code(s): E03.9 - Hypothyroidism, unspecified Is this a current diagnosis for this admission?: Yes (5) Obesity (BMI 30-39.9) Qualifiers: Obesity type: due to excess calories Obesity classification: adult class 1 (BMI 30 - 34.9) Serious obesity comorbidity presence: with serious comorbidity Body mass index: BMI 34.0-34.9 Qualified Code(s): E66.09 - Other obesity due to excess calories; Z68.34 - Body mass index (BMI) 34.0-34.9, adult Is this a current diagnosis for this admission?: Yes - Time Time Spent with patient: 25-34 minutes Medications reviewed and adjusted accordingly: Yes Anticipated discharge: Home with Homehealth Within: Other - Inpatient Certification Based on my medical assessment, after consideration of the patient's comorbidities, presenting symptoms, or acuity I expect that the services needed warrant INPATIENT care.: Yes I certify that my determination is in accordance with my understanding of Medicare's requirements for reasonable and necessary INPATIENT services [42 CFR 412.3e].: Yes Medical Necessity: Significant Comorbidiites Make Outpatient Treatment Too Risky, Need Close Monitoring Due to Risk of Patient Decompensation, Need For IV Fluids, Need For Continuous Telemetry Monitoring, Need for IV Antibiotics, Risk of Complication if Not Cared For in Hospital, Risk of Diagnosis Which Will Require Inpatient Eval/Care/Monitoring Post Hospital Care: D/C Logistics Supervisor Documentation - Plan Summary Plan Summary: Continue current medication management. Obtain BMP. Follow up on culture findings.
[2018-11-16 00:54] LABS: APPEARANCE,URINE SLIGHTLY-CLOUDY; BILIRUBIN,URINE NEGATIVE (NEGATIVE); COLOR,URINE RED; GLUCOSE, URINE NEGATIVE (NEGATIVE); KETONES,URINE NEGATIVE (NEGATIVE); LEUKOCYTE ESTERASE,URINE TRACE (NEGATIVE); NITRITE,URINE NEGATIVE (NEGATIVE); PROTEIN,URINE 100 mg/dL (NEGATIVE); URINE SPECIFIC GRAVITY 1.021; UROBILINOGEN,URINE NEGATIVE mg/dL (<2.0)
[2018-11-16] MEDS: IPRATROPIUM/ALBUTEROL 0.5-2.5 MG/3 ML AMPUL NEB PRN (03:51)
[2018-11-16] MEDS: AZTREONAM 1.5 GM in DEXTROSE 5%-WATER 100 ML IV SCH ×3 (05:55→21:54)
[2018-11-16] MEDS: LEVOTHYROXINE SODIUM 0.1 MG TABLET PO SCH (05:57)
[2018-11-16] MEDS: ALLOPURINOL 100 MG TABLET PO SCH (10:04)
[2018-11-16] MEDS: ENOXAPARIN SODIUM INJ 30 MG/0.3 ML DISP.SYRIN SUBCUT SCH ×2 (10:04→12:07)
[2018-11-16] MEDS: NORMAL SALINE 1000 ML 1,000 ML IV PRN (11:55)
--- NOTE | 2018-11-16 18:09 | PDOC PROGRESS REPORT ---
Subjective Progress Note for:: 11/16/18 Subjective:: Patient denied chest pain or difficulty with breathing. No fever or chills.No abdominal pain, nausea or vomiting. She remain on IV Aztreonam coverage. Reason For Visit: UTI,SEPSIS Physical Exam Vital Signs: Temp Pulse Resp BP Pulse Ox 97.5 F 64 18 164/93 H 97 11/16/18 11:22 11/16/18 14:00 11/16/18 11:22 11/16/18 11:22 11/16/18 11:22 Intake & Output 11/15/18 11/16/18 11/17/18 06:59 06:59 06:59 Intake Total 1020 1370 Output Total 700 575 Balance 320 795 Weight 96.6 kg 94 kg Physical Exam: General appearance: PRESENT: no acute distress, obese Head exam: PRESENT: atraumatic, normocephalic Eye exam: PRESENT: conjunctiva pink. ABSENT: pallor, scleral icterus Ear exam: PRESENT: normal external ear exam Mouth exam: PRESENT: moist Respiratory exam: PRESENT: clear to auscultation erlinda Cardiovascular exam: PRESENT: RRR. ABSENT: diastolic murmur, rubs, systolic murmur GI/Abdominal exam: PRESENT: normal bowel sounds, soft. ABSENT: distended, guarding, mass, organomegaly, rebound, tenderness Musculoskeletal exam: ABSENT: tenderness Neurological exam: PRESENT: alert, awake, oriented to person, oriented to place, oriented to time, oriented to situation, CN II-XII grossly intact. ABSENT: motor sensory deficit Skin exam: PRESENT: dry, warm Results Laboratory Results: 11/15/18 04:09 11/15/18 04:09 11/16/18 00:24 Urine Color RED Urine Appearance SLIGHTLY-CLOUDY Urine pH 6.0 Ur Specific [place] 1.021 Urine Protein 100 H Urine Glucose (UA) NEGATIVE Urine Ketones NEGATIVE Urine Blood LARGE H Urine Nitrite NEGATIVE Ur Leukocyte Esterase TRACE H Urine WBC (Auto) 12 Urine RBC (Auto) >182 11/12/18 11/12/18 11/12/18 13:54 13:54 21:14 Creatine Kinase 28 L 29 L CK-MB (CK-2) 0.80 Troponin I 0.015 11/12/18 11/13/18 11/13/18 21:14 05:42 05:42 Creatine Kinase 22 L CK-MB (CK-2) 1.14 0.88 Troponin I < 0.012 < 0.012 Impressions: Chest X-Ray 11/12/18 00:43 IMPRESSION: No evidence of acute cardiopulmonary disease. Assessment & Plan - Diagnosis (1) Acute UTI Is this a current diagnosis for this admission?: Yes (2) HTN (hypertension) Qualifiers: Hypertension type: essential hypertension Qualified Code(s): I10 - Essential (primary) hypertension Is this a current diagnosis for this admission?: Yes (3) HLD (hyperlipidemia) Qualifiers: Hyperlipidemia type: unspecified Qualified Code(s): E78.5 - Hyperlipidemia, unspecified Is this a current diagnosis for this admission?: Yes (4) Hypothyroidism Qualifiers: Hypothyroidism type: acquired Qualified Code(s): E03.9 - Hypothyroidism, unspecified Is this a current diagnosis for this admission?: Yes (5) Obesity (BMI 30-39.9) Qualifiers: Obesity type: due to excess calories Obesity classification: adult class 1 (BMI 30 - 34.9) Serious obesity comorbidity presence: with serious comorbidity Body mass index: BMI 34.0-34.9 Qualified Code(s): E66.09 - Other obesity due to excess calories; Z68.34 - Body mass index (BMI) 34.0-34.9, adult Is this a current diagnosis for this admission?: Yes - Time Time Spent with patient: 25-34 minutes Medications reviewed and adjusted accordingly: Yes Anticipated discharge: Home with Homehealth Within: Other - Inpatient Certification Based on my medical assessment, after consideration of the patient's comorbidities, presenting symptoms, or acuity I expect that the services needed warrant INPATIENT care.: Yes I certify that my determination is in accordance with my understanding of Medicare's requirements for reasonable and necessary INPATIENT services [42 CFR 412.3e].: Yes Medical Necessity: Significant Comorbidiites Make Outpatient Treatment Too R isky, Need Close Monitoring Due to Risk of Patient Decompensation, Need For IV Fluids, Need For Continuous Telemetry Monitoring, Need for IV Antibiotics, Risk of Complication if Not Cared For in Hospital, Risk of Diagnosis Which Will Require Inpatient Eval/Care/Monitoring Post Hospital Care: D/C Mortgage Lender Documentation - Plan Summary Plan Summary: Continue IV Aztreonam coverage. Start on Maxzide 37.5/25 mg p.o daily for HTN management..
[2018-11-16] MEDS: TRIAMTERENE/HYDROCHLOROTHIAZIDE 37.5-25 MG TABLET PO SCH (18:37)
[2018-11-17] MEDS: TRAMADOL HCL 50 MG TABLET PO PRN ×2 (04:29→12:31)
[2018-11-17] MEDS: AZTREONAM 1.5 GM in DEXTROSE 5%-WATER 100 ML IV SCH ×3 (06:11→22:53)
[2018-11-17] MEDS: LEVOTHYROXINE SODIUM 0.1 MG TABLET PO SCH (06:11)
[2018-11-17] MEDS: ENOXAPARIN SODIUM INJ 30 MG/0.3 ML DISP.SYRIN SUBCUT SCH (09:33)
[2018-11-17] MEDS: TRIAMTERENE/HYDROCHLOROTHIAZIDE 37.5-25 MG TABLET PO SCH (09:34)
[2018-11-17] MEDS: ALLOPURINOL 100 MG TABLET PO SCH (09:35)
--- NOTE | 2018-11-17 16:04 | PDOC PROGRESS REPORT ---
Subjective Progress Note for:: 11/17/18 Subjective:: Patient denied chest pain or difficulty with breathing. No fever or chills. No abdominal pain, nausea or vomiting. She remain on IV Aztreonam coverage. Reason For Visit: UTI,SEPSIS Physical Exam Vital Signs: Temp Pulse Resp BP Pulse Ox 98.1 F 67 16 152/87 H 93 11/17/18 08:00 11/17/18 12:23 11/17/18 12:23 11/17/18 12:23 11/17/18 12:23 Intake & Output 11/16/18 11/17/18 11/18/18 06:59 06:59 06:59 Intake Total 1370 1000 Output Total 575 850 Balance 795 -850 1000 Weight 94 kg 102.1 kg Physical Exam: General appearance: PRESENT: no acute distress, obese Head exam: PRESENT: atraumatic, normocephalic Eye exam: PRESENT: conjunctiva pink. ABSENT: pallor, scleral icterus Ear exam: PRESENT: normal external ear exam Mouth exam: PRESENT: moist Respiratory exam: PRESENT: clear to auscultation erlinda Cardiovascular exam: PRESENT: RRR. ABSENT: diastolic murmur, rubs, systolic murmur GI/Abdominal exam: PRESENT: normal bowel sounds, soft. ABSENT: distended, guarding, mass, organomegaly, rebound, tenderness Musculoskeletal exam: ABSENT: tenderness Neurological exam: PRESENT: alert, awake, oriented to person, oriented to place, oriented to time, oriented to situation, CN II-XII grossly intact. ABSENT: m otor sensory deficit Skin exam: PRESENT: dry, warm Results Laboratory Results: 11/15/18 04:09 11/15/18 04:09 11/12/18 06:18 Blood Blood Culture - Final NO GROWTH IN 5 DAYS 11/12/18 02:05 Blood Blood Culture - Final NO GROWTH IN 5 DAYS 11/12/18 11/12/18 11/12/18 13:54 13:54 21:14 Creatine Kinase 28 L 29 L CK-MB (CK-2) 0.80 Troponin I 0.015 11/12/18 11/13/18 11/13/18 21:14 05:42 05:42 Creatine Kinase 22 L CK-MB (CK-2) 1.14 0.88 Troponin I < 0.012 < 0.012 Impressions: Chest X-Ray 11/12/18 00:43 IMPRESSION: No evidence of acute cardiopulmonary disease. Assessment & Plan - Diagnosis (1) Acute UTI Is this a current diagnosis for this admission?: Yes (2) HTN (hypertension) Qualifiers: Hypertension type: essential hypertension Qualified Code(s): I10 - Essent ial (primary) hypertension Is this a current diagnosis for this admission?: Yes (3) HLD (hyperlipidemia) Qualifiers: Hyperlipidemia type: unspecified Qualified Code(s): E78.5 - Hyperlipidemia, unspecified Is this a current diagnosis for this admission?: Yes (4) Hypothyroidism Qualifiers: Hypothyroidism type: acquired Qualified Code(s): E03.9 - Hypothyroidism, unspecified Is this a current diagnosis for this admission?: Yes (5) Obesity (BMI 30-39.9) Qualifiers: Obesity type: due to excess calories Obesity classification: adult class 1 (BMI 30 - 34.9) Serious obesity comorbidity presence: with serious comorbidity Body mass index: BMI 34.0-34.9 Qualified Code(s): E66.09 - Other obesity due to excess calories; Z68.34 - Body mass index (BMI) 34.0-34.9, adult Is this a current diagnosis for this admission?: Yes - Time Time Spent with patient: 25-34 minutes Medications reviewed and adjusted accordingly: Yes Anticipated discharge: Home with Homehealth Within: Other - Inpatient Certification Based on my medical assessment, after consideration of the patient's comorbidities, presenting symptoms, or acuity I expect that the services needed warrant INPATIENT care.: Yes I certify that my determination is in accordance with my understanding of Medicare's requirements for reasonable and necessary INPATIENT services [42 CFR 412.3e].: Yes Medical Necessity: Significant Comorbidiites Make Outpatient Treatment Too Risky, Need Close Monitoring Due to Risk of Patient Decompensation, Need For Continuous Telemetry Monitoring, Need for IV Antibiotics, Risk of Complication if Not Cared For in Hospital, Risk of Diagnosis Which Will Require Inpatient Eval/Care/Monitoring Post Hospital Care: D/C Fleet Sales Associate Documentation - Plan Summary Plan Summary: Continue current medication management with care plan for Aztreonam administration for 7 days total. Obtain CBC with diff, BMP in AM.
[2018-11-17] MEDS: IPRATROPIUM/ALBUTEROL 0.5-2.5 MG/3 ML AMPUL NEB PRN (22:36)
[2018-11-18 05:32] LABS: ABSOLUTE BASOPHILS # (AUTO) 0.1 10^3/uL (0.0-0.2); ABSOLUTE EOSINOPHILS # (AUTO) 0.3 10^3/uL (0.0-0.6); ABSOLUTE LYMPHOCYTES (AUTO) 2.1 10^3/uL (0.5-4.7); ABSOLUTE MONOCYTES (AUTO) 0.5 10^3/uL (0.1-1.4); ABSOLUTE NEUT (AUTO) 5.1 10^3/uL (1.7-8.2); BASOPHILS % (AUTO) 0.7 % (0-2); EOSINOPHILS % (AUTO) 3.4 % (0-6); HEMATOCRIT 40.1 % (36.0-47.0); HEMOGLOBIN 13.3 g/dL (12.0-15.5); LYMPHOCYTES % (AUTO) 26.4 % (13-45); MEAN CORPUSCULAR HEMOGLOBIN 29.8 pg (27.0-33.4); MEAN CORPUSCULAR HGB CONC 33.2 g/dL (32.0-36.0); MEAN CORPUSCULAR VOLUME 90 fl (80-97); MONOCYTES % (AUTO) 5.6 % (3-13); PLATELET COUNT 253 10^3/uL (150-450); RED BLOOD COUNT 4.47 10^6/uL (3.72-5.28); RED CELL DISTRIBUTION WIDTH 14.2 % (11.5-14.0); SEGMENTED NEUTROPHILS % (AUTO) 63.9 % (42-78); TOTAL CELLS COUNTED % (AUTO) 100 %
[2018-11-18 05:47] LABS: ANION GAP 6 (5-19); BLOOD UREA NITROGEN 10 mg/dL (7-20); CALCIUM 9.9 mg/dL (8.4-10.2); CARBON DIOXIDE 33 mmol/L (22-30); CHLORIDE 98 mmol/L (98-107); GLUCOSE 109 mg/dL (75-110); POTASSIUM 4.4 mmol/L (3.6-5.0)
[2018-11-18] MEDS: LEVOTHYROXINE SODIUM 0.1 MG TABLET PO SCH (07:27)
[2018-11-18] MEDS: AZTREONAM 1.5 GM in DEXTROSE 5%-WATER 100 ML IV SCH ×3 (07:27→21:06)
[2018-11-18] MEDS: IPRATROPIUM/ALBUTEROL 0.5-2.5 MG/3 ML AMPUL NEB PRN (09:58)
[2018-11-18] MEDS: ALLOPURINOL 100 MG TABLET PO SCH (11:47)
[2018-11-18] MEDS: TRIAMTERENE/HYDROCHLOROTHIAZIDE 37.5-25 MG TABLET PO SCH (11:47)
--- NOTE | 2018-11-18 13:02 | PDOC PROGRESS REPORT ---
Subjective Progress Note for:: 11/18/18 Subjective:: Patient denied chest pain or difficulty with breathing. No fever or chills. No abdominal pain, nausea or vomiting. Her urine output remain satisfactory but discolored due to her intermittent uterine bleeding. She remain on IV Aztreonam coverage. Reason For Visit: UTI,SEPSIS Physical Exam Vital Signs: Temp Pulse Resp BP Pulse Ox 98.0 F 68 16 153/61 H 97 11/18/18 11:39 11/18/18 11:39 11/18/18 11:39 11/18/18 11:39 11/18/18 11:39 Intake & Output 11/17/18 11/18/18 11/19/18 06:59 06:59 06:59 Intake Total 2160 140 Output Total 850 2700 500 Balance -850 -540 -360 Weight 102.1 kg 101.9 kg Physical Exam: General appearance: PRESENT: no acute distress, obese Head exam: PRESENT: atraumatic, normocephalic Eye exam: PRESENT: conjunctiva pink. ABSENT: pallor, scleral icterus Ear exam: PRESENT: normal external ear exam Mouth exam: PRESENT: moist Respiratory exam: PRESENT: clear to auscultation erlinda Cardiovascular exam: PRESENT: RRR. ABSENT: diastolic murmur, rubs, systolic murmur GI/Abdominal exam: PRESENT: normal bowel sounds, soft. ABSENT: distended, guarding, mass, organomegaly, rebound, tenderness Musculoskeletal exam: ABSENT: tenderness Neurological exam: PRESENT: alert, awake, oriented to person, oriented to place, oriented to time, oriented to situation, CN II-XII grossly intact. ABSENT: motor sensory deficit Skin exam: PRESENT: dry, warm Results Laboratory Results: 11/18/18 04:56 11/18/18 04:56 11/18/18 11/18/18 04:56 04:56 WBC 8.0 RBC 4.47 Hgb 13.3 Hct 40.1 MCV 90 MCH 29.8 MCHC 33.2 RDW 14.2 H Plt Count 253 Seg Neutrophils % 63.9 Sodium 137.0 Potassium 4.4 Chloride 98 Carbon Dioxide 33 H Anion Gap 6 BUN 10 Creatinine 0.52 Est GFR ( Amer) > 60 Glucose 109 Calcium 9.9 11/12/18 11/12/18 11/12/18 13:54 13:54 21:14 Creatine Kinase 28 L 29 L CK-MB (CK-2) 0.80 Troponin I 0.015 11/12/18 11/13/18 11/13/18 21:14 05:42 05:42 Creatine Kinase 22 L CK-MB (CK-2) 1.14 0.88 Troponin I < 0.012 < 0.012 Impressions: Chest X-Ray 11/12/18 00:43 IMPRESSION: No evidence of acute cardiopulmonary disease. Assessment & Plan - Diagnosis (1) Acute UTI Is this a current diagnosis for this admission?: Yes (2) HTN (hypertension) Qualifiers: Hypertension type: essential hypertension Qualified Code(s): I10 - Essential (primary) hypertension Is this a current diagnosis for this admission?: Yes (3) HLD (hyperlipidemia) Qualifiers: Hyperlipidemia type: unspecified Qualified Code(s): E78.5 - Hyperlipidemia, unspecified Is this a current diagnosis for this admission?: Yes (4) Hypothyroidism Qualifiers: Hypothyroidism type: acquired Qualified Code(s): E03.9 - Hypothyroidism, unspecified Is this a current diagnosis for this admission?: Yes (5) Obesity (BMI 30-39.9) Qualifiers: Obesity type: due to excess calories Obesity classification: adult class 1 (BMI 30 - 34.9) Serious obesity comorbidity presence: with serious comorbidity Body mass index: BMI 34.0-34.9 Qualified Code(s): E66.09 - Other obesity due to excess calories; Z68.34 - Body mass index (BMI) 34.0-34.9, adult Is this a current diagnosis for this admission?: Yes (6) Dysfunctional uterine bleeding Is this a current diagnosis for this admission?: Yes Plan: I will consult with song lyricist MEAL GRINDER TENDER for Dr Thayer her usual evp strategy who recommended D&C in the past but patient daughter was reluctant to proceed. Patient is welling to proceed with the procedure if agreeable with evp strategy during my bedside visit this morning. spouse in attendance. - Time Time Spent with patient: 25-34 minutes Medications reviewed and adjusted accordingly: Yes Anticipated discharge: Home with Homehealth Within: Other - Inpatient Certification Based on my medical assessment, after consideration of the patient's comorbidities, presenting symptoms, or acuity I expect that the services needed warrant INPATIENT care.: Yes I certify that my determination is in accordance with my understanding of [employer]'s requirements for reasonable and necessary INPATIENT services [42 CFR 412.3e].: Yes Medical Necessity: Significant Comorbidiites Make Outpatient Treatment Too Risky, Need Close Monitoring Due to Risk of Patient Decompensation, Need For IV Fluids, Need For Continuous Telemetry Monitoring, Need for IV Antibiotics, Risk of Complication if Not Cared For in Hospital, Risk of Diagnosis Which Will Require Inpatient Eval/Care/Monitoring Post Hospital Care: D/C Supervisor Roller Printing Documentation - Plan Summary Plan Summary: Hold Lovenox dose today due to her ongoing uterine bleeding. continue IV Aztreonam coverage.
[2018-11-18] MEDS: ENOXAPARIN SODIUM INJ 30 MG/0.3 ML DISP.SYRIN SUBCUT SCH (13:15)
[2018-11-19] MEDS: AZTREONAM 1.5 GM in DEXTROSE 5%-WATER 100 ML IV SCH ×3 (05:00→22:49)
[2018-11-19] MEDS: LEVOTHYROXINE SODIUM 0.1 MG TABLET PO SCH (05:00)
[2018-11-19] MEDS: ACETAMINOPHEN 325 MG TABLET PO PRN (06:59)
[2018-11-19] MEDS: TRAMADOL HCL 50 MG TABLET PO PRN (11:17)
[2018-11-19] MEDS: TRIAMTERENE/HYDROCHLOROTHIAZIDE 37.5-25 MG TABLET PO SCH (11:18)
[2018-11-19] MEDS: ALLOPURINOL 100 MG TABLET PO SCH (11:18)
[2018-11-19] MEDS: ENOXAPARIN SODIUM INJ 30 MG/0.3 ML DISP.SYRIN SUBCUT SCH (13:35)
[2018-11-19] MEDS: IPRATROPIUM/ALBUTEROL 0.5-2.5 MG/3 ML AMPUL NEB PRN (16:40)
--- NOTE | 2018-11-19 18:59 | PDOC PROGRESS REPORT ---
Subjective Progress Note for:: 11/19/18 Subjective:: Patient reported coughing episodes and requested for Benzonatate prescription as well as something ffor her itchy eyes, left > right with clear watery discharge. No fever but experience ambient temperature related chills. No chest pain. No nausea, vomiting, or abdominal pain. Reason For Visit: UTI,SEPSIS Physical Exam Vital Signs: Temp Pulse Resp BP Pulse Ox 98.2 F 68 18 154/74 H 99 11/19/18 16:39 11/19/18 16:39 11/19/18 16:39 11/19/18 16:39 11/19/18 16:39 Intake & Output 11/18/18 11/19/18 11/20/18 06:59 06:59 06:59 Intake Total 2160 1010 560 Output Total 2700 4000 700 Balance -540 -2990 -140 Weight 101.9 kg 94 kg Physical Exam: General appearance: PRESENT: no acute distress, obese Head exam: PRESENT: atraumatic, normocephalic Eye exam: PRESENT: conjunctiva pink, minimal conjunctiva injection, left eye ABSENT: pallor, scleral icterus Ear exam: PRESENT: normal external ear exam Mouth exam: PRESENT: moist Respiratory exam: PRESENT: clear to auscultation erlinda Cardiovascular exam: PRESENT: RRR. ABSENT: diastolic murmur, rubs, systolic murmur GI/Abdominal exam: PRESENT: normal bowel sounds, soft. ABSENT: distended, guarding, mass, organomegaly, rebound, tenderness Musculoskeletal exam: ABSENT: tenderness Neurological exam: PRESENT: alert, awake, oriented to person, oriented to place, oriented to time, oriented to situation, CN II-XII grossly intact. ABSENT: motor sensory deficit Skin exam: PRESENT: dry, warm Results Laboratory Results: 11/18/18 04:56 11/18/18 04:56 11/12/18 11/12/18 11/12/18 13:54 13:54 21:14 Creatine Kinase 28 L 29 L CK-MB (CK-2) 0.80 Troponin I 0.015 11/12/18 11/13/18 11/13/18 21:14 05:42 05:42 Creatine Kinase 22 L CK-MB (CK-2) 1.14 0.88 Troponin I < 0.012 < 0.012 Impressions: Chest X-Ray 11/12/18 00:43 IMPRESSION: No evidence of acute cardiopulmonary disease. Assessment & Plan - Diagnosis (1) Acute UTI Is this a current diagnosis for this admission?: Yes (2) HTN (hypertension) Qualifiers: Hypertension type: essential hypertension Qualified Code(s): I10 - Essential (primary) hypertension Is this a current diagnosis for this admission?: Yes (3) HLD (hyperlipidemia) Qualifiers: Hyperlipidemia type: unspecified Qualified Code(s): E78.5 - Hyperlipidemia, unspecified Is this a current diagnosis for this admission?: Yes (4) Hypothyroidism Qualifiers: Hypothyroidism type: acquired Qualified Code(s): E03.9 - Hypothyroidism, unspecified Is this a current diagnosis for this admission?: Yes (5) Obesity (BMI 30-39.9) Qualifiers: Obesity type: due to excess calories Obesity classification: adult class 1 (BMI 30 - 34.9) Serious obesity comorbidity presence: with serious comorbidity Body mass index: BMI 34.0-34.9 Qualified Code(s): E66.09 - Other obesity due to excess calories; Z68.34 - Body mass index (BMI) 34.0-34.9, adult Is this a current diagnosis for this admission?: Yes (6) Dysfunctional uterine bleeding Is this a current diagnosis for this admission?: Yes - Time Time Spent with patient: 25-34 minutes Medications reviewed and adjusted accordingly: Yes Anticipated discharge: Home with Homehealth Within: Other - Inpatient Certification Based on my medical assessment, after consideration of the patient's comorbidities, presenting symptoms, or acuity I expect that the services needed warrant INPATIENT care.: Yes I certify that my determination is in accordance with my understanding of Medicare's requirements for reasonable and necessary INPATIENT services [42 CFR 412.3e].: Yes Medical Necessity: Significant Comorbidiites Make Outpatient Treatment Too Risky, Need Close Monitoring Due to Risk of Patient Decompensation, Need For IV Fluids, Need For Continuous Telemetry Monitoring, Need for IV Antibiotics, Risk of Complication if Not Cared For in Hospital, Risk of Diagnosis Which Will Require Inpatient Eval/Care/Monitoring Post Hospital Care: D/C Basic Sciences Professor Documentation - Plan Summary Plan Summary: Continue current medication management. Follow up on PLODDER OPERATOR consultation request. Start on Benzonatate 100 mg p.o tid prn for coughing. Start on Azelastine 0.05% oph. solution 1 gtt / eye bid
[2018-11-19] MEDS: BENZONATATE 100 MG CAPSULE PO PRN (19:52)
[2018-11-19] MEDS: OLOPATADINE HCL 0.1% OPH SOLN 5 ML OU SCH (22:50)
[2018-11-20] MEDS: ACETAMINOPHEN 325 MG TABLET PO PRN (03:29)
[2018-11-20] MEDS: LEVOTHYROXINE SODIUM 0.1 MG TABLET PO SCH (05:59)
[2018-11-20] MEDS: AZTREONAM 1.5 GM in DEXTROSE 5%-WATER 100 ML IV SCH ×3 (05:59→22:40)
[2018-11-20] MEDS: IPRATROPIUM/ALBUTEROL 0.5-2.5 MG/3 ML AMPUL NEB PRN ×2 (06:25→19:38)
[2018-11-20] MEDS: ENOXAPARIN SODIUM INJ 30 MG/0.3 ML DISP.SYRIN SUBCUT SCH (09:46)
[2018-11-20] MEDS: TRIAMTERENE/HYDROCHLOROTHIAZIDE 37.5-25 MG TABLET PO SCH (09:49)
[2018-11-20] MEDS: OLOPATADINE HCL 0.1% OPH SOLN 5 ML OU SCH (09:49)
[2018-11-20] MEDS: ALLOPURINOL 100 MG TABLET PO SCH (09:49)
--- NOTE | 2018-11-20 12:48 | PDOC PROGRESS REPORT ---
Subjective Progress Note for:: 11/20/18 Subjective:: No chest pain or difficulty with breathing. No fever or chills. No nausea, vomiting, or abdominal pain. Her urine continue to demonstrate brownish discoloration from uterine bleeding. Reason For Visit: UTI,SEPSIS Physical Exam Vital Signs: Temp Pulse Resp BP Pulse Ox 98.3 F 64 16 141/54 H 96 11/20/18 11:48 11/20/18 11:48 11/20/18 11:48 11/20/18 11:48 11/20/18 11:48 Intake & Output 11/19/18 11/20/18 11/21/18 06:59 06:59 06:59 Intake Total 1010 860 Output Total 4000 1200 Balance -2990 -340 Weight 94 kg 94.3 kg Physical Exam: General appearance: PRESENT: no acute distress, obese Head exam: PRESENT: atraumatic, normocephalic Eye exam: PRESENT: conjunctiva pink ABSENT: pallor, scleral icterus Ear exam: PRESENT: normal external ear exam Mouth exam: PRESENT: moist Respiratory exam: PRESENT: clear to auscultation erlinda Cardiovascular exam: PRESENT: RRR. ABSENT: diastolic murmur, rubs, systolic mur mur GI/Abdominal exam: PRESENT: normal bowel sounds, soft. ABSENT: distended, guarding, mass, organomegaly, rebound, tenderness Musculoskeletal exam: ABSENT: tenderness Neurological exam: PRESENT: alert, awake, oriented to person, oriented to place, oriented to time, oriented to situation, CN II-XII grossly intact. ABSENT: motor sensory deficit Skin exam: PRESENT: dry, warm Results Laboratory Results: 11/18/18 04:56 11/18/18 04:56 11/12/18 11/12/18 11/12/18 13:54 13:54 21:14 Creatine Kinase 28 L 29 L CK-MB (CK-2) 0.80 Troponin I 0.015 11/12/18 11/13/18 11/13/18 21:14 05:42 05:42 Creatine Kinase 22 L CK-MB (CK-2) 1.14 0.88 Troponin I < 0.012 < 0.012 Impressions: Chest X-Ray 11/12/18 00:43 IMPRESSION: No evidence of acute cardiopulmonary disease. Assessment & Plan - Diagnosis (1) Acute UTI Is this a current diagnosis for this admission?: Yes (2) HTN (hypertension) Qualifiers: Hypertension type: essential hypertension Qualified Code(s): I10 - Essential (primary) hypertension Is this a current diagnosis for this admission?: Yes (3) HLD (hyperlipidemia) Qualifiers: Hyperlipidemia type: unspecified Qualified Code(s): E78.5 - Hyperlipidemia, unspecified Is this a current diagnosis for this admission?: Yes (4) Hypothyroidism Qualifiers: Hypothyroidism type: acquired Qualified Code(s): E03.9 - Hypothyroidism, un specified Is this a current diagnosis for this admission?: Yes (5) Obesity (BMI 30-39.9) Qualifiers: Obesity type: due to excess calories Obesity classification: adult class 1 (BMI 30 - 34.9) Serious obesity comorbidity presence: with serious comorbidity Body mass index: BMI 34.0-34.9 Qualified Code(s): E66.09 - Other obesity due to excess calories; Z68.34 - Body mass index (BMI) 34.0-34.9, adult Is this a current diagnosis for this admission?: Yes (6) Dysfunctional uterine bleeding Is this a current diagnosis for this admission?: Yes - Time Time Spent with patient: 25-34 minutes Medications reviewed and adjusted accordingly: Yes Anticipated discharge: Home with Homehealth Within: Other - Inpatient Certification Based on my medical assessment, after consideration of the patient's comorbidities, presenting symptoms, or acuity I expect that the services needed warrant INPATIENT care.: Yes I certify that my determination is in accordance with my understanding of Medic are's requirements for reasonable and necessary INPATIENT services [42 CFR 412.3e].: Yes Medical Necessity: Significant Comorbidiites Make Outpatient Treatment Too Risky, Need Close Monitoring Due to Risk of Patient Decompensation, Need For IV Fluids, Need For Continuous Telemetry Monitoring, Need for IV Antibiotics, Risk of Complication if Not Cared For in Hospital, Risk of Diagnosis Which Will Require Inpatient Eval/Care/Monitoring Post Hospital Care: 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 Follow up on PATIENT FINANCIAL SPECIALIST consult with Dr. Thayer.
--- NOTE | 2018-11-20 22:19 | PDOC CONSULTATION ---
Consultation Consult Date: 11/20/18 Attending physician:: DEBORAH BOWLING Provider Consulted: MELINA BARR Consult reason:: post menopausal vaginal bleeding History of Present Illness Admission Date/PCP: 11/12/18 02:52 DEBORAH BOWLING Patient complains of: post menopausal vaginal bleeding History of Present Illness: STEPH WAYNE is a 88 year old female with a history of post menopausal vaginal bleeding x 2 years that the patient has been seeing Dr. Thayer at [facility] since 2017 for. The patient had an attempted endometrial biopsy in 2018 with benign results but report shows only endocervical tissue. The patient indicates that she was supposed to follow up with Dr. Thayer for a D&C to get more definitive diagnosis which she did have scheduled at one point however, she cancelled it. Earlier this year, the plan was to have a D&C once the patient obtained cardiac clearance. According to office records she has not gotten cardiac clearance as yet. She presented to ER this past weekend with COPD exacerbation and UTI sepsis. I was consulted to evaluate the large amount of vaginal bleeding that the patient is currently experiencing. She indicates that her bleeding initially started as occasional drops but that now for the past few months she has been experiencing large clots. Past Medical History Cardiac Medical History: Reports: Congestive Heart Failure, Coronary Artery Disease, DVT, Myocardial Infarction, Hyperlipidema, Hypertension Denies: Pulmonary Embolism Pulmonary Medical History: Reports: Asthma, Chronic Obstructive Pulmonary Disease (COPD), Pneumonia - x 4 times Denies: Bronchitis, Tuberculosis Neurological Medical History: Reports: Seizures - as baby Endocrine Medical History: Reports: Diabetes Mellitus Type 1, Diabetes Mellitus Type 2, Hypothyroidism GI Medical History: Reports: Hiatal Hernia Denies: Hepatitis Musculoskeltal Medical History: Reports: Arthritis, Fibromyalgia Psychiatric Medical History: Denies: Depression Social History Information Source: Patient Smoking Status: Never Smoker Electronic Cigarette use?: No Frequency of Alcohol Use: None Hx Recreational Drug Use: No Drugs: None Hx Prescription Drug Abuse: No Family History Family History: Reviewed & Not Pertinent, Hypertension Parental Family History Reviewed: Yes Children Family History Reviewed: Yes Sibling(s) Family History Reviewed.: Yes Medication/Allergy Home Medications: Hydrochlorothiazide [Hydrodiuril 25 mg Tablet] 25 mg PO DAILY 12/20/17 Levocetirizine Dihydrochloride [Xyzal] 5 mg PO DAILY 12/20/17 Levothyroxine Sodium [Synthroid] 0.1 mg PO Q6AM 12/20/17 Omeprazole 40 mg PO ACBRKFST 12/20/17 Potassium Chloride [K-Tab ER] 10 meq PO DAILY 12/20/17 Furosemide [Lasix 40 mg Tablet] 40 mg PO DAILY 08/15/18 Tramadol HCl [Ultram 50 mg Tablet] 50 mg PO Q8HP PRN #60 tablet 08/21/18 Allopurinol [Zyloprim 100 mg Tablet] 100 mg PO DAILY 11/12/18 Allergies/Adverse Reactions: Iodinated Contrast Media [Contrast] Allergy (Severe, Verified 09/16/18 11:48) Seizures ciprofloxacin [From Cipro] Allergy (Verified 09/16/18 11:48) Diarrhea, vomiting codeine [Codeine] Allergy (Verified 09/16/18 11:48) diarrhea, vomiting, convulsions diphtheria toxoid,fluid Allergy (Verified 09/16/18 11:48) Rash lansoprazole [From Prevacid] Allergy (Verified 09/16/18 11:48) rash latex [Latex] Allergy (Verified 09/16/18 11:48) ITCHY RASH levofloxacin [From Levaquin] Allergy (Verified 09/16/18 11:48) Rash, Diarrhea meloxicam Allergy (Verified 09/16/18 11:48) "symptoms of heart attack" morphine Allergy (Verified 09/16/18 11:48) Chest pain Penicillins Allergy (Verified 09/16/18 11:48) "6 days in coma" Sulfa (Sulfonamide Antibiotics) Allergy (Verified 09/16/18 11:48) Rash Tetanus Vaccines and Toxoid [Tetanus] Allergy (Verified 09/16/18 11:48) convulsions cefdinir [Cefdinir] Adverse Reaction (Intermediate, Verified 09/16/18 11:48) rash MYCINS Allergy (Uncoded 09/16/18 11:48) Physical Exam - Physical Exam Vital Signs: Temp Pulse Resp BP Pulse Ox 98.4 F 75 36 H 126/39 H 98 11/20/18 20:24 11/20/18 20:24 11/20/18 20:24 11/20/18 20:24 11/20/18 20:24 Intake & Output 11/19/18 11/20/18 11/21/18 06:59 06:59 06:59 Intake Total 1010 860 480 Output Total 4000 1200 800 Balance -1548 -340 -320 Weight 94 kg 94.3 kg General appearance: PRESENT: no acute distress, cooperative - Gynecological Exam Labia: normal Urethra: normal Introitus: normal Perineum: normal Vagina: normal, other - large amount of blood per vagina coming from cervix. Cervix is difficult to visualize due to BH and patient position on the bed. Result Laboratory Results: 11/18/18 04:56 11/18/18 04:56 11/12/18 11/12/18 11/12/18 13:54 13:54 21:14 Creatine Kinase 28 L 29 L CK-MB (CK-2) 0.80 Troponin I 0.015 11/12/18 11/13/18 11/13/18 21:14 05:42 05:42 Creatine Kinase 22 L CK-MB (CK-2) 1.14 0.88 Troponin I < 0.012 < 0.012 Impressions: Chest X-Ray 11/12/18 00:43 IMPRESSION: No evidence of acute cardiopulmonary disease. Assessment & Plan - Diagnosis (1) Acute UTI Is this a current diagnosis for this admission?: Yes (3) Dysfunctional uterine bleeding Is this a current diagnosis for this admission?: Yes (4) Sepsis Qualifiers: Sepsis type: sepsis due to unspecified organism Sepsis acute organ dysfunction status: without acute organ dysfunction Qualified Code(s): A41.9 - Sepsis, unspecified organism Is this a current diagnosis for this admission?: Yes (5) Urinary tract infection Qualifiers: Urinary tract infection type: site unspecified Hematuria presence: without hematuria Qualified Code(s): N39.0 - Urinary tract infection, site not specified Is this a current diagnosis for this admission?: Yes (6) Abdominal pain Qualifiers: Abdominal location: lower abdomen, unspecified Qualified Code(s): R10.30 - Lower abdominal pain, unspecified (7) BMI 39.0-39.9,adult Is this a current diagnosis for this admission?: Yes (8) Chest pain Qualifiers: Chest pain type: unspecified Qualified Code(s): R07.9 - Chest pain, unspecified Is this a current diagnosis for this admission?: Yes - Time Time Spent: 50 to 70 Minutes Critical Time spent with patient: 15-24 minutes Medications reviewed and adjusted accordingly: Yes Anticipated discharge: Other Within: Other - Plan Summary Plan Summary: we do need more definitive diagnosis with better evaluation of the endometrial lining. Preferably this would be done via hysteroscopy D&C in order to obtain adequate sampling however, she will need cardiac clearance. D&C can be set up as an outpatient with our office with Dr. Thayer or myself. In the meantime, a repeat sono is appropriate since her last sono was in July, and showed an endometrial stripe of 10 mm. Therefore, this will be obtained here. I would also recommend starting progesterone in order to treat the current bleeding as well as hopefully treat any endometrial hyperplasia. The patient's bleeding is concerning for the possibility of carcinoma, again supporting the need for adequate sampling of the endometrial lining. If indeed the diagnosis is endometrial hyperplasia, the progesterone can help with this. Thank you for the consult.
[2018-11-20] MEDS ORDERED: MEDROXYPROGESTERONE ACET 10 MG TABLET PO SCH (23:00)
[2018-11-20] MEDS: BENZONATATE 100 MG CAPSULE PO PRN (23:32)
[2018-11-21] MEDS ORDERED: MEDROXYPROGESTERONE ACET 10 MG TABLET ONE (01:12)
[2018-11-21] MEDS: AZTREONAM 1.5 GM in DEXTROSE 5%-WATER 100 ML IV SCH ×3 (05:13→21:02)
[2018-11-21] MEDS: LEVOTHYROXINE SODIUM 0.1 MG TABLET PO SCH (05:13)
[2018-11-21] MEDS: ALLOPURINOL 100 MG TABLET PO SCH (09:15)
[2018-11-21] MEDS: OLOPATADINE HCL 0.1% OPH SOLN 5 ML OU SCH (09:16)
[2018-11-21] MEDS: TRIAMTERENE/HYDROCHLOROTHIAZIDE 37.5-25 MG TABLET PO SCH (09:16)
[2018-11-21] MEDS: ENOXAPARIN SODIUM INJ 30 MG/0.3 ML DISP.SYRIN SUBCUT SCH (12:27)
[2018-11-21] MEDS: IPRATROPIUM/ALBUTEROL 0.5-2.5 MG/3 ML AMPUL NEB PRN (12:29)
--- NOTE | 2018-11-21 12:47 | RADIOLOGY REPORT (SQ) ---
EXAM DESCRIPTION: U/S NON-OB PELVIS W/O DOP COMPLETED DATE/TIME: 11/21/2018 12:33 pm REASON FOR STUDY: post menopausal bleeding COMPARISON: Ultrasound from 07/15/2018. TECHNIQUE: Dynamic and static grayscale images acquired of the pelvis via transabdominal approach an d recorded on PACS. Additional selected color Doppler and spectral images recorded. LIMITATIONS: Limited evaluation due to the patient's body habitus and pain during the procedure. FINDINGS: UTERUS: Suboptimal visualization of the uterus. The uterus measures approximately 7.9 x 3 .7 x 4.3 cm. ENDOMETRIAL STRIPE: Suboptimal visualization of the endometrium. The endometrial stripe measures jose miguel roximately 12.1 mm in thickness. CERVIX: Nabothian cysts that measure up to 1.1 cm in diameter. RIGHT OVARY AND DOPPLER: Unable to visualize the right ovary. LEFT OVARY AND DOPPLER: Unable to visualize the left ovary. FREE FLUID: None. OTHER: No other finding. IMPRESSION: Suboptimal transabdominal pelvic ultrasound with limited visualization of the uterus and endometrium ; as on the prior ultrasound the endometrium appears thickened and it measures approxima tely 12 mm. Differential considerations remain endometrial hyperplasia or carcinoma. TECHNICAL DOCUMENTATION: JOB ID: [id number] [employer]- All Rights Reserved Rev-07/01 Reading location - IP/workstation name: [email or web address]
--- NOTE | 2018-11-21 16:58 | PDOC PROGRESS REPORT ---
Subjective Progress Note for:: 11/21/18 Subjective:: Feeling okay today. Having vaginal bleeding still: like a light period now. Reports she "refused the Provera that Dr. Puga ordered because it is proven to cause cancer". She states she will take Prometrium but not Provera. No pain. No fever, chills, bowel or bladder complaints Reason For Visit: UTI,SEPSIS Physical Exam - Physical Exam Vital Signs: Temp Pulse Resp BP Pulse Ox 98.5 F 83 18 127/61 H 96 11/21/18 15:50 11/21/18 15:50 11/21/18 15:50 11/21/18 15:50 11/21/18 15:50 Intake & Output 11/20/18 11/21/18 11/22/18 06:59 06:59 06:59 Intake Total 860 780 Output Total 1200 2000 Balance -340 -1220 Weight 94.3 kg 94.3 kg General appearance: PRESENT: no acute distress, cooperative, well-developed, well-nourished Respiratory exam: PRESENT: clear to auscultation erlinda Cardiovascular exam: PRESENT: RRR, +S1, +S2 GI/Abdominal exam: PRESENT: normal bowel sounds, soft Neurological exam: PRESENT: alert, awake Psychiatric exam: PRESENT: appropriate affect Skin exam: PRESENT: dry, normal color, warm - Gynecological Exam Labia: normal Urethra: normal Introitus: normal Perineum: normal Vagina: normal, other - large amount of blood per vagina coming from cervix. Cervix is difficult to visualize due to BH and patient position on the bed. Result Laboratory Results: 11/18/18 04:56 11/18/18 04:56 11/12/18 11/12/18 11/12/18 13:54 13:54 21:14 Creatine Kinase 28 L 29 L CK-MB (CK-2) 0.80 Troponin I 0.015 11/12/18 11/13/18 11/13/18 21:14 05:42 05:42 Creatine Kinase 22 L CK-MB (CK-2) 1.14 0.88 Troponin I < 0.012 < 0.012 Impressions: Chest X-Ray 11/12/18 00:43 IMPRESSION: No evidence of acute cardiopulmonary disease. Pelvis Ultrasound 11/21/18 07:00 IMPRESSION: Suboptimal transabdominal pelvic ultrasound with limited visualization of the uterus and endometrium ; as on the prior ultrasound the endometrium appears thickened and it measures approximately 12 mm. Differential considerations remain endometrial hyperplasia or carcinoma. Assessment & Plan - Time Time Spent with patient: 15-24 minutes Medications reviewed and adjusted accordingly: Yes Anticipated discharge: Home - Plan Summary Plan Summary: 88 yo with 2 yr hx of postmenopause bleeding -She reports has became more constant and increased volume over last few months. Changing pad a few times daily -VSS -Discussed US from earlier today. EMS approximately 12 mm. Prior office attempt at [facility] could not obtain adequate tissue. Recommend Hysteroscopy, D&C . Patient had multiple questions but is agreeable. She was evidently scheduled for this before and had to cancel because of a conflict -Hgb stable at 14 -Spoke with Dr. Morton in cardiology who verbally stated patient cleared for this procedure and he will place note in chart. -D/t history of cervical stenosis, will give misoprostol 200mg PV tonight and repeat in am -Refusing provera, will order prometrium 200mg PO Q HS if available in our pharmacy. -Plan for hysteroscopy with D&C tomorrow as above -
--- NOTE | 2018-11-21 18:36 | PDOC PROGRESS REPORT ---
Subjective Progress Note for:: 11/21/18 Subjective:: No chest pain or difficulty with breathing. No fever or chills. No nausea, vomiting, or abdominal pain. She continue to experience light vagina bleeding. LIGHTNING ROD ERECTOR consult input appreciated. Patient is medically and cardiac lynch cleared for the proposed LIGHTNING ROD ERECTOR intervention. Reason For Visit: UTI,SEPSIS Physical Exam Vital Signs: Temp Pulse Resp BP Pulse Ox 98.2 F 60 16 130/52 H 97 11/21/18 03:55 11/21/18 07:00 11/21/18 03:55 11/21/18 03:55 11/21/18 03:55 Intake & Output 11/20/18 11/21/18 11/22/18 06:59 06:59 06:59 Intake Total 860 780 Output Total 1200 2000 Balance -340 -1220 Weight 94.3 kg 94.3 kg Physical Exam: General appearance: PRESENT: no acute distress, obese Head exam: PRESENT: atraumatic, normocephalic Eye exam: PRESENT: conjunctiva pink ABSENT: pallor, scleral icterus Ear exam: PRESENT: normal external ear exam Mouth exam: PRESENT: moist Respiratory exam: PRESENT: clear to auscultation erlinda Cardiovascular exam: PRESENT: RRR. ABSENT: diastolic murmur, rubs, systolic murmur GI/Abdominal exam: PRESENT: normal bowel sounds, soft. ABSENT: distended, guarding, mass, organomegaly, rebound, tenderness Musculoskeletal exam: ABSENT: tenderness Neurological exam: PRESENT: alert, awake, oriented to person, oriented to place, oriented to time, oriented to situation, CN II-XII grossly intact. ABSENT: motor sensory deficit Skin exam: PRESENT: dry, warm Results Laboratory Results: 11/18/18 04:56 11/18/18 04:56 11/12/18 11/12/18 11/12/18 13:54 13:54 21:14 Creatine Kinase 28 L 29 L CK-MB (CK-2) 0.80 Troponin I 0.015 11/12/18 11/13/18 11/13/18 21:14 05:42 05:42 Creatine Kinase 22 L CK-MB (CK-2) 1.14 0.88 Troponin I < 0.012 < 0.012 Impressions: Chest X-Ray 11/12/18 00:43 IMPRESSION: No evidence of acute cardiopulmonary disease. Assessment & Plan - Diagnosis (1) Acute UTI Is this a current diagnosis for this admission?: Yes (2) HTN (hypertension) Qualifiers: Hypertension type: essential hypertension Qualified Code(s): I10 - Essential (primary) hypertension Is this a current diagnosis for this admission?: Yes (3) HLD (hyperlipidemia) Qualifiers: Hyperlipidemia type: unspecified Qualified Code(s): E78.5 - Hyperlipidemia, unspecified Is this a current diagnosis for this admission?: Yes (4) Hypothyroidism Qualifiers: Hypothyroidism type: acquired Qualified Code(s): E03.9 - Hypothyroidism, unspecified Is this a current diagnosis for this admission?: Yes (5) Obesity (BMI 30-39.9) Qualifiers: Obesity type: due to excess calories Obesity classification: adult class 1 (BMI 30 - 34.9) Serious obesity comorbidity presence: with serious comorbidity Body mass index: BMI 34.0-34.9 Qualified Code(s): E66.09 - Other obesity due to excess calories; Z68.34 - Body mass index (BMI) 34.0-34.9, adult Is this a current diagnosis for this admission?: Yes (6) Dysfunctional uterine bleeding Is this a current diagnosis for this admission?: Yes - Time Time Spent with patient: 25-34 minutes Medications reviewed and adjusted accordingly: Yes Anticipated discharge: Home with Homehealth Within: Other - Inpatient Certification Based on my medical assessment, after consideration of the patient's comorbidities, presenting symptoms, or acuity I expect that the services needed warrant INPATIENT care.: Yes I certify that my determination is in accordance with my understanding of Medicare's requirements for reasonable and necessary INPATIENT services [42 CFR 412.3e].: Yes Medical Necessity: Significant Comorbidiites Make Outpatient Treatment Too Risky, Need Close Monitoring Due to Risk of Patient Decompensation, Need For IV Fluids, Need For Continuous Telemetry Monitoring, Need for IV Antibiotics, Risk of Complication if Not Cared For in Hospital, Risk of Diagnosis Which Will Require Inpatient Eval/Care/Monitoring Post Hospital Care: D/C Sfdc Consultant Documentation - Plan Summary Plan Summary: Continue current medication management.
[2018-11-21] MEDS: MISOPROSTOL 0.2 MG TABLET PV SCH (21:02)
[2018-11-21] MEDS: BENZONATATE 100 MG CAPSULE PO PRN (21:02)
[2018-11-22] MEDS: LEVOTHYROXINE SODIUM 0.1 MG TABLET PO SCH (05:51)
[2018-11-22] MEDS ORDERED: PROMETHAZINE HCL INJ 25 MG/1 ML VIAL IV PRN ×4 (07:56→13:32)
[2018-11-22] MEDS ORDERED: MEPERIDINE HCL/PF INJ 25 MG/1 ML DISP.SYRIN IV PRN ×2 (07:56→13:32)
[2018-11-22] MEDS ORDERED: FENTANYL CITRATE INJ/PF 100 MCG/2 ML AMPUL IV PRN ×6 (07:56→13:32)
[2018-11-22] MEDS ORDERED: DIPHENHYDRAMINE HCL 50 MG/ML VIAL IV PRN ×2 (07:56→13:32)
[2018-11-22] MEDS: ALLOPURINOL 100 MG TABLET PO SCH (09:58)
[2018-11-22] MEDS: TRIAMTERENE/HYDROCHLOROTHIAZIDE 37.5-25 MG TABLET PO SCH (09:58)
[2018-11-22] MEDS: ENOXAPARIN SODIUM INJ 30 MG/0.3 ML DISP.SYRIN SUBCUT SCH (09:59)
[2018-11-22] MEDS: OLOPATADINE HCL 0.1% OPH SOLN 5 ML OU SCH (10:00)
[2018-11-22] MEDS: MISOPROSTOL 0.2 MG TABLET PV SCH (10:00)
--- NOTE | 2018-11-22 10:15 | PDOC CONSULTATION ---
Consultation-Blank Consultation: CARDIOLOGY CONSULTATION by Dr. Jonna Vee on 11/22/2018. Patient seen at 10 AM on 11/22/2018. INITIAL BRIEF NOTE PRIOR TO DICTATING FULL CONSULT: The patient examined after history being taken. RECOMMENDATION: The patient will be a mild cardiac risk if the surgery is done under local and sedation. The patient will be mild to moderate cardiac risk if surgery is done under general or spinal anesthesia. Hence I will await the patient is an acceptable cardiac risk. Full consult to follow.
[2018-11-22] MEDS: IPRATROPIUM/ALBUTEROL 0.5-2.5 MG/3 ML AMPUL NEB PRN (10:21)
[2018-11-22] MEDS ORDERED: FENTANYL CITRATE INJ/PF 100 MCG/2 ML AMPUL ONE (12:24)
[2018-11-22] MEDS ORDERED: PROPOFOL INJ 200 MG/20 ML VIAL IV ONE (12:25)
[2018-11-22] MEDS ORDERED: MIDAZOLAM 2 MG/2 ML INJ ONE (12:25)
[2018-11-22] MEDS ORDERED: EPHEDRINE SULFATE INJ 50 MG/1 ML AMPULE ONE (13:04)
--- NOTE | 2018-11-22 15:21 | Operative Report ---
Operative Report DATE OF SURGERY: 11/22/18 PREOPERATIVE DIAGNOSIS: 1. Postmenopausal bleeding. 2. COPD exacerbation POSTOPERATIVE DIAGNOSIS: Same OPERATION: 1. Diagnostic hysteroscopy. 2. Dilatation and curettage SURGEON: FLACA LUCIANO ANESTHESIA: Spinal TISSUE REMOVED OR ALTERED: Endometrial curettings COMPLICATIONS: None QUANTITATIVE BLOOD LOSS: 25 INTRAOPERATIVE FINDINGS: Uterus sounded 7.5 cm; mildly thickened endometrium; no polyps noted; wide uterus which made it difficult to distend PROCEDURE: The patient was taken to the Operating Room where general anesthesia was obtained without difficulty. She was prepped and draped in the normal sterile fashion in the dorsal lithotomy position. Exam under anesthesia was performed and noted above. A speculum was placed in the vagina. The anterior cervix was grasped with a single-tooth tenaculum and the uterus sounded to 7.5 cm. Sequential dilators were then used to dilate the cervix to accommodate the hysteroscope. The hysteroscope was primed with Normal saline and then gently advanced into the uterine cavity in the usual fashion. The fundus was seen, but no the ostia. The endometrial lining was mildly thickened. Pictures were taken and the hysteroscope then removed. At this time gentle a curettage was performed until a gritty texture was noted. The hysteroscope was then reintroduced into the uterine cavity and pictures were again taken. All instruments were removed from the patient's cervix and vagina. The tenaculum site was hemostatic. Sponge, lap and instrument counts are correct 2. No perioperative antibiotics were given, as is not indicated for this procedure. The patient tolerated the procedure well and was taken to the recovery area awake and in stable condition.
[2018-11-22] MEDS: ACETAMINOPHEN 325 MG TABLET PO PRN (16:44)
--- NOTE | 2018-11-22 22:28 | PDOC PROGRESS REPORT ---
Subjective Progress Note for:: 11/22/18 Subjective:: No chest pain or difficulty with breathing. No fever or chills. No nausea or vomiting. Patient had D&C completed earlier today for postmenopausal bleeding with hyperplasia of uterine wall. She complain about lower abdominal cramping pain. Reason For Visit: UTI,SEPSIS Physical Exam Vital Signs: Temp Pulse Resp BP Pulse Ox 97.9 F 66 16 136/67 H 94 11/22/18 15:29 11/22/18 15:36 11/22/18 15:29 11/22/18 15:29 11/22/18 15:29 Intake & Output 11/21/18 11/22/18 11/23/18 06:59 06:59 06:59 Intake Total 780 350 Output Total 2000 2550 Balance -1220 -2550 350 Weight 94.3 kg 95.8 kg Physical Exam: General appearance: PRESENT: no acute distress, obese Head exam: PRESENT: atraumatic, normocephalic Eye exam: PRESENT: conjunctiva pink ABSENT: pallor, scleral icterus Ear exam: PRESENT: normal external ear exam Mouth exam: PRESENT: moist Respiratory exam: PRESENT: clear to auscultation erlinda Cardiovascular exam: PRESENT: RRR. ABSENT: diastolic murmur, rubs, systolic murmur GI/Abdominal exam: PRESENT: normal bowel sounds, soft. ABSENT: distended, guarding, mass, organomegaly, rebound, tenderness Musculoskeletal exam: ABSENT: tenderness Neurological exam: PRESENT: alert, awake, oriented to person, oriented to place, oriented to time, oriented to situation, CN II-XII grossly intact. ABSENT: motor sensory deficit Skin exam: PRESENT: dry, warm Results Laboratory Results: 11/18/18 04:56 11/18/18 04:56 11/22/18 05:59 Blood Type O NEGATIVE Antibody Screen NEGATIVE 11/12/18 11/12/18 11/12/18 13:54 13:54 21:14 Creatine Kinase 28 L 29 L CK-MB (CK-2) 0.80 Troponin I 0.015 11/12/18 11/13/18 11/13/18 21:14 05:42 05:42 Creatine Kinase 22 L CK-MB (CK-2) 1.14 0.88 Troponin I < 0.012 < 0.012 Impressions: Chest X-Ray 11/12/18 00:43 IMPRESSION: No evidence of acute cardiopulmonary disease. Pelvis Ultrasound 11/21/18 07:00 IMPRESSION: Suboptimal transabdominal pelvic ultrasound with limited visualization of the uterus and endometrium ; as on the prior ultrasound the endometrium appears thickened and it measures approximately 12 mm. Differential considerations remain endometrial hyperplasia or carcinoma. Assessment & Plan - Diagnosis (1) Acute UTI Is this a current diagnosis for this admission?: Yes (2) HTN (hypertension) Qualifiers: Hypertension type: essential hypertension Qualified Code(s): I10 - Essential (primary) hypertension Is this a current diagnosis for this admission?: Yes (3) HLD (hyperlipidemia) Qualifiers: Hyperlipidemia type: unspecified Qualified Code(s): E78.5 - Hyperlipidemia, unspecified Is this a current diagnosis for this admission?: Yes (4) Hypothyroidism Qualifiers: Hypothyroidism type: acquired Qualified Code(s): E03.9 - Hypothyroidism, unspecified Is this a current diagnosis for this admission?: Yes (5) Obesity (BMI 30-39.9) Qualifiers: Obesity type: due to excess calories Obesity classification: adult class 1 (BMI 30 - 34.9) Serious obesity comorbidity presence: with serious comorbidity Body mass index: BMI 34.0-34.9 Qualified Code(s): E66.09 - Other obesity due to excess calories; Z68.34 - Body mass index (BMI) 34.0-34.9, adult Is this a current diagnosis for this admission?: Yes (6) Dysfunctional uterine bleeding Is this a current diagnosis for this admission?: Yes - Time Time Spent with patient: 25-34 minutes Medications reviewed and adjusted accordingly: Yes Anticipated discharge: Home with Homehealth Within: Other - Inpatient Certification Based on my medical assessment, after consideration of the patient's comorbidities, presenting symptoms, or acuity I expect that the services needed warrant INPATIENT care.: Yes I certify that my determination is in accordance with my understanding of Medicare's requirements for reasonable and necessary INPATIENT services [42 CFR 412.3e].: Yes Medical Necessity: Significant Comorbidiites Make Outpatient Treatment Too Risky, Need Close Monitoring Due to Risk of Patient Decompensation, Need For Continuous Telemetry Monitoring, Need for Surgery, Risk of Complication if Not Cared For in Hospital, Risk of Diagnosis Which Will Require Inpatient Eval/Care/Monitoring Post Hospital Care: D/C Tuckpointer Documentation - Plan Summary Plan Summary: Continue current medication management. Allow K-PAD usage for lower abdominal muscle cramp management
[2018-11-22 22:56] LABS: ABSOLUTE BASOPHILS # (AUTO) 0.1 10^3/uL (0.0-0.2); ABSOLUTE EOSINOPHILS # (AUTO) 0.1 10^3/uL (0.0-0.6); ABSOLUTE MONOCYTES (AUTO) 0.4 10^3/uL (0.1-1.4); BASOPHILS % (AUTO) 0.8 % (0-2); EOSINOPHILS % (AUTO) 1.1 % (0-6); HEMATOCRIT 42.3 % (36.0-47.0); HEMOGLOBIN 14.1 g/dL (12.0-15.5); LYMPHOCYTES % (AUTO) 21.2 % (13-45); MEAN CORPUSCULAR HEMOGLOBIN 30.1 pg (27.0-33.4); MEAN CORPUSCULAR HGB CONC 33.4 g/dL (32.0-36.0); MEAN CORPUSCULAR VOLUME 90 fl (80-97); MONOCYTES % (AUTO) 4.4 % (3-13); PLATELET COUNT 273 10^3/uL (150-450); RED CELL DISTRIBUTION WIDTH 14.4 % (11.5-14.0); SEGMENTED NEUTROPHILS % (AUTO) 72.5 % (42-78); TOTAL CELLS COUNTED % (AUTO) 100 %; WHITE BLOOD COUNT 9.6 10^3/uL (4.0-10.5)
[2018-11-23] MEDS: LEVOTHYROXINE SODIUM 0.1 MG TABLET PO SCH (05:03)
[2018-11-23 05:40] LABS: ANION GAP 7 (5-19); BLOOD UREA NITROGEN 17 mg/dL (7-20); CALCIUM 9.7 mg/dL (8.4-10.2); CARBON DIOXIDE 31 mmol/L (22-30); CHLORIDE 101 mmol/L (98-107); GLUCOSE 109 mg/dL (75-110); POTASSIUM 4.3 mmol/L (3.6-5.0)
--- NOTE | 2018-11-23 07:59 | PDOC PROGRESS REPORT ---
Subjective Progress Note for:: 11/23/18 Subjective:: Patient states that she feels good. She is having no bleeding today. Patient instructed to take her Prometrium daily, not cyclically like her daughter advised. She is not cramping. She is tolerating a regular diet she is ambulating and voiding without difficulty. Reason For Visit: UTI,SEPSIS Physical Exam - Physical Exam Vital Signs: Temp Pulse Resp BP Pulse Ox 97.8 F 88 22 H 140/81 H 95 11/23/18 04:46 11/23/18 04:46 11/23/18 04:46 11/23/18 04:46 11/23/18 04:46 Intake & Output 11/22/18 11/23/18 11/24/18 06:59 06:59 06:59 Intake Total 620 Output Total 2550 Balance -2550 620 Weight 95.8 kg 95.2 kg General appearance: PRESENT: no acute distress Respiratory exam: PRESENT: clear to auscultation erlinda Cardiovascular exam: PRESENT: RRR GI/Abdominal exam: PRESENT: normal bowel sounds, soft Extremities exam: ABSENT: calf tenderness, clubbing, full ROM, joint swelling, p edal edema, tenderness, +1 edema, +2 edema, other - Gynecological Exam Labia: normal Urethra: normal Introitus: normal Perineum: normal Vagina: normal, other - No vaginal bleeding Result Laboratory Results: 11/22/18 22:40 11/23/18 04:32 11/22/18 11/22/18 11/23/18 05:59 22:40 04:32 WBC 9.6 RBC 4.70 Hgb 14.1 Hct 42.3 MCV 90 MCH 30.1 MCHC 33.4 RDW 14.4 H Plt Count 273 Seg Neutrophils % 72.5 Sodium 138.8 Potassium 4.3 Chloride 101 Carbon Dioxide 31 H Anion Gap 7 BUN 17 Creatinine 0.68 Est GFR ( Amer) > 60 Glucose 109 Calcium 9.7 Blood Type O NEGATIVE Antibody Screen NEGATIVE 11/12/18 11/12/18 11/12/18 13:54 13:54 21:14 Creatine Kinase 28 L 29 L CK-MB (CK-2) 0.80 Troponin I 0.015 11/12/18 11/13/18 11/13/18 21:14 05:42 05:42 Creatine Kinase 22 L CK-MB (CK-2) 1.14 0.88 Troponin I < 0.012 < 0.012 Impressions: Chest X-Ray 11/12/18 00:43 IMPRESSION: No evidence of acute cardiopulmonary disease. Pelvis Ultrasound 11/21/18 07:00 IMPRESSION: Suboptimal transabdominal pelvic ultrasound with limited visualization of the uterus and endometrium ; as on the prior ultrasound the endometrium appears thickened and it measures approximately 12 mm. Differential considerations remain endometrial hyperplasia or carcinoma. Assessment & Plan - Diagnosis (1) Postmenopausal bleeding Is this a current diagnosis for this admission?: Yes (2) BMI 39.0-39.9,adult Is this a current diagnosis for this admission?: Yes - Time Time Spent with patient: 15-24 minutes Within: within 48 hours - Plan Summary Plan Summary: 1. Discharge home per hospitalist 2. Follow-up at [facility] in 2 weeks 3. Take Prometrium 200 mg once daily, until further instructed
[2018-11-23] MEDS: IPRATROPIUM/ALBUTEROL 0.5-2.5 MG/3 ML AMPUL NEB PRN (09:27)
[2018-11-23] MEDS: ENOXAPARIN SODIUM INJ 30 MG/0.3 ML DISP.SYRIN SUBCUT SCH (09:56)
[2018-11-23] MEDS: TRIAMTERENE/HYDROCHLOROTHIAZIDE 37.5-25 MG TABLET PO SCH (10:28)
[2018-11-23] MEDS: ALLOPURINOL 100 MG TABLET PO SCH (10:29)
[2018-11-23] MEDS: OLOPATADINE HCL 0.1% OPH SOLN 5 ML OU SCH (11:33)
--- NOTE | 2018-11-23 14:06 | Progress Note ---
Provider Note Provider Note: CARDIOLOGY PROGRESS NOTE by Dr. Jonna Vee on 11/23/2018. . SUBJECTIVE: Note that the patient had D&C for postmenopausal bleeding yesterday. She complains of lower abdominal cramps. There is no chest pain or discomfort. There is no shortness of breath. There is no PND orthopnea. There is no TIA CVA symptoms. There is no arrhythmia seen on the monitor. There is no leg edema. Physical EXAMINATION: The patient is moderately obese. At present in no major distress except for complaints of cramps. Selected Entries 11/23/18 11/23/18 08:12 08:45 Temperature 99.1 F Temperature Oral Source Pulse Rate 85 Respiratory 16 Rate Respiratory Normal Effort Non-Labored Blood Pressure 125/59 L Blood Pressure 81 Mean BP Location Right Arm BP Position Sitting O2 Sat by Pulse 94 Oximetry Oxygen Delivery Room Air Method ( includes room air) General appearance: PRESENT: no acute distress, obese Head exam: PRESENT: atraumatic, normocephalic Eye exam: PRESENT: conjunctiva pink ABSENT: pallor, scleral icterus Ear exam: PRESENT: normal external ear exam Mouth exam: PRESENT: moist Respiratory exam: PRESENT: clear to auscultation erlinda Cardiovascular exam: S1-S2 is heard. S1 is of normal intensity. There is systolic murmur left sternal border and apex. There is no rub. GI/Abdominal exam: PRESENT: normal bowel sounds, soft. ABSENT: distended, guarding, mass, organomegaly, rebound, tenderness Musculoskeletal exam: ABSENT: tenderness Neurological exam: PRESENT: alert, awake, oriented to person, oriented to place, oriented to time, oriented to situation, CN II-XII grossly intact. ABSENT: motor sensory deficit Skin exam: PRESENT: dry, warm PSYCHIATRIC: The patient;s judgment and insight are intact. The patient does not appear to be agitated or depressed. She is not anxious. Labs- All tests 24 hr 11/23/18 04:32 Sodium 138.8 Potassium 4.3 Chloride 101 Carbon Dioxide 31 H Anion Gap 7 BUN 17 Creatinine 0.68 Est GFR ( Amer) > 60 Est GFR (MDRD) Non-Af > 60 Glucose 109 Calcium 9.7 Chest X-Ray 11/12/18 00:43 IMPRESSION: No evidence of acute cardiopulmonary disease. Pelvis Ultrasound 11/21/18 07:00 IMPRESSION: Suboptimal transabdominal pelvic ultrasound with limited visualization of the uterus and endometrium ; as on the prior ultrasound the endometrium appears thickened and it measures approximately 12 mm. Differential considerations remain endometrial hyperplasia or carcinoma. IMPRESSION/RECOMMENDATION: 1. Post menopausal bleeding. Status post D&C. Appears to be stable. 2. History of coronary artery disease and history of remote myocardial infarction. This has to be a presumed diagnosis, since all the stress test subsequently at least since the last 2 to 3 years have been normal without any evidence of ischemia or VT. The patient has no anginal symptoms. 3. Hypertension: Well-controlled 4. Hypothyroidism: Continue repeat thyroid replacement. 5. Hyperlipidemia. Medications reviewed. Management plan discussed with Dr. Manning. Medical decision making is of moderate complexity. The patient status is stable. 40 minutes spent on this patient with more than 50% time spent under patient care. Will sign off and follow the patient in my office as she is a patient of mine.
--- NOTE | 2018-11-23 18:13 | PDOC PROGRESS REPORT ---
Subjective Progress Note for:: 11/23/18 Subjective:: No chest pain or difficulty with breathing. No fever or chills. No abdominal pain, nausea or vomiting. Reason For Visit: UTI,SEPSIS Physical Exam Vital Signs: Temp Pulse Resp BP Pulse Ox 97.7 F 72 18 135/72 H 95 11/23/18 15:56 11/23/18 15:56 11/23/18 15:56 11/23/18 15:56 11/23/18 15:56 Intake & Output 11/22/18 11/23/18 11/24/18 06:59 06:59 06:59 Intake Total 620 Output Total 2550 Balance -2550 620 Weight 95.8 kg 95.2 kg Physical Exam: General appearance: PRESENT: no acute distress, obese Head exam: PRESENT: atraumatic, normocephalic Eye exam: PRESENT: conjunctiva pink ABSENT: pallor, scleral icterus Ear exam: PRESENT: normal external ear exam Mouth exam: PRESENT: moist Respiratory exam: PRESENT: clear to auscultation erlinda Cardiovascular exam: PRESENT: RRR. ABSENT: diastolic murmur, rubs, systolic murmur GI/Abdominal exam: PRESENT: normal bowel sounds, soft. ABSENT: distended, guarding, mass, organomegaly, rebound, tenderness Musculoskeletal exam: ABSENT: tenderness Neurological exam: PRESENT: alert, awake, oriented to person, oriented to place, oriented to time, oriented to situation, CN II-XII grossly intact. ABSENT: motor sensory deficit Skin exam: PRESENT: dry, warm Results Laboratory Results: 11/22/18 22:40 11/23/18 04:32 11/22/18 11/23/18 22:40 04:32 WBC 9.6 RBC 4.70 Hgb 14.1 Hct 42.3 MCV 90 MCH 30.1 MCHC 33.4 RDW 14.4 H Plt Count 273 Seg Neutrophils % 72.5 Sodium 138.8 Potassium 4.3 Chloride 101 Carbon Dioxide 31 H Anion Gap 7 BUN 17 Creatinine 0.68 Est GFR ( Amer) > 60 Glucose 109 Calcium 9.7 11/12/18 11/12/18 11/12/18 13:54 13:54 21:14 Creatine Kinase 28 L 29 L CK-MB (CK-2) 0.80 Troponin I 0.015 11/12/18 11/13/18 11/13/18 21:14 05:42 05:42 Creatine Kinase 22 L CK-MB (CK-2) 1.14 0.88 Troponin I < 0.012 < 0.012 Impressions: Chest X-Ray 11/12/18 00:43 IMPRESSION: No evidence of acute cardiopulmonary disease. Pelvis Ultrasound 11/21/18 07:00 IMPRESSION: Suboptimal transabdominal pelvic ultrasound with limited visualization of the uterus and endometrium ; as on the prior ultrasound the en dometrium appears thickened and it measures approximately 12 mm. Differential considerations remain endometrial hyperplasia or carcinoma. Assessment & Plan - Diagnosis (1) Acute UTI Is this a current diagnosis for this admission?: Yes (2) HTN (hypertension) Qualifiers: Hypertension type: essential hypertension Qualified Code(s): I10 - Essen tial (primary) hypertension Is this a current diagnosis for this admission?: Yes (3) HLD (hyperlipidemia) Qualifiers: Hyperlipidemia type: unspecified Qualified Code(s): E78.5 - Hyperlipidemia, unspecified Is this a current diagnosis for this admission?: Yes (4) Hypothyroidism Qualifiers: Hypothyroidism type: acquired Qualified Code(s): E03.9 - Hypothyroidism, unspecified Is this a current diagnosis for this admission?: Yes (5) Obesity (BMI 30-39.9) Qualifiers: Obesity type: due to excess calories Obesity classification: adult class 1 (BMI 30 - 34.9) Serious obesity comorbidity presence: with serious comorbidity Body mass index: BMI 34.0-34.9 Qualified Code(s): E66.09 - Other obesity due to excess calories; Z68.34 - Body mass index (BMI) 34.0-34.9, adult Is this a current diagnosis for this admission?: Yes (6) Dysfunctional uterine bleeding Is this a current diagnosis for this admission?: Yes - Time Time Spent with patient: 25-34 minutes Medications reviewed and adjusted accordingly: Yes Anticipated discharge: Home with Homehealth Within: Other - Inpatient Certification Based on my medical assessment, after consideration of the patient's comorbidities, presenting symptoms, or acuity I expect that the services needed warrant INPATIENT care.: Yes I certify that my determination is in accordance with my understanding of Medicare's requirements for reasonable and necessary INPATIENT services [42 CFR 412.3e].: Yes Medical Necessity: Significant Comorbidiites Make Outpatient Treatment Too Risky, Need Close Monitoring Due to Risk of Patient Decompensation, Need For Continuous Telemetry Monitoring, Risk of Complication if Not Cared For in Hospital, Risk of Diagnosis Which Will Require Inpatient Eval/Care/Monitoring Post Hospital Care: D/C Picture Painter Documentation - Plan Summary Plan Summary: Continue current medication management. Possible d/c home tomorrow.
[2018-11-23] MEDS ORDERED: PROGESTERONE,MICRONIZED 100 MG CAPSULE PO SCH (22:00)
[2018-11-24] MEDS: LEVOTHYROXINE SODIUM 0.1 MG TABLET PO SCH (05:27)
[2018-11-24] MEDS: ALLOPURINOL 100 MG TABLET PO SCH (10:25)
[2018-11-24] MEDS: ENOXAPARIN SODIUM INJ 30 MG/0.3 ML DISP.SYRIN SUBCUT SCH (10:25)
[2018-11-24] MEDS: OLOPATADINE HCL 0.1% OPH SOLN 5 ML OU SCH (10:26)
[2018-11-24] MEDS: TRIAMTERENE/HYDROCHLOROTHIAZIDE 37.5-25 MG TABLET PO SCH (10:26)
--- NOTE | 2018-11-24 15:29 | PDOC PROGRESS REPORT ---
Subjective Progress Note for:: 11/24/18 Subjective:: path report reviewed and results obtained. Reason For Visit: UTI,SEPSIS Physical Exam - Physical Exam Vital Signs: Temp Pulse Resp BP Pulse Ox 98.1 F 68 16 116/42 L 95 11/24/18 11:29 11/24/18 14:10 11/24/18 14:10 11/24/18 11:29 11/24/18 14:10 Intake & Output 11/23/18 11/24/18 11/25/18 06:59 06:59 06:59 Intake Total 620 336 Balance 620 336 Weight 95.2 kg 95.4 kg - Gynecological Exam Labia: normal Urethra: normal Introitus: normal Perineum: normal Vagina: normal, other - No vaginal bleeding Result Laboratory Results: 11/22/18 22:40 11/23/18 04:32 11/12/18 11/12/18 11/12/18 13:54 13:54 21:14 Creatine Kinase 28 L 29 L CK-MB (CK-2) 0.80 Troponin I 0.015 11/12/18 11/13/18 11/13/18 21:14 05:42 05:42 Creatine Kinase 22 L CK-MB (CK-2) 1.14 0.88 Troponin I < 0.012 < 0.012 Impressions: Chest X-Ray 11/12/18 00:43 IMPRESSION: No evidence of acute cardiopulmonary disease. Pelvis Ultrasound 11/21/18 07:00 IMPRESSION: Suboptimal transabdominal pelvic ultrasound with limited visualization of the uterus and endometrium ; as on the prior ultrasound the endometrium appears thickened and it measures approximately 12 mm. Differential considerations remain endometrial hyperplasia or carcinoma. Assessment & Plan - Diagnosis (1) Adenocarcinoma of endometrium, stage 1 Is this a current diagnosis for this admission?: Yes Plan: Dx via sample from D&C due to PMB. Reviewed with patient and . Reviewed with daughter on the phone. Gave [facility] recommendations and Dr. Rich made patient appt for tuesday. Would be fine to continue prometrium until f/u with [facility] as it may keep uterine bleeding at a minimum until a more definitive treatment course can be accomplished. (2) Postmenopausal bleeding Is this a current diagnosis for this admission?: Yes Plan: s/p D&C. See above. 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 Rich
--- NOTE | 2018-11-24 15:34 | PDOC DISCHARGE SUMMARY ---
Impression - Admit/DC Date/PCP Admission Date/Primary Care Provider: 11/12/18 02:52 DEBORAH BOWLING Discharge Date: 11/24/18 - Discharge Diagnosis (1) Acute UTI Is this a current diagnosis for this admission?: Yes (2) HTN (hypertension) Is this a current diagnosis for this admission?: Yes (3) HLD (hyperlipidemia) Is this a current diagnosis for this admission?: Yes (4) Hypothyroidism Is this a current diagnosis for this admission?: Yes (5) Obesity (BMI 30-39.9) Is this a current diagnosis for this admission?: Yes (6) Dysfunctional uterine bleeding Is this a current diagnosis for this admission?: Yes (7) Adenocarcinoma of endometrium, stage 1 Is this a current diagnosis for this admission?: Yes - Additional Information Resuscitation Status: Full Code Referrals: DEBORAH BOWLING MD [Primary Care Provider] - 11/30/18 10:00 am KYLRE HENRIQUEZ MD [[facility] MD] - 11/28/18 10:00 am Prescriptions: Triamterene/Hydrochlorothiazid [Maxzide-25 Tablet] 1 tab PO DAILY #30 tablet Olopatadine HCl [Patanol 0.1% Oph Soln 5 ml] 1 drop OU DAILY #1 bottle Benzonatate [Tessalon Perles 100 mg Capsule] 100 mg PO Q8HP PRN #60 capsule PRN Reason: Lidocaine HCl [Xylocaine 2% Jelly 5 ml Tube] 5 ml TOP Q4HP PRN #30 jel PRN Reason: Home Medications: Levocetirizine Dihydrochloride [Xyzal] 5 mg PO DAILY 12/20/17 Levothyroxine Sodium [Synthroid] 0.1 mg PO Q6AM 12/20/17 Omeprazole 40 mg PO ACBRKFST 12/20/17 Tramadol HCl [Ultram 50 mg Tablet] 50 mg PO Q8HP PRN #60 tablet 08/21/18 Allopurinol [Zyloprim 100 mg Tablet] 100 mg PO DAILY 11/12/18 Benzonatate [Tessalon Perles 100 mg Capsule] 100 mg PO Q8HP PRN #60 capsule 11/24/18 Lidocaine HCl [Xylocaine 2% Jelly 5 ml Tube] 5 ml TOP Q4HP PRN #30 jel 11/24/18 Olopatadine HCl [Patanol 0.1% Oph Soln 5 ml] 1 drop OU DAILY #1 bottle 11/24/18 Progesterone,Micronized [Prometrium 100 mg Capsule] 200 mg PO QHS capsule 11/24/18 Triamterene/Hydrochlorothiazid [Maxzide-25 Tablet] 1 tab PO DAILY #30 tablet 11/24/18 History of Present Illiness History of Present Illness: STEPH WAYNE is a 88 year old female,She came to the emergency room for evaluation of cough, chest pressure, she was in the emergency room a day earlier, specifically, yesterday when she presented to the emergency room for evaluation of urinary symptoms, dysuria, frequency, abdominal discomfort, she was diagnosed with urinary tract infection she was prescribed Macrobid and Pyridium and discharge home appropriately. She came back to the emergency room late last night because she said when she took the Macrobid and Pyridium the medication provoked coughing and chest pressure, she has a long history of antibiotic allergy, she stated that previously whenever she has UTI she typically receive IV antibiotic.. The chest x-ray that was done in the emergency room did not demonstrate any consolidation or infiltrate to suggest pneumonia, she was not overly wheezing to suggest bronchospasm, as symptoms she manifested did not suggest any allergy related respiratory symptoms. The emergency room she was found to have leukocytosis WBC was 20,000, there was also associated lactic acidosis this suggest early sepsis probably from UTI. The ED providers felt that patient needed to be admitted to be managed in the hospital setting for sepsis due to UTI.I saw her on the floor this morning, she is alert, she complain of generalized body aches she says she feels cold, the oral temperature was 100 degrees Hospital Course Hospital Course: Patient was admitted with concern for possible urosepsis. She was managed with IV fluid and IV Aztreonam coverage with satisfactory response. Her urine culture did grew mixed urogenital antonio with no growth from repeat as well and he her blood culture. It was decided that her infection is mainly UTI unknown bacteria. Her hospitalization was further complicated with onset of brownish discolored urine efflux and in view of her history related to intermittent vaginal bleeding , she was seen in consultation by the gynecology team. She was eventually taken to the operating room on 11/22/2018 for dilatation and curettage. Her specimen pathology revealed endometrial adenocarcinoma, FIGO stage 1. Dr. Galindo and myself had extensive discussion with patient and spouse at bedside about the newly diagnosed cancer. It was decided to make referral to oncologist at [facility], [place] for further evaluation and management. I discussed case with Dr. Morrison, oncologist, and she will consult with patient on 11/28/2018 at 10:00 am. She will be discharged home today with appropriate instruction and written contact information about her post discharge care. She will follow up with me in the office as instructed upon discharge. Physical Exam Vital Signs: Temp Pulse Resp BP Pulse Ox 98.1 F 68 16 116/42 L 95 11/24/18 11:29 11/24/18 14:10 11/24/18 14:10 11/24/18 11:29 11/24/18 14:10 Intake & Output 11/23/18 11/24/18 11/25/18 06:59 06:59 06:59 Intake Total 620 336 Balance 620 336 Weight 95.2 kg 95.4 kg General appearance: PRESENT: no acute distress, obese Head exam: PRESENT: atraumatic, normocephalic Eye exam: PRESENT: conjunctiva pink ABSENT: pallor, scleral icterus Ear exam: PRESENT: normal external ear exam Mouth exam: PRESENT: moist Respiratory exam: PRESENT: clear to auscultation erlinda Cardiovascular exam: PRESENT: RRR. ABSENT: diastolic murmur, rubs, systolic murmur GI/Abdominal exam: PRESENT: normal bowel sounds, soft. ABSENT: distended, guarding, mass, organomegaly, rebound, tenderness Musculoskeletal exam: ABSENT: tenderness Neurological exam: PRESENT: alert, awake, oriented to person, oriented to place, oriented to time, oriented to situation, CN II-XII grossly intact. ABSENT: motor sensory deficit Skin exam: PRESENT: dry, warm Results Laboratory Results: WBC 9.6 10^3/uL (4.0-10.5) 11/22/18 22:40 RBC 4.70 10^6/uL (3.72-5.28) 11/22/18 22:40 Hgb 14.1 g/dL (12.0-15.5) 11/22/18 22:40 Hct 42.3 % (36.0-47.0) 11/22/18 22:40 MCV 90 fl (80-97) 11/22/18 22:40 MCH 30.1 pg (27.0-33.4) 11/22/18 22:40 MCHC 33.4 g/dL (32.0-36.0) 11/22/18 22:40 RDW 14.4 % (11.5-14.0) H 11/22/18 22:40 Plt Count 273 10^3/uL (150-450) 11/22/18 22:40 Lymph % (Auto) 21.2 % (13-45) 11/22/18 22:40 Thayer % (Auto) 4.4 % (3-13) 11/22/18 22:40 Eos % (Auto) 1.1 % (0-6) 11/22/18 22:40 Baso % (Auto) 0.8 % (0-2) 11/22/18 22:40 Absolute Neuts (auto) 7.0 10^3/uL (1.7-8.2) 11/22/18 22:40 Absolute Lymphs (auto) 2.0 10^3/uL (0.5-4.7) 11/22/18 22:40 Absolute Monos (auto) 0.4 10^3/uL (0.1-1.4) 11/22/18 22:40 Absolute Eos (auto) 0.1 10^3/uL (0.0-0.6) 11/22/18 22:40 Absolute Basos (auto) 0.1 10^3/uL (0.0-0.2) 11/22/18 22:40 Total Counted 100 11/12/18 06:18 Seg Neutrophils % 72.5 % (42-78) 11/22/18 22:40 Seg Neuts % (Manual) 82 % (42-78) H 11/12/18 06:18 Band Neutrophils % 8 % (3-5) H 11/12/18 06:18 Lymphocytes % (Manual) 6 % (13-45) L 11/12/18 06:18 Atypical Lymphs % 1 % (0) 11/12/18 06:18 Monocytes % (Manual) 2 % (3-13) L 11/12/18 06:18 Eosinophils % (Manual) 0 % (0-6) 11/12/18 06:18 Basophils % (Manual) 0 % (0-2) 11/12/18 06:18 Metamyelocytes % 1 % (0) H 11/12/18 06:18 Abs Neuts (Manual) 21.0 10^3/uL (1.7-8.2) H 11/12/18 06:18 Abs Lymphs (Manual) 1.6 10^3/uL (0.5-4.7) 11/12/18 06:18 Abs Monocytes (Manual) 0.5 10^3/uL (0.1-1.4) 11/12/18 06:18 Absolute Eos (Manual) 0.0 10^3/uL (0.0-0.6) 11/12/18 06:18 Abs Basophils (Manual) 0.0 10^3/uL (0.0-0.2) 11/12/18 06:18 Platelet Estimate Cancelled 11/13/18 05:42 Platelet Comment ADEQUATE 11/12/18 06:18 Anisocytosis SLIGHT 11/12/18 06:18 RBC Morph Comment NORMO-CYTIC/CHROMIC 11/12/18 02:05 ESR 48 mm/hr (0-30) H 11/13/18 09:17 PT 12.6 SEC (11.4-15.4) 11/12/18 02:05 INR 0.94 11/12/18 02:05 APTT 27.0 SEC (23.5-35.8) 11/12/18 02:05 Sodium 138.8 mmol/L (137-145) 11/23/18 04:32 Potassium 4.3 mmol/L (3.6-5.0) 11/23/18 04:32 Chloride 101 mmol/L (98-107) 11/23/18 04:32 Carbon Dioxide 31 mmol/L (22-30) H 11/23/18 04:32 Anion Gap 7 (5-19) 11/23/18 04:32 BUN 17 mg/dL (7-20) 11/23/18 04:32 Creatinine 0.68 mg/dL (0.52-1.25) 11/23/18 04:32 Est GFR ( Amer) > 60 (>60) 11/23/18 04:32 Est GFR (MDRD) Non-Af > 60 (>60) 11/23/18 04:32 Glucose 109 mg/dL (75-110) 11/23/18 04:32 POC Glucose 80 mg/dL (70-110) 11/22/18 14:41 Hemoglobin A1c % 6.2 % (4.7-6.0) H 11/13/18 09:17 Lactic Acid 2.3 mmol/L (0.7-2.1) H 11/12/18 06:18 Calcium 9.7 mg/dL (8.4-10.2) 11/23/18 04:32 Phosphorus 3.2 mg/dL (2.5-4.5) 11/12/18 06:18 Magnesium 1.8 mg/dL (1.6-2.3) 11/13/18 19:11 Total Bilirubin 0.8 mg/dL (0.2-1.3) 11/15/18 04:09 Direct Bilirubin 0.1 mg/dL (0.0-0.4) 11/15/18 04:09 Neonat Total Bilirubin Not Reportable 11/15/18 04:09 Neonat Direct Bilirubin Not Reportable 11/15/18 04:09 Neonat Indirect Bili Not Reportable 11/15/18 04:09 AST 15 U/L (14-36) 11/15/18 04:09 ALT 10 U/L (<35) 11/15/18 04:09 Alkaline Phosphatase 71 U/L (38-126) 11/15/18 04:09 Ammonia < 8.7 umol/L (9-33) L 11/12/18 06:18 Creatine Kinase 22 U/L (30-135) L 11/13/18 05:42 CK-MB (CK-2) 0.88 ng/mL (<4.55) 11/13/18 05:42 Troponin I < 0.012 ng/mL 11/13/18 05:42 Total Protein 6.0 g/dL (6.3-8.2) L 11/15/18 04:09 Albumin 3.5 g/dL (3.5-5.0) 11/15/18 04:09 Triglycerides 80 mg/dL (<150) 11/13/18 05:42 Cholesterol 142.88 mg/dL (0-200) 11/13/18 05:42 LDL Cholesterol Direct 67 mg/dL (<100) 11/13/18 05:42 VLDL Cholesterol 16.0 mg/dL (10-31) 11/13/18 05:42 HDL Cholesterol 50 mg/dL (>40) 11/13/18 05:42 Amylase 45 U/L (30-110) 11/12/18 06:18 Lipase 34.6 U/L (23-300) 11/12/18 06:18 TSH 2.69 uIU/mL (0.47-4.68) 11/12/18 02:05 Free T4 1.24 ng/dL (0.78-2.19) 11/12/18 02:05 Urine Color RED 11/16/18 00:24 Urine Appearance SLIGHTLY-CLOUDY 11/16/18 00:24 Urine pH 6.0 (5.0-9.0) 11/16/18 00:24 Ur Specific [place] 1.021 11/16/18 00:24 Urine Protein 100 mg/dL (NEGATIVE) H 11/16/18 00:24 Urine Glucose (UA) NEGATIVE mg/dL (NEGATIVE) 11/16/18 00:24 Urine Ketones NEGATIVE mg/dL (NEGATIVE) 11/16/18 00:24 Urine Blood LARGE (NEGATIVE) H 11/16/18 00:24 Urine Nitrite NEGATIVE (NEGATIVE) 11/16/18 00:24 Urine Bilirubin NEGATIVE (NEGATIVE) 11/16/18 00:24 Urine Urobilinogen NEGATIVE mg/dL (<2.0) 11/16/18 00:24 Ur Leukocyte Esterase TRACE (NEGATIVE) H 11/16/18 00:24 Urine WBC (Auto) 12 /HPF 11/16/18 00:24 Urine RBC (Auto) >182 /HPF 11/16/18 00:24 Urine Bacteria (Auto) TRACE /HPF 11/12/18 06:20 Squamous Epi Cells Auto 1 /HPF 11/16/18 00:24 Urine Mucus (Auto) RARE /LPF 11/16/18 00:24 Urine Ascorbic Acid NEGATIVE (NEGATIVE) 11/16/18 00:24 Urine Opiates Screen NEGATIVE 11/12/18 06:20 Urine Methadone Screen NEGATIVE 11/12/18 06:20 Ur Barbiturates Screen NEGATIVE 11/12/18 06:20 Ur Phencyclidine Scrn NEGATIVE 11/12/18 06:20 Ur Amphetamines Screen NEGATIVE 11/12/18 06:20 U Benzodiazepines Scrn NEGATIVE 11/12/18 06:20 Urine Cocaine Screen NEGATIVE 11/12/18 06:20 U Marijuana (THC) Screen NEGATIVE 11/12/18 06:20 Slides for Path Review Cancelled 11/13/18 05:42 Blood Type O NEGATIVE 11/22/18 05:59 Antibody Screen NEGATIVE 11/22/18 05:59 11/12/18 11/12/18 11/13/18 13:54 21:14 05:42 CK-MB (CK-2) 0.80 1.14 0.88 Troponin I 0.015 < 0.012 < 0.012 Impressions: Chest X-Ray 11/12/18 00:43 IMPRESSION: No evidence of acute cardiopulmonary disease. Pelvis Ultrasound 11/21/18 07:00 IMPRESSION: Suboptimal transabdominal pelvic ultrasound with limited visualization of the uterus and endometrium ; as on the prior ultrasound the endometrium appears thickened and it measures approximately 12 mm. Differential considerations remain endometrial hyperplasia or carcinoma. Plan Health Concerns: Newly diagnosed endometrial adenocarcinoma, FIGO stage 1, in need of outpatient follow up for further evaluation and management. Plan of Treatment: Follow up with Dr Morrison, oncologist, at [facility], [place], [place] on at 10:00 am. Goals: Further discussion on treatment options for her newly diagnosed endometrial adenocarcinoma. Time Spent: Greater than 30 Minutes - Care coordination and post discharge planning Stroke Is this a Stroke Patient?: No Acute Heart Failure - Is this a Heart Failure Patient?: No
[2018-11-24 17:18] VITALS: BP 147/48
--- NOTE | 2018-12-04 20:53 | Progress Note ---
Provider Note Provider Note: She did not meet sepsis criteria clinically.
== END 2018-11-24 18:22 | disposition home or self-care (01) | DRG 989 ==
LOC: ER 21:22 → EH 11-12 02:52 → 3N 11-12 05:05
PROVIDERS: ADMIT Internal Medicine; ATTEND Internal Medicine Geriatric Medicine
PROC: 0UDB8ZX Extraction of Endometrium, Via Natural or Artificial Opening Endoscopic, Diagnostic (ICD-10-PCS; principal; 2018-11-22 13:00)
PROC: 3E0234Z Introduction of Serum, Toxoid and Vaccine into Muscle, Percutaneous Approach (ICD-10-PCS; 2018-11-24)
DX: N39.0 Urinary tract infection, site not specified (principal); C54.1 Malignant neoplasm of endometrium; N93.8 Other specified abnormal uterine and vaginal bleeding; E11.42 Type 2 diabetes mellitus with diabetic polyneuropathy; I50.9 Heart failure, unspecified; I11.0 Hypertensive heart disease with heart failure; I25.10 Atherosclerotic heart disease of native coronary artery without angina pectoris; E78.00 Pure hypercholesterolemia, unspecified; J44.9 Chronic obstructive pulmonary disease, unspecified; E03.9 Hypothyroidism, unspecified; M79.7 Fibromyalgia; E66.9 Obesity, unspecified; I25.2 Old myocardial infarction; Z88.5 Allergy status to narcotic agent; Z88.0 Allergy status to penicillin; Z88.2 Allergy status to sulfonamides; Z88.7 Allergy status to serum and vaccine; Z88.8 Allergy status to other drugs, medicaments and biological substances; Z88.1 Allergy status to other antibiotic agents; Z91.041 Radiographic dye allergy status; Z91.040 Latex allergy status; Z23 Encounter for immunization; Z86.718 Personal history of other venous thrombosis and embolism; Z68.34 Body mass index [BMI] 34.0-34.9, adult
CPT/HCPCS: 36415; 71046; 74176; 76856; 80048; 80053; 80061; 80076; 80307; 81001; 82140; 82150; 82550; 82553; 82962; 83036; 83605; 83690; 83735; 84100; 84439; 84443; 84484; 85025; 85610; 85652; 85730; 86850; 86900; 86901; 87040; 87086; 87088; 87186; 88305; 90686; 94640; 952; 96365; 99285; J1650; J2250; J2704; J3010; J3490; J7030; J7060; J7120; J7620

== ENCOUNTER 2018-11-25 19:27 | Inpatient (IN) | payer MEDICARE, OTHER ==
--- NOTE | 2018-11-25 20:31 | ER Document Report ---
ED General - General Chief Complaint: Flank Pain Stated Complaint: SHORTNESS OF BREATH Time Seen by Provider: 11/25/18 20:19 Notes: Patient is a 88-year-old female that comes emergency department for complaints of chills, painful urination, generalized abdominal pain in the lower abdomen "like there was a dog gnawing on my bladder", pain in the "right lung" with cough for the past couple of days. She states she is coughing up white sputum and she coughed so hard she vomited earlier. She also reports chills and a temperature of 100 F earlier. Patient also reports a history of UTIs and sepsis. In addition to this patient states she had a D&C here about 5 days ago and they told her she had stage I uterine cancer. She has a follow-up appointment in [place] next week. Past medical history also includes insulin-dependent diabetes, COPD, CHF, CAD. TRAVEL OUTSIDE OF THE [place] IN LAST 30 DAYS: Yes - Related Data Allergies/Adverse Reactions: Iodinated Contrast Media [Contrast] Allergy (Severe, Verified 09/16/18 11:48) Seizures ciprofloxacin [From Cipro] Allergy (Verified 09/16/18 11:48) Diarrhea, vomiting codeine [Codeine] Allergy (Verified 09/16/18 11:48) diarrhea, vomiting, convulsions diphtheria toxoid,fluid Allergy (Verified 09/16/18 11:48) Rash lansoprazole [From Prevacid] Allergy (Verified 09/16/18 11:48) rash latex [Latex] Allergy (Verified 09/16/18 11:48) ITCHY RASH levofloxacin [From Levaquin] Allergy (Verified 09/16/18 11:48) Rash, Diarrhea meloxicam Allergy (Verified 09/16/18 11:48) "symptoms of heart attack" morphine Allergy (Verified 09/16/18 11:48) Chest pain Penicillins Allergy (Verified 09/16/18 11:48) "6 days in coma" Sulfa (Sulfonamide Antibiotics) Allergy (Verified 09/16/18 11:48) Rash Tetanus Vaccines and Toxoid [Tetanus] Allergy (Verified 09/16/18 11:48) convulsions cefdinir [Cefdinir] Adverse Reaction (Intermediate, Verified 09/16/18 11:48) rash MYCINS Allergy (Uncoded 09/16/18 11:48) Past Medical History - General Information source: Patient, Relative - Social History Smoking Status: Never Smoker Frequency of alcohol use: None Drug Abuse: None Lives with: Family Family History: Reviewed & Not Pertinent, Hypertension Patient has suicidal ideation: No Patient has homicidal ideation: No - Past Medical History Cardiac Medical History: Reports: Hx Congestive Heart Failure, Hx Coronary Artery Disease, Hx DVT, Hx Heart Attack, Hx Hypercholesterolemia, Hx Hypertension Denies: Hx Pulmonary Embolism Pulmonary Medical History: Reports: Hx Asthma, Hx COPD, Hx Pneumonia - x 4 times Denies: Hx Bronchitis, Hx Tuberculosis Neurological Medical History: Reports: Hx Seizures - as baby. Denies: Hx Cerebrovascular Accident Endocrine Medical History: Reports: Hx Diabetes Mellitus Type 2, Hx Hypothyroidism Renal/ Medical History: Reports: Hx Kidney Stones. Denies: Hx Peritoneal Dialysis GI Medical History: Reports: Hx Hiatal Hernia. Denies: Hx Hepatitis, Hx Ulcer Musculoskeletal Medical History: Reports Hx Arthritis, Reports Hx Fibromyalgia Psychiatric Medical History: Denies: Hx Depression Infectious Medical History: Denies: Hx Hepatitis Past Surgical History: Reports: Hx Appendectomy, Hx Cholecystectomy, Hx Gynecologic Surgery - Right nephrectomy, Hx Herniorrhaphy, Hx Orthopedic Surgery - L knee, Hx Tonsillectomy, Hx Tubal Ligation, Hx Urinary Tract Surgery - Bladder stone removal. Denies: Hx Cardiac Catheterization, Hx Mastectomy, Hx Open Heart Surgery, Hx Pacemaker - Immunizations Immunizations up to date: Yes Hx Diphtheria, Pertussis, Tetanus Vaccination: Yes - Allergic, "30 years ago" Hx Pneumococcal Vaccination: 11/15/15 Review of Systems - Review of Systems Constitutional: See HPI EENT: No symptoms reported Cardiovascular: No symptoms reported Respiratory: See HPI Gastrointestinal: See HPI Genitourinary: See HPI Female Genitourinary: No symptoms reported Musculoskeletal: No symptoms reported Skin: No symptoms reported Hematologic/Lymphatic: No symptoms reported Neurological/Psychological: No symptoms reported Physical Exam - Vital signs Vitals: Pulse Ox 84 L 11/25/18 19:02 - Notes Notes: GENERAL: Alert, interacts well. No acute distress. HEAD: Normocephalic, atraumatic. EYES: Pupils equal, round, and reactive to light. Extraocular movements intact. ENT: Oral mucosa moist, tongue midline. Oropharynx unremarkable. Airway patent. NECK: Full range of motion. Supple. Trachea midline. LUNGS: Frequent congested cough with a few scattered coarse breath sounds but no wheezing, rales, or rhonchi noted. No respiratory distress. Speaks in full sentences. HEART: Tachycardia, normal rhythm, no murmur ABDOMEN: Mild generalized tenderness without specific area of focal tenderness or guarding. Bowel sounds present. No rigidity. GENITOURINARY: Deferred EXTREMITIES: Moves all 4 extremities spontaneously. No edema, normal radial and dorsalis pedis pulses bilaterally. No cyanosis. BACK: no cervical, thoracic, lumbar midline tenderness. No saddle anesthesia, normal distal neurovascular exam. Moves all extremities in full range of motion. NEUROLOGICAL: Alert and oriented x3. Normal speech. Cranial nerves II through XII grossly intact. PSYCH: Normal affect, normal mood. SKIN: Warm, dry, normal turgor. No rashes or lesions noted. Course - Re-evaluation Re-evalutation: Patient had abdominal pain earlier, denies it now, has minimal generalized tenderness of the abdomen without guarding. She does have a very frequent cough, occasionally productive, few scattered coarse breath sounds. Borderline oxygen. Venous blood gas unremarkable. Chest x-ray is clear. CBC shows leukocytosis at 24,000 with elevation of neutrophils and 2% bands. Chemistry shows mild renal insufficiency, nonspecific otherwise. Lactic acid is not elevated. Urinalysis obtained and does not show obvious infection. Blood and urine cultures pending. Because of patient's reported fever, temperature of 100 F, leukocytosis at 24,000, and tachycardia I do suspect she could be septic without shock however. 11/25/18 23:43 There has been a significant delay in obtaining a CAT scan of the abdomen/pelvis because of difficulty obtaining good vascular access, patient has 2 peripheral IVs including a right AC 20-gauge one which will use which just was placed by me using the ultrasound. Patient has been covered with broad-spectrum antibiotics including vancomycin and aztreonam because patient has very many allergies. CAT scan without acute findings. Patient with no headache or nuchal rigidity, no rash. Patient her presentation is most suspected pneumonia that is not showing up on the x-ray with her persistent cough on my evaluation. I did discuss with Dr. Lagunas. No additional recommendations at this time, recommends admission to the hospitalist service with antibody coverage and pending cultures. I discussed with Dr. Rowell, on-call for patient's primary provider, patient accepted to telemetry full admission. Patient states appreciation and ag reement. - Vital Signs Vital signs: Temp Pulse Resp BP Pulse Ox 97.9 F 31 H 163/96 H 98 11/25/18 22:04 11/26/18 06:00 11/25/18 23:03 11/26/18 06:00 - Laboratory Result Diagrams: 11/25/18 20:03 11/25/18 20:03 Laboratory results interpreted by me: 11/25/18 11/25/18 11/25/18 20:03 20:03 20:03 WBC 24.0 H D Hgb 15.7 H Hct 48.1 H RDW 14.8 H Seg Neuts % (Manual) 91 H Band Neutrophils % 2 L Lymphocytes % (Manual) 3 L Abs Neuts (Manual) 22.3 H Sodium 136.9 L Carbon Dioxide 21 L BUN 21 H Glucose 141 H Calcium 10.6 H Total Bilirubin 1.4 H Urine Blood LARGE H Ur Leukocyte Esterase TRACE H Discharge - Discharge Clinical Impression: Tachycardia, Productive cough Leukocytosis Qualifiers: Leukocytosis type: unspecified Qualified Code(s): D72.829 - Elevated white blood cell count, unspecified Abdominal pain Qualifiers: Abdominal location: generalized Qualified Code(s): R10.84 - Generalized abdominal pain Condition: Stable Disposition: ADMITTED INPATIENT Admitting Provider: Sorin Manning Unit Admitted: Telemetry
[2018-11-25] MEDS ORDERED: NORMAL SALINE 500 ML IV ONE (20:34)
[2018-11-25 20:41] LABS: ALBUMIN 4.3 g/dL (3.5-5.0); ALKALINE PHOSPHATASE 83 U/L (38-126); ANION GAP 12 (5-19); ASPARTATE AMINO TRANSFERASE 26 U/L (14-36); BILIRUBIN,DIRECT 0.2 mg/dL (0.0-0.4); BILIRUBIN,TOTAL 1.4 mg/dL (0.2-1.3); BLOOD UREA NITROGEN 21 mg/dL (7-20); CALCIUM 10.6 mg/dL (8.4-10.2); CARBON DIOXIDE 21 mmol/L (22-30); CHLORIDE 104 mmol/L (98-107); GLUCOSE 141 mg/dL (75-110); POTASSIUM 4.2 mmol/L (3.6-5.0); TOTAL PROTEIN 7.3 g/dL (6.3-8.2)
[2018-11-25 20:43] LABS: HEMATOCRIT 48.1 % (36.0-47.0); HEMOGLOBIN 15.7 g/dL (12.0-15.5); MEAN CORPUSCULAR HEMOGLOBIN 30.1 pg (27.0-33.4); MEAN CORPUSCULAR HGB CONC 32.6 g/dL (32.0-36.0); MEAN CORPUSCULAR VOLUME 92 fl (80-97); RED BLOOD COUNT 5.21 10^6/uL (3.72-5.28); RED CELL DISTRIBUTION WIDTH 14.8 % (11.5-14.0)
[2018-11-25 21:03] LABS: VENOUS BLOOD BASE EXCESS 0.2 mmol/L; VENOUS BLOOD HCO3 25.1 mmol/L (20-32); VENOUS BLOOD PCO2 41.4 mmHg (35-63); VENOUS BLOOD PH 7.4 (7.30-7.42)
[2018-11-25 21:04] LABS: ABSOLUTE LYMPHOCYTES# (MANUAL) 0.7 10^3/uL (0.5-4.7); ANISOCYTOSIS SLIGHT; BAND NEUTROPHILS % (MANUAL) 2 % (3-5); BASOPHILS % (MANUAL) 0 % (0-2); EOSINOPHILS % (MANUAL) 0 % (0-6); LYMPHOCYTES % (MANUAL) 3 % (13-45); MONOCYTES % (MANUAL) 4 % (3-13); SEGMENTED NEUTROPHILS % (MAN) 91 % (42-78); TOTAL CELLS COUNTED 100
[2018-11-25 21:06] LABS: PLATELET COMMENT ADEQUATE; PLATELET COUNT 263 10^3/uL (150-450)
--- NOTE | 2018-11-25 21:32 | RADIOLOGY REPORT (SQ) ---
XR CHEST 1 VIEW EXAM DATE: 11/25/2018 8:29 PM CDT HISTORY: Cough, chills. COMPARISON: 11/12/2018 FINDINGS: The heart size is mildly enlarged. No consolidation, pleural effusion, or pneumothorax is seen. No acute bony findings. IMPRESSION: No evidence of acute cardiopulmonary disease.
[2018-11-25] MEDS ORDERED: VANCOMYCIN HCL INJ 1000 MG VIAL IV ONE (21:37)
[2018-11-25] MEDS ORDERED: AZTREONAM INJ 1 GM VIAL IV ONE (21:38)
[2018-11-25] MEDS ORDERED: NORMAL SALINE 1000 ML 1,000 ML IV ONE (21:50)
[2018-11-25 23:03] LABS: APPEARANCE,URINE SLIGHTLY-CLOUDY; BILIRUBIN,URINE NEGATIVE (NEGATIVE); COLOR,URINE YELLOW; GLUCOSE, URINE NEGATIVE (NEGATIVE); KETONES,URINE NEGATIVE (NEGATIVE); LEUKOCYTE ESTERASE,URINE TRACE (NEGATIVE); NITRITE,URINE NEGATIVE (NEGATIVE); PROTEIN,URINE NEGATIVE (NEGATIVE); URINE SPECIFIC GRAVITY 1.015; UROBILINOGEN,URINE NEGATIVE mg/dL (<2.0)
[2018-11-26] MEDS ORDERED: FENTANYL CITRATE INJ/PF 100 MCG/2 ML AMPUL IV ONE (00:03)
--- NOTE | 2018-11-26 02:12 | RADIOLOGY REPORT (SQ) ---
CT abdomen and pelvis without contrast on 11/26/2018 at 1:30 AM CLINICAL INDICATION: Generalized abdominal pain, vomiting, leukocytosis TECHNIQUE: Multiple axial images are obtained throughout the abdomen and pelvis without the administration of contrast. This exam was performed according to our departmental dose-optimization program, which includes automated exposure control, adjustment of the mA and/or kV according to patient size and/or use of iterative reconstruction technique. Total DLP is 1363.32 mGy*cm. COMPARISON: 11/11/2018 FINDINGS: Abdomen: There is minimal bibasilar atelectasis. Vascular calcifications are noted. There is mild fatty infiltration of the liver. The patient is status post cholecystectomy. There are couple of tiny nonobstructing left renal stones. There are no ureteral stones and no hydronephrosis. The unenhanced solid abdominal organs are otherwise unremarkable. There is no abdominal adenopathy. There is no free fluid or free air within the abdomen. The abdominal portion of the GI tract is unremarkable. Pelvis: There is no free fluid in the pelvis. The patient is status post sigmoid colon resection with primary anastomosis in the left pelvis. There is mild diverticulosis. The patient is status post appendectomy. The pelvic portion of the GI tract is otherwise unremarkable. Pelvic organs appear unremarkable by CT. There is no pelvic adenopathy. Degenerative changes are noted in the spine. The patient is status post vertebroplasty/kyphoplasty at L1. No acute bony abnormality is noted. IMPRESSION: 1. Left nephrolithiasis. 2. Mild diverticulosis.
[2018-11-26] MEDS ORDERED: NORMAL SALINE 1000 ML 1,000 ML IV PRN (03:53)
[2018-11-26] MEDS ORDERED: HEPARIN SOD (PORCINE) 5,000 UNIT/ML 1 ML VIAL SUBCUT ONE (04:15)
[2018-11-26 07:50] LABS: INTERNATIONAL RATION (INR) 1.05; PROTHROMBIN TIME 13.7 SEC (11.4-15.4)
[2018-11-26 07:51] LABS: PARTIAL THROMBOPLASTIN TIME 29.7 SEC (23.5-35.8)
[2018-11-26 08:02] LABS: AMYLASE 54 U/L (30-110); ANION GAP 10 (5-19); BLOOD UREA NITROGEN 18 mg/dL (7-20); CARBON DIOXIDE 26 mmol/L (22-30); CHLORIDE 102 mmol/L (98-107); GLUCOSE 116 mg/dL (75-110); PHOSPHORUS 3.3 mg/dL (2.5-4.5); POTASSIUM 4.2 mmol/L (3.6-5.0)
[2018-11-26 08:12] LABS: URINE AMPHETAMINES SCREEN NEGATIVE; URINE BARBITURATES SCREEN NEGATIVE; URINE BENZODIAZEPINES SCREEN NEGATIVE; URINE COCAINE SCREEN NEGATIVE; URINE MARIJUANA (THC) SCREEN NEGATIVE; URINE METHADONE SCREEN NEGATIVE; URINE PHENCYCLIDINE SCREEN NEGATIVE
[2018-11-26 08:25] LABS: FREE T4 (FREE THYROXINE) 0.86 ng/dL (0.78-2.19)
[2018-11-26 08:39] LABS: THYROID STIMULATING HORMONE 4.64 uIU/mL (0.47-4.68)
--- NOTE | 2018-11-26 08:40 | EKG REPORT ---
SEVERITY:- ABNORMAL ECG - SINUS TACHYCARDIA LVH WITH IVCD, LAD AND SECONDARY REPOL ABNRM : Confirmed by: Naveen Paula MD 26-Nov-2018 08:39:18
[2018-11-26] MEDS ORDERED: BENZONATATE 100 MG CAPSULE PO PRN (09:33)
[2018-11-26] MEDS ORDERED: (PENDING PHARMACY ID) (Levocetirizine Dihydrochloride [24hr Allergy Relief] 5 MG) PO SCH (10:00)
[2018-11-26] MEDS: LIDOCAINE 5% (700 MG) TRANSDERMAL ADH..PATCH TP SCH (10:57)
[2018-11-26] MEDS ORDERED: TRIAMTERENE/HYDROCHLOROTHIAZIDE 37.5-25 MG TABLET PO SCH (11:00)
[2018-11-26] MEDS ORDERED: NITROFURANTOIN MACROCRYSTAL PO SCH (12:00)
--- NOTE | 2018-11-26 13:44 | PDOC H&P ---
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 The emergency room the hemogram demonstrated severe leukocytosis the white cell count was 24,000 with a left shift. She was supposed to follow with oncology on 11/28/2018 . Past Medical History Cardiac Medical History: Reports: Congestive Heart Failure, Coronary Artery Disease, DVT, Myocardial Infarction, Hyperlipidema, Hypertension Pulmonary Medical History: Reports: Asthma, Chronic Obstructive Pulmonary Disease (COPD), Pneumonia - x 4 times Neurological Medical History: Reports: Seizures - as baby Endocrine Medical History: Reports: Diabetes Mellitus Type 2, Hypothyroidism GI Medical History: Reports: Hiatal Hernia Musculoskeltal Medical History: Reports: Arthritis, Fibromyalgia Hematology: Past Surgical History Past Surgical History: Reports: Appendectomy, Cholecystectomy, Herniorrhaphy, Orthopedic Surgery - L knee, Tonsillectomy, Tubal Ligation Social History Lives with: Family Smoking Status: Never Smoker Frequency of Alcohol Use: None Hx Recreational Drug Use: No Drugs: None Hx Prescription Drug Abuse: No Family History Family History: Reviewed & Not Pertinent, Hypertension Parental Family History Reviewed: Yes Children Family History Reviewed: Yes Sibling(s) Family History Reviewed.: Yes Medication/Allergy Home Medications: Allopurinol [Zyloprim 100 mg Tablet] 100 mg PO DAILY 11/26/18 Benzonatate [Tessalon Perle 100 mg Capsule] 100 mg PO TIDP PRN 11/26/18 Levocetirizine Dihydrochloride [Xyzal] 5 mg PO DAILY 11/26/18 Levothyroxine Sodium 100 mcg PO Q6AM 11/26/18 Nitrofurantoin Macrocrystal [Macrodantin] 100 mg PO Q6 11/26/18 Omeprazole 40 mg PO ACBRKFST 11/26/18 Progesterone, Micronized [Progesterone] 200 mg PO QHS 11/26/18 Triamterene/Hydrochlorothiazid [Maxzide-25 Tablet] 1 tab PO DAILY 11/26/18 Allergies/Adverse Reactions: Iodinated Contrast Media [Contrast] Allergy (Severe, Verified 09/16/18 11:48) Seizures ciprofloxacin [From Cipro] Allergy (Verified 09/16/18 11:48) Diarrhea, vomiting codeine [Codeine] Allergy (Verified 09/16/18 11:48) diarrhea, vomiting, convulsions diphtheria toxoid,fluid Allergy (Verified 09/16/18 11:48) Rash lansoprazole [From Prevacid] Allergy (Verified 09/16/18 11:48) rash latex [Latex] Allergy (Verified 09/16/18 11:48) ITCHY RASH levofloxacin [From Levaquin] Allergy (Verified 09/16/18 11:48) Rash, Diarrhea meloxicam Allergy (Verified 09/16/18 11:48) "symptoms of heart attack" morphine Allergy (Verified 09/16/18 11:48) Chest pain Penicillins Allergy (Verified 09/16/18 11:48) "6 days in coma" Sulfa (Sulfonamide Antibiotics) Allergy (Verified 09/16/18 11:48) Rash Tetanus Vaccines and Toxoid [Tetanus] Allergy (Verified 09/16/18 11:48) convulsions cefdinir [Cefdinir] Adverse Reaction (Intermediate, Verified 09/16/18 11:48) rash MYCINS Allergy (Uncoded 09/16/18 11:48) Review of Systems Constitutional: PRESENT: chills Eyes: ABSENT: visual disturbances Ears: ABSENT: hearing changes Cardiovascular: ABSENT: chest pain, dyspnea on exertion, edema, orthropnea, palpitations Respiratory: ABSENT: cough, hemoptysis Gastrointestinal: PRESENT: abdominal pain Genitourinary: ABSENT: dysuria, hematuria Musculoskeletal: ABSENT: joint swelling Integumentary: ABSENT: rash, wounds Neurological: ABSENT: abnormal gait, abnormal speech, confusion, dizziness, focal weakness, syncope Psychiatric: ABSENT: anxiety, depression, homidical ideation, suicidal ideation Endocrine: ABSENT: cold intolerance, heat intolerance, menstrual abnormalities, polydipsia, polyuria Hematologic/Lymphatic: ABSENT: easy bleeding, easy bruising, lymphadenopathy Physical Exam Vital Signs: Temp Pulse Resp BP Pulse Ox 98.1 F 77 17 109/49 L 97 11/26/18 11:41 11/26/18 12:24 11/26/18 11:41 11/26/18 12:24 11/26/18 12:24 Intake & Output 11/25/18 11/26/18 11/27/18 06:59 06:59 06:59 Intake Total 1500 360 Balance 1500 360 Weight 94.5 kg General appearance: PRESENT: no acute distress, well-developed, well-nourished Head exam: PRESENT: atraumatic, normocephalic Eye exam: PRESENT: conjunctiva pink, EOMI, PERRLA Ear exam: PRESENT: normal external ear exam Mouth exam: PRESENT: moist, tongue midline Neck exam: PRESENT: full ROM Respiratory exam: PRESENT: clear to auscultation erlinda Cardiovascular exam: PRESENT: RRR, +S1, +S2 Vascular exam: PRESENT: normal capillary refill GI/Abdominal exam: PRESENT: normal bowel sounds, soft Rectal exam: PRESENT: deferred Neurological exam: PRESENT: alert, CN II-XII grossly intact Psychiatric exam: PRESENT: appropriate affect, normal mood Skin exam: PRESENT: dry, intact, warm Results Laboratory Results: 11/25/18 20:03 11/26/18 07:27 11/25/18 11/25/18 11/25/18 20:03 20:03 20:03 WBC 24.0 H D RBC 5.21 Hgb 15.7 H Hct 48.1 H MCV 92 MCH 30.1 MCHC 32.6 RDW 14.8 H Plt Count 263 Seg Neutrophils % Not Reportable VBG pH VBG pCO2 VBG HCO3 VBG Base Excess Sodium 136.9 L Potassium 4.2 Chloride 104 Carbon Dioxide 21 L Anion Gap 12 BUN 21 H Creatinine 0.59 Est GFR ( Amer) > 60 Glucose 141 H Lactic Acid Calcium 10.6 H Phosphorus Magnesium Total Bilirubin 1.4 H AST 26 Alkaline Phosphatase 83 Ammonia Total Protein 7.3 Albumin 4.3 Amylase Lipase 78.2 TSH Free T4 Urine Color YELLOW Urine Appearance SLIGHTLY-CLOUDY Urine pH 6.0 Ur Specific [place] 1.015 Urine Protein NEGATIVE Urine Glucose (UA) NEGATIVE Urine Ketones NEGATIVE Urine Blood LARGE H Urine Nitrite NEGATIVE Ur Leukocyte Esterase TRACE H Urine WBC (Auto) 17 Urine RBC (Auto) >182 11/25/18 11/25/18 11/26/18 20:45 20:45 07:27 WBC RBC Hgb Hct MCV MCH MCHC RDW Plt Count Seg Neutrophils % VBG pH 7.40 VBG pCO2 41.4 VBG HCO3 25.1 VBG Base Excess 0.2 Sodium 137.8 Potassium 4.2 Chloride 102 Carbon Dioxide 26 Anion Gap 10 BUN 18 Creatinine 0.57 Est GFR ( Amer) > 60 Glucose 116 H Lactic Acid 1.6 Calcium 10.0 Phosphorus 3.3 Magnesium 2.0 Total Bilirubin AST Alkaline Phosphatase Ammonia Total Protein Albumin Amylase 54 Lipase 24.7 TSH Free T4 Urine Color Urine Appearance Urine pH Ur Specific [place] Urine Protein Urine Glucose (UA) Urine Ketones Urine Blood Urine Nitrite Ur Leukocyte Esterase Urine WBC (Auto) Urine RBC (Auto) 11/26/18 11/26/18 07:27 07:27 WBC RBC Hgb Hct MCV MCH MCHC RDW Plt Count Seg Neutrophils % VBG pH VBG pCO2 VBG HCO3 VBG Base Excess Sodium Potassium Chloride Carbon Dioxide Anion Gap BUN Creatinine Est GFR ( Amer) Glucose Lactic Acid Calcium Phosphorus Magnesium Total Bilirubin AST Alkaline Phosphatase Ammonia < 8.7 L Total Protein Albumin Amylase Lipase TSH 4.64 Free T4 0.86 Urine Color Urine Appearance Urine pH Ur Specific [place] Urine Protein Urine Glucose (UA) Urine Ketones Urine Blood Urine Nitrite Ur Leukocyte Esterase Urine WBC (Auto) Urine RBC (Auto) Impressions: Chest X-Ray 11/25/18 20:29 IMPRESSION: No evidence of acute cardiopulmonary disease. Abdomen/Pelvis CT 11/26/18 00:27 IMPRESSION: 1. Left nephrolithiasis. 2. Mild diverticulosis. Assessment & Plan - Diagnosis (1) Leukemoid reaction Is this a current diagnosis for this admission?: Yes Plan: The differential diagnosis include infection, neoplasm, the chest x-ray was negative,, the urine dipstick showed pyuria but she recently was treated with IV antibiotic for UTI (2) Malignant neoplasm of endometrium Is this a current diagnosis for this admission?: Yes
[2018-11-26 13:53] LABS: CREATINE KINASE MB 0.76 ng/mL (<4.55)
[2018-11-26 13:54] LABS: TROPONIN I < 0.012 ng/mL
[2018-11-26] MEDS: PANTOPRAZOLE SODIUM 40 MG TABLET.DR PO SCH (13:56)
[2018-11-26] MEDS: ALLOPURINOL 100 MG TABLET PO SCH (13:56)
[2018-11-26] MEDS: LEVOTHYROXINE SODIUM 0.1 MG TABLET PO SCH (13:56)
[2018-11-26] MEDS: CETIRIZINE 5 MG TABLET PO SCH (13:56)
[2018-11-26] MEDS: HEPARIN SOD (PORCINE) 5,000 UNIT/ML 1 ML VIAL SUBCUT SCH ×2 (14:58→21:53)
[2018-11-26] MEDS ORDERED: PROGESTERONE MICRONIZED PO SCH (22:00)
[2018-11-26] MEDS ORDERED: PROGESTERONE,MICRONIZED 100 MG CAPSULE PO SCH (22:00)
[2018-11-27 05:09] LABS: ABSOLUTE EOSINOPHILS # (AUTO) 0.2 10^3/uL (0.0-0.6); ABSOLUTE LYMPHOCYTES (AUTO) 1.9 10^3/uL (0.5-4.7); ABSOLUTE MONOCYTES (AUTO) 0.4 10^3/uL (0.1-1.4); ABSOLUTE NEUT (AUTO) 7.5 10^3/uL (1.7-8.2); BASOPHILS % (AUTO) 0.2 % (0-2); EOSINOPHILS % (AUTO) 2.1 % (0-6); HEMATOCRIT 37.4 % (36.0-47.0); LYMPHOCYTES % (AUTO) 18.7 % (13-45); MEAN CORPUSCULAR HEMOGLOBIN 29.9 pg (27.0-33.4); MEAN CORPUSCULAR VOLUME 90 fl (80-97); MONOCYTES % (AUTO) 4.5 % (3-13); PLATELET COUNT 234 10^3/uL (150-450); RED BLOOD COUNT 4.13 10^6/uL (3.72-5.28); RED CELL DISTRIBUTION WIDTH 14.7 % (11.5-14.0); SEGMENTED NEUTROPHILS % (AUTO) 74.5 % (42-78); TOTAL CELLS COUNTED % (AUTO) 100 %
[2018-11-27 05:22] LABS: ALBUMIN 3.2 g/dL (3.5-5.0); ALKALINE PHOSPHATASE 64 U/L (38-126); ASPARTATE AMINO TRANSFERASE 15 U/L (14-36); BILIRUBIN,DIRECT 0.2 mg/dL (0.0-0.4); BILIRUBIN,TOTAL 0.7 mg/dL (0.2-1.3); CHOLESTEROL 134.32 mg/dL (0-200); TOTAL PROTEIN 5.7 g/dL (6.3-8.2); TRIGLYCERIDES 131 mg/dL (<150)
[2018-11-27 05:27] LABS: HEMOGLOBIN 12.3 g/dL (12.0-15.5)
[2018-11-27 05:33] LABS: DIRECT LDL 52 mg/dL (<100)
[2018-11-27] MEDS: HEPARIN SOD (PORCINE) 5,000 UNIT/ML 1 ML VIAL SUBCUT SCH ×2 (05:40→14:43)
[2018-11-27] MEDS ORDERED: (PENDING PHARMACY ID) (Omeprazole [Omeprazole] 1 CAP) PO SCH (08:00)
[2018-11-27] MEDS: LEVOTHYROXINE SODIUM 0.1 MG TABLET PO SCH (08:12)
[2018-11-27] MEDS: PANTOPRAZOLE SODIUM 40 MG TABLET.DR PO SCH (08:27)
[2018-11-27] MEDS: ALLOPURINOL 100 MG TABLET PO SCH (11:02)
[2018-11-27] MEDS: LIDOCAINE 5% (700 MG) TRANSDERMAL ADH..PATCH TP SCH (11:02)
[2018-11-27] MEDS: CETIRIZINE 5 MG TABLET PO SCH (12:49)
[2018-11-27] MEDS ORDERED: ACETAMINOPHEN 325 MG TABLET PO PRN (13:54)
--- NOTE | 2018-11-27 17:52 | PDOC DISCHARGE SUMMARY ---
Impression - Admit/DC Date/PCP Admission Date/Primary Care Provider: 11/26/18 03:35 DEBORAH BOWLING Discharge Date: 11/27/18 - Discharge Diagnosis (1) Leukemoid reaction Is this a current diagnosis for this admission?: Yes (2) Adenocarcinoma of endometrium, stage 1 Is this a current diagnosis for this admission?: Yes (3) Diabetes mellitus type 2 in obese Is this a current diagnosis for this admission?: Yes (4) HTN (hypertension) Is this a current diagnosis for this admission?: Yes - Assessment Summary: Patient was admitted for possible leukemoid reaction due to her recently diagnosed endometrial cancer. She will be discharged home today to keep her schedule appointment with Dr. Morrison, gynecology oncologist, at [facility], [place] as arranged for 11/28/2018 at 10 am. She will follow up with as instructed upon discharge on 11/30/2018. - Additional Information Resuscitation Status: Full Code Referrals: DEBORAH BOWLING MD [Primary Care Provider] - 11/30/18 10:00 am KYLER HENRIQUEZ MD [NO LOCAL MD] - 11/28/18 10:00 am Home Medications: Allopurinol [Zyloprim 100 mg Tablet] 100 mg PO DAILY 11/26/18 Benzonatate [Tessalon Perle 100 mg Capsule] 100 mg PO TIDP PRN 11/26/18 Levocetirizine Dihydrochloride [Xyzal] 5 mg PO DAILY 11/26/18 Levothyroxine Sodium 100 mcg PO Q6AM 11/26/18 Nitrofurantoin Macrocrystal [Macrodantin] 100 mg PO Q6 11/26/18 Omeprazole 40 mg PO ACBRKFST 11/26/18 Progesterone, Micronized [Progesterone] 200 mg PO QHS 11/26/18 Triamterene/Hydrochlorothiazid [Maxzide-25 Tablet] 1 tab PO DAILY 11/26/18 History of Present Illiness History of Present Illness: STEPH WAYNE is a 88 year old female, she was discharged on 11/24/2018, 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 The emergency room the hemogram demonstrated severe leukocytosis the white cell count was 24,000 with a left shift. She was supposed to follow with oncology on 11/28/2018 . Hospital Course Hospital Course: Patient was managed with IV fluid and maintained on her preadmission medication with resolution of her leukocytosis. She denied any vaginal bleeding. No fever or chills. No nausea or vomiting. She reported some lower abdominal cramp pain that resolved with administration of Tylenol 650 mg x 1 dose. She will be discharged home tonight with affirmative instruction on follow up on the scheduled appointment with Dr. Morrison. She will follow up with me in the office as instructed upon discharge. Physical Exam Vital Signs: Temp Pulse Resp BP Pulse Ox 98.4 F 76 17 146/63 H 96 11/27/18 15:43 11/27/18 15:43 11/27/18 15:43 11/27/18 15:43 11/27/18 15:43 Intake & Output 11/26/18 11/27/18 11/28/18 06:59 06:59 06:59 Intake Total 1500 1320 Output Total 0 Balance 1500 1320 Weight 94.5 kg 98.8 kg General appearance: PRESENT: no acute distress, obese Head exam: PRESENT: atraumatic, normocephalic Eye exam: PRESENT: conjunctiva pink. ABSENT: scleral icterus Ear exam: PRESENT: normal external ear exam Mouth exam: PRESENT: moist Respiratory exam: PRESENT: clear to auscultation erlinda Cardiovascular exam: PRESENT: RRR. ABSENT: diastolic murmur, rubs, systolic murmur Vascular exam: ABSENT: pallor GI/Abdominal exam: PRESENT: normal bowel sounds, soft. ABSENT: distended, guarding, mass, organolmegaly, rebound, tenderness Extremities exam: ABSENT: pedal edema Neurological exam: PRESENT: alert, awake, oriented to person, oriented to place, oriented to time, oriented to situation, CN II-XII grossly intact. ABSENT: motor sensory deficit Psychiatric exam: PRESENT: appropriate affect, normal mood. ABSENT: homicidal ideation, suicidal ideation Skin exam: PRESENT: dry, warm Results Laboratory Results: WBC 10.0 10^3/uL (4.0-10.5) 11/27/18 04:44 RBC 4.13 10^6/uL (3.72-5.28) 11/27/18 04:44 Hgb 12.3 g/dL (12.0-15.5) D 11/27/18 04:44 Hct 37.4 % (36.0-47.0) 11/27/18 04:44 MCV 90 fl (80-97) 11/27/18 04:44 MCH 29.9 pg (27.0-33.4) 11/27/18 04:44 MCHC 33.0 g/dL (32.0-36.0) 11/27/18 04:44 RDW 14.7 % (11.5-14.0) H 11/27/18 04:44 Plt Count 234 10^3/uL (150-450) 11/27/18 04:44 Lymph % (Auto) 18.7 % (13-45) 11/27/18 04:44 Morrison % (Auto) 4.5 % (3-13) 11/27/18 04:44 Eos % (Auto) 2.1 % (0-6) 11/27/18 04:44 Baso % (Auto) 0.2 % (0-2) 11/27/18 04:44 Absolute Neuts (auto) 7.5 10^3/uL (1.7-8.2) 11/27/18 04:44 Absolute Lymphs (auto) 1.9 10^3/uL (0.5-4.7) 11/27/18 04:44 Absolute Monos (auto) 0.4 10^3/uL (0.1-1.4) 11/27/18 04:44 Absolute Eos (auto) 0.2 10^3/uL (0.0-0.6) 11/27/18 04:44 Absolute Basos (auto) 0.0 10^3/uL (0.0-0.2) 11/27/18 04:44 Total Counted 100 11/25/18 20:03 Seg Neutrophils % 74.5 % (42-78) 11/27/18 04:44 Seg Neuts % (Manual) 91 % (42-78) H 11/25/18 20:03 Band Neutrophils % 2 % (3-5) L 11/25/18 20:03 Lymphocytes % (Manual) 3 % (13-45) L 11/25/18 20:03 Monocytes % (Manual) 4 % (3-13) 11/25/18 20:03 Eosinophils % (Manual) 0 % (0-6) 11/25/18 20:03 Basophils % (Manual) 0 % (0-2) 11/25/18 20:03 Abs Neuts (Manual) 22.3 10^3/uL (1.7-8.2) H 11/25/18 20:03 Abs Lymphs (Manual) 0.7 10^3/uL (0.5-4.7) 11/25/18 20:03 Abs Monocytes (Manual) 1.0 10^3/uL (0.1-1.4) 11/25/18 20:03 Absolute Eos (Manual) 0.0 10^3/uL (0.0-0.6) 11/25/18 20:03 Abs Basophils (Manual) 0.0 10^3/uL (0.0-0.2) 11/25/18 20:03 Platelet Comment ADEQUATE 11/25/18 20:03 Anisocytosis SLIGHT 11/25/18 20:03 PT 13.7 SEC (11.4-15.4) 11/26/18 07:27 INR 1.05 11/26/18 07:27 APTT 29.7 SEC (23.5-35.8) 11/26/18 07:27 VBG pH 7.40 (7.30-7.42) 11/25/18 20:45 VBG pCO2 41.4 mmHg (35-63) 11/25/18 20:45 VBG HCO3 25.1 mmol/L (20-32) 11/25/18 20:45 VBG Base Excess 0.2 mmol/L 11/25/18 20:45 Sodium 137.8 mmol/L (137-145) 11/26/18 07:27 Potassium 4.2 mmol/L (3.6-5.0) 11/26/18 07:27 Chloride 102 mmol/L (98-107) 11/26/18 07:27 Carbon Dioxide 26 mmol/L (22-30) 11/26/18 07:27 Anion Gap 10 (5-19) 11/26/18 07:27 BUN 18 mg/dL (7-20) 11/26/18 07:27 Creatinine 0.57 mg/dL (0.52-1.25) 11/26/18 07:27 Est GFR ( Amer) > 60 (>60) 11/26/18 07:27 Est GFR (MDRD) Non-Af > 60 (>60) 11/26/18 07:27 Glucose 116 mg/dL (75-110) H 11/26/18 07:27 Hemoglobin A1c % 6.0 % (4.7-6.0) 11/27/18 04:44 Lactic Acid 1.6 mmol/L (0.7-2.1) 11/25/18 20:45 Calcium 10.0 mg/dL (8.4-10.2) 11/26/18 07:27 Phosphorus 3.3 mg/dL (2.5-4.5) 11/26/18 07:27 Magnesium 2.0 mg/dL (1.6-2.3) 11/26/18 07:27 Total Bilirubin 0.7 mg/dL (0.2-1.3) 11/27/18 04:44 Direct Bilirubin 0.2 mg/dL (0.0-0.4) 11/27/18 04:44 Neonat Total Bilirubin Not Reportable 11/27/18 04:44 Neonat Direct Bilirubin Not Reportable 11/27/18 04:44 Neonat Indirect Bili Not Reportable 11/27/18 04:44 AST 15 U/L (14-36) 11/27/18 04:44 ALT 11 U/L (<35) 11/27/18 04:44 Alkaline Phosphatase 64 U/L (38-126) 11/27/18 04:44 Ammonia < 8.7 umol/L (9-33) L 11/26/18 07:27 Creatine Kinase < 20 U/L (30-135) L 11/26/18 13:00 CK-MB (CK-2) 0.76 ng/mL (<4.55) 11/26/18 13:00 Troponin I < 0.012 ng/mL 11/26/18 13:00 Total Protein 5.7 g/dL (6.3-8.2) L 11/27/18 04:44 Albumin 3.2 g/dL (3.5-5.0) L 11/27/18 04:44 Triglycerides 131 mg/dL (<150) 11/27/18 04:44 Cholesterol 134.32 mg/dL (0-200) 11/27/18 04:44 LDL Cholesterol Direct 52 mg/dL (<100) 11/27/18 04:44 VLDL Cholesterol 26.0 mg/dL (10-31) 11/27/18 04:44 HDL Cholesterol 47 mg/dL (>40) 11/27/18 04:44 Amylase 54 U/L (30-110) 11/26/18 07:27 Lipase 24.7 U/L (23-300) 11/26/18 07:27 TSH 4.64 uIU/mL (0.47-4.68) 11/26/18 07:27 Free T4 0.86 ng/dL (0.78-2.19) 11/26/18 07:27 Urine Color YELLOW 11/25/18 20:03 Urine Appearance SLIGHTLY-CLOUDY 11/25/18 20:03 Urine pH 6.0 (5.0-9.0) 11/25/18 20:03 Ur Specific [place] 1.015 11/25/18 20:03 Urine Protein NEGATIVE mg/dL (NEGATIVE) 11/25/18 20:03 Urine Glucose (UA) NEGATIVE mg/dL (NEGATIVE) 11/25/18 20:03 Urine Ketones NEGATIVE mg/dL (NEGATIVE) 11/25/18 20:03 Urine Blood LARGE (NEGATIVE) H 11/25/18 20:03 Urine Nitrite NEGATIVE (NEGATIVE) 11/25/18 20:03 Urine Bilirubin NEGATIVE (NEGATIVE) 11/25/18 20:03 Urine Urobilinogen NEGATIVE mg/dL (<2.0) 11/25/18 20:03 Ur Leukocyte Esterase TRACE (NEGATIVE) H 11/25/18 20:03 Urine WBC (Auto) 17 /HPF 11/25/18 20:03 Urine RBC (Auto) >182 /HPF 11/25/18 20:03 Squamous Epi Cells Auto <1 /HPF 11/25/18 20:03 Urine Mucus (Auto) RARE /LPF 11/25/18 20:03 Urine Ascorbic Acid NEGATIVE (NEGATIVE) 11/25/18 20:03 Urine Opiates Screen NEGATIVE 11/25/18 20:03 Urine Methadone Screen NEGATIVE 11/25/18 20:03 Ur Barbiturates Screen NEGATIVE 11/25/18 20:03 Ur Phencyclidine Scrn NEGATIVE 11/25/18 20:03 Ur Amphetamines Screen NEGATIVE 11/25/18 20:03 U Benzodiazepines Scrn NEGATIVE 11/25/18 20:03 Urine Cocaine Screen NEGATIVE 11/25/18 20:03 U Marijuana (THC) Screen NEGATIVE 11/25/18 20:03 11/26/18 13:00 CK-MB (CK-2) 0.76 Troponin I < 0.012 Impressions: Chest X-Ray 11/25/18 20:29 IMPRESSION: No evidence of acute cardiopulmonary disease. Abdomen/Pelvis CT 11/26/18 00:27 IMPRESSION: 1. Left nephrolithiasis. 2. Mild diverticulosis. Plan Health Concerns: Newly diagnosed endometrial cancer FIGO stage 1. Emphasized follow up as arranged at [facility] [place] with Dr. Morrison. Plan of Treatment: Her treatment options will be discussed during her consultation with Dr. Morrison. Goals: Optimized outpatient management for her endometrial cancer. Time Spent: Greater than 30 Minutes - in care cooordination with her, spouse and family regarding arrangement to accomplish her appointment with Dr. Morrison tomorrow. Stroke Is this a Stroke Patient?: No Acute Heart Failure - Is this a Heart Failure Patient?: No
[2018-11-27 17:57] VITALS: BP 143/63
[2018-11-27] MEDS ORDERED: PHARMACY COMMUNICATION ORDER MC SCH (22:00)
== END 2018-11-27 18:12 | disposition home or self-care (01) | DRG 815 ==
LOC: ER 19:27 → EH 11-26 03:35 → 3S 11-26 07:03
PROVIDERS: ADMIT Internal Medicine; ATTEND Internal Medicine Geriatric Medicine
DX: D72.823 Leukemoid reaction (principal); N39.0 Urinary tract infection, site not specified; C54.1 Malignant neoplasm of endometrium; E11.9 Type 2 diabetes mellitus without complications; E66.9 Obesity, unspecified; I10 Essential (primary) hypertension; I25.10 Atherosclerotic heart disease of native coronary artery without angina pectoris; E78.5 Hyperlipidemia, unspecified; J44.9 Chronic obstructive pulmonary disease, unspecified; E03.9 Hypothyroidism, unspecified; I25.2 Old myocardial infarction; Z79.899 Other long term (current) drug therapy; Z86.718 Personal history of other venous thrombosis and embolism; Z88.0 Allergy status to penicillin; Z88.2 Allergy status to sulfonamides; Z88.7 Allergy status to serum and vaccine; Z88.8 Allergy status to other drugs, medicaments and biological substances; Z88.6 Allergy status to analgesic agent; Z88.1 Allergy status to other antibiotic agents; Z88.3 Allergy status to other anti-infective agents; Z91.041 Radiographic dye allergy status; Z91.040 Latex allergy status; Z90.5 Acquired absence of kidney
CPT/HCPCS: 36415; 71045; 74176; 80048; 80053; 80061; 80076; 80307; 81001; 82140; 82150; 82550; 82553; 82803; 83036; 83605; 83690; 83735; 84100; 84439; 84443; 84484; 85025; 85610; 85730; 87040; 87086; 93005; 93010; 96361; 96374; 96375; 99285; J1644; J3010; J3370; J3490; J7030; J7040

== ENCOUNTER 2018-12-04 19:03 | Emergency (ER) | payer MEDICARE, OTHER ==
--- NOTE | 2018-12-04 19:26 | ER Document Report ---
ED Medical Screen (RME) - General Chief Complaint: Urinary Problem Stated Complaint: URINARY ISSUES Time Seen by Provider: 12/04/18 19:15 Primary Care Provider: DEBORAH BOWLING MD [Primary Care Provider] - Follow up as needed Mode of Arrival: Wheelchair Information source: Patient Notes: 88-year-old female presents to ED for UTI symptoms today. She was seen 3 weeks ago and hospitalized for 15 days for UTI. She states while in this hospital she had a D&C last Tuesday. She states 3 weeks ago she came in on a Tuesday and was admitted for UTI last so on Tuesday. I know but she says that on she went to [place] so there is not a weekend there to do she is.. She states then on she went to [place] to see the specialist to do a hysterectomy and was told she needs to have preop on Tuesday and a hysterectomy in December. She states she went to see Dr. Davis today and was told that she had UTI symptoms and she needed to go to [place] today to be seen in the ED as the oncologist and [place] told her to come they have she had a more UTI symptoms. She states she called [place] and they cannot see her today and told her that she should come to the ER here. I have greeted and performed a rapid initial assessment of this patient. A comprehensive ED assessment and evaluation of the patient, analysis of test re sults and completion of medical decision making process will be conducted by an additional ED providers. TRAVEL OUTSIDE OF THE [place] IN LAST 30 DAYS: No - Related Data Allergies/Adverse Reactions: Iodinated Contrast Media [Contrast] Allergy (Severe, Verified 12/04/18 19:15) Seizures ciprofloxacin [From Cipro] Allergy (Verified 12/04/18 19:15) Diarrhea, vomiting codeine [Codeine] Allergy (Verified 12/04/18 19:15) diarrhea, vomiting, convulsions diphtheria toxoid,fluid Allergy (Verified 12/04/18 19:15) Rash lansoprazole [From Prevacid] Allergy (Verified 12/04/18 19:15) rash latex [Latex] Allergy (Verified 12/04/18 19:15) ITCHY RASH levofloxacin [From Levaquin] Allergy (Verified 12/04/18 19:15) Rash, Diarrhea meloxicam Allergy (Verified 12/04/18 19:15) "symptoms of heart attack" morphine Allergy (Verified 12/04/18 19:15) Chest pain Penicillins Allergy (Verified 12/04/18 19:15) "6 days in coma" Sulfa (Sulfonamide Antibiotics) Allergy (Verified 12/04/18 19:15) Rash Tetanus Vaccines and Toxoid [Tetanus] Allergy (Verified 12/04/18 19:15) convulsions cefdinir [Cefdinir] Adverse Reaction (Intermediate, Verified 12/04/18 19:15) rash MYCINS Allergy (Uncoded 12/04/18 19:15) Past Medical History - Past Medical History Cardiac Medical History: Reports: Hx Congestive Heart Failure, Hx Coronary Artery Disease, Hx DVT, Hx Heart Attack, Hx Hypercholesterolemia, Hx Hypertension Denies: Hx Pulmonary Embolism Pulmonary Medical History: Reports: Hx Asthma, Hx COPD, Hx Pneumonia - x 4 times Denies: Hx Bronchitis, Hx Tuberculosis Neurological Medical History: Reports: Hx Seizures - as baby. Denies: Hx Cerebrovascular Accident Endocrine Medical History: Reports: Hx Diabetes Mellitus Type 1, Hx Diabetes Mellitus Type 2, Hx Hypothyroidism Renal/ Medical History: Reports: Hx Kidney Stones. Denies: Hx Peritoneal Dialysis GI Medical History: Reports: Hx Hiatal Hernia. Denies: Hx Hepatitis, Hx Ulcer Musculoskeltal Medical History: Reports Hx Arthritis, Reports Hx Fibromyalgia Psychiatric Medical History: Denies: Hx Depression Infectious Medical History: Denies: Hx Hepatitis Past Surgical History: Reports: Hx Appendectomy, Hx Cholecystectomy, Hx Gynecologic Surgery - Right nephrectomy, Hx Herniorrhaphy, Hx Orthopedic Surgery - L knee, Hx Tonsillectomy, Hx Tubal Ligation, Hx Urinary Tract Surgery - Bladder stone removal. Denies: Hx Cardiac Catheterization, Hx Mastectomy, Hx Open Heart Surgery, Hx Pacemaker - Immunizations Immunizations up to date: Yes Hx Diphtheria, Pertussis, Tetanus Vaccination: Yes - Allergic, "30 years ago" Physical Exam - Vital signs Vitals: Temp Pulse Resp BP Pulse Ox 97.6 F 89 17 128/72 H 95 12/04/18 19:08 12/04/18 19:08 12/04/18 19:08 12/04/18 19:08 12/04/18 19:08 Course - Vital Signs Vital signs: Temp Pulse Resp BP Pulse Ox 97.6 F 89 17 128/72 H 95 12/04/18 19:08 12/04/18 19:08 12/04/18 19:08 12/04/18 19:08 12/04/18 19:08 Doctor's Discharge - Discharge Referrals: DEBORAH BOWLING MD [Primary Care Provider] - Follow up as needed
[2018-12-04 20:23] LABS: APPEARANCE,URINE SLIGHTLY-CLOUDY; BILIRUBIN,URINE NEGATIVE (NEGATIVE); COLOR,URINE YELLOW; GLUCOSE, URINE NEGATIVE (NEGATIVE); KETONES,URINE TRACE mg/dL (NEGATIVE); PROTEIN,URINE NEGATIVE (NEGATIVE); URINE SPECIFIC GRAVITY 1.019; UROBILINOGEN,URINE NEGATIVE mg/dL (<2.0)
[2018-12-04 21:28] LABS: ABSOLUTE BASOPHILS # (AUTO) 0.1 10^3/uL (0.0-0.2); ABSOLUTE EOSINOPHILS # (AUTO) 0.2 10^3/uL (0.0-0.6); ABSOLUTE LYMPHOCYTES (AUTO) 2.5 10^3/uL (0.5-4.7); ABSOLUTE MONOCYTES (AUTO) 0.4 10^3/uL (0.1-1.4); ABSOLUTE NEUT (AUTO) 5.5 10^3/uL (1.7-8.2); BASOPHILS % (AUTO) 1.2 % (0-2); EOSINOPHILS % (AUTO) 2.2 % (0-6); HEMATOCRIT 43.4 % (36.0-47.0); HEMOGLOBIN 14.5 g/dL (12.0-15.5); LYMPHOCYTES % (AUTO) 28.6 % (13-45); MEAN CORPUSCULAR HEMOGLOBIN 30.1 pg (27.0-33.4); MEAN CORPUSCULAR HGB CONC 33.3 g/dL (32.0-36.0); MEAN CORPUSCULAR VOLUME 90 fl (80-97); MONOCYTES % (AUTO) 4.7 % (3-13); PLATELET COUNT 282 10^3/uL (150-450); RED BLOOD COUNT 4.81 10^6/uL (3.72-5.28); RED CELL DISTRIBUTION WIDTH 14.7 % (11.5-14.0); SEGMENTED NEUTROPHILS % (AUTO) 63.3 % (42-78); TOTAL CELLS COUNTED % (AUTO) 100 %; WHITE BLOOD COUNT 8.6 10^3/uL (4.0-10.5)
[2018-12-04 21:53] LABS: ALBUMIN 3.9 g/dL (3.5-5.0); ALKALINE PHOSPHATASE 75 U/L (38-126); ANION GAP 11 (5-19); ASPARTATE AMINO TRANSFERASE 19 U/L (14-36); BILIRUBIN,DIRECT 0.2 mg/dL (0.0-0.4); BILIRUBIN,TOTAL 0.6 mg/dL (0.2-1.3); BLOOD UREA NITROGEN 15 mg/dL (7-20); CALCIUM 10.2 mg/dL (8.4-10.2); CARBON DIOXIDE 27 mmol/L (22-30); CHLORIDE 106 mmol/L (98-107); GLUCOSE 122 mg/dL (75-110); POTASSIUM 3.7 mmol/L (3.6-5.0); TOTAL PROTEIN 6.7 g/dL (6.3-8.2)
--- NOTE | 2018-12-04 22:50 | ER Document Report ---
ED General - General Chief Complaint: Urinary Problem Stated Complaint: URINARY ISSUES Time Seen by Provider: 12/04/18 19:15 Primary Care Provider: DEBORAH BOWLING MD [Primary Care Provider] - Follow up as needed Mode of Arrival: Wheelchair Notes: Patient is a 88-year-old female presents to the emergency department for dysuria. Patient is a patient of Dr. Chandra. States she was recently admitted to the hospital for urinary tract infection and vaginal bleeding. States she did receive the D&C last Tuesday and inevitably diagnosed with ovarian cancer, has followed up with oncology since. States today at the oncologist and they told her if should she have signs and symptoms of urinary tract infection she is to present to the emergency department. Patient's denying any nausea, vomiting, diarrhea. States she does have some generalized vaginal itching but was placed on miconazole today. Patient voices generalized dysuria, she is denying any flank or back pain. She is denying any abdominal pain. She is denying any URI symptoms or fever. TRAVEL OUTSIDE OF THE [place] IN LAST 30 DAYS: No - Related Data Allergies/Adverse Reactions: Iodinated Contrast Media [Contrast] Allergy (Severe, Verified 12/04/18 19:15) Seizures ciprofloxacin [From Cipro] Allergy (Verified 12/04/18 19:15) Diarrhea, vomiting codeine [Codeine] Allergy (Verified 12/04/18 19:15) diarrhea, vomiting, convulsions diphtheria toxoid,fluid Allergy (Verified 12/04/18 19:15) Rash lansoprazole [From Prevacid] Allergy (Verified 12/04/18 19:15) rash latex [Latex] Allergy (Verified 12/04/18 19:15) ITCHY RASH levofloxacin [From Levaquin] Allergy (Verified 12/04/18 19:15) Rash, Diarrhea meloxicam Allergy (Verified 12/04/18 19:15) "symptoms of heart attack" morphine Allergy (Verified 12/04/18 19:15) Chest pain Penicillins Allergy (Verified 12/04/18 19:15) "6 days in coma" Sulfa (Sulfonamide Antibiotics) Allergy (Verified 12/04/18 19:15) Rash Tetanus Vaccines and Toxoid [Tetanus] Allergy (Verified 12/04/18 19:15) convulsions cefdinir [Cefdinir] Adverse Reaction (Intermediate, Verified 10/21/19 19:15) rash MYCINS Allergy (Uncoded 12/04/18 19:15) Home Medications: See Med rec Past Medical History - General Information source: Patient - Social History Smoking Status: Never Smoker Chew tobacco use (# tins/day): No Frequency of alcohol use: None Drug Abuse: None Family History: Reviewed & Not Pertinent, Hypertension Patient has suicidal ideation: No Patient has homicidal ideation: No - Past Medical History Cardiac Medical History: Reports: Hx Congestive Heart Failure, Hx Coronary Artery Disease, Hx DVT, Hx Heart Attack, Hx Hypercholesterolemia, Hx Hypertension Denies: Hx Pulmonary Embolism Pulmonary Medical History: Reports: Hx Asthma, Hx COPD, Hx Pneumonia - x 4 times Denies: Hx Bronchitis, Hx Tuberculosis Neurological Medical History: Reports: Hx Seizures - as baby. Denies: Hx Cerebrovascular Accident Endocrine Medical History: Reports: Hx Diabetes Mellitus Type 1, Hx Diabetes Mellitus Type 2, Hx Hypothyroidism Renal/ Medical History: Reports: Hx Kidney Stones. Denies: Hx Peritoneal Dialysis GI Medical History: Reports: Hx Hiatal Hernia. Denies: Hx Hepatitis, Hx Ulcer Musculoskeletal Medical History: Reports Hx Arthritis, Reports Hx Fibromyalgia Psychiatric Medical History: Denies: Hx Depression Infectious Medical History: Denies: Hx Hepatitis Past Surgical History: Reports: Hx Appendectomy, Hx Cholecystectomy, Hx Gynecologic Surgery - Right nephrectomy, Hx Herniorrhaphy, Hx Orthopedic Surgery - L knee, Hx Tonsillectomy, Hx Tubal Ligation, Hx Urinary Tract Surgery - Bladder stone removal. Denies: Hx Cardiac Catheterization, Hx Mastectomy, Hx Open Heart Surgery, Hx Pacemaker - Immunizations Immunizations up to date: Yes Hx Diphtheria, Pertussis, Tetanus Vaccination: Yes - Allergic, "30 years ago" Hx Pneumococcal Vaccination: 11/15/15 Review of Systems - Review of Systems Constitutional: denies: Fever EENT: No symptoms reported Cardiovascular: No symptoms reported Respiratory: No symptoms reported Gastrointestinal: See HPI Genitourinary: See HPI Female Genitourinary: See HPI Musculoskeletal: denies: Back pain Skin: No symptoms reported Hematologic/Lymphatic: No symptoms reported Neurological/Psychological: No symptoms reported Physical Exam - Vital signs Vitals: Temp Pulse Resp BP Pulse Ox 97.6 F 89 17 128/72 H 95 12/04/18 19:08 12/04/18 19:08 12/04/18 19:08 12/04/18 19:08 12/04/18 19:08 - Notes Notes: GENERAL: Alert, interacts well. No acute distress. HEAD: Normocephalic, atraumatic. EYES: Pupils equal, round, and reactive to light. Extraocular movements intact. ENT: Oral mucosa moist, tongue midline. NECK: Full range of motion. Supple. Trachea midline. LUNGS: Clear to auscultation bilaterally, no wheezes, rales, or rhonchi. No respiratory distress. HEART: Regular rate and rhythm. No murmur ABDOMEN: Soft, non-tender. Non-distended. Bowel sounds present in all 4 quadrants. EXTREMITIES: Moves all 4 extremities spontaneously. No edema, normal radial and dorsalis pedis pulses bilaterally. No cyanosis. BACK: no cervical, thoracic, lumbar midline tenderness. No saddle anesthesia, normal distal neurovascular exam. No CVA tenderness noted bilaterally. NEUROLOGICAL: Alert and oriented x3. Normal speech. cranial nerves II through XII grossly intact. PSYCH: Normal affect, normal mood. SKIN: Warm, dry, normal turgor. No rashes or lesions noted. Course - Re-evaluation Re-evalutation: 12/04/18 22:48 Laboratory 12/04/18 12/04/18 12/04/18 20:00 21:19 21:19 WBC 8.6 RBC 4.81 Hgb 14.5 Hct 43.4 MCV 90 MCH 30.1 MCHC 33.3 RDW 14.7 H Plt Count 282 Lymph % (Auto) 28.6 [place] % (Auto) 4.7 Eos % (Auto) 2.2 Baso % (Auto) 1.2 Absolute Neuts (auto) 5.5 Absolute Lymphs (auto) 2.5 Absolute Monos (auto) 0.4 Absolute Eos (auto) 0.2 Absolute Basos (auto) 0.1 Seg Neutrophils % 63.3 Sodium 143.5 Potassium 3.7 Chloride 106 Carbon Dioxide 27 Anion Gap 11 BUN 15 Creatinine 0.72 Est GFR ( Amer) > 60 Est GFR (MDRD) Non-Af > 60 Glucose 122 H Calcium 10.2 Total Bilirubin 0.6 Direct Bilirubin 0.2 Neonat Total Bilirubin Not Reportable Neonat Direct Bilirubin Not Reportable Neonat Indirect Bili Not Reportable AST 19 ALT 15 Alkaline Phosphatase 75 Total Protein 6.7 Albumin 3.9 Urine Color YELLOW Urine Appearance SLIGHTLY-CLOUDY Urine pH 6.0 Ur Specific [place] 1.019 Urine Protein NEGATIVE Urine Glucose (UA) NEGATIVE Urine Ketones TRACE H Urine Blood MODERATE H Urine Nitrite (Reflex) NEGATIVE Urine Bilirubin NEGATIVE Urine Urobilinogen NEGATIVE Leukocyte Esterase Rfl MODERATE H Urine RBC (Auto) 12 U Hyaline Cast (Auto) 1 Urine Bacteria (Auto) TRACE Urine WBC (Reflex) 7 Squamous Epi Cells Auto 3 Urine Mucus (Auto) RARE Urine Ascorbic Acid NEGATIVE Patient's urine shows no signs of obvious infection, sent for culture. Patient voices that she has allergies to multiple antibiotics. States typically when she does have urinary tract infection she does need to be admitted to the hospital. Patient is adamant that I speak with Dr. Bowling about admitting her to the hospital. I discussed this case with patient's primary care provider Dr. Bowling who feels as though there is no need to admit the patient at this time. States he will see her in the office tomorrow morning. Urine sent for culture, no antibiotics started at this time. Patient stable for discharge. - Vital Signs Vital signs: Temp Pulse Resp BP Pulse Ox 97.6 F 89 17 128/72 H 95 12/04/18 19:08 12/04/18 19:08 12/04/18 19:08 12/04/18 19:08 12/04/18 19:08 - Laboratory Result Diagrams: 12/04/18 21:19 12/04/18 21:19 Laboratory results interpreted by me: 12/04/18 12/04/18 12/04/18 20:00 21:19 21:19 RDW 14.7 H Glucose 122 H Urine Ketones TRACE H Urine Blood MODERATE H Leukocyte Esterase Rfl MODERATE H Discharge - Discharge Clinical Impression: Dysuria Condition: Stable Disposition: HOME, SELF-CARE Additional Instructions: As we discussed you have been seen and treated in the emergency department for dysuria. These make sure you follow-up at Dr. Bowling's office tomorrow morning. Please return to the emergency room for any concerns. Referrals: DEBORAH BOWLING MD [Primary Care Provider] - Follow up as needed
[2018-12-04 23:18] VITALS: BP 150/99
== END 2018-12-04 23:18 | disposition home or self-care (01) ==
LOC: ER 19:03
DX: R30.0 Dysuria (principal); L29.9 Pruritus, unspecified; I25.10 Atherosclerotic heart disease of native coronary artery without angina pectoris; I10 Essential (primary) hypertension; J44.9 Chronic obstructive pulmonary disease, unspecified; E11.9 Type 2 diabetes mellitus without complications; Z87.440 Personal history of urinary (tract) infections; Z91.040 Latex allergy status; Z88.1 Allergy status to other antibiotic agents; Z88.5 Allergy status to narcotic agent; Z88.7 Allergy status to serum and vaccine; Z88.8 Allergy status to other drugs, medicaments and biological substances; Z88.0 Allergy status to penicillin; Z88.2 Allergy status to sulfonamides
CPT/HCPCS: 36415; 80053; 81001; 85025; 87086; 87088; 87186; 99283